=== PATIENT | male | born 1950 | race Caucasian/White ===

== ENCOUNTER 2019-04-22 11:43 | Inpatient (IN) | payer OTHER, SELFPAY ==
[2019-04-22] VITALS (10 sets, daily range): BP systolic 121–144; BP diastolic 64–78; PULSE 66–100; RESP 18–26; TEMP 36.9–38.2; O2SAT 92–98; BMI 30.4
--- NOTE | 2019-04-22 14:01 | USCV_ITS ---
Robbie Penny Age: 69 Gender: M : 1950 Exam Date: 04/22/2019 14:20 Ordering Phys: Kemi Hunt Technologist: Celina Zavala Exam Location: [facility] [place] Indication: pain/swelling RLE HISTORY: RLE pain/swelling PROCEDURES: On the right side, the common femoral, superficial femoral, profunda femoral, popliteal, posterior tibial, greater saphenous veins and the peroneal trunk were identified and interrogated in the standard fashion. These veins were found to be easily compressible with spontaneous blood flow. FINDINGS: No DVT or superficial thrombus in RLE CONCLUSIONS No evidence of right lower extremity DVT. Johnnie Murphy MD (Electronically Signed) Final Date: 22 April 2019 15:16 S
[2019-04-22 14:25] LABS: Basophils # 0.1 10^3/uL (0.0-0.1); Basophils % 0.3 %; Hematocrit 44.3 % (42.0-52.0); Hemoglobin 14.7 g/dL (11.7-16.6); Lymphocytes # 1.2 10^3/uL (0.8-4.8); Lymphocytes % 6.5 %; Mean Corpuscular HGB Conc 33.2 g/dL (30.0-36.0); Mean Corpuscular Hemoglobin 31.5 pg (28.0-34.0); Mean Corpuscular Volume 95.1 fL (80-94); Mean Platelet Volume 9.7 fL (7.4-10.4); Monocytes # 1.9 10^3/uL (0.2-0.9); Monocytes % 10.1 %; Neutrophils # 15.7 10^3/uL (1.8-7.7); Neutrophils % 82.2 %; Nucleated Red Blood Cells % 0 %; Platelet Count 341 10^3/cmm (130-400); Red Blood Count 4.66 10^6/uL (4.1-5.3); Red Cell Distribution Width 13.2 % (12.1-15.1); White Blood Count 19.1 10^3/uL (4.0-10.0)
--- NOTE | 2019-04-22 14:27 | ED_ITS ---
Entered by Andrew Kaur, acting as scribe for Anthony Mcdowell DO HPI - Fever General: Chief Complaint: Fever Stated Complaint: right leg pain Time Seen by Provider: 04/22/19 14:40 History of Present Illness: HPI Narrative: 69 yo male presents with male presents fever and right leg pain. Pt had a CABG done 04/08/19, he has some fever, pain and general malaise. Pt states that he takes blood thinners and baby aspirin. Pt states that he feels weak. Denies any chest pain beyond what he had experienced immediately postop with his sternotomy. He denies any significant shortness of breath. He has had some sweats and chills and is actually chilling when I seen the patient here in the emergency room today MD elicited complaint: fever and malaise Associated symptoms: Reports chills and extremity pain (right leg); Deny abdominal pain, back/flank pain, chest pain, confusion, diarrhea, dysuria, headache(s), nasal congestion, nausea or vomiting Review of Systems Const: Reports: fever, chills and malaise Eyes: Denies: change in vision, blurry vision or eye redness ENMT: Denies: throat pain, oral sores/lesions, dental pain, nasal discharge or nasal congestion Card: Denies: chest pain, palpitations, irregular heart rhythm, edema, syncope, shortness of breath on exertion, shortness of breath when lying down or leg pain with exertion Resp: Denies: shortness of breath, productive cough, non-productive cough or wheezing GI: Denies: abdominal pain, nausea, vomiting, vomiting blood, coffee grounds in vomit, difficulty swallowing, heartburn/indigestion, diarrhea, constipation, cramping, blood in stool or black tarry stool : Denies: flank pain, difficulty urinating, painful urination, urinary f requency, urinary urgency, urinary incontinence or blood in urine Musc: Reports: extremity pain (right leg) Skin/Breast: Reports: redness; Denies: rash or itching Neuro: Denies: headache, numbness in extremities, weakness in extremities, changes in sensation, lack of coordination, difficulty walking, frequent falls, dizziness, vertigo or confusion Psych: Denies: anxiety, depression, loss of interest, visual hallucinations, auditory hallucinations, suicidal ideation or homicidal ideation Endo: Denies: excessive urination, excessive thirst, tired all the time or cold intolerance Lukas/Lymph: Denies: easy bruising, easy bleeding, petechiae, enlarged lymph nodes or tender lymph nodes PFSH ED PFSH: Statuses (acute, chronic, etc) shown below reflect problem list status as previously entered and may not be historically accurate Medical History 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 (Acute) Hypertension (Acute) Peripheral vascular disease (Acute) Surgical History History of peripheral artery bypass (Acute) Hx of CABG (Acute) Family History Father Family history of premature coronary artery disease Hyperlipidemia Hypertension Social History Smoking and tobacco status: former smoker Alcohol intake: never Substance/Drug Use: never Household members: spouse Marital status: Physical Exam Const: COMMON NORMALS: average body habitus, oriented x3 and alert GENERAL APPEARANCE: cooperative, comfortable, well kempt and well developed NUTRITIONAL APPEARANCE: obese ORIENTATION/CONSCIOUSNESS: Yes awake, Yes oriented to person and Yes oriented to place HENMT: COMMON NORMALS: normocephalic, head/scalp atraumatic, EAC's normal, TM 's normal bilaterally, external nose normal, moist oral mucous membranes and oropharynx normal HEAD & SCALP: normocephalic and atraumatic NOSE: ex ternal nose normal EXTERNAL AUDITORY CANAL: EAC's normal TYMPANIC MEMBRANE: TM's normal bilaterally MOUTH: oral and palatal mucosa normal, lip normal and tongue normal THROAT: posterior oropharynx normal and tonsils normal Eye: COMMON NORMALS: PERRL, EOMs intact bilaterally, conjunctivae normal and no scleral icterus CONJUNCTIVA: Yes conjunctivae normal PUPIL: Yes PERRL Neck/C-Spine: COMMON NORMALS: full ROM, no lymphadenopathy, supple, no meningeal signs and thyroid normal THYROID: thyroid normal and asymmetrical Lymph: LYMPHATIC: no lymphadenopathy noted Resp: COMMON NORMALS: normal respiratory effort, no retractions, no use of accessory muscles and clear to auscultation bilaterally AUSCULTATION: clear to auscultation bilaterally Cardio: COMMON NORMALS: regular rate and regular rhythm RATE: regular rate RHYTHM: regular rhythm HEART SOUNDS: no murmurs GI: COMMON NORMALS: normal to inspection, nondistended, normoactive bowel sounds, soft to palpation and no hepatosplenomegaly PALPATION: Yes soft and Yes no hepatosplenomegaly : COMMON NORMALS: Yes no CVA tenderness BLADDER/KIDNEY EXAM: Yes no CVA tenderness Back/Pelvis: COMMON NORMALS: no CVA tenderness LUMBAR SPINE/LOWER BACK: Yes normal to inspection Extremity: NARRATIVE EXTREMITY EXAM: Mild right calf tenderness over the incision site on the right lower leg medially there is mild redness and tenderness calf itself is not particularly tender does not seem to have a positive Homans but is difficult to tell because the tenderness around the incision site. He does have dehiscence of the wound inferiorly through the full-thickness and a small area at the groin incision site there is no sign of infection there and is nontender there is no lymphadenopathy there is no popliteal lymphadenopathy or inguinal lymphadenopathy on the right leg. The left leg is surgically absent below the knee. Neuro: COMMON NORMALS: oriented x3 SENSORIUM/ORIENTATION: Yes alert, Yes oriented to person and Yes oriented to place MENINGEAL SIGNS: Yes no meningeal signs Psych: APPEARANCE: Yes well kempt Skin: COMMON NORMALS: no rashes or lesions noted and skin turgor normal GENERAL SKIN EXAM: no rashes or lesions noted and turgor normal Course ED course: Patient has an elevated white count with a left shift. Given the findings on exam and the tenderness I do think he has a cellulitis ultrasound shows no DVT but there is some subcutaneous tissue changes consistent with cellulitis there as well. Blood cultures completed due to his allergies to cephalosporins we went ahead and put him on vancomycin. Discussed with the hospitalist they will accept the patient for admission for IV antibiotics. Vital Signs: Vital signs: Vital Signs Temperature 98.9 F 04/23/19 10:53 Pulse Rate 75 04/23/19 10:53 Respiratory Rate 20 H 04/23/19 10:53 Blood Pressure 120/69 04/23/19 10:53 Pulse Oximetry 97 04/23/19 10:53 MDM - Fever Lab Data: Labs: Lab Results 04/22/19 04/22/19 Range/Units 14:17 14:17 WBC 19.1 H (4.0-10.0) 10^3/ uL RBC 4.66 (4.1-5.3) 10^6/u L Hgb 14.7 (11.7-16.6) g/dL Hct 44.3 (42.0-52.0) % MCV 95.1 H (80-94) fL MCH 31.5 (28.0-34.0) pg MCHC 33.2 (30.0-36.0) g/dL RDW 13.2 (12.1-15.1) % Plt Count 341 (130-400) 10^3/c mm MPV 9.7 (7.4-10.4) fL Neut % (Auto) 82.2 % Lymph % (Auto) 6.5 % Madison % (Auto) 10.1 % Eos % (Auto) 0.0 % Baso % (Auto) 0.3 % Neut # (Auto) 15.7 H (1.8-7.7) 10^3/u L Lymph # (Auto) 1.2 (0.8-4.8) 10^3/u L Madison # (Auto) 1.9 H (0.2-0.9) 10^3/u L Eos # (Auto) 0.0 (0.0-0.8) 10^3/u L Baso # (Auto) 0.1 (0.0-0.1) 10^3/u L Nucleated RBC % (a uto) 0 % Nucleated RBCs # 0.0 /100WBC Sodium 132 L (136-145) mmol/L Potassium 4.4 (3.5-5.1) mmol/L Chloride 94 L (98-107) mmol/L Carbon Dioxide 24 (22-29) mmol/L Anion Gap 18.4 (5-19) BUN 19 (8-23) mg/dL Creatinine 1.3 H (0.7-1.2) mg/dL Glucose 199 H (74-106) mg/dL Calcium 10.0 (8.8-10.2) mg/Dl Total Bilirubin 0.9 (0.15-1.2) mg/dL AST 19 (0-40) U/L ALT 21 (0-41) U/L Alkaline Phosphata se 116 (40-130) IU/L Total Protein 8.5 (6.6-8.7) g/dL Albumin 4.4 (3.5-5.2) g/dL Globulin 4.1 (1.3-4.6) g/dL Discharge Plan Discharge Patient Disposition: Placed in Observation Admit Provider: Nam Croft Clinical Impression: Cellulitis, Peripheral vascular disease, Hypertension, Hx of coronary artery disease Interventions: ED Discharge Assessment Last Done: 04/22/19 19:42 Discharge Date/Time: 04/22/19 19:43 Coding Level of Care Code ED Removable Prosthodontist for Chg Fwd Exam Problem Focused The documentation recorded by the Vincent hawk Kialy, accurately reflects the service I personally performed and the decisions made by Jeremias diamond Curtis L, Apr 22, 2019 11:43
[2019-04-22 14:40] LABS: Alanine Aminotransferase 21 U/L (0-41); Albumin Level 4.4 g/dL (3.5-5.2); Alkaline Phosphatase 116 IU/L (40-130); Anion Gap 18.4 (5-19); Aspartate Amino Transferase 19 U/L (0-40); Blood Urea Nitrogen 19 mg/dL (8-23); Carbon Dioxide 24 mmol/L (22-29); Chloride 94 mmol/L (98-107); Globulin 4.1 g/dL (1.3-4.6); Glucose 199 mg/dL (74-106); Potassium 4.4 mmol/L (3.5-5.1); Sodium 132 mmol/L (136-145); Total Bilirubin 0.9 mg/dL (0.15-1.2); Total Protein 8.5 g/dL (6.6-8.7)
[2019-04-22] MEDS: vancomycin 1,000 MG in sodium chloride 0.9% 250 ML 250 MG IV (15:47)
--- NOTE | 2019-04-22 16:31 | PC.NURSE ---
Rounded on patient. Patient resting in bed. No distress noted. Patient had blood tinted drainage on the blanket. This RN checked the patients leg. Patient had a wound on the right leg. Patient reports the wound is from his bypass. Patients leg very red, warm to touch, and weeping. Patients leg bandaged with telfa and tube gauze. Will continue to monitor patient.
--- NOTE | 2019-04-22 18:26 | PC.NURSE ---
Admitting physician at patients bedside.
--- NOTE | 2019-04-22 18:30 | P.HP_ITS ---
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 Presented to ER as incision for bypass st arted weeping serosanginuous fluid acutely for last 3 days. This was preceeded by redness of calf muscle for last 4-5 days along with mild pain. Pior to that wound was doing well. [place]ingo any foul smeelinh d/c or trauma to th leg. Review of Systems Narrative: Pain and swelling along with discharge of right leg, left leg BKA Const: Denies: fever, chills, body aches, change in appetite, malaise, night sweats, diaphoresis, change in sleep pattern, daytime sleepiness or snoring Eyes: Denies: change in vision, blurry vision, photophobia, eye discomfort or eye discharge ENMT: Denies: throat pain, enlarged tonsils, hoarseness, mouth pain, oral sores/lesions, dry mouth, tinnitus, nasal congestion or post nasal drip Card: Denies: chest pain, palpitations, irregular heart rhythm, edema, swelling of feet/ankles, lightheadedness, syncope, pre-syncope, shortness of breath on exertion, shortness of breath when lying down, leg pain with exertion or bluish discoloration of hands/feet Resp: Denies: shortness of breath, productive cough, non-productive cough, wheezing, stridor, pain on inspiration, change in phlegm color, coughing up blood or chest congestion GI: Denies: abdominal pain, nausea, vomiting, vomiting blood, coffee grounds in vomit, difficulty swallowing, heartburn/indigestion, diarrhea, constipation, bloating, cramping, change in bowel habits, painful bowel movements, blood in stool or black tarry stool : Denies: flank pain, difficulty urinating, painful urination, urinary frequency, urinary urgency, urinary hesitancy, urinary dribbling, difficulty starting urination, change in urine stream, nighttime urination or blood in urine Musc: Denies: neck pain, back pain, extremity pain, joint pain, joint swelling, redness, joint stiffness or limited range of motion Neuro: Denies: headache, numbness in extremities, weakness in extremities, changes in sensation, lack of coordination, difficulty walking, frequent falls, dizziness, vertigo, confusion, slurred speech, difficulty communicating thoughts or seizure-like activity Psych: Denies: anxiety, depression, mood swings, panic attacks, hopelessness or irritability Endo: Denies: excessive urination, excessive thirst, tired all the time, cold intolerance, excessive sweating, flushing or heat intolerance Lukas/Lymph: Denies: easy bruising or easy bleeding All/Imm: Denies: tongue swelling, facial swelling or acute wheezing Medications/Allergies Home Medications Medication Instructions Recorded Confirmed Last Taken Type acetaminophen 500 mg PO Q6H PRN 04/22/19 04/22/19 04/22/19 History aspirin 81 mg PO DAILY 04/22/19 04/22/19 04/21/19 History clopidogrel 75 mg PO DAILY 04/22/19 04/22/19 04/21/19 History docusate sodium 100 mg PO BID PRN 04/22/19 04/22/19 Unknown History hydrocodone-acetaminophen 1 tab PO Q6H PRN 04/22/19 04/22/19 Unknown History Allergies Allergy/AdvReac Type Severity Reaction Status Date / Time ceftriaxone [From Rocephin] Allergy ALGY-Anaphy Verified 04/22/19 12:35 laxis PFSH Acute PFSH: Statuses (acute, chronic, etc) shown below reflect problem list status as previously entered and may not be historically accurate Medical History (Updated 04/22/19 @ 22:55 by Nam Croft MD) 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 (Acute) Hypertension (Acute) Peripheral vascular disease (Acute) Surgical History (Updated 04/22/19 @ 23:14 by Nam Croft MD) History of peripheral artery bypass (Acute) Hx of CABG (Acute) Family History (Updated 04/22/19 @ 23:15 by Nam Croft MD) Father Family history of premature coronary artery disease Hyperlipidemia Hypertension Social History (Updated 04/22/19 @ 23:16 by Nam Croft MD) Smoking and tobacco status: former smoker Alcohol intake: never Substance/Drug Use: never Household members: spouse Marital status: Vitals/I&O/Wt Last Vital Signs Temp 100.8 F H 04/22/19 19:59 Pulse 100 04/22/19 19:59 Resp 20 H 04/22/19 19:59 BP 134/68 04/22/19 19:59 Pulse Ox 96 04/22/19 20:14 04/22/19 04/22/19 04/22/19 06:59 14:59 22:59 Intake Total 2.5 / 2.5 Output Total 100 / 100 Balance -97.5 / -97.5 Weight last 48 hrs Weight 107.501 kg Physical Exam Const: COMMON NORMALS: no apparent distress, average body habitus, oriented x3, no limitations, healthy appearing, alert and well nourished GENERAL APPEARANCE: cooperative, comfortable, well kempt and well developed HENMT: COMMON NORMALS: normocephalic and head/scalp atraumatic Eye: COMMON NORMALS: PERRL and EOMs intact bilaterally Chest: COMMONS NORMALS: inspection of chest normal, palpation of chest normal and palpation of breasts normal Resp: COMMON NORMALS: normal respiratory effort, no use of accessory muscles and clear to auscultation bilaterally Cardio: COMMON NORMALS: regular rate and regular rhythm JUGULAR VENOUS DISTENTION: no JVD HEART SOUNDS: S1 normal, S2 normal and no murmurs GI: COMMON NORMALS: normal to inspection, nondistended, normoactive bowel sounds, soft to palpation, non-tender, no hepatosplenomegaly, no masses and no bruits : COMMON NORMALS: Yes no CVA tenderness Extremity: NARRATIVE EXTREMITY EXAM: Left BKA Right medial redness and warmth present in medial calf region. Surgical incision present- serosanginous discharge present. dressed, no foul smell Data Micro: Micro: Microbiology 04/22/19 14:57 Blood Culture - Pr eliminary Blood SPECIMEN [facility] YESI 04/22/19 14:59 Blood Culture - Pr eliminary Blood SPECIMEN [facility] A&P Assessment and plan (1) Cellulitis: Status: Acute Code(s): L03.90 - Cellulitis, unspecified (2) Peripheral vascular disease: Status: Acute Code(s): I73.9 - Peripheral vascular disease, unspecified (3) Hypertension: Status: Acute Code(s): I10 - Essential (primary) hypertension Additional A&P Information Additional A&P Information: Cellulitis: Check ESR, CRP, X ray of leg to r/o bone involvement, abx coverage with vancomycin to cover for GP coverage + Aztreonam as patient is ceftriaxone allergic. Will do higher dose in view of possible endovascular compromise along with recent graft surgery. [id number] Wound care Tylenol for pain control along with home dose of hydrocodone h/o graft: not sure of the vessels grafted. Will need documents from OSH about details of Sx. c/w ASA and plavix. Not on statins. Will check lipid panel in AM. A1c in AM HTN: BP well controlled off any meds. Will continue to monitor FC Cardiac diet Heparin for DVT ppx Attestations Medical Necessity Statement*: Needs more than 2 midnights for cellulites vs endovascular infection Coding Level of Care Code Acute Material Movers for [facility] Fwd Diagnoses Cellulitis L03.90 Peripheral vascular disease I73.9 Hypertension I10
--- NOTE | 2019-04-22 19:42 | PC.NURSE ---
Patient resting comfortably. Pt complains of no pain at present. Pt states that pain is present when weight is applied. Pt has no needs at present. Call light placed within reach.
[2019-04-22 21:39] LABS: Chol HDL Ratio 4.26 mg/dL (1.0-5.00); Cholesterol 115 mg/dL (0-200); HDL Cholesterol 27 mg/dL (60-100); LDL Cholesterol Calculated 42 mg/dL (50-129); LDL HDL Ratio 1.56 RATIO (0.00-3.22); Thyroid Stimulating Hormone 0.53 uIU/mL (0.27-4.20); Triglycerides 229 mg/dL (0-150)
[2019-04-22 21:50] LABS: INR 1.24 (0.8-1.2)
[2019-04-22] MEDS: heparin 5,000 unit/mL INJ 1 mL 5000 UNIT SUBCUT (21:58)
[2019-04-22 22:03] LABS: Estmated Average Glucose 128; Hemoglobin A1C 6.1 % (4.0-6.0)
[2019-04-22] MEDS: acetaminophen 500 mg Tablet PO (22:04)
[2019-04-22] MEDS: sodium chloride 0.9% 1,000 ML 75 ML IV (22:08)
[2019-04-22] MEDS: aztreonam 1,000 MG in sodium chloride 0.9% (plus) 50 ML 100 MG IV (22:10)
[2019-04-23] VITALS: BP 131/64; PULSE 78; RESP 18; TEMP 36.9; O2SAT 98
[2019-04-23 04:00] VITALS: BP 102/61; PULSE 69; RESP 18; TEMP 37.7; O2SAT 95
--- NOTE | 2019-04-23 04:00 | XR_ITS ---
WS: [id number] Right leg including the tibia and fibula, 04/23/2019 Clinical Data: r/o bone involvement Comparison: None. Findings: No fractures or dislocations are seen. The tibia and fibula are intact. . There are clips in the subcutaneous soft tissue of the right leg in the proximal and medial portions. A total right knee arthroplasty has been performed. The components are in good position. No bone marck truction or erosion is seen. XR/XR tibia fibula RT 2V [id number] Impression: 1. Right knee arthroplasty. 2. Negative for fracture or bone destruction.
[2019-04-23 05:34] LABS: Basophils # 0.1 10^3/uL (0.0-0.1); Basophils % 0.4 %; Eosinophils % 0.1 %; Hematocrit 35.9 % (42.0-52.0); Lymphocytes # 1.1 10^3/uL (0.8-4.8); Lymphocytes % 8.1 %; Mean Corpuscular HGB Conc 33.4 g/dL (30.0-36.0); Mean Corpuscular Hemoglobin 31.7 pg (28.0-34.0); Mean Corpuscular Volume 94.7 fL (80-94); Mean Platelet Volume 10.4 fL (7.4-10.4); Monocytes # 1.3 10^3/uL (0.2-0.9); Monocytes % 9.8 %; Neutrophils # 10.9 10^3/uL (1.8-7.7); Neutrophils % 80.8 %; Nucleated Red Blood Cells % 0 %; Platelet Count 254 10^3/cmm (130-400); Red Blood Count 3.79 10^6/uL (4.1-5.3); Red Cell Distribution Width 13.2 % (12.1-15.1); White Blood Count 13.5 10^3/uL (4.0-10.0)
[2019-04-23 05:51] LABS: Anion Gap 15.1 (5-19); Blood Urea Nitrogen 25 mg/dL (8-23); Carbon Dioxide 22 mmol/L (22-29); Chloride 100 mmol/L (98-107); Cholesterol 106 mg/dL (0-200); Glucose 182 mg/dL (74-106); Potassium 4.1 mmol/L (3.5-5.1); Sodium 133 mmol/L (136-145); Triglycerides 195 mg/dL (0-150); VLDL Cholestrol Calculation 39 mg/dL (0-30)
[2019-04-23 07:15] VITALS: BP 120/80; PULSE 75; RESP 18; TEMP 37.3; O2SAT 96
[2019-04-23 07:51] LABS: C Reactive Protein 219.9 mg/L (0.0-4.9)
[2019-04-23 08:01] LABS: Erythrocyte Sedimentation Rate 29 mm/hr (0-10)
[2019-04-23 08:40] LABS: Chol HDL Ratio 3.93 mg/dL (1.0-5.00); HDL Cholesterol 27 mg/dL (60-100); LDL Cholesterol Calculated 40 mg/dL (50-129)
[2019-04-23 08:50] LABS: Estmated Average Glucose 128; Hemoglobin A1C 6.1 % (4.0-6.0)
[2019-04-23] MEDS: clopidogrel 75 mg Tablet PO (09:47)
[2019-04-23] MEDS: aspirin 81 mg EC Tablet PO (09:47)
[2019-04-23] MEDS: heparin 5,000 unit/mL INJ 1 mL 5000 UNIT SUBCUT ×2 (09:47→16:08)
[2019-04-23] MEDS: sodium chloride 0.9% 1,000 ML 75 ML IV ×2 (09:48→22:04)
[2019-04-23] MEDS: sodium chloride 0.9% (plus) 100 ML (10:32)
[2019-04-23] MEDS: aztreonam 2,000 MG in sodium chloride 0.9% (plus) 100 ML 200 MG IV ×2 (10:33→19:41)
[2019-04-23 10:53] VITALS: BP 120/69; PULSE 75; RESP 20; TEMP 37.2; O2SAT 97
[2019-04-23 15:03] VITALS: BP 145/83; PULSE 74; RESP 18; TEMP 37.1; O2SAT 96
--- NOTE | 2019-04-23 15:10 | USCV_ITS ---
Robbie Penny Age: 69 Gender: M : 1950 Exam Date: 04/23/2019 15:23 Ordering Phys: Rebeca Anaya MD Technologist: Narciso Esparza [place] [facility] [place]ication: CHECK BY PASS GRAFT Risk Factors: Previous Vascular Surgery: RIGHT LEFT BP: 140.0 / 70.00 BP: 140.0/ 70.00 0 0 Waveform Velocity (cm/s) Velocity (cm/s) Waveform Monophasic 105.2 Iliac Prox Monophasic 102.5 Iliac Mid Monophasic 120.6 Iliac Distal Monophasic POP 45.9 Monophasic 22.1 STEAM [employer]TER [employer] Monophasic 22.0 DPA 0.7 MARII FINDINGS LT LEG AMPUTEE FOR VASCULAR DISEASE No Doppler flow signals were noted in the common femoral and the entire superficial femoral artery. and the dorsalis pedis arteries were found to be patent. Diminished resting MARII on the right side CONCLUSIONS Abnormal resting MARII on the right side with a patent femoropopliteal bypass graft. 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 No similar previous studies are available for comparison Dr Anju Galloway MD [facility] (Electronically Signed) Final Date: 24 April 2019 10:27 S
--- NOTE | 2019-04-23 15:12 | US_ITS ---
WS: [id number] ULTRASOUND SOFT TISSUES RIGHT thigh. HISTORY: look for depth of infection/underlying abscess, associated with the bypass graft. COMPARISON: None available. TECHNIQUE: 2-D and color Doppler imaging is submitted. Bypass graft is noted within the soft tissues of the RIGHT thigh. There is fluid surrounding the maxime t and the graft is patent. There is a large amount of fluid extending along a large portion of the gr aft to the mid thigh. Diameter of the largest pocket is 9 mm. There is no increased vascularity or wa ll involving the fluid collection. The depth from the skin surface to the fluid is about 1.7 cm to th e closest collection. Fluid extends over length of greater than 4 cm. US/ soft tissue/extremity [id number] IMPRESSION: Moderate amount of fluid surrounding the RIGHT thigh bypass graft. Bypass graft remains patent. Not well formed collection at this time. May be postoperative fluid or phlegmonous changes. Developing abscess should be considered also.
--- NOTE | 2019-04-23 15:12 | USCV_ITS ---
Robbie Penny Age: 69 Gender: M : 1950 Exam Date: 04/23/2019 15:37 Ordering Phys: Rebeca Anaya MD Technologist: Narciso Esparza [place] [facility] [place]: PRE OP RIGHT LEFT LOWER EXTREMITY Diameter Diameter (cm) (cm) 0.53 High Thigh 0.58 0.47 Mid Thigh 0.26 0.54 Above Knee 0.26 0.52 Below Knee 0.37 Mid Calf 0.21 Ankle RIGHT LEFT Findings BEST ON RT GSAPH LT OK LT LEG AMPUTEE BELOW THE KNEE The above-mentioned veins are found to be easily compressible. Conclusions 1. Normal venous dimensions bilaterally. 2. Patent veins with no evidence of thrombosis Dr Anju Galloway MD [facility] (Electronically Signed) Final Date: 23 April 2019 19:20 S
--- NOTE | 2019-04-23 17:05 | PM.CONSULT ---
Providers/Reason For Consult Consulting Physican/Specialty*: Dr. Anaya, hospitalist service Reason for Consult*: Status post right femoropopliteal bypass with draining wound Attending Physician: Rebeca Anaya MD History of Present Illness History of Present Illness Robbie Penny is a 69 year old male who is status post right femoropopliteal bypass April 08 at the [facility] in [facility]. Indications for the surgery, as reported by him, include claudication of the right lower extremity at about 100 yards. He reports noting some serous drainage coming from the wound distally beginning last Monday, 4 days ago. This has slowly progressed with now erythema in the distal incision, which is infra popliteal. There is now also some drainage of a cloudy nature coming from the more superior right groin wound. He is unclear as to the exact procedure or conduit utilized. He states he was informed by his surgeon that the procedure took 7 hours, typically substantially longer the routine femoropopliteal bypass. Upon inspection of his incisions, he appears to have had distally the bypass placed in the infrapopliteal location. I was present during my requested Doppler interrogation of this area. His graft appears to be patent and appears to be a ringed [place]-Adam graft. He was told by his surgeon that a small graft was used. I would suspect probably 6 mm. In addition, the duplex study revealed some fluid collection around the graft proximally which does dissipate toward the distal thigh and there is no other fluid collections noted more distally. It is unclear at this time as to whether this represents infected fluid or simply seroma from a recent bypass graft. His biggest complaint has been wound drainage over the past 4 days as well as erythema of the calf for the past 5 days with mild to moderate pain. 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 He denies systemic symptoms including, fever, chills, or night sweats. He was placed on vancomycin and aztreonam upon admission. Reports from his hospitalization of his recent surgery, including the operative report are pending. Review of Systems General: Reports: 10 or more systems reviewed and unremarkable except in HPI and below Const: Denies: fever, chills or body aches Card: Denies: chest pain or palpitations Resp: Denies: shortness of breath or productive cough Skin/Breast: Reports: changes in skin color (Increasing erythema of the right lower extremity incision) and surgical incision (Distal surgical incision erythema and drainage for the past 4 days, also including drainage of the proximal groin incision) Meds/Allergies Home Medications and Allergies Home Medications Medication Instructions Recorded Confirmed Type acetaminophen 500 mg PO Q6H PRN 04/22/19 04/22/19 History aspirin 81 mg PO DAILY 04/22/19 04/22/19 History clopidogrel 75 mg PO DAILY 04/22/19 04/22/19 History docusate sodium 100 mg PO BID PRN 04/22/19 04/22/19 History hydrocodone-acetaminophen 1 tab PO Q6H PRN 04/22/19 04/22/19 History Allergies Allergy/AdvReac Type Severity Reaction Status Date / Time ceftriaxone [From Rocephin] Allergy ALGY-Anaphy Verified 04/22/19 12:35 laxis Current Medications Current Medications Generic Name Dose Route Start Last Admin Trade Name Freq PRN Reason Stop Dose Admin Acetaminophen 500 mg 04/22/19 19:59 04/22/19 22:04 Tylenol PO 500 mg Q6H PRN Administration Pain Aspirin 81 mg 04/23/19 09:00 04/23/19 09:47 Aspirin Ec PO 81 mg DAILY ENRIKE Administration Clopidogrel Bisulfate 75 mg 04/23/19 09:00 04/23/19 09:47 Plavix PO 75 mg DAILY ENRIKE Administration Heparin Sodium (Beef Lung) 5,000 unit 04/22/19 23:15 04/23/19 16:08 Heparin SUBCUT 5,000 unit Q8H ENRIKE Administration Sodium Chloride 1,000 mls @ 75 mls/hr 04/22/19 19:59 04/23/19 09:48 Sodium Chloride 0.9% IV 75 mls/hr .[id number] ENRIKE Administration Vancomycin HCl 1,500 mg/ 250 mls @ 166.667 mls/hr 04/23/19 09:00 04/23/19 12:14 Sodium Chloride IV 166.7 mls/hr Q18H ENRIKE Administration PFSH Acute PFSH: Statuses (acute, chronic, etc) shown below reflect problem list status as previously entered and may not be historically accurate Medical History 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 (Acute) Hypertension (Acute) Peripheral vascular disease (Acute) Surgical History History of peripheral artery bypass (Acute) Hx of CABG (Acute) Family History Father Family history of premature coronary artery disease Hyperlipidemia Hypertension Social History Smoking and tobacco status: former smoker Alcohol intake: never Substance/Drug Use: never Household members: spouse Marital status: Vitals/I&O/Wt Last Vital Signs Temp 98.7 F 04/23/19 15:03 Pulse 74 04/23/19 15:03 Resp 18 04/23/19 15:03 BP 145/83 04/23/19 15:03 Pulse Ox 96 04/23/19 15:03 04/23/19 04/23/19 04/23/19 06:59 14:59 22:59 Intake Total 720 / 720 Output Total 260 / 360 250 / 250 Balance -260 / -357.5 470 / 470 Weight last 48 hrs Weight 237 lb Physical Exam Const: COMMON NORMALS: no apparent distress, average body habitus and oriented x3 GENERAL APPEARANCE: cooperative and well developed HENMT: COMMON NORMALS: normocephalic HEAD & SCALP: normocephalic Neck/C-Spine: COMMON NORMALS: full ROM and no JVD; negative for no lymphadenopathy GENERAL: Yes normal visual inspection CAROTIDS: Yes normal carotid upstroke and No bruit Chest: COMMONS NORMALS: inspection of chest normal Resp: COMMON NORMALS: normal respiratory effort and clear to auscultation bilaterally; negative for no retractions AUSCULTATION: clear to auscultation bilaterally Cardio: COMMON NORMALS: no JVD, regular rate, regular rhythm, S1 normal heart sound, S2 normal heart sound, no gallops, no murmurs and no rub RATE: regular rate RHYTHM: regular rhythm HEART SOUNDS: S1 normal and S2 normal BRUITS: no carotid bruits PERIPHERAL PULSES: dorsalis pedis pulses not present Extremity: GENERAL: Yes amputation (Left BKA, well-healed) RIGHT LOWER EXTREMITY: Yes upper leg (Slightly turbid drainage from the proximal groin incision which is beginning to separate.) and Yes lower leg (Approximately 15 cm incision with the drainage in the proximal portion of cloudy fluid. There is associated erythema.) Neuro: COMMON NORMALS: oriented x3, no focal motor deficits and no sensory deficits noted (Mildly decreased sensation of the feet bilaterally) SPEECH: speech normal Data Micro: Micro: Microbiology 04/22/19 14:59 Blood Culture - Pr eliminary Blood NEGATIVE TO CRISTY E 04/22/19 14:57 Blood Culture - Pr eliminary Blood NEGATIVE TO CRISTY E A&P Assessment and plan (1) Status post femoral-popliteal bypass surgery: Status post right femoral distal popliteal bypass April 08, now with slightly cloudy drainage from both the groin incision and the proximal medial right leg incision. Graft is patent by Doppler study with Kelly-graft fluid noted in the proximal one third from the groin to the mid thigh region. Patent graft by Doppler examination. I had a lengthy conversation with Mr. Penny and his with concerns of possible prosthetic graft infection from his recent femoral-popliteal bypass. The wounds are of concern by observation and the perigraft fluid the proximal portion of the graft is also of concern. He does not appear to be systemic from this process at this time, though he does have a modestly elevated white count and perigraft fluid. We are awaiting arrival of his hospital documentation from [place] of last month, including the operative report. I discussed very frankly with him and his that we may not be able to revise this graft if there is indeed evidence for graft infection and that medical treatment of such an infection rarely is successful without removal of the graft, which of course could present acute ischemia to the right leg revascularization not attempted. I have performed bilateral greater saphenous vein mapping and he does appear to have conduit that may be reasonable to consider reverse saphenous vein graft replacement of his [place]-Adam graft, if indeed it is determined to be infected. Due to his prior left BKA, if this were undertaken, which is technically challenging, we may have to actually utilize vein from both legs for such an approach in order to reach the target. There is clearly a substantial chance that if the prosthetic graft is infected, revascularization may be unsuccessful and may need to major amputation including right BKA or AKA. Mr. Penny stated understanding. For this discussion, it appears that clearly this was a technically challenging procedure back in March since he reports the procedure took approximately 7 hours. At present, I will continue current antibiotic course and meticulous wound care. Leg elevation as much as possible. DVT prophylaxis. We will review records when they are available and I will keep in close contact with Dr. Anaya. Status: Acute Code(s): Z95.828 - Presence of other vascular implants and grafts Consult Attestations Medical Necessity Statement: Surgical site wound infection status post right femoropopliteal bypass Time Spent in Patient Care: Greater than 35 minutes (60 minutes) Coding Level of Care Code Acute Gas Producer for Chg Fwd Exam Problem Focused Diagnoses Status post femoral-popliteal bypass surgery Z95.828
--- NOTE | 2019-04-23 17:49 | PM.PN ---
Subjective Subjective: Interval history: tmax 100.8F overnight. States pain in leg is improved. Upon opening the dressing there is noted to be copious amount of pus that is coming out from the top of the incision site. This has been swabbed some pus has been collected and sent for cultures. Wound has been redressed for now. Overall very high concern for underlying graft infection for which patient is undergoing duplex imaging at this time. Blood culture remains negative at this time. Medications: Reviewed: Yes Vitals/I&O/Wt Last Vital Signs Temp 98.7 F 04/23/19 15:03 Pulse 74 04/23/19 15:03 Resp 18 04/23/19 15:03 BP 145/83 04/23/19 15:03 Pulse Ox 96 04/23/19 15:03 04/23/19 04/23/19 04/23/19 06:59 14:59 22:59 Intake Total 720 / 720 Output Total 260 / 360 250 / 250 Balance -260 / -357.5 470 / 470 Weight last 48 hrs Weight 107.501 kg Physical Exam Narrative: EXAM NARRATIVE: General awake alert and oriented x3 CVS S1-S2 is normal Respiratory system is clear to auscultation bilaterally Abdomen is soft nondistended and nontender Extremity left leg is status post below-knee amputation. Right calf present open, underlying gauze noted to be soaked with pus. Additional pus is seen no oozing from top of the incision site. No gross surrounding cellulitis is present. Data Micro: Micro: Microbiology 04/22/19 14:59 Blood Culture - Pr eliminary Blood NEGATIVE TO CRISTY E 04/22/19 14:57 Blood Culture - Pr eliminary Blood NEGATIVE TO CRISTY E A&P Assessment and plan (1) Cellulitis: Status: Acute Code(s): L03.90 - Cellulitis, unspecified (2) Peripheral vascular disease: Status: Acute Code(s): I73.9 - Peripheral vascular disease, unspecified (3) Hypertension: Status: Acute Code(s): I10 - Essential (primary) hypertension Additional A&P Information Additional A&P Information: Cellulitis: High possibility of underlying abscess given gross pus discharge today. Pus has been sampled and sent for culture. Until then we will continue empiric coverage with aztreonam and vancomycin. Patient reports anaphylactic allergy with cephalosporins therefore at this time would not like to use the beta-lactam class of antibiotics. Reassuringly leukocytosis is trending down. Very high concern for underlying graft infected. Based on nuclear imaging obtained at bedside today it appears to be an ileal popliteal bypass. [facility] We are awaiting fax over of these documents. In the interim we will obtain an arterial duplex, saphenous vein mapping in anticipation of any further procedures and soft tissue ultrasound to assess for the depth of infection. Vascular surgery consult with Dr. Bettencourt HTN: BP well controlled off any meds. Will continue to monitor Peripheral vascular disease continue aspirin and clopidogrel. Patient is 2 weeks postop from likely ileo-popliteal bypass. FC Cardiac diet Heparin for DVT ppx Attestations Medical Necessity Statement*: Admitted for the management of possible vascular graft infection. Coding Level of Care Code Acute Gypsum Roofer for Davis Suzette Diagnoses Cellulitis L03.90 Peripheral vascular disease I73.9 Hypertension I10
[2019-04-23 20:00] VITALS: BP 136/77; PULSE 68; RESP 20; TEMP 36.8; O2SAT 97
[2019-04-24] VITALS: BP 100/59; PULSE 64; RESP 20; TEMP 36.7; O2SAT 96
[2019-04-24] MEDS: heparin 5,000 unit/mL INJ 1 mL 5000 UNIT SUBCUT ×4 (01:09→23:49)
[2019-04-24] MEDS: aztreonam 2,000 MG in sodium chloride 0.9% (plus) 100 ML 200 MG IV ×3 (03:39→18:17)
[2019-04-24 04:00] VITALS: BP 116/69; PULSE 62; RESP 17; TEMP 36.5; O2SAT 97
[2019-04-24 05:59] LABS: Basophils % 0.7 %; Eosinophils # 0.1 10^3/uL (0.0-0.8); Eosinophils % 2.2 %; Hematocrit 36.1 % (42.0-52.0); Lymphocytes % 17.1 %; Mean Corpuscular HGB Conc 33.2 g/dL (30.0-36.0); Mean Corpuscular Hemoglobin 32.9 pg (28.0-34.0); Mean Corpuscular Volume 98.9 fL (80-94); Mean Platelet Volume 10.1 fL (7.4-10.4); Monocytes # 0.6 10^3/uL (0.2-0.9); Monocytes % 9.9 %; Neutrophils # 4.1 10^3/uL (1.8-7.7); Neutrophils % 69.4 %; Nucleated Red Blood Cells % 0 %; Platelet Count 204 10^3/cmm (130-400); Red Blood Count 3.65 10^6/uL (4.1-5.3); Red Cell Distribution Width 13.2 % (12.1-15.1); White Blood Count 5.8 10^3/uL (4.0-10.0)
[2019-04-24 06:18] LABS: Alanine Aminotransferase 17 U/L (0-41); Albumin Level 3.4 g/dL (3.5-5.2); Alkaline Phosphatase 71 IU/L (40-130); Anion Gap 13.9 (5-19); Aspartate Amino Transferase 21 U/L (0-40); Blood Urea Nitrogen 16 mg/dL (8-23); Calcium 8.7 mg/Dl (8.8-10.2); Carbon Dioxide 23 mmol/L (22-29); Chloride 103 mmol/L (98-107); Globulin 3.1 g/dL (1.3-4.6); Glucose 139 mg/dL (74-106); Potassium 3.9 mmol/L (3.5-5.1); Sodium 136 mmol/L (136-145); Total Bilirubin 0.4 mg/dL (0.15-1.2); Total Protein 6.5 g/dL (6.6-8.7)
[2019-04-24 07:31] VITALS: BP 127/72; PULSE 67; RESP 18; TEMP 36.8; O2SAT 97
[2019-04-24] MEDS: aspirin 81 mg EC Tablet PO (09:45)
[2019-04-24] MEDS: clopidogrel 75 mg Tablet PO (09:45)
--- NOTE | 2019-04-24 09:58 | P.PN_ITS ---
Subjective Subjective: Interval history: No complaints this morning. I reviewed the wounds. The right groin wound was not covered as requested. The right lower leg wound did have a dressing from yesterday in place and there was some strikethrough, though this was decreased from my original exam yesterday. The strikethrough and drainage is coming from the superior 3 to 4 cm of the right leg wound. He has no specific complaints. No leg pain. Denies fever or chills. Appetite is good. White count has now normalized. He has been afebrile for over 24 hours. I did confer with my colleague, Dr. Anaya this morning. Given the clinical improvement as well as resolution of leukocytosis, I recommend continued medical management and IV antibiotics and meticulous wound care. I carefully instructed this with the nurse who is at bedside and have reiterated this in physician orders. Some records from the outside hospital did arrive and date back to 2010. Pertinent information includes an arteriogram which was a CTA with runoff. This was performed December 07. It describes persistent occlusion of the bilateral SFAs and popliteal arteries with diminutive flow in the right leg and no visualized flow in the right foot. While this is described in the summary, the actual description of the right lower extremity states patent right SFA including occlusion in the course with a mid stent in the SFA. Right popliteal artery is occluded at the trifurcation. A diminutive anterior tibial artery is described. A patent peroneal artery is noted. While I do not have the operative report, I do have a discharge summary of April 10, 2019. It describes that a femoral to peroneal artery bypass with PTFE graft was utilized. Vitals/I&O/Wt Last Vital Signs Temp 98.3 F 04/24/19 07:31 Pulse 67 04/24/19 07:31 Resp 18 04/24/19 07:31 BP 127/72 04/24/19 07:31 Pulse Ox 97 04/24/19 07:31 04/23/19 04/24/19 04/24/19 22:59 06:59 14:59 Intake Total 1700 / 2670 Output Total 1100 / 1350 Balance 1700 / 2420 -1100 / 1320 Weight last 48 hrs Weight 208 lb 4.8 oz Weight 237 lb Physical Exam Extremity: OTHER: Right groin wound remains with maceration though minimal discharge. The right lower leg wound has discharge from the superior 3 to 4 cm. This appears to have decreased somewhat though is still present. Erythema does appear to be improved. Data Micro: Micro: Microbiology 04/22/19 14:59 Blood Culture - Pr eliminary Blood NEGATIVE TO CRISTY E 04/22/19 14:57 Blood Culture - Pr eliminary Blood NEGATIVE TO CRISTY E A&P Assessment and plan (1) Status post femoral-popliteal bypass surgery: Approximate 3-week status post right femoropopliteal bypass utilizing [place]-Adam graft with incision drainage and cellulitis Status: Acute Code(s): Z95.828 - Presence of other vascular implants and grafts (2) Cellulitis: Erythema is improved. Drainage has slightly decreased. Leukocytosis has resolved Afebrile for over 24 hours Ultimate outcome of this is still unclear, though I do think that if exploration is required with removal of the graft and possible in situ saphenous vein graft interposition in attempt to maintain revascularization, there is a substantial probability for major amputation being required. Therefore, currently, I recommend continued medical management. Status: Acute Code(s): L03.90 - Cellulitis, unspecified Attestations Medical Necessity Statement*: Postsurgical incision drainage with cellulitis; status post right femoropopliteal bypass approximately 3 weeks ago Time Spent in Patient Care: 16 - 35 minutes Coding Level of Care Code Acute Sandstone Inspector Repairer for Davisg Fwjacquie Diagnoses Status post femoral-popliteal bypass surgery Z95.828 Cellulitis L03.90
[2019-04-24 11:10] VITALS: BP 136/71; PULSE 75; RESP 18; TEMP 36.8; O2SAT 98
[2019-04-24] MEDS: chlorhexidine gluconate 4% Btl 118 mL 1 APPLIC TOPICAL (11:21)
--- NOTE | 2019-04-24 13:46 | XR_ITS ---
WS: [id number] CHEST XRAY TECHNIQUE: Portable chest. CLINICAL INFORMATION: POST PICC PLACEMENT COMPARISON: None. FINDINGS: Right PICC with tip in distal SVC. No pneumothorax. Lungs are well aerated. XR/XR chest 1V portable [id number] IMPRESSION: Right PICC with tip in distal SVC.
--- NOTE | 2019-04-24 14:16 | PC.CHAP ---
Pastoral Care Encounter/Spiritual Assessment Type of Contact [] Declined classification officer visit [] Patient/Family/Request visit [] Outpatient visit [x] Follow-up visit [] Physician referral [] Code/Alert [] Routine visit [] Staff referral [] Actively dying [] Patient sleeping [] Family support [] [] Out of room [] Palliative care [] [x] Receiving care in room [] Pre-surgical visit [] Trauma [] Long length of stay [] ICU visit [] Other: Relational/Emotional Strength [] Patient feels connected with others/family/visitors/staff [] Distress [] Loneliness/isolation [] Abandonment Spirituality of Patient [] Person of Franca [] Attends Evangelical of their Franca [] Believes in Prayer [] Reads Bible or Synagogue materials [] There are Spiritual issues to be addressed Road Equipment Operator Interventions [] Prayer [] Active listening [] Non-anxious presence [] Spiritual/emotional support [] Crisis/trauma care [] Spiritual counseling [] Bereavement support [] Provided bereavement packet [] Provided Bible/devotional materials [] Provided toy/stuffed animal, coloring book to patient or family member [] Completed spiritual assessment [] Provided Communion [] Anointing/Ada [] Salvation [] Other: Impact on Illness or Injury [] Angry [] Fearful [] Anxious [] Often cries [] Exhaustion [] Unable to work [] Unable to attend orthodoxy [] Unable to walk/stand [] Unable to read [] Unable to drive [] Unable to eat/drink [] Unable to sleep [] Unable to be with family [] Other: Summary Time spent with patient
--- NOTE | 2019-04-24 15:01 | PM.PN ---
Subjective Subjective: Interval history: Reports improvement in pain today. His leg is also looking less red and inflamed today. He has been afebrile over the last 24 hours. Leukocytosis has nearly resolved. Blood cultures remain pending at this time. Medications: Reviewed: Yes Vitals/I&O/Wt Last Vital Signs Temp 98.2 F 04/24/19 11:10 Pulse 75 04/24/19 11:10 Resp 18 04/24/19 11:10 BP 136/71 04/24/19 11:10 Pulse Ox 98 04/24/19 11:10 04/24/19 04/24/19 04/24/19 06:59 14:59 22:59 Intake Total 100 / 2770 360 / 360 Output Total 1100 / 1350 Balance -1000 / 1420 360 / 360 Weight last 48 hrs Weight 95.254 kg Weight 94.483 kg Physical Exam Narrative: EXAM NARRATIVE: General awake alert and oriented CVS S1-S2 is normal Respiratory system is clear to auscultation bilaterally Abdomen is soft nondistended Extremities his right lower extremity appears to be less erythematous and tense today. There is very minimal pus discharge from his incision site over the cough. There is also noted to be an open incision site in his right groin however no discharge is noted here. Dressing is in place. Data Micro: Micro: Microbiology 04/23/19 15:15 Gram Stain - Final Leg - Right 04/23/19 15:15 Gram Stain - Final Leg Right 04/22/19 14:59 Blood Culture - Pr eliminary Blood NEGATIVE TO CRISTY E 04/22/19 14:57 Blood Culture - Pr eliminary Blood NEGATIVE TO CRISTY E A&P Assessment and plan (1) Cellulitis: Status: Acute Code(s): L03.90 - Cellulitis, unspecified (2) Peripheral vascular disease: Status: Acute Code(s): I73.9 - Peripheral vascular disease, unspecified (3) Hypertension: Status: Acute Code(s): I10 - Essential (primary) hypertension Additional A&P Information Additional A&P Information: Cellulitis: Ultrasound of the right lower extremity was performed yesterday. Arterial duplex showed a patent femoropopliteal synthetic graft. Edema was noted in both in the proximal and distal leg including around the graft site. It is difficult to say if these are postoperative changes from recent vascular surgery versus presence of infected fluid around the graft. Given that the patient is clinically improving we will plan to treat this as an endovascular infection, including the possibility of graft infection as surgical intervention at this time is extremely risky. The risk is not only related to risk of ischemia with manipulating a patent graft but also possible introduction of infected material into a graft site. As long as blood cultures remain clear we will plan on treating with 6 weeks of IV antibiotic therapy which is culture directed. He is currently on empiric coverage with aztreonam and vancomycin. This will be adjusted for long-term based on final culture results. Patient reports anaphylactic allergy with cephalosporins therefore at this time would not like to use the beta-lactam class of antibiotics. Reassuringly leukocytosis is trending down. [facility] We are awaiting fax over of these documents. Appreciate vascular surgery recommendations. HTN: BP well controlled off any meds. Will continue to monitor Peripheral vascular disease continue aspirin and clopidogrel. Patient is 2 weeks postop from likely -popliteal bypass. FC Cardiac diet Heparin for DVT ppx Attestations Medical Necessity Statement*: management of endovascular infection. Coding Level of Care Code Acute Amusement Or Recreation Card Checker for Sampson Bradford Diagnoses Cellulitis L03.90 Peripheral vascular disease I73.9 Hypertension I10
--- NOTE | 2019-04-24 15:22 | XR_ITS ---
WS: [id number] CHEST XRAY TECHNIQUE: Portable chest. CLINICAL INFORMATION: PICC placement COMPARISON: None. FINDINGS: Right PICC with tip in the distal SVC. Heart: Normal cardiac silhouette. Lungs: Lungs are clear. No consolidation or pleural effusion. No pneumothorax. Bones: Normal visualized bony structures. XR/XR chest 1V portable [id number] IMPRESSION: Right PICC with tip in distal SVC
[2019-04-24] MEDS: acetaminophen 500 mg Tablet PO (18:26)
[2019-04-24 20:34] VITALS: BP 132/63; PULSE 60; RESP 20; TEMP 36.8; O2SAT 97
[2019-04-24 23:43] VITALS: BP 118/55; PULSE 63; RESP 18; TEMP 36.8; O2SAT 95
[2019-04-25 04:00] VITALS: BP 126/65; PULSE 64; RESP 18; TEMP 36.6; O2SAT 98
[2019-04-25] MEDS: aztreonam 2,000 MG in sodium chloride 0.9% (plus) 100 ML 200 MG IV (04:02)
[2019-04-25] MEDS: sodium chloride 0.9% 1,000 ML 75 ML IV (04:05)
[2019-04-25 07:24] VITALS: BP 113/63; PULSE 65; RESP 16; TEMP 36.7; O2SAT 97
--- NOTE | 2019-04-25 08:15 | P.PN_ITS ---
Subjective Subjective: Interval history: Sleeping on my early rounds this morning. Nurses report no concerns overnight. Leg discomfort has substantially improved. I did follow up about an hour and a half later and he was awake and we conversed with nurse at bedside. I reviewed the records that arrived from the outside hospital. He actually had a right PTFE femoral to peroneal artery bypass. I attempted to change the problem list to reflect this, however this option was not available, therefore I left a femoral-popliteal bypass surgery as an active problem and in the past history. Actually, however, it was a femoral peroneal bypass. Duplex today from yesterday does reveal some fluid around the graft though this may be postoperative. It is unclear at this time as to whether the graft is actually infected, though the fact that he is remained afebrile and his white count dropped fairly precipitously with antibiotics, is a good sign. I have also initiated twice daily cleaning of the wound, shower with Betasept soap daily, and placement of Maxorb dressing on both the groin wound and the leg wound. The Gram stain have revealed gram-positive cocci in pairs mostly along with some gram-negative rods. Microbiology ID is still pending. Vitals/I&O/Wt Last Vital Signs Temp 98.1 F 04/25/19 07:24 Pulse 65 04/25/19 07:24 Resp 16 04/25/19 07:24 BP 113/63 04/25/19 07:24 Pulse Ox 97 04/25/19 07:24 04/24/19 04/25/19 04/25/19 22:59 06:59 14:59 Intake Total 1950 / 2410 350 / 2760 Output Total 300 / 300 715 / 1015 400 / 400 Balance 1650 / 2110 -365 / 1745 -400 / -400 Weight last 48 hrs Weight 211 lb 6 oz Weight 210 lb Weight 208 lb 4.8 oz Physical Exam Extremity: OTHER: There is continued drainage from the superior margin of the right lower extremity medial incision though this does appear to be somewhat improved. The erythema has clearly improved. Discomfort markedly improved as well. The right groin incision also has less erythema and there is been some separation of the inferior margin of this longitudinal incision right at the groin crease. I cleaned both wounds, painted with Betadine, and placed Maxorb dressing followed by 4 x 4 gauze and then an ABD pad and secured with Kerlix. Data Micro: Micro: Microbiology 04/23/19 15:15 Gram Stain - Final Leg - Right 04/23/19 15:15 Gram Stain - Final Leg Right A&P Assessment and plan (1) S/P femoral-popliteal bypass surgery: He is status post PTFE [place] femoral to peroneal artery bypass. Clinically, he is improved. Continue local wound care. I will confer with Dr. Anaya. We will need to determine whether outpatient treatment antibiotics should be parenteral or oral. As well, after discharge, I would recommend follow-up with [facility] wound care services as opposed to [facility] as we have more options for wound management through that location. Status: Acute Code(s): Z95.828 - Presence of other vascular implants and grafts Attestations Medical Necessity Statement*: Surgical site infection status post right femoral peroneal artery bypass utilizing PTFE graft Coding Level of Care Code Acute Pipe Manufacture Supervisor for g Fwd Diagnoses S/P femoral-popliteal bypass surgery Z95.828
[2019-04-25] MEDS: aspirin 81 mg EC Tablet PO (08:38)
[2019-04-25] MEDS: clopidogrel 75 mg Tablet PO (08:38)
[2019-04-25] MEDS: chlorhexidine gluconate 4% Btl 118 mL 1 APPLIC TOPICAL (08:51)
[2019-04-25] MEDS: heparin 5,000 unit/mL INJ 1 mL 5000 UNIT SUBCUT ×2 (08:52→18:08)
[2019-04-25 10:00] VITALS: BMI 26.9
[2019-04-25] MEDS: aztreonam 2,000 MG in sodium chloride 0.9% (plus) 100 ML 250 MG IV ×2 (10:45→18:20)
[2019-04-25 12:00] VITALS: BP 128/61; PULSE 62; RESP 18; TEMP 36.9; O2SAT 97
[2019-04-25 15:24] VITALS: BP 124/64; PULSE 60; RESP 16; TEMP 36.8; O2SAT 98
[2019-04-25 15:54] LABS: Vancomycin Trough 13.2 ug/mL (10-15)
--- NOTE | 2019-04-25 18:07 | P.PN_ITS ---
Subjective Subjective: Interval history: Leg appears unchanged over yesterday. No pain, increased discharge or swelling. Medications: Reviewed: Yes Vitals/I&O/Wt Last Vital Signs Temp 98.2 F 04/25/19 15:24 Pulse 60 04/25/19 15:24 Resp 16 04/25/19 15:24 BP 124/64 04/25/19 15:24 Pulse Ox 98 04/25/19 15:24 04/25/19 04/25/19 04/25/19 06:59 14:59 22:59 Intake Total 350 / 2760 720 / 720 Output Total 715 / 1015 675 / 675 600 / 1275 Balance -365 / 1745 45 / 45 -600 / -555 Weight last 48 hrs Weight 95.254 kg Weight 95.878 kg Weight 95.254 kg Weight 94.483 kg Physical Exam Narrative: EXAM NARRATIVE: General awake alert and oriented CVS S1-S2 is normal Respiratory system is clear to auscultation bilaterally Abdomen is soft nondistended Extremities his right lower extremity appears to be less erythematous and tense compared to admission. There is also noted to be an open incision site in his right groin however no discharge is noted here. Data Micro: Micro: Microbiology 04/23/19 15:15 Gram Stain - Final Leg Right Abscess Culture - Preliminary 04/23/19 15:15 Gram Stain - Final Leg - Right Wound Culture - Pr eliminary Streptococcus G roup C A&P Assessment and plan (1) Peripheral vascular disease: Status: Acute Code(s): I73.9 - Peripheral vascular disease, unspecified (2) Hypertension: Status: Acute Code(s): I10 - Essential (primary) hypertension (3) S/P femoral-popliteal bypass surgery: Status: Acute Code(s): Z95.828 - Presence of other vascular implants and grafts (4) Vascular graft infection: Status: Acute Code(s): T82.7XXA - Infection and inflammatory reaction due to other cardiac and vascular devices, implants and grafts, initial encounter Additional A&P Information Additional A&P Information: Arterial duplex showed patent femoropopliteal synthetic graft. Edema was noted in both in the proximal and distal leg including around the graft site. It is difficult to say if these are postoperative changes from recent vascular surgery versus presence of infected fluid around the graft. Given that the patient is clinically improving we will plan to treat this conservatively and cautiously as an endovascular infection, including the possibility of graft infection as surgical intervention at this time is extremely risky. The risk is not only related to risk of ischemia with manipulating a patent graft but also possible introduction of infected material into a graft site. As long as blood cultures remain clear we will plan on treating with 6 weeks of IV antibiotic therapy which is culture directed. Thus far cx results with Group C streptococcus. Given h/o anaphylaxis with Ceftriaxone, hesitant to use b lactams at this time, though patient does report he has had penicillin,amoxicillin several times in the past with no adverse reactions. Will plan to use iv vancomycin instead. HTN: BP well controlled off any meds. Will continue to monitor Peripheral vascular disease continue aspirin and clopidogrel. Patient is 2 weeks postop FC Cardiac diet Heparin for DVT ppx Attestations Medical Necessity Statement*: management of RLE cellulitis, graft infection cannot be excluded Coding Level of Care Code Acute Airborne Weapons Technical Manager for [facility] Suzette Diagnoses Peripheral vascular disease I73.9 Hypertension I10 S/P femoral-popliteal bypass surgery Z95.828 Vascular graft infection T82.7XXA
[2019-04-25 19:04] VITALS: BP 135/72; PULSE 60; RESP 20; TEMP 36.9; O2SAT 97
[2019-04-25 23:54] VITALS: BP 146/71; PULSE 61; RESP 20; TEMP 36.8; O2SAT 97
[2019-04-26] VITALS (7 sets, daily range): BP systolic 135–168; BP diastolic 67–78; PULSE 58–68; RESP 16–22; TEMP 36.7–37.1; O2SAT 97–98
[2019-04-26] MEDS: heparin 5,000 unit/mL INJ 1 mL 5000 UNIT SUBCUT ×3 (00:02→15:24)
[2019-04-26] MEDS: aztreonam 2,000 MG in sodium chloride 0.9% (plus) 100 ML 200 MG IV (04:08)
[2019-04-26 06:02] LABS: Basophils % 0.9 %; Eosinophils # 0.1 10^3/uL (0.0-0.8); Eosinophils % 4.3 %; Hematocrit 37.7 % (42.0-52.0); Hemoglobin 12.1 g/dL (11.7-16.6); Lymphocytes # 0.9 10^3/uL (0.8-4.8); Lymphocytes % 28.6 %; Mean Corpuscular HGB Conc 32.1 g/dL (30.0-36.0); Mean Corpuscular Hemoglobin 30.9 pg (28.0-34.0); Mean Corpuscular Volume 96.4 fL (80-94); Mean Platelet Volume 10.6 fL (7.4-10.4); Monocytes # 0.3 10^3/uL (0.2-0.9); Monocytes % 10.3 %; Neutrophils # 1.8 10^3/uL (1.8-7.7); Neutrophils % 55.6 %; Nucleated Red Blood Cells % 0 %; Platelet Count 207 10^3/cmm (130-400); Red Blood Count 3.91 10^6/uL (4.1-5.3); Red Cell Distribution Width 13.2 % (12.1-15.1); White Blood Count 3.3 10^3/uL (4.0-10.0)
[2019-04-26 06:34] LABS: Alanine Aminotransferase 42 U/L (0-41); Albumin Level 3.7 g/dL (3.5-5.2); Alkaline Phosphatase 98 IU/L (40-130); Aspartate Amino Transferase 40 U/L (0-40); Blood Urea Nitrogen 11 mg/dL (8-23); Calcium 9.3 mg/Dl (8.8-10.2); Carbon Dioxide 26 mmol/L (22-29); Chloride 102 mmol/L (98-107); Glucose 136 mg/dL (74-106); Sodium 136 mmol/L (136-145); Total Bilirubin 0.5 mg/dL (0.15-1.2); Total Protein 6.7 g/dL (6.6-8.7)
--- NOTE | 2019-04-26 07:37 | P.PN_ITS ---
Subjective Subjective: Interval history: No complaints overnight. Rested well. Vitals/I&O/Wt Last Vital Signs Temp 98.2 F 04/26/19 04:00 Pulse 60 04/26/19 04:00 Resp 22 H 04/26/19 04:00 BP 145/67 04/26/19 04:00 Pulse Ox 97 04/26/19 04:00 04/25/19 04/26/19 04/26/19 22:59 06:59 14:59 Intake Total 400 / 1220 450 / 1670 Output Total 1875 / 2550 875 / 3425 Balance -1475 / -1330 -425 / -1755 Weight last 48 hrs Weight 209 lb 7 oz Weight 210 lb Weight 211 lb 6 oz Weight 210 lb Physical Exam Extremity: NARRATIVE EXTREMITY EXAM: Erythema remains resolving both groin and right medial leg incision. Drainage continues to slowly decrease. Data Micro: Micro: Microbiology 04/23/19 15:15 Gram Stain - Final Leg Right Abscess Culture - Preliminary 04/23/19 15:15 Gram Stain - Final Leg - Right Wound Culture - Pr eliminary Streptococcus G roup C A&P Assessment and plan (1) Cellulitis: Local signs of infection continue to fer. He remains unclear as to whether the graft itself is actually infected or whether this is purely a soft tissue phenomenon. I have conferred with Dr. Anaya yesterday. We will plan for 6-week course of antibiotics as outpatient. I recommend follow-up in wound care services next April 30 to see me. This order has been placed, though the wound care clinic will need to be contacted to confirm appointment time. Status: Acute Code(s): L03.90 - Cellulitis, unspecified Attestations Medical Necessity Statement*: Cellulitis status post prosthetic vascular graft placement approximately 3 weeks ago Time Spent in Patient Care: 16 - 35 minutes Coding Level of Care Code Acute Technical Sales Associate for [facility] Fwd Exam Expanded Problem Focused Medical Decision Making Low Complexity Diagnoses Cellulitis L03.90
[2019-04-26] MEDS: aspirin 81 mg EC Tablet PO (08:45)
[2019-04-26] MEDS: clopidogrel 75 mg Tablet PO (08:45)
--- NOTE | 2019-04-26 10:54 | P.DS_ITS ---
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 He was started on broad-spectrum antibiotics. He underwent Doppler interrogation to rule out graft infection which showed some fluid collection around the graft proximally which turned distally. Toward the distal thigh and there were no other fluid collections distally. Arterial duplex was done which showed patent femoropopliteal synthetic graft. As there was edema in both proximal and distal leg including the graft site it was difficult to say if these are postoperative changes from recent vascular surgery versus presence of infected fluid around the graft. Endovascular infection could not be ruled out including the possibility of graft infection as surgical intervention at this time would be extremely risky leading to risk of ischemia on manipulation of a patent graft or introduction of infected material in the graft site. His blood cultures continue to remain negative while the deep wound cultures are positive for group C streptococcus. After discussion between the vascular surgery and infectious disease it was decided to treat patient with IV vancomycin for 6 weeks while following CBC, CMP, ESR, CRP weekly keeping Vanco trough around 15. Patient would most likely need a penicillin suppression lifelong after completion of treatment but could not be done as of now because patient has a history of anaphylaxis with ceftriaxone and was resistant to use any beta-lactam's. Patient has been asked to follow-up with maintenance custodian in [place] called [facility] ([phone]) to confirm the allergy. Patient was hemodynamically stable and back to his baseline at the time of discharge. Physical Exam Narrative: EXAM NARRATIVE: General: No acute distress, AO x3 HEENT: PERRLA, pupils bilaterally equal and reactive Chest: Normal vesicular breath sounds, no added sounds, equal good air entry bilaterally CVS: S1-S2 regular, no murmurs, no tachycardia, no gallops, no rubs Abdomen: Soft, nontender, no organomegaly, bowel sounds present Neuro: No focal deficits, no facial deformity, AO x3, power 5/5 in all limbs Discharge Data Data Completed and Pending: Completed Studies During Hospitalization Category Date Time Status CXRP [XR chest 1V portable [id number]] R outine Exams 04/24/19 13:46 Completed XR chest 1V nery ble [id number] Stat Exams 04/24/19 15:22 Completed XR tibia fibula R T 2V 41789 Routine Exams 04/23/19 04:00 [place] [address] Rout ine Ultrasound 04/23/19 15:10 [place] [id number] Urgent Ultrasound 04/22/19 14:01 [place] [id number] Routi ne Ultrasound 04/23/19 15:12 Completed US soft tissue/ex tremity 24296 Rout ine Ultrasound 04/23/19 15:12 Completed Pending at discharge Category Date Time Status Abscess Culture S tat Lab 04/23/19 15:15 Results Blood Culture Sta t Lab 04/22/19 14:57 Results Gram Stain Stat Lab 04/23/19 15:15 Results Wound Culture and Gram Stain Stat Lab 04/23/19 15:15 Results Labs from last 24 hours 04/26/19 04/26/19 04/25/19 05:30 05:30 14:45 WBC 3.3 L RBC 3.91 L Hgb 12.1 Hct 37.7 L MCV 96.4 H MCH 30.9 MCHC 32.1 RDW 13.2 Plt Count 207 MPV 10.6 H Neut % (Auto) 55.6 Lymph % (Auto) 28.6 [place] % (Auto) 10.3 Eos % (Auto) 4.3 Baso % (Auto) 0.9 Neut # (Auto) 1.8 Lymph # (Auto) 0.9 [place] # (Auto) 0.3 Eos # (Auto) 0.1 Baso # (Auto) 0.0 Nucleated RBC % (a uto) 0 Nucleated RBCs # 0.0 Sodium 136 Potassium 4.0 Chloride 102 Carbon Dioxide 26 Anion Gap 12.0 BUN 11 Creatinine 0.7 Glucose 136 H Calcium 9.3 Total Bilirubin 0.5 AST 40 ALT 42 H Alkaline Phosphata se 98 Total Protein 6.7 Albumin 3.7 Globulin 3.0 Vancomycin Trough 13.2 Vitals: Last Vital Signs Temp 98.7 F 04/26/19 08:00 Pulse 68 04/26/19 08:00 Resp 18 04/26/19 08:00 BP 168/78 04/26/19 08:00 Pulse Ox 98 04/26/19 08:00 Discharge Plan Discharge Patient Disposition: Home Health Service Condition: Stable Prescriptions: New vancomycin 1.5 gram recon soln 1.5 gm IVP Q12H 38 Days Qty: 76 RF: 0 Continued clopidogrel 75 mg Tablet 75 mg PO DAILY RF: 0 aspirin 81 mg Tablet,Delayed Release (Dr/Ec) 81 mg PO DAILY RF: 0 acetaminophen 500 mg Tablet 500 mg PO Q6H PRN (Reason: Pain) RF: 0 docusate sodium 100 mg Tablet 100 mg PO BID PRN (Reason: Abdominal Discomfort) RF: 0 hydrocodone-acetaminophen 10-325 mg Tablet 1 tab PO Q6H PRN (Reason: Pain) RF: 0 Discharge Orders: Discharge Order (Routine); Ordered 04/29/19 Ordered By: Nam Croft Other Ambulatory Orders: Complete Blood Count w/Auto (WEEKLY) Timeframe: 20190610 Location: Determined by Patient Ordered By: Nam Croft Complete Blood Count w/Auto (WEEKLY) Timeframe: 20190611 Location: Determined by Patient Ordered By: Nam Croft Complete Blood Count w/Auto (WEEKLY) Timeframe: 20190612 Location: Determined by Patient Ordered By: Nam Croft Complete Blood Count w/Auto (WEEKLY) Timeframe: 20190613 Location: Determined by Patient Ordered By: Nam Croft Complete Blood Count w/Auto (WEEKLY) Timeframe: 20190614 Location: Determined by Patient Ordered By: Nam Croft Complete Blood Count w/Auto (WEEKLY) Timeframe: 20190615 Location: Determined by Patient Ordered By: Nam Croft Comprehensive Metabolic Panel (WEEKLY) Timeframe: 20190610 Facility: [facility] - Location: Lab - Main Lab Ordered By: Nam Croft Comprehensive Metabolic Panel (WEEKLY) Timeframe: 20190611 Facility: [facility] - Location: Lab - Main Lab Ordered By: Nam Guerda Comprehensive Metabolic Panel (WEEKLY) Timeframe: [id number] Facility: [facility] - Location: Lab - Main Lab Ordered By: Nam Guerda Comprehensive Metabolic Panel (WEEKLY) Timeframe: 20190613 Facility: [facility] - Location: Lab - Main Lab Ordered By: Nam Guerda Comprehensive Metabolic Panel (WEEKLY) Timeframe: 20190614 Facility: [facility] - Location: Lab - Main Lab Ordered By: Nam Guerda Comprehensive Metabolic Panel (WEEKLY) Timeframe: [id number] Facility: [facility] - Location: Lab - Main Lab Ordered By: Nam Guerda C Reactive Protein (WEEKLY) Timeframe: [id number] Facility: [facility] - Location: Lab - Main Lab Ordered By: Nam Guerda C Reactive Protein (WEEKLY) Timeframe: 20190611 Facility: [facility] - Location: Lab - Main Lab Ordered By: Nam Guerda C Reactive Protein (WEEKLY) Timeframe: [id number] Facility: [facility] - Location: Lab - Main Lab Ordered By: Nam Guerda C Reactive Protein (WEEKLY) Timeframe: [id number] Facility: [facility] - Location: Lab - Main Lab Ordered By: Nam Guerda C Reactive Protein (WEEKLY) Timeframe: [id number] Facility: [facility] - Location: Lab - Main Lab Ordered By: Nam Guerda C Reactive Protein (WEEKLY) Timeframe: [id number] Facility: [facility] - Location: Lab - Main Lab Ordered By: Nam Guerda Erythrocyte Sedimentation Rate (WEEKLY) Timeframe: [id number] Facility: [facility] - Location: Lab - Main Lab Ordered By: Nam Guerda Erythrocyte Sedimentation Rate (WEEKLY) Timeframe: [id number] Facility: [facility] - Location: Lab - Main Lab Ordered By: Nam Guerda Erythrocyte Sedimentation Rate (WEEKLY) Timeframe: 20190612 Facility: [facility] - Location: Lab - Main Lab Ordered By: Nam Guerda Erythrocyte Sedimentation Rate (WEEKLY) Timeframe: [id number] Facility: [facility] - Location: Lab - Main Lab Ordered By: Nam Guerda Erythrocyte Sedimentation Rate (WEEKLY) Timeframe: [id number] Facility: [facility] - Location: Lab - Main Lab Ordered By: Nam Guerda Erythrocyte Sedimentation Rate (WEEKLY) Timeframe: [id number] Facility: [facility] - Location: Lab - Main Lab Ordered By: Nam Croft Vancomycin Trough (WEEKLY) Timeframe: [id number] Facility: [facility] - Location: Lab - Main Lab Ordered By: Nam Croft Vancomycin Trough (WEEKLY) Timeframe: 20190611 Facility: [facility] - Location: Lab - Main Lab Ordered By: Nam Croft Vancomycin Trough (WEEKLY) Timeframe: 20190612 Facility: [facility] - Location: Lab - Main Lab Ordered By: Namminoo Crotf Vancomycin Trough (WEEKLY) Timeframe: 20190613 Facility: [facility] - Location: Lab - Main Lab Ordered By: Nam Croft Vancomycin Trough (WEEKLY) Timeframe: [id number] Facility: [facility] - Location: Lab - Main Lab Ordered By: Nam Croft Vancomycin Trough (WEEKLY) Timeframe: [id number] Facility: [facility] - Location: Lab - Main Lab Ordered By: Nam Croft Referrals: [facility] [Other] - 06/06/19 12:00 pm (The allergy clinic will be sending you paperwork to fill out by mail. please return it to them at your appointment. please arrive at 11:30 am for an appointment to 12:00.) [facility] [Outside] WOUND CARE CLINIC, [Staff Physician] - 04/30/19 2:00 pm (f/u with wound care services next Monday after discharge...on a Monday to see Dr. Bettencourt. Please call wound care clinic before 12 noon to confirm appointment time) Discharge Diet: Cardiac Discharge Activity: Resume usual activity Patient Instructions: Vancomycin (Injection), Coronary Artery Disease (DC), Femoropopliteal Bypass (DC), Peripherally Inserted Central Catheters and Midline Catheters (DC) Activity Restrictions/Additional Instructions: Check CMP, CBC, ESR, CRP every week for next 6 weeks while patient is on vancomycin. Keep Vanco trough around 15. Follow-up with an maintenance custodian/ [facility] ([phone]) within next 6 weeks to confirm penicillin allergy as patient would need to be on oral antibiotic therapy long-term. Discharge Attestations Time Spent in Discharge Care*: greater than 30 min Specific Discharge Activities: Specific discharge activities: educating patient and evaluating patient/reviewing data Time Spent in Smoking Cessation: Time spent discussing smoking cessation with patient: more than 10 minutes Status at Discharge: Cognitive status at discharge: cognitively intact , Beh avioral status at discharge: cooperative , Functional status at discharge: wheelchair bound Quality Metrics Clinical Quality Measures During this hospital stay, did patient experience: None Coding Level of Care Code Acute Desulfurizer Hand for g Suzette Diagnoses Cellulitis L03.90 Arteriovenous graft infection T82.7XXA
[2019-04-26] MEDS: aztreonam 2,000 MG in sodium chloride 0.9% (plus) 100 ML 100 MG IV (11:27)
--- NOTE | 2019-04-26 19:09 | P.PN_ITS ---
Subjective Subjective: Interval history: No acute events overnight. Sitting comfortbly in bed today morning. Denies any N/V, SOB, CP, cough. Is awaiting discharge. Medications: Reviewed: Yes Vitals/I&O/Wt Last Vital Signs Temp 98.4 F 04/26/19 15:41 Pulse 66 04/26/19 15:41 Resp 18 04/26/19 15:41 BP 148/74 04/26/19 15:41 Pulse Ox 98 04/26/19 15:41 04/26/19 04/26/19 04/26/19 06:59 14:59 22:59 Intake Total 450 / 1670 440 / 440 Output Total 875 / 3425 1000 / 1000 Balance -425 / -1755 440 / 440 -1000 / -560 Weight last 48 hrs Weight 95.254 kg Weight 94.999 kg Weight 95.254 kg Weight 95.878 kg Physical Exam Narrative: EXAM NARRATIVE: General: No acute distress, AO x3 HEENT: PERRLA, pupils bilaterally equal and reactive Chest: Normal vesicular breath sounds, no added sounds, equal good air entry bilaterally CVS: S1-S2 regular, no murmurs, no tachycardia, no gallops, no rubs Abdomen: Soft, nontender, no organomegaly, bowel sounds present Neuro: No focal deficits, no facial deformity, AO x3, power 5/5 in all limbs Ext: Left BKA, Right leg clean dressing present. Data Micro: Micro: Microbiology 04/23/19 15:15 Gram Stain - Final Leg Right Abscess Culture - Preliminary Streptococcus G roup C 04/23/19 15:15 Gram Stain - Final Leg - Right Wound Culture - Pr eliminary Streptococcus G roup C A&P Assessment and plan (1) Cellulitis: Status: Acute Code(s): L03.90 - Cellulitis, unspecified (2) Arteriovenous graft infection: Status: Acute Code(s): T82.7XXA - Infection and inflammatory reaction due to other cardiac and vascular devices, implants and grafts, initial encounter (3) S/P femoral-popliteal bypass surgery: Status: Acute Code(s): Z95.828 - Presence of other vascular implants and grafts (4) Peripheral vascular disease: Status: Acute Code(s): I73.9 - Peripheral vascular disease, unspecified (5) Hypertension: Status: Acute Code(s): I10 - Essential (primary) hypertension Additional A&P Information Additional A&P Information: Cellulitis vs AV fistula infection: Images reviewed. It is difficult to say if these are postoperative changes from recent vascular surgery versus presence of infected fluid around the graft. Given that the patient is clinically improving we will plan to treat this conservatively and cautiously as an endovascular infection, including the possibility of graft infection as surgical intervention at this time is extremely risky. With manipulation or any surgical process there is risk of infection to graft and ischemia due to disruption of a functional graft. As blood cultures remain clear we will plan on treating with 6 weeks of IV antibiotic therapy which is culture directed. Thus far cx results with Group C streptococcus. Given h/o anaphylaxis with Ceftriaxone, hesitant to use b lactams at this time, though patient does report he has had penicillin,amoxicillin several times in the past with no adverse reactions. Will plan to use iv vancomycin instead. With vanc trough goal of 15. Most likley need PCN allergy test as outpatient. HTN: BP well controlled off any meds. Will continue to monitor Peripheral vascular disease continue aspirin and clopidogrel. Patient is 2 weeks postop FC Cardiac diet Heparin for DVT ppx Attestations Medical Necessity Statement*: Needs continued hospitalization for cellulites vs vascular graft infection while patient awaits home meds delivery Time Spent in Patient Care: 16 - 35 minutes Coding Level of Care Code Acute Financial Analysis Manager for [facility] Diagnoses Cellulitis L03.90 Arteriovenous graft infection T82.7XXA S/P femoral-popliteal bypass surgery Z95.828 Peripheral vascular disease I73.9 Hypertension I10
[2019-04-27] VITALS (7 sets, daily range): BP systolic 124–150; BP diastolic 63–73; PULSE 62–77; RESP 18–20; TEMP 36.9–37; O2SAT 95–97
[2019-04-27] MEDS: enoxaparin 40 mg/0.4 mL Syringe SUBCUT (13:34)
[2019-04-27] MEDS: aspirin 81 mg EC Tablet PO (13:35)
[2019-04-27] MEDS: clopidogrel 75 mg Tablet PO (13:35)
--- NOTE | 2019-04-27 14:18 | P.PN_ITS ---
Subjective Subjective: Interval history: No acute events overnight. On evaluation this morning patient was sitting comfortably in bed. He was complaining of food he is getting and is anxious to be discharged. Patient was explained that we are waiting for his home antibiotics to be delivered so that there is no break in the treatment. Patient denies of having any shortness of breath, nausea, vomiting, abdominal pain, headache, dizziness. Medications: Reviewed: Yes Vitals/I&O/Wt Last Vital Signs Temp 98.6 F 04/27/19 11:50 Pulse 77 04/27/19 11:50 Resp 18 04/27/19 11:50 BP 124/63 04/27/19 11:50 Pulse Ox 96 04/27/19 12:00 04/26/19 04/27/19 04/27/19 22:59 06:59 14:59 Intake Total 250 / 690 120 / 120 Output Total 1450 / 1450 550 / 2000 1000 / 1000 Balance -1450 / -1010 -300 / -1310 -880 / -880 Weight last 48 hrs Weight 95.39 kg Weight 94.755 kg Weight 95.254 kg Weight 94.999 kg Physical Exam Narrative: EXAM NARRATIVE: EXAM NARRATIVE: General: No acute distress, AO x3 HEENT: PERRLA, pupils bilaterally equal and reactive Chest: Normal vesicular breath sounds, no added sounds, equal good air entry bilaterally CVS: S1-S2 regular, no murmurs, no tachycardia, no gallops, no rubs Abdomen: Soft, nontender, no organomegaly, bowel sounds present Neuro: No focal deficits, no facial deformity, AO x3, power 5/5 in all limbs Ext: Left BKA, Right leg clean dressing present. Data Micro: Micro: Microbiology 04/23/19 15:15 Gram Stain - Final Leg - Right Wound Culture - Fi nal Streptococcus G roup C 04/23/19 15:15 Gram Stain - Final Leg Right Abscess Culture - Final Streptococcus G roup C A&P Assessment and plan (1) Arteriovenous graft infection: Status: Acute Code(s): T82.7XXA - Infection and inflammatory reaction due to other cardiac and vascular devices, implants and grafts, initial encounter (2) Vascular graft infection: Status: Acute Code(s): T82.7XXA - Infection and inflammatory reaction due to other cardiac and vascular devices, implants and grafts, initial encounter (3) S/P femoral-popliteal bypass surgery: Status: Acute Code(s): Z95.828 - Presence of other vascular implants and grafts (4) Hx of coronary artery disease: Status: Acute Code(s): Z86.79 - Personal history of other diseases of the circulatory system (5) Hypertension: Status: Acute Code(s): I10 - Essential (primary) hypertension (6) Cellulitis: Status: Acute Code(s): L03.90 - Cellulitis, unspecified Additional A&P Information Additional A&P Information: Cellulitis vs AV fistula infection: Continue on vancomycin keeping the trough levels of around 15. Will discontinue aztreonam as wound cultures only growing group C Streptococcus. Images reviewed. It is difficult to say if these are postoperative changes from recent vascular surgery versus presence of infected fluid around the graft. Given that the patient is clinically improving we will plan to treat this conservatively and cautiously as an endovascular infection, including the possibility of graft infection as surgical intervention at this time is extremely risky. With manipulation or any surgical process there is risk of infection to graft and ischemia due to disruption of a functional graft. As blood cultures remain clear we will plan on treating with 6 weeks of IV antibiotic therapy which is culture directed. Thus far cx results with Group C streptococcus. Given h/o anaphylaxis with Ceftriaxone, hesitant to use b lactams at this time, though patient does report he has had penicillin,amoxicillin several times in the past with no adverse reactions. Will plan to use iv vancomycin instead. With vanc trough goal of 15. Most likley need PCN allergy test as outpatient. HTN: BP well controlled off any meds. Will continue to monitor Peripheral vascular disease continue aspirin and clopidogrel. Lipid panel done in this admission is within normal limits while not on being any statins. We will not add any statins to his current treatment. FC Cardiac diet Heparin for DVT ppx Attestations Medical Necessity Statement*: Needs continued hospitalization for management of cellulitis while awaiting IV antibiotics to be available to him as an outpatient as well. Time Spent in Patient Care: 16 - 35 minutes Coding Level of Care Code Acute Oracle Security Consultant for [facility] Fwd Diagnoses Arteriovenous graft infection T82.7XXA Vascular graft infection T82.7XXA S/P femoral-popliteal bypass surgery Z95.828 Hx of coronary artery disease Z86.79 Hypertension I10 Cellulitis L03.90
--- NOTE | 2019-04-27 17:05 | PC.SOCIAL ---
IMM Updated Updated pt on Pg 2 IMM. Pt verbally understands. No questions voiced. Provided a copy to pt & left on their bedside table. Signed, dated, & timed original in chart.
[2019-04-27] MEDS: HYDROcodone-acetaminophen 5-325 mg Tablet 1 TAB PO (21:19)
[2019-04-28] VITALS: BP 159/73; PULSE 56; RESP 20; TEMP 36.6; O2SAT 96
[2019-04-28] MEDS: diphenhydrAMINE 25 mg Capsule PO (01:47)
[2019-04-28 04:00] VITALS: BP 131/66; PULSE 58; RESP 18; TEMP 36.9; O2SAT 96
[2019-04-28 05:48] LABS: Basophils % 0.7 %; Eosinophils # 0.2 10^3/uL (0.0-0.8); Hematocrit 35.4 % (42.0-52.0); Hemoglobin 11.6 g/dL (11.7-16.6); Lymphocytes # 1.2 10^3/uL (0.8-4.8); Lymphocytes % 27.4 %; Mean Corpuscular HGB Conc 32.8 g/dL (30.0-36.0); Mean Corpuscular Hemoglobin 32.9 pg (28.0-34.0); Mean Corpuscular Volume 100.3 fL (80-94); Mean Platelet Volume 10.5 fL (7.4-10.4); Monocytes # 0.5 10^3/uL (0.2-0.9); Monocytes % 11.3 %; Neutrophils # 2.5 10^3/uL (1.8-7.7); Neutrophils % 55.9 %; Nucleated Red Blood Cells % 0 %; Platelet Count 194 10^3/cmm (130-400); Red Blood Count 3.53 10^6/uL (4.1-5.3); Red Cell Distribution Width 13.2 % (12.1-15.1); White Blood Count 4.5 10^3/uL (4.0-10.0)
[2019-04-28 05:58] LABS: Anion Gap 13.2 (5-19); Blood Urea Nitrogen 14 mg/dL (8-23); Calcium 9.2 mg/Dl (8.8-10.2); Carbon Dioxide 25 mmol/L (22-29); Chloride 101 mmol/L (98-107); Glucose 127 mg/dL (74-106); Potassium 4.2 mmol/L (3.5-5.1); Sodium 135 mmol/L (136-145)
[2019-04-28 06:26] LABS: Slide Review Slide Review Perform
--- NOTE | 2019-04-28 07:39 | PC.NURSE ---
DRESSING CHANGE DRESSING CHANGE WAS PERFORMED BY SLIP BOX CHANGER NURSE ON 04/27/2019 AT APPROXIMATELY 22:30. RIGHT LOWER EXTREMITY DRESSING WAS CHANGED, IT HAD MINIMAL YELLOW DRAINAGE. NURSE CLEANSED WITH BETADINE, APPLIED MAXORB THEN AN ABD AND SECURED WITH KERLIX. THE RIGHT GROIN DRESSING WAS ALSO CHANGED, IT ALSO HAD MINIMAL YELLOW DRAINAGE. SITE WAS CLEANSED WITH BETADINE, MAXORB WAS APPLIED, AND 4X4 WERE FOLED AND PLACED ON TOP, THEN TAPED IN PLACE.
[2019-04-28 07:49] VITALS: BP 142/75; PULSE 63; RESP 18; TEMP 37.1; O2SAT 95
--- NOTE | 2019-04-28 08:16 | PC.NURSE ---
Dressing change Pt states may come this morning and help pt with shower. I offered to help pt with shower, but he prefers . Dressing supplies placed @ bedside, and encouraged pt to let me know if doesn't plan on coming, and we will change dressing. Otherwise, we will change dressing after shower.
[2019-04-28] MEDS: clopidogrel 75 mg Tablet PO (08:39)
[2019-04-28] MEDS: aspirin 81 mg EC Tablet PO (08:39)
[2019-04-28 11:38] LABS: Vancomycin Trough 17.3 ug/mL (10-15)
[2019-04-28 11:50] VITALS: BP 134/63; PULSE 64; RESP 18; TEMP 36.8; O2SAT 95
--- NOTE | 2019-04-28 13:51 | P.PN_ITS ---
Subjective Subjective: Interval history: No acute events overnight. On evaluation this morning patient was sitting comfortably in bed. Patient states taht Abx were delivered at home yesterday. Patient denies of having any shortness of breath, nausea, vomiting, abdominal pain, headache, dizziness. Medications: Reviewed: Yes Vitals/I&O/Wt Last Vital Signs Temp 98.2 F 04/28/19 11:50 Pulse 64 04/28/19 11:50 Resp 18 04/28/19 11:50 BP 134/63 04/28/19 11:50 Pulse Ox 95 04/28/19 11:50 04/27/19 04/28/19 04/28/19 22:59 06:59 14:59 Intake Total 850 / 1090 840 / 840 Output Total 645 / 1645 750 / 2395 550 / 550 Balance 205 / -555 -750 / -1305 290 / 290 Weight last 48 hrs Weight 95.424 kg Weight 95.39 kg Weight 94.755 kg Physical Exam Const: COMMON NORMALS: no apparent distress, average body habitus, oriented x3, no limitations, healthy appearing, alert and well nourished GENERAL APPEARANCE: cooperative, comfortable, well kempt and well developed HENMT: COMMON NORMALS: normocephalic and head/scalp atraumatic HEAD & SCALP: normocephalic and atraumatic Eye: COMMON NORMALS: PERRL and EOMs intact bilaterally PUPIL: Yes PERRL Chest: COMMONS NORMALS: inspection of chest normal, palpation of chest normal and palpation of breasts normal Resp: COMMON NORMALS: normal respiratory effort, no use of accessory muscles and clear to auscultation bilaterally AUSCULTATION: clear to auscultation bilaterally Cardio: COMMON NORMALS: regular rate, regular rhythm, S1 normal heart sound and S2 normal heart sound JUGULAR VENOUS DISTENTION: no JVD RATE: regular rate RHYTHM: regular rhythm HEART SOUNDS: S1 normal, S2 normal and no murmurs GI: COMMON NORMALS: normal to inspection, nondistended, normoactive bowel sierra nds, soft to palpation, non-tender, no hepatosplenomegaly, no masses and no bruits PALPATION: Yes soft and Yes no hepatosplenomegaly : COMMON NORMALS: Yes no CVA tenderness BLADDER/KIDNEY EXAM: Yes no CVA tenderness Back/Pelvis: COMMON NORMALS: no CVA tenderness Extremity: NARRATIVE EXTREMITY EXAM: Left BKA Right medial redness and warmth present in medial calf region. Surgical incision present- serosanginous discharge present. dressed, no foul smell Neuro: COMMON NORMALS: oriented x3 SENSORIUM/ORIENTATION: Yes alert Psych: APPEARANCE: Yes well kempt Data Micro: Micro: Microbiology 04/22/19 14:57 Blood Culture - Fi nal Blood NO GROWTH AFTER 5 DAYS 04/22/19 14:59 Blood Culture - Fi nal Blood NO GROWTH AFTER 5 DAYS 04/23/19 15:15 Gram Stain - Final Leg - Right Wound Culture - Fi nal Streptococcus G roup C 04/23/19 15:15 Gram Stain - Final Leg Right Abscess Culture - Final Streptococcus G roup C A&P Assessment and plan (1) Arteriovenous graft infection: Status: Acute Code(s): T82.7XXA - Infection and inflammatory reaction due to other cardiac and vascular devices, implants and grafts, initial encounter (2) Vascular graft infection: Status: Acute Code(s): T82.7XXA - Infection and inflammatory reaction due to other cardiac and vascular devices, implants and grafts, initial encounter (3) S/P femoral-popliteal bypass surgery: Status: Acute Code(s): Z95.828 - Presence of other vascular implants and grafts (4) Hx of coronary artery disease: Status: Acute Code(s): Z86.79 - Personal history of other diseases of the circulatory system (5) Hypertension: Status: Acute Code(s): I10 - Essential (primary) hypertension (6) Cellulitis: Status: Acute Code(s): L03.90 - Cellulitis, unspecified Additional A&P Information Additional A&P Information: Cellulitis vs AV fistula infection: Continue on vancomycin keeping the trough levels of around 15. Aztreonam d/maia yesterday. Images reviewed. It is difficult to say if these are postoperative changes from recent vascular surgery versus presence of infected fluid around the graft. Given that the patient is clinically improving we will plan to treat this conservatively and cautiously as an endovascular infection, including the possibility of graft infection as surgical intervention at this time is extremely risky. With manipulation or any surgical process there is risk of infection to graft and ischemia due to disruption of a functional graft. As blood cultures remain clear we will plan on treating with 6 weeks of IV antibiotic therapy which is culture directed. Thus far cx results with Group C streptococcus. Given h/o anaphylaxis with Ceftriaxone, hesitant to use b lactams at this time, though patient does report he has had penicillin,amoxicillin several times in the past with no adverse reactions. Most likley need PCN allergy test as outpatient. HTN: BP well controlled off any meds. Will continue to monitor Peripheral vascular disease continue aspirin and clopidogrel. Lipid panel done in this admission is within normal limits while not on being any statins. We will not add any statins to his current treatment. FC Cardiac diet Heparin for DVT ppx Attestations Medical Necessity Statement*: Needs continued hospitalization for management of cellulitis while awaiting IV antibiotics to be available to him as an outpatient as well. Time Spent in Patient Care: 16 - 35 minutes Coding Level of Care Code Acute Administrative Resident for [facility] Fwd Diagnoses Arteriovenous graft infection T82.7XXA Vascular graft infection T82.7XXA S/P femoral-popliteal bypass surgery Z95.828 Hx of coronary artery disease Z86.79 Hypertension I10 Cellulitis L03.90
--- NOTE | 2019-04-28 14:51 | PC.NURSE ---
Pain medication Pt states that the hydrocodone doesn't work for him it keeps me awake and doesn't do anything for the pain . Notified Dr Vee, no new orders received.
[2019-04-28 15:40] VITALS: BP 142/69; PULSE 63; RESP 18; TEMP 36.9; O2SAT 96
[2019-04-28] MEDS: enoxaparin 40 mg/0.4 mL Syringe SUBCUT (15:58)
[2019-04-28] MEDS: chlorhexidine gluconate 4% Btl 118 mL 1 APPLIC TOPICAL (16:03)
[2019-04-28 19:58] VITALS: BP 147/62; PULSE 72; RESP 20; TEMP 37.1; O2SAT 97
[2019-04-29] VITALS: BP 146/68; PULSE 69; RESP 20; TEMP 37; O2SAT 97
[2019-04-29 04:00] VITALS: BP 123/66; PULSE 58; RESP 20; TEMP 36.6; O2SAT 97
[2019-04-29 07:43] VITALS: BP 131/65; PULSE 59; RESP 18; TEMP 36.4; O2SAT 97
[2019-04-29] MEDS: chlorhexidine gluconate 4% Btl 118 mL 1 APPLIC TOPICAL (09:35)
[2019-04-29] MEDS: aspirin 81 mg EC Tablet PO (09:35)
[2019-04-29] MEDS: clopidogrel 75 mg Tablet PO (09:35)
--- NOTE | 2019-04-29 12:23 | DCPLANNER ---
Patient received The important message from medicare. Signed and placed in the chart. Patient now has a copy.
--- NOTE | 2019-04-29 14:30 | P.MISC_ITS ---
Miscellaneous Note Purpose of Documentation: Infectious Disease Discussion note Note: Mr. Penny presented with c/o fever, RLE swelling, pain and warmth 2 weeks after undergoing RLE fem-peroneal bypass surgery for peripehral vascular disease at outside hospital. He has a past h/o LLE amputation also due to peripheral vascular disease. On exam, he had signs of RLE cellulitis and later on, drainage of purulent material from top of his incision site on the right youssef. Incidentally noted also was breakdown of his Groin incision site on the same side. There was no contiguous cellulitic/inflammatory exchange clerk the R thigh between the two open incisions. He underwent Arterial duplex which showed patent femoropopliteal synthetic graft. There were no signs of distal ischemic changes. Edema was noted in both in the proximal and distal leg including around the graft site. Most prominent pocket was noted to be in the R thigh, without any gross overlying skin changes in this area. It is difficult to say if these are postoperative changes from recent vascular surgery versus presence of infected fluid around the graft with a draining sinus tract. Blood cultures remained negative. Vascular surgery was consulted. Sinogram and wound exploration were deferred given significant improvement within 48 hrs of initiation of antibiotics. Given that the patient is clinically improving we will plan to treat this conservatively and cautiously as an endovascular infection, including the possibility of graft infection as surgical intervention at this time is extremely risky. The risk is not only related to risk of ischemia of his one remaining leg with manipulating a patent graft but also possible introduction of infected material into graft site. Patient is being discharged with 6 weeks of IV antibiotic therapy with vancomycin which is culture directed to group c streptoccocus isolated from incision swabs and pus culture. Gram stain made a note of GNR as well, however after discussion with micro lab, there was no gram negative growth seen on culture plates. Vancomycin is chosen over penicillin or once daily ceftriaxone at this time as patient reports anaphylaxis with Ceftriaxone. While on iv abx therapy, recommend weekly labs including CBC, CMP, vancomycin trough (target ~15-20) , ESR and CRP along with close weekly follow up with vascular surgery. After 6 weeks of iv antibiotic therapy, assuming sustained recovery , recommend to switch to oral b lactam regimen over the next 3 months and possibly even life long suppression thereafter (as would be a high risk candidate for any repeat surgeries on his one remaining leg). Fot this wood drilling machine operator plan, recommend that patient get penicillin skin testing with manager heavy equipment as outpatient in the next 6 weeks to ascertain true nature of his allergy. Patient does report he has had penicillin,amoxicillin several times in the past with no adverse reactions. however he has not had these since his anaphylaxis episode.
--- NOTE | 2019-04-29 15:08 | PC.NURSE ---
this nurse went over discharge paperwork with pt and new medication, along with what to watch for with the picc line and when to contact someone. pt had no questions or concerns at this time.
[2019-04-29 15:45] VITALS: RESP 18; TEMP 36.4; O2SAT 97
== END 2019-04-29 15:25 | disposition home health service (06) | DRG 315 ==
LOC: ER 17:05 → MEDSURG 19:11
PROVIDERS: Physician Assistant; Student in an Organized Health Care Education/Training Program; Admitting Provider Student in an Organized Health Care Education/Training Program; Emergency Provider Family Medicine; Visit Provider Student in an Organized Health Care Education/Training Program
DX: T82.7XXA Infection and inflammatory reaction due to other cardiac and vascular devices, implants and grafts, initial encounter (principal); L03.116 Cellulitis of left lower limb; Z95.1 Presence of aortocoronary bypass graft; I10 Essential (primary) hypertension; I73.9 Peripheral vascular disease, unspecified; Y83.9 Surgical procedure, unspecified as the cause of abnormal reaction of the patient, or of later complication, without mention of misadventure at the time of the procedure; F17.210 Nicotine dependence, cigarettes, uncomplicated; G62.9 Polyneuropathy, unspecified; Z96.653 Presence of artificial knee joint, bilateral; Z89.512 Acquired absence of left leg below knee; Z79.02 Long term (current) use of antithrombotics/antiplatelets; Z79.82 Long term (current) use of aspirin; Z95.828 Presence of other vascular implants and grafts
CPT/HCPCS: 36415; 71045; 73590; 76882; 80048; 80053; 80061; 80202; 83036; 84443; 85025; 85610; 85651; 86140; 87040; 87070; 87075; 87077; 87186; 87205; 93926; 93970; 93971; 94664; 96372; 97161; 99282; C1751; J1644; J1650; J3370; J3490; J7030; J7050

== ENCOUNTER 2019-05-14 06:00 | Outpatient (RCR) | payer OTHER, MEDICARE, SELFPAY ==
[2019-05-01 09:00] LABS: Basophils % 0.9 %; Eosinophils # 0.2 10^3/uL (0.0-0.8); Eosinophils % 4.7 %; Hematocrit 38.3 % (42.0-52.0); Hemoglobin 12.4 g/dL (11.7-16.6); Lymphocytes # 1.3 10^3/uL (0.8-4.8); Lymphocytes % 36.9 %; Mean Corpuscular HGB Conc 32.4 g/dL (30.0-36.0); Mean Corpuscular Hemoglobin 31.3 pg (28.0-34.0); Mean Corpuscular Volume 96.7 fL (80-94); Mean Platelet Volume 10.5 fL (7.4-10.4); Monocytes # 0.5 10^3/uL (0.2-0.9); Monocytes % 13.4 %; Neutrophils # 1.5 10^3/uL (1.8-7.7); Neutrophils % 43.5 %; Nucleated Red Blood Cells % 0 %; Platelet Count 222 10^3/cmm (130-400); Red Blood Count 3.96 10^6/uL (4.1-5.3); Red Cell Distribution Width 13.2 % (12.1-15.1); White Blood Count 3.4 10^3/uL (4.0-10.0)
[2019-05-01 09:17] LABS: Alanine Aminotransferase 44 U/L (0-41); Albumin Level 3.7 g/dL (3.5-5.2); Alkaline Phosphatase 109 IU/L (40-130); Anion Gap 14.7 (5-19); Aspartate Amino Transferase 19 U/L (0-40); Blood Urea Nitrogen 15 mg/dL (8-23); C Reactive Protein 10.4 mg/L (0.0-4.9); Calcium 9.3 mg/Dl (8.8-10.2); Carbon Dioxide 25 mmol/L (22-29); Chloride 102 mmol/L (98-107); Globulin 3.7 g/dL (1.3-4.6); Glucose 167 mg/dL (74-106); Potassium 3.7 mmol/L (3.5-5.1); Sodium 138 mmol/L (136-145); Total Bilirubin 0.3 mg/dL (0.15-1.2); Total Protein 7.4 g/dL (6.6-8.7); Vancomycin Trough 12.9 ug/mL (10-15)
[2019-05-01 09:42] LABS: Erythrocyte Sedimentation Rate 27 mm/hr (0-10)
[2019-05-07 10:30] LABS: Hematocrit 40.3 % (42.0-52.0); Hemoglobin 13.4 g/dL (11.7-16.6); Mean Corpuscular HGB Conc 33.3 g/dL (30.0-36.0); Mean Corpuscular Hemoglobin 31.5 pg (28.0-34.0); Mean Corpuscular Volume 94.6 fL (80-94); Mean Platelet Volume 10.3 fL (7.4-10.4); Platelet Count 248 10^3/cmm (130-400); Red Blood Count 4.26 10^6/uL (4.1-5.3); White Blood Count 3.8 10^3/uL (4.0-10.0)
[2019-05-07 10:37] LABS: Alanine Aminotransferase 20 U/L (0-41); Albumin Level 3.8 g/dL (3.5-5.2); Alkaline Phosphatase 101 IU/L (40-130); Anion Gap 14.8 (5-19); Aspartate Amino Transferase 19 U/L (0-40); Blood Urea Nitrogen 12 mg/dL (8-23); C Reactive Protein 2.7 mg/L (0.0-4.9); Calcium 9.5 mg/Dl (8.8-10.2); Carbon Dioxide 25 mmol/L (22-29); Chloride 98 mmol/L (98-107); Globulin 3.7 g/dL (1.3-4.6); Glucose 208 mg/dL (74-106); Potassium 3.8 mmol/L (3.5-5.1); Sodium 134 mmol/L (136-145); Total Bilirubin 0.2 mg/dL (0.15-1.2); Total Protein 7.5 g/dL (6.6-8.7); Vancomycin Trough 11.4 ug/mL (10-15)
[2019-05-07 11:17] LABS: Erythrocyte Sedimentation Rate 18 mm/hr (0-10)
[2019-05-07 13:47] LABS: Absolute Eosinophils 0.1 10^3/cmm (0.0-0.7); Band Neutrophils Absolute 0.2 10^3/cmm (0.0-1.2); Basophils Absolute 0.1 10^3/cmm (0.0-0.2); Eosinophils 4 %; Lymphocytes 22 %; Monocytes Absolute 0.3 10^3/cmm (0.1-0.6); Platelet Estimate Normal (Normal); Segmented Neutrophils 55 %; Total Cells Counted 100 (0-100)
[2019-05-14 09:53] LABS: Eosinophils # 0.2 10^3/uL (0.0-0.8); Eosinophils % 6.8 %; Hemoglobin 13.9 g/dL (11.7-16.6); Lymphocytes # 1.1 10^3/uL (0.8-4.8); Lymphocytes % 36.6 %; Mean Corpuscular HGB Conc 33.9 g/dL (30.0-36.0); Mean Corpuscular Hemoglobin 32.8 pg (28.0-34.0); Mean Corpuscular Volume 96.7 fL (80-94); Mean Platelet Volume 10.4 fL (7.4-10.4); Monocytes # 0.4 10^3/uL (0.2-0.9); Monocytes % 11.3 %; Neutrophils # 1.4 10^3/uL (1.8-7.7); Neutrophils % 44.3 %; Nucleated Red Blood Cells % 0 %; Platelet Count 193 10^3/cmm (130-400); Red Blood Count 4.24 10^6/uL (4.1-5.3); Red Cell Distribution Width 12.7 % (12.1-15.1); White Blood Count 3.1 10^3/uL (4.0-10.0)
[2019-05-14 10:06] LABS: Alanine Aminotransferase 18 U/L (0-41); Albumin Level 4.1 g/dL (3.5-5.2); Alkaline Phosphatase 100 IU/L (40-130); Aspartate Amino Transferase 16 U/L (0-40); Blood Urea Nitrogen 14 mg/dL (8-23); C Reactive Protein 3.9 mg/L (0.0-4.9); Calcium 9.4 mg/dL (8.5-10.5); Carbon Dioxide 23 mmol/L (22-29); Chloride 101 mmol/L (98-107); Globulin 3.3 g/dL (1.3-4.6); Glucose 271 mg/dL (74-106); Sodium 137 mmol/L (136-145); Total Bilirubin 0.3 mg/dL (0.15-1.2); Total Protein 7.4 g/dL (6.6-8.7); Vancomycin Trough 14.2 ug/mL (10-15)
[2019-05-14 10:50] LABS: Erythrocyte Sedimentation Rate 11 mm/hr (0-10)
== END 2019-05-17 23:59 | disposition home or self-care (01) ==
LOC: LAB 06:00
PROVIDERS: Family Provider Internal Medicine; PCP Internal Medicine; Visit Provider Internal Medicine
DX: L03.90 Cellulitis, unspecified (principal); T82.7XXA Infection and inflammatory reaction due to other cardiac and vascular devices, implants and grafts, initial encounter; Y83.9 Surgical procedure, unspecified as the cause of abnormal reaction of the patient, or of later complication, without mention of misadventure at the time of the procedure; Z79.2 Long term (current) use of antibiotics; Z98.890 Other specified postprocedural states
CPT/HCPCS: 80053; 80202; 85007; 85025; 85027; 85651; 86140

== ENCOUNTER 2019-05-14 15:04 | Outpatient (RCR) | payer OTHER, SELFPAY | END 2019-05-17 23:59 | disposition home or self-care (01) | LOC: WOUND 15:04 | PROVIDERS: Visit Provider Thoracic Surgery (Cardiothoracic Vascular Surgery) | DX: T81.31XA Disruption of external operation (surgical) wound, not elsewhere classified, initial encounter (principal); Y83.8 Other surgical procedures as the cause of abnormal reaction of the patient, or of later complication, without mention of misadventure at the time of the procedure | CPT/HCPCS: 10061; 11042; 87070; 87205; 99204; 99214; G0463 ==

== ENCOUNTER 2019-05-28 | Outpatient (RCR) | payer OTHER, SELFPAY | END 2019-05-29 | disposition home or self-care (01) | LOC: WOUND | PROVIDERS: PCP Nurse Practitioner; Visit Provider Thoracic Surgery (Cardiothoracic Vascular Surgery) | DX: I73.9 Peripheral vascular disease, unspecified (principal); L97.812 Non-pressure chronic ulcer of other part of right lower leg with fat layer exposed; T81.31XA Disruption of external operation (surgical) wound, not elsewhere classified, initial encounter; Y83.8 Other surgical procedures as the cause of abnormal reaction of the patient, or of later complication, without mention of misadventure at the time of the procedure | CPT/HCPCS: 11042 ==

== ENCOUNTER 2019-06-14 07:41 | Outpatient (CLI) | payer OTHER, SELFPAY ==
--- NOTE | 2019-06-14 08:12 | CT_ITS ---
WS: [id number] CT scan of the right leg. Additional two-dimensional coronal and sagittal reconstruction was jalen santos 06/14/2019 Clinical Data: PAIN REDNESS NONHEALING ULCER Comparison: None. DLP: 2087.94 mGy-cm All CT scans at [facility] use at least one of these dose optimization techniques: automat ed exposure control; mA and/or kV adjustment per patient size (includes targeted exams where dose is matched to clinical indication); or iterative reconstruction. Findings: There is an artificial graft from the right superficial femoral artery extending through the poplitea l artery into the posterior tibial artery. There is fluid surrounding the superficial femoral artery graft. The graft appears to be patent. Distal to the graft there is very poor flow into the posterior tibial artery. Most likely collateral circulation supplies the distal leg, ankle and foot. A soft tissue wound at the level of the medial left leg. Radiopaque material is seen at the level of this wound in the tissue posterior to the tibia. There is edema in the subcutaneous tissue of the leg which is moderate. A right knee arthroplasty is in good position. CT/CT lower leg RT w con [id number] Impression: 1. Artificial graft which ends in the proximal right leg and distally the circu lation is via collateral circulation. The distal posterior tibial artery shows no significant flow. 2. Skin wound on the medial aspect of midportion of the left leg with radiopaqu e material in the tissue posterior to the tibia. 3. Fluid surrounding the distal left superficial femoral graft. 4. Right knee arthroplasty.
[2019-06-14] MEDS: iohexol 300 mg/mL 100 mL Btl IV (08:42)
== END 2019-06-14 07:42 | disposition home or self-care (01) ==
LOC: RADWPI 07:46
PROVIDERS: Visit Provider Thoracic Surgery (Cardiothoracic Vascular Surgery)
DX: L97.919 Non-pressure chronic ulcer of unspecified part of right lower leg with unspecified severity (principal); M79.661 Pain in right lower leg; Z96.651 Presence of right artificial knee joint
CPT/HCPCS: 73701

== ENCOUNTER 2019-06-14 08:00 | Outpatient (RCR) | payer OTHER, SELFPAY ==
[2019-05-20 10:12] LABS: Eosinophils # 0.2 10^3/uL (0.0-0.8); Eosinophils % 6.6 %; Hematocrit 40.2 % (42.0-52.0); Hemoglobin 13.6 g/dL (11.7-16.6); Lymphocytes # 1.1 10^3/uL (0.8-4.8); Lymphocytes % 36.3 %; Mean Corpuscular HGB Conc 33.8 g/dL (30.0-36.0); Mean Corpuscular Hemoglobin 31.6 pg (28.0-34.0); Mean Corpuscular Volume 93.3 fL (80-94); Mean Platelet Volume 10.2 fL (7.4-10.4); Monocytes # 0.4 10^3/uL (0.2-0.9); Monocytes % 11.6 %; Neutrophils # 1.3 10^3/uL (1.8-7.7); Neutrophils % 43.2 %; Nucleated Red Blood Cells % 0 %; Platelet Count 168 10^3/cmm (130-400); Red Blood Count 4.31 10^6/uL (4.1-5.3); Red Cell Distribution Width 12.7 % (12.1-15.1)
[2019-05-20 10:31] LABS: Alanine Aminotransferase 15 U/L (0-41); Albumin Level 3.9 g/dL (3.5-5.2); Alkaline Phosphatase 87 IU/L (40-130); Anion Gap 14.9 (5-19); Aspartate Amino Transferase 16 U/L (0-40); Blood Urea Nitrogen 15 mg/dL (8-23); C Reactive Protein 2.3 mg/L (0.0-4.9); Calcium 9.5 mg/dL (8.5-10.5); Carbon Dioxide 24 mmol/L (22-29); Chloride 99 mmol/L (98-107); Globulin 3.5 g/dL (1.3-4.6); Glucose 209 mg/dL (74-106); Potassium 3.9 mmol/L (3.5-5.1); Sodium 134 mmol/L (136-145); Total Bilirubin 0.4 mg/dL (0.15-1.2); Total Protein 7.4 g/dL (6.6-8.7); Vancomycin Trough 14.6 ug/mL (10-15)
[2019-05-20 11:12] LABS: Erythrocyte Sedimentation Rate 10 mm/hr (0-10)
[2019-05-27 10:53] LABS: Alanine Aminotransferase 12 U/L (0-41); Albumin Level 3.9 g/dL (3.5-5.2); Alkaline Phosphatase 79 IU/L (40-130); Anion Gap 15.9 (5-19); Aspartate Amino Transferase 16 U/L (0-40); Blood Urea Nitrogen 12 mg/dL (8-23); C Reactive Protein 2.1 mg/L (0.0-4.9); Calcium 9.4 mg/dL (8.5-10.5); Carbon Dioxide 22 mmol/L (22-29); Chloride 100 mmol/L (98-107); Globulin 3.3 g/dL (1.3-4.6); Glucose 264 mg/dL (65-115); Potassium 3.9 mmol/L (3.5-5.1); Sodium 134 mmol/L (136-145); Total Bilirubin 0.3 mg/dL (0.15-1.2); Total Protein 7.2 g/dL (6.6-8.7); Vancomycin Trough 13.5 ug/mL (10-15)
== END 2019-06-15 23:59 | disposition home or self-care (01) ==
LOC: RADWPI 08:00
PROVIDERS: Visit Provider Thoracic Surgery (Cardiothoracic Vascular Surgery)
DX: I73.9 Peripheral vascular disease, unspecified; L97.812 Non-pressure chronic ulcer of other part of right lower leg with fat layer exposed; T81.30XA Disruption of wound, unspecified, initial encounter
CPT/HCPCS: 11042; 80053; 80202; 85025; 85651; 86140; 87070; 87077; 87186

== ENCOUNTER 2019-07-16 15:10 | Outpatient (RCR) | payer OTHER, SELFPAY | END 2019-07-16 23:59 | disposition home or self-care (01) | LOC: WOUND 15:10 | PROVIDERS: Visit Provider Thoracic Surgery (Cardiothoracic Vascular Surgery) | DX: I73.9 Peripheral vascular disease, unspecified (principal); L97.812 Non-pressure chronic ulcer of other part of right lower leg with fat layer exposed | CPT/HCPCS: 11042; 15271; Q4137 ==

== ENCOUNTER 2019-08-06 14:24 | Outpatient (RCR) | payer OTHER, SELFPAY | END 2019-08-15 23:59 | disposition home or self-care (01) | LOC: WOUND 14:24 | PROVIDERS: Visit Provider Thoracic Surgery (Cardiothoracic Vascular Surgery) | DX: I73.9 Peripheral vascular disease, unspecified (principal); L97.812 Non-pressure chronic ulcer of other part of right lower leg with fat layer exposed | CPT/HCPCS: 15271; 99211; 99212; Q4137 ==

== ENCOUNTER 2019-08-12 11:29 | Outpatient (CLI) | payer OTHER, SELFPAY ==
--- NOTE | 2019-08-12 11:46 | CT_ITS ---
WS: [id number] CT CHEST WITH INTRAVENOUS CONTRAST HISTORY: NODULAR DENSITY RT SUPRAHILAR REGION TECHNIQUE: Contiguous 5 mm axial imaging performed on the thorax. Coronal and sagittal reformats are submitted. All CT scans at [facility] use at least one of these dose optimization techniq ues: automated exposure control; mA and/or kV adjustment per patient size (includes targeted exams wh ere dose is matched to clinical indication); or iterative reconstruction. CONTRAST: Omnipaque 300; 95 mL IV. DLP: 888.63 mGy.cm COMPARISON: Chest radiograph 04/24/2019 Lungs and central airway: Mildly hyperexpanded lungs. There are several pulmonary nodules. The larges t is 8 mm with slightly irregular margins in the medial RIGHT upper lobe. Additional 5 mm noncalcifie d nodule in the posterior LEFT lower lobe, image 29 of series 3. Otherwise there are tiny micronodule s in the periphery of both lungs superimposed on chronic fibrotic changes. Benign granuloma RIGHT low er lobe. Pleura: Normal. No pleural effusion. Heart and pericardium: Normal size heart. No pericardial effusion. Mediastinum and maryanne: Small mediastinal lymph nodes. No adenopathy identified. Largest lymph node is 9 mm along the inferior RIGHT paratracheal region. Vessels: Mild atherosclerosis aorta. Moderate coronary artery calcification. Chest wall and lower neck: No soft tissue masses. Upper abdomen: No adrenal mass identified. 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 12 mm cyst upper pole RIGHT kidney. Mild hepatic steatosis. Osseous structures: Remote fracture in the posterior inferior RIGHT thorax. CT/CT chest w con* [id number] IMPRESSION: 1. RIGHT upper lobe pulmonary nodule measures 8 mm. There are additional small er scattered nodules. Early neoplasm or postinflammatory nodule. Recommend shor t-term chest CT follow-up in 3 months or PET/CT imaging at this time. 2. No adenopathy. 3. Chronic emphysema and moderate atherosclerosis coronary arteries.
[2019-08-12 12:50] LABS: Blood Urea Nitrogen 13 mg/dL (8-23)
[2019-08-12] MEDS: iohexol 300 mg/mL 100 mL Btl IV (13:09)
--- NOTE | 2019-08-12 14:36 | USCV_ITS ---
Robbie Penny Age: 69 Gender: M : 1950 Exam Date: 08/12/2019 14:26 Ordering Phys: No Marinelli Technologist: Exam Location: [facility]_ Indication: PAD RIGHT LEFT Brachial 159.00 mmHg Brachial 161.00 mmHg Pressure (mmHg) Waveform Pressure (mmHg) Waveform 67.00 FOAM RUBBER FABRICATOR 0.00 DPA 0.47 Ankle/Brachial Index 68.00 Pre-Exercise Toe Pressure 0.42 Pre-Exercise Toe/Brachial Index FINDINGS Abnormal resting MARII and TBI on the right side CONCLUSIONS Features of severe obstructive arterial disease in the right lower extremity, based on the above findings, possibly multisegmental Dr Anju Galloway MD [facility] (Electronically Signed) Final Date: 12 August 2019 15:52 S
== END 2019-08-12 11:30 | disposition home or self-care (01) ==
LOC: RAD 11:31
PROVIDERS: PCP Nurse Practitioner; Visit Provider Nurse Practitioner
DX: R91.1 Solitary pulmonary nodule (principal); J43.8 Other emphysema; I25.10 Atherosclerotic heart disease of native coronary artery without angina pectoris; I77.89 Other specified disorders of arteries and arterioles
CPT/HCPCS: 36415; 71260; 82565; 84520; 93922

== ENCOUNTER 2019-12-08 12:22 | Emergency (ER) | payer OTHER, MEDICARE, SELFPAY ==
[2019-12-08 12:33] VITALS: BP 154/74; PULSE 88; RESP 18; TEMP 36.6; O2SAT 95; BMI 30.2
--- NOTE | 2019-12-08 13:02 | XR_ITS ---
WS: [id number] EXAM: ABDOMINAL KUB DATE OF EXAMINATION: 12/08/2019, 1356 hours COMPARISON: None. HISTORY: Patient is 69 years old with abdominal pain, urinary symptomatology. Assess for stone. FINDINGS: Bowel gas pattern is normal. No calcifications are seen to suggest renal or ureteral calculi. Solid o rgan silhouettes do not appear enlarged. Elevation of the right hemidiaphragm. Left lung base is clear. Scattered changes of arthritis are see n in the spine. Overall bone density is profoundly decreased. XR/XR KUB [id number] IMPRESSION: Normal bowel gas pattern. No calcifications seen to suggest renal or ureteral c alculi
--- NOTE | 2019-12-08 13:13 | ED_ITS ---
HPI - Male Genitourinary General: Chief complaint: Urogenital-Male Stated complaint: kidney pain Time Seen by Provider: 12/08/19 12:45 History of Present Illness: HPI Narrative: 69-year-old male presents to the emergency department with 1 to 2-day history of urinary pain. He reports pain with urination, states urgency and frequency is present, denies fever chills or flank/abdominal pain. States, think I have a kidney infection . He denies nausea vomiting. He is also complaining of a headache with body ache symptoms. States the symptoms started this morning. He has not taken anything for pain. He denies h/o kidney stones. Complaint: testicle pain (Mild) and dysuria Onset (ago): hour(s) (24) Duration: intermittent (Worse with urination) Severity: moderate Quality: burning and dull Relieving factors: urination Exacerbating factors: urination (When starting stream) Associated symptoms: Reports dysuria and urinary incontinence (New onset, onset with symptoms); Deny discharge, fevers/chills, hematuria, nausea, rash or urinary retention Review of Systems General: Reports: 10 or more systems reviewed and unremarkable except in HPI and below Const: Denies: fever(s), chills or diaphoresis Eyes: Denies: blurry vision or eye redness ENMT: Denies: throat pain, dental pain or disequilibrium Card: Denies: chest pain, palpitations or irregular heart rhythm Resp: Denies: dyspnea, productive cough, non-productive cough or wheezing GI: Denies: nausea : Reports: dysuria and urinary incontinence (New onset, onset with symptoms); Denies: hematuria Musc: Denies: back pain Skin/Breast: Denies: rash or pruritus Neuro: Reports: headache(s); Denies: numbness in extremities, weakness in extremities or behavioral changes Lukas/Lymph: Denies: easy bruising PFSH ED PFSH: Medical History (Updated 12/08/19 @ 15:42 by FRANKIE Corbett) 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 Hypertension Peripheral vascular disease Vascular graft infection Surgical History (Updated 04/25/19 @ 08:17 by Ayan Bettencourt MD) History of peripheral artery bypass Hx of CABG S/P femoral-popliteal bypass surgery Family History Father Family history of premature coronary artery disease Hyperlipidemia Hypertension Social History Smoking and tobacco status: former smoker Alcohol intake: never Household members: spouse Marital status: Physical Exam Const: COMMON NORMALS: no acute distress, patient oriented x3, healthy appearing and alert GENERAL APPEARANCE: cooperative and well hydrated HENMT: COMMON NORMALS: normocephalic, Normal external nose present and moist oral mucous membranes HEAD & SCALP: normocephalic NOSE: Normal external nose present Eye: COMMON NORMALS: Equal, round and reactive pupils present and EOMs intact bilaterally GENERAL EYE: appearance normal, both eyes and all related structures PUPIL: Yes Equal, round and reactive pupils present Neck/C-Spine: COMMON NORMALS: full ROM and no lymphadenopathy GENERAL: Yes normal visual inspection and Yes trachea midline CERVICAL SPINE: Yes cervical ROM normal Lymph: LYMPHATIC: no lymphadenopathy noted Chest: COMMONS NORMALS: normal inspection of the chest Resp: COMMON NORMALS: normal respiratory effort and clear to auscultation bilaterally AUSCULTATION: clear to auscultation bilaterally Cardio: COMMON NORMALS: regular rhythm, S1 normal heart sound present and S2 normal heart sound present RHYTHM: regular rhythm HEART SOUNDS: S1 normal heart sound present and S2 normal heart sound present GI: COMMON NORMALS: Soft to palpation and non-tender INSPECTION: Yes normal to inspection PALPATION: Yes Soft to palpation : BLADDER/KIDNEY EXAM: Yes bladder normal to palpation and Yes CVA tenderness MALE GROIN/PERINEUM EXAM: No ecchymosis, No edema and No inguinal lymphadenopathy Back/Pelvis: COMMON NORMALS: thoracic and lumbar spine normal to inspection GENERAL BACK: Yes CVA tenderness CVA tenderness: bilateral (slight) THORACIC SPINE/UPPER BACK: Yes normal to inspection LUMBAR SPINE/LOWER BACK: Yes normal to inspection Extremity: COMMON NORMALS: normal to inspection and capillary refill normal Neuro: COMMON NORMALS: patient oriented x3 and no focal motor deficits SENSORIUM/ORIENTATION: Yes alert Psych: COMMON NORMALS: mental status grossly normal, Normal thought process present and cooperative ACTIVITY/MOTOR BEHAVIOR: Yes appropriate eye contact THOUGHT PROCESS: Normal thought process present Skin: COMMON NORMALS: no rashes or lesions noted and turgor normal GENERAL SKIN EXAM: no rashes or lesions noted and turgor normal Course ED course: 69-year-old male patient presents to the emergency department with complaints of dysuria, upon exam he was found to be chilled, patient received Tylenol, received IV antibiotics, Levaquin for urinary tract infection/pyelonephritis. Case discussed with Dr. Granados, Dr. Granados did evaluate the patient prior to discharge. He has not complained of nausea vomiting. Agrees to follow-up with Dr. Gipson as recommended. PSA will be added to exam today due to enlarged prostate with appropriate follow-up with Dr. Gipson. Vital Signs: Vital signs: Vital Signs Temperature 97.9 F 12/08/19 12:33 Pulse Rate 88 12/08/19 16:23 Respiratory Rate 17 12/08/19 16:23 Blood Pressure 117/66 12/08/19 16:23 Pulse Oximetry 95 12/08/19 16:23 MDM - Male Lab Data: Labs: Lab Results 12/08/19 12/08/19 12/08/19 Range/Units 13:00 13:57 13:57 WBC 12.7 H (4.0-10.0) 10^3/ uL RBC 5.22 (4.1-5.3) 10^6/u L Hgb 16.8 H (11.7-16.6) g/dL Hct 49.7 (42.0-52.0) % MCV 95.2 H (80-94) fL MCH 32.2 (28.0-34.0) pg MCHC 33.8 (30.0-36.0) g/dL RDW 13.0 (12.1-15.1) % Plt Count 157 (130-400) 10^3/c mm MPV 10.1 (7.4-10.4) fL Neut % (Auto) 86.8 % Lymph % (Auto) 6.1 % [place] % (Auto) 6.2 % Eos % (Auto) 0.0 % Baso % (Auto) 0.2 % Neut # (Auto) 11.04 H (1.8-7.7) 10^3/u L Lymph # (Auto) 0.8 (0.8-4.8) 10^3/u L [place] # (Auto) 0.8 (0.2-0.9) 10^3/u L Eos # (Auto) 0.0 (0.0-0.8) 10^3/u L Baso # (Auto) 0.0 (0.0-0.1) 10^3/u L Nucleated RBC % (a uto) 0 % Nucleated RBCs # 0.0 /100WBC Sodium 133 L (136-145) mmol/L Potassium 4.0 (3.5-5.1) mmol/L Chloride 99 (98-107) mmol/L Carbon Dioxide 27 (22-29) mmol/L Anion Gap 11.0 (5-19) BUN 14 (8-23) mg/dL Creatinine 1.2 (0.7-1.2) mg/dL GFR Calculation Not Reportable Glucose 224 H (65-115) mg/dL Calculated Osmolal ity 279 L (285-295) mOsm/k g Lactate (0.5-2.2) mmol/L Calcium 9.0 (8.5-10.5) mg/dL Total Bilirubin 1.5 H (0.15-1.2) mg/dL AST 19 (0-40) U/L ALT 21 (0-41) U/L Alkaline Phosphata se 79 (40-130) IU/L Total Protein 7.8 (6.6-8.7) g/dL Albumin 4.3 (3.5-5.2) g/dL Globulin 3.5 (1.3-4.6) g/dL Prostate Specific Ag (0-4) ng/mL Urine Color Dark yellow (Yellow) Urine Appearance Hazy A (CLEAR) Urine pH 5 (5-7) Ur Specific Gravit y 1.025 (1.005-1.030) Urine Protein Trace (Negative) Urine Glucose (UA) 4+ H (Normal) Urine Ketones 1+ H (Negative) Urine Blood 2+ H (Negative) Urine Nitrate Positive H (Negative) Urine Bilirubin Neg (NEGATIVE) Urine Urobilinogen 1 H (Negative) mg/dL Ur Leukocyte Harriet ase 2+ H (Negative) Urine RBC 5-10 H (0-2) /hpf Urine WBC >100 H (0-5) /hpf Ur Squamous Epith Cells None (0-5) Amorphous Sediment Not Reportable Urine Bacteria 3+ H (NONE) 12/08/19 12/08/19 Range/Units 13:57 13:57 WBC (4.0-10.0) 10^3/ uL RBC (4.1-5.3) 10^6/u L Hgb (11.7-16.6) g/dL Hct (42.0-52.0) % MCV (80-94) fL MCH (28.0-34.0) pg MCHC (30.0-36.0) g/dL RDW (12.1-15.1) % Plt Count (130-400) 10^3/c mm MPV (7.4-10.4) fL Neut % (Auto) % Lymph % (Auto) % [place] % (Auto) % Eos % (Auto) % Baso % (Auto) % Neut # (Auto) (1.8-7.7) 10^3/u L Lymph # (Auto) (0.8-4.8) 10^3/u L [place] # (Auto) (0.2-0.9) 10^3/u L Eos # (Auto) (0.0-0.8) 10^3/u L Baso # (Auto) (0.0-0.1) 10^3/u L Nucleated RBC % (a uto) % Nucleated RBCs # /100WBC Sodium (136-145) mmol/L Potassium (3.5-5.1) mmol/L Chloride (98-107) mmol/L Carbon Dioxide (22-29) mmol/L Anion Gap (5-19) BUN (8-23) mg/dL Creatinine (0.7-1.2) mg/dL GFR Calculation Glucose (65-115) mg/dL Calculated Osmolal ity (285-295) mOsm/k g Lactate 2.2 (0.5-2.2) mmol/L Calcium (8.5-10.5) mg/dL Total Bilirubin (0.15-1.2) mg/dL AST (0-40) U/L ALT (0-41) U/L Alkaline Phosphata se (40-130) IU/L Total Protein (6.6-8.7) g/dL Albumin (3.5-5.2) g/dL Globulin (1.3-4.6) g/dL Prostate Specific Ag 9.310 H (0-4) ng/mL Urine Color (Yellow) Urine Appearance (CLEAR) Urine pH (5-7) Ur Specific Gravit y (1.005-1.030) Urine Protein (Negative) Urine Glucose (UA) (Normal) Urine Ketones (Negative) Urine Blood (Negative) Urine Nitrate (Negative) Urine Bilirubin (NEGATIVE) Urine Urobilinogen (Negative) mg/dL Ur Leukocyte Harriet ase (Negative) Urine RBC (0-2) /hpf Urine WBC (0-5) /hpf Ur Squamous Epith Cells (0-5) Amorphous Sediment Urine Bacteria (NONE) Discharge Plan Discharge Patient Disposition: Home Clinical Impression: Acute UTI (urinary tract infection) Enlargement (benign) of prostate Qualifiers: Lower urinary tract symptom presence: symptoms present Lower urinary tract symptom detail: urinary frequency Qualified Code(s): N40.1 - Benign prostatic hyperplasia with lower urinary tract symptoms Condition: Stable Prescriptions: New Levaquin 750 mg tablet 750 mg PO Q24H 7 Days Qty: 7 RF: 0 No Action clopidogrel 75 mg Tablet 75 mg PO DAILY RF: 0 aspirin 81 mg Tablet,Delayed Release (Dr/Ec) 81 mg PO DAILY RF: 0 acetaminophen 500 mg Tablet 500 mg PO Q6H PRN (Reason: Pain) RF: 0 hydrocodone-acetaminophen 10-325 mg Tablet 1 tab PO Q6H PRN (Reason: Pain) RF: 0 Discharge Orders: Discharge Order (Routine); Ordered 12/08/19 Ordered By: Kennedi Simms Referrals: No Marinelli FNP [Primary Care Provider] - Discharge Diet: Usual diet Discharge Activity: Resume usual activity Patient Instructions: Urinary Tract Infection in Men (ED), Dysuria (ED) Activity Restrictions/Additional Instructions: Take antibiotics until all gone, you will start Levaquin tomorrow, 12/09/2019, first dose was administered here in the emergency department by IV. Consult to urologist, Dr. Gipson was initiated today, you will receive phone call this week for an appointment for follow-up If you develop nausea vomiting, inability to hold down antibiotic, fever, chills, worsening symptoms with urination, you will need to return to the emergency department for evaluation Discharge Date/Time: 12/08/19 16:25 Coding Level of Care Code ED Community Service Technician for Sampson Fwd Exam Comprehensive
[2019-12-08 14:06] LABS: Basophils % 0.2 %; Hematocrit 49.7 % (42.0-52.0); Hemoglobin 16.8 g/dL (11.7-16.6); Lymphocytes # 0.8 10^3/uL (0.8-4.8); Lymphocytes % 6.1 %; Mean Corpuscular HGB Conc 33.8 g/dL (30.0-36.0); Mean Corpuscular Hemoglobin 32.2 pg (28.0-34.0); Mean Corpuscular Volume 95.2 fL (80-94); Mean Platelet Volume 10.1 fL (7.4-10.4); Monocytes # 0.8 10^3/uL (0.2-0.9); Monocytes % 6.2 %; Neutrophils # 11.04 10^3/uL (1.8-7.7); Neutrophils % 86.8 %; Nucleated Red Blood Cells % 0 %; Platelet Count 157 10^3/cmm (130-400); Red Blood Count 5.22 10^6/uL (4.1-5.3); White Blood Count 12.7 10^3/uL (4.0-10.0)
[2019-12-08 14:25] LABS: Alanine Aminotransferase 21 U/L (0-41); Albumin Level 4.3 g/dL (3.5-5.2); Alkaline Phosphatase 79 IU/L (40-130); Aspartate Amino Transferase 19 U/L (0-40); Blood Urea Nitrogen 14 mg/dL (8-23); Carbon Dioxide 27 mmol/L (22-29); Chloride 99 mmol/L (98-107); Globulin 3.5 g/dL (1.3-4.6); Glucose 224 mg/dL (65-115); Osmolality Calculated 279 mOsm/kg (285-295); Sodium 133 mmol/L (136-145); Total Bilirubin 1.5 mg/dL (0.15-1.2); Total Protein 7.8 g/dL (6.6-8.7)
[2019-12-08] MEDS: acetaminophen 325 mg Tablet 650 MG PO (14:30)
[2019-12-08 14:36] LABS: Glucose Urine UA 4+ (Normal); Protein Urine Trace (Negative); Specific Gravity, Urine 1.025 (1.005-1.030); Urine Appearance Hazy (CLEAR); Urine Color Dark Yellow (Yellow); pH Urine 5 (5-7)
[2019-12-08 14:37] LABS: Add Urine Culture? Yes; Add Urine Microscopic? YES; Bacteria Urine 3+; Bilirubin Urine Neg (NEGATIVE); Blood Urine 2+ (Negative); Ketones Urine 1+ (Negative); Leukocyte Esterase Urine 2+ (Negative); Nitrate Urine Positive (Negative); Urobilinogen Urine 1 mg/dL (Negative); WBC Urine >100 /hpf (0-5)
--- NOTE | 2019-12-08 14:42 | CT_ITS ---
WS: [id number] EXAM: CT OF THE ABDOMEN AND PELVIS WITHOUT CONTRAST DATE OF EXAMINATION: 12/08/2019, 1457 hours COMPARISON: None. HISTORY: 69 years old with abdominal pain localizing in the lower abdomen and suprapubic region. TECHNIQUE: Transaxial computed tomography images obtained through the abdomen and pelvis without utilization of contrast viewed in multiple windows with reconstructions. DLP: 1926.[address] scans at [facility] use at least one of these dose optimization techniques: automat ed exposure control; mA and/or kV adjustment per patient size (includes targeted exams where dose is matched to clinical indication); or iterative reconstruction. FINDINGS: The lung bases are clear. Heart size is normal. The aorta is normal in caliber with slight peripheral calcified plaque. Without IV contrast evaluation of the lumen is considered inadequate. There is sli ght arteriomegaly involving the proximal right common iliac artery 19 mm in diameter. Without IV cont rast evaluation of the lumen is considered inadequate. Liver attenuation is normal. Gallbladder is no rmally distended. No pericholecystic inflammatory changes are seen. No biliary dilatation is noted. The spleen is normal in appearance. The pancreas is normal appearance. Adrenal glands are normal appearance. Slight perinephric stranding around both kidneys. Lesions in both kidneys most consistent with cysts. Incompletely evaluated without IV contrast. No renal or ureteral calculus or obstructive uropathy. The stomach is normal in appearance. Small retrocardiac hiatal hernia demonstrated. Small bowel is no rmal in caliber. Colon is normal in caliber. Scattered diverticulosis changes are demonstrated. Most concentrated in the sigmoid colon region. No increased stool burden is demonstrated. No bowel obstruc tion, free air, free fluid or inflammatory process. Normal appendix in the right lower abdomen. No intraperitoneal or retroperitoneal adenopathy or masses seen. Bladder is minimally distended otherwise unremarkable. The wall is prominent but presumably related t o underdistended status. Small umbilical hernia containing fat. There are findings of a scar in the right lower abdomen and gr oin region presumably related to a right groin arterial bypass graft procedure. There are changes con sistent with bilateral inguinal hernias containing fat. No bowel involvement demonstrated. The prostate is moderately enlarged. Correlation with PSA levels recommended. Seminal vesicles normal in appearance. Scattered changes of arthritis are seen in the spine. Compression fracture deformity superior endplat e of L2 with about 30% loss of height considered chronic. There appears be old trauma involving the right innominate bone. CT/CT kidney stone 90531 IMPRESSION: No findings of renal or ureteral calculus. No obstructive uropathy. Lesions in both kidneys felt to represent cysts. Slight prostate enlargement. Findings of bilateral inguinal hernias as well as umbilical hernia all containi ng fat. No bowel obstruction or free air. No renal obstructive uropathy. Other nonemergent findings as described in the body of the report.
[2019-12-08] MEDS: levofloxacin-dextrose 5 % 750 MG/150 ML PREMIX 100 MG IV (14:53)
[2019-12-08 15:23] LABS: Lactate (Lactic Acid level) 2.2 mmol/L (0.5-2.2)
[2019-12-08] MEDS: sodium chloride 0.9% 500 ML 999 ML IV (15:28)
[2019-12-08 16:23] VITALS: BP 117/66; PULSE 88; RESP 17; O2SAT 95
--- NOTE | 2019-12-10 09:40 | DCPLANNER ---
Addendum entered by Concepcion Webb 12/10/19 09:42: Patient has [facility] insurance, will call Senait with [employer] [facility], and inform her that patient was seen in the ED and that patient needs a follow up appointment with Dr. Gipson. July will put a note in with patients PACT team, so that the authorization process can get started. Original Note: program manager rn had message to schedule a follow up appointment for patient with Dr. Gipson. program manager rn called the office of Dr. Gipson, spoke with Edith, gave clinic patients information. program manager rn was told that patients information would be printed and reviewed. Clinic will call patient with appointment information.
--- NOTE | 2020-01-03 10:35 | DCPLANNER ---
environmental programs manager called the office of Dr. Gipson, spoke with Elva. environmental programs manager was told that the clinic is still waiting for authorization from the [facility] to see patient.
--- NOTE | 2020-01-08 13:41 | DCPLANNER ---
Edith from Dr. Clay office called nurse outreach case manager asking about authorization for patient to be seen. lead care manager called Senait with [facility] asking her about authorization. lead care manager was told that a consult had been placed for patient, she also stated that she would email the person that was in charge of the urology consults. lead care manager called Dr. Clay office, spoke with Elva and told her what July told nurse outreach case manager.
== END 2019-12-08 16:25 | disposition home or self-care (01) ==
PROVIDERS: Emergency Medicine; Emergency Provider Nurse Practitioner Family; PCP Nurse Practitioner
DX: N39.0 Urinary tract infection, site not specified (principal); N40.1 Benign prostatic hyperplasia with lower urinary tract symptoms; Z79.82 Long term (current) use of aspirin; Z79.02 Long term (current) use of antithrombotics/antiplatelets; Z89.519 Acquired absence of unspecified leg below knee; Z95.1 Presence of aortocoronary bypass graft; Z87.891 Personal history of nicotine dependence
CPT/HCPCS: 12345; 36415; 74018; 74176; 80053; 81001; 83605; 84153; 85025; 87040; 87077; 87086; 87186; 96360; 96361; 96365; 96366; 99283; 99284; J1956; J7040

== ENCOUNTER 2019-12-24 15:50 | Emergency (ER) | payer OTHER, MEDICARE, SELFPAY ==
[2019-12-24 16:07] VITALS: BP 162/88; PULSE 77; RESP 18; TEMP 36.6; O2SAT 94; BMI 30.2
[2019-12-24 17:37] VITALS: BP 139/67; PULSE 67; RESP 18; O2SAT 96
--- NOTE | 2019-12-24 17:44 | USCV_ITS ---
Zohaib Robbie Age: 69 Gender: M : 1950 Exam Date: 12/24/2019 18:49 Ordering Phys: Capo Whittington Technologist: Narciso Esparza [place] [facility] [place]: HX OF RT CFV TO POP GRAFT Risk Factors: Previous Vascular Surgery: RIGHT LEFT BP: 140.0 / 85.00 BP: 140.0/ 80.00 0 0 Waveform Velocity (cm/s) Velocity (cm/s) Waveform Triphasic 76.1 Iliac Prox Biphasic 48.2 Iliac Mid N/A 82.3 Iliac Distal Monophasic 40.4 POP Monophasic 30.8 GEAR ROOM KEEPER Monophasic 29.0 DPA 0.3 MARII FINDINGS RT LEG GRAFT IS OCCLULDED No flow was dictated in the right common femoral and superficial femoral artery. The femoral-peroneal? Bypass graft appears to have no spontaneous blood flow. Monophasic and continuous Doppler waveforms in the popliteal and posterior tibial artery. CONCLUSIONS 1. Features of total occlusion of the common femoral and femoral artery on the right side 2. Features of total occlusion of the ? femoral peroneal bypass graft on the right side. 3. Features of collateral filling of the popliteal and posterior tibial artery on the right side 4. Possible high-grade lesion in the anterior tibial/dorsalis pedis artery 5. Markedly diminished resting MARII 0.3 on the right side Compared to the study from 09/17/2019, the occlusion of the bypass graft appears to be new Dr Anju Galloway MD [facility] (Electronically Signed) Final Date: 26 December 2019 08:46 S
--- NOTE | 2019-12-24 17:46 | W.ED.EXTPRO ---
HPI - Extremity Problem General: Chief complaint: Extremity Problem,Nontraumatic Stated complaint: lack of circulation in r leg/ [facility] Time Seen by Provider: 12/24/19 17:38 History of Present Illness: HPI Narrative: RLE decreased blood flow x few days, hx of artery graft ROMI ELIZALDE Complaint: cold extremity (cool not cold) Onset (ago): day(s) Quality: aching Radiation: none Relieving factors: nothing Associated symptoms: Reports no associated symptoms; Deny chest pain, fever(s) or rash Review of Systems Const: Denies: fever(s), chills or body aches Eyes: Denies: change in vision or blurry vision ENMT: Denies: throat pain or nasal congestion Card: Reports: other (RLE feels like blood flow has decreased, toes have been bluish); Denies: chest pain or dyspnea on exertion Resp: Denies: dyspnea, productive cough or non-productive cough GI: Denies: abdominal pain, nausea or vomiting : Denies: difficulty urinating Musc: Denies: extremity pain Skin/Breast: Denies: rash Neuro: Denies: headache(s) Psych: Denies: anxiety or depression Lukas/Lymph: Denies: easy bruising PFSH ED PFSH: Medical History (Updated 12/16/19 @ 00:01 by ) 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 Hypertension Peripheral vascular disease Vascular graft infection Surgical History (Updated 04/25/19 @ 08:17 by Ayan Bettencourt MD) History of peripheral artery bypass Hx of CABG S/P femoral-popliteal bypass surgery Family History Father Family history of premature coronary artery disease Hyperlipidemia Hypertension Social History Smoking and tobacco status: former smoker Alcohol intake: never Household members: spouse Marital status: Physical Exam Const: COMMON NORMALS: no acute distress, average body habitus and patient oriented x3 HENMT: COMMON NORMALS: normocephalic HEAD & SCALP: normal to inspection and normocephalic FACE & SINUS: normal facial exam Eye: COMMON NORMALS: conjunctivae normal GENERAL EYE: appearance normal, both eyes and all related structures CONJUNCTIVA: Yes conjunctivae normal Neck/C-Spine: COMMON NORMALS: no JVD Chest: COMMONS NORMALS: normal inspection of the chest Resp: COMMON NORMALS: normal respiratory effort and clear to auscultation bilaterally AUSCULTATION: clear to auscultation bilaterally Cardio: COMMON NORMALS: no JVD, regular rate and regular rhythm RATE: regular rate RHYTHM: regular rhythm GI: COMMON NORMALS: Normal to inspection, nondistended, normoactive bowel sounds present Extremity: COMMON NORMALS: normal to inspection and full ROM RIGHT LOWER EXTREMITY: Yes lower leg (#3,4 toes are more dusckly, feeble pulses, slightly cool to all toes, no sw) Neuro: COMMON NORMALS: patient oriented x3 Course Vital Signs: Vital signs: Vital Signs Temperature 97.9 F 12/24/19 16:07 Pulse Rate 77 12/24/19 16:07 Respiratory Rate 18 12/24/19 16:07 Blood Pressure 162/88 12/24/19 16:07 Pulse Oximetry 94 12/24/19 16:07 Discharge Plan Discharge Prescriptions: No Action clopidogrel 75 mg Tablet 75 mg PO DAILY RF: 0 aspirin 81 mg Tablet,Delayed Release (Dr/Ec) 81 mg PO DAILY RF: 0 acetaminophen 500 mg Tablet 500 mg PO Q6H PRN (Reason: Pain) RF: 0 hydrocodone-acetaminophen 10-325 mg Tablet 1 tab PO Q6H PRN (Reason: Pain) RF: 0 Coding Level of Care Code ED Therapist for Sampson Bradford
[2019-12-24 18:08] VITALS: BP 139/67; PULSE 63; RESP 18; O2SAT 94
[2019-12-24 19:15] VITALS: BP 142/63; PULSE 63; RESP 18; O2SAT 96
== END 2019-12-24 19:18 | disposition home or self-care (01) ==
PROVIDERS: Emergency Provider Nurse Practitioner Family; PCP Nurse Practitioner
DX: I99.9 Unspecified disorder of circulatory system (principal); Z79.02 Long term (current) use of antithrombotics/antiplatelets; Z79.82 Long term (current) use of aspirin; Z89.519 Acquired absence of unspecified leg below knee; I10 Essential (primary) hypertension; I73.9 Peripheral vascular disease, unspecified; Z95.1 Presence of aortocoronary bypass graft; Z87.891 Personal history of nicotine dependence
CPT/HCPCS: 12345; 93926; 99282

== ENCOUNTER → 2020-01-09 12:56 | Outpatient (BNVA) | payer OTHER, SELFPAY | PROVIDERS: PCP Nurse Practitioner; Visit Provider Nurse Practitioner Family | DX: N40.0 Benign prostatic hyperplasia without lower urinary tract symptoms (principal) | CPT/HCPCS: 81001 ==

== ENCOUNTER 2020-07-30 08:16 | Outpatient (CLI) | payer OTHER, SELFPAY ==
--- NOTE | 2020-07-30 08:26 | USCV_ITS ---
Robbie Penny Age: 70 Gender: M : 1950 Exam Date: 07/30/2020 08:24 Ordering Phys: Yasmin Whitley NP Technologist: Exam Location: [facility] [place] Indication: RT LEG CLAUDICATION RIGHT LEFT Brachial 149.00 mmHg Brachial 146.00 mmHg FINDINGS Blood pressure could not be obtained on the right side at the OPERATOR RECEPTIONIST/dorsalis pedis artery level Patient has above-knee amputation on the left side CONCLUSIONS Blood pressures could not be obtained on the right lower extremity at the level of the posterior tibial and dorsalis pedis arteries-suggesting severe peripheral artery disease? Consider CTA or peripheral angiogram, if clinically indicated Dr Anju Galloway MD [facility] (Electronically Signed) Final Date: 31 July 2020 20:49 S
== END 2020-07-30 08:17 | disposition home or self-care (01) ==
LOC: RAD 08:18
PROVIDERS: PCP Nurse Practitioner; Visit Provider Surgery Vascular Surgery
DX: I70.211 Atherosclerosis of native arteries of extremities with intermittent claudication, right leg (principal)
CPT/HCPCS: 93922

== ENCOUNTER 2020-12-23 08:28 | Outpatient (CLI) | payer OTHER, SELFPAY ==
--- NOTE | 2020-12-23 08:41 | CT_ITS ---
WS: [id number] CT HEAD NONCONTRAST HISTORY: HEADACHE IN BACK OF HEAD FOR OVER 2 WEEKS TECHNIQUE: Contiguous axial imaging performed through the brain in 2.5 mm imaging. Bone and soft tiss ue windows. All CT scans at [facility] use at least one of these dose optimization techniques: automated exposure control; mA and/or kV adjustment per patient size (includes targeted exams where dose is matched to clinical indication); or iterative reconstruction. DLP: 925.91 mGycm COMPARISON: None available. No acute intracranial hemorrhage, midline shift or mass effect. Very mild atrophy and mild chronic microvascular ischemic disease. No new area of edema or sulcal eff acement. Ventricles: Normal size with no hydrocephalus. Paranasal sinuses: As visualized are clear. Mastoid air cells: Well pneumatized. Calvarium and scalp: Skull is intact with no soft tissue edema or swelling. CT/CT head wo con* [id number] IMPRESSION: 1. Mild atrophy and chronic ischemic disease. 2. No acute intracranial findings.
== END 2020-12-23 08:29 | disposition home or self-care (01) ==
PROVIDERS: PCP Nurse Practitioner; Visit Provider Nurse Practitioner
DX: R51.9 Headache, unspecified (principal)
CPT/HCPCS: 70450

== ENCOUNTER → 2021-11-24 09:41 | Outpatient (BNVA) | payer OTHER, SELFPAY | PROVIDERS: PCP Nurse Practitioner; Visit Provider Podiatrist Foot & Ankle Surgery | DX: Z79.84 Long term (current) use of oral hypoglycemic drugs (principal); E11.42 Type 2 diabetes mellitus with diabetic polyneuropathy; L60.3 Nail dystrophy; I73.9 Peripheral vascular disease, unspecified; M21.621 Bunionette of right foot; L84 Corns and callosities; E11.8 Type 2 diabetes mellitus with unspecified complications | CPT/HCPCS: 11055; 11721 ==

== ENCOUNTER → 2022-03-23 11:20 | Outpatient (BNVA) | payer OTHER, SELFPAY | PROVIDERS: PCP Nurse Practitioner; Visit Provider Podiatrist Foot & Ankle Surgery | DX: I73.9 Peripheral vascular disease, unspecified (principal); E11.8 Type 2 diabetes mellitus with unspecified complications; E11.42 Type 2 diabetes mellitus with diabetic polyneuropathy; L60.3 Nail dystrophy; M21.621 Bunionette of right foot; L84 Corns and callosities; Z79.84 Long term (current) use of oral hypoglycemic drugs | CPT/HCPCS: 11055; 11720 ==

== ENCOUNTER → 2022-04-06 09:04 | Outpatient (BNVA) | payer OTHER, SELFPAY | PROVIDERS: PCP Nurse Practitioner; Visit Provider Podiatrist Foot & Ankle Surgery | DX: Z95.828 Presence of other vascular implants and grafts (principal); L97.511 Non-pressure chronic ulcer of other part of right foot limited to breakdown of skin; I73.9 Peripheral vascular disease, unspecified; Z89.512 Acquired absence of left leg below knee | CPT/HCPCS: 99213 ==

== ENCOUNTER → 2022-04-19 10:48 | Outpatient (BNVA) | payer OTHER, SELFPAY | PROVIDERS: PCP Nurse Practitioner; Visit Provider Podiatrist Foot & Ankle Surgery | DX: I73.9 Peripheral vascular disease, unspecified (principal); L97.511 Non-pressure chronic ulcer of other part of right foot limited to breakdown of skin; Z95.828 Presence of other vascular implants and grafts; Z79.84 Long term (current) use of oral hypoglycemic drugs | CPT/HCPCS: 99213 ==

== ENCOUNTER → 2022-05-10 14:20 | Outpatient (BNVA) | payer OTHER, SELFPAY | PROVIDERS: PCP Nurse Practitioner; Visit Provider Podiatrist Foot & Ankle Surgery | DX: I73.9 Peripheral vascular disease, unspecified (principal); Z95.828 Presence of other vascular implants and grafts; L60.3 Nail dystrophy; Z89.512 Acquired absence of left leg below knee | CPT/HCPCS: 99214 ==

== ENCOUNTER 2022-06-10 09:31 | Outpatient (CLI) | payer OTHER, SELFPAY ==
--- NOTE | 2022-06-10 09:40 | USCV_ITS ---
Robbie Penny Age: 72 Gender: M : 1950 Exam Date: 06/10/2022 09:52 Ordering Phys: No Marinelli Technologist: CORKY Exam Location: [facility] [place] Indication: Aorta Screening HISTORY: Diameter (cm) AP x Transverse x Length Velocity (cm/s) Waveform Prox Aorta: 2.33 x 2.08 x 74.10 Triphasic Mid Aorta: 2.16 x 1.95 x 85.90 Triphasic Distal Aorta: 2.12 x 1.73 x 55.90 Triphasic Right Iliac Prox: 1.70 x 1.78 x 43.00 Triphasic Left Iliac Prox: 1.78 x 1.73 x 60.30 Triphasic Stent Prox Landing x x Aneurysmal Sac Max x x Lt Lat Sac Dim Rt Lat Sac Dim Stent Dist Landing x x Right Iliac Stent x x Left Iliac Stent x x Right Renal Art Left Renal Art FINDINGS: No evidence of abdominal aortic or bilateral iliac aneurysm. CONCLUSIONS No evidence of abdominal aortic or bilateral iliac aneurysm. Johnnie Murphy MD (Electronically Signed) Final Date: 10 June 2022 10:41 S
== END 2022-06-10 09:32 | disposition home or self-care (01) ==
LOC: RAD 09:31
PROVIDERS: PCP Nurse Practitioner; Visit Provider Nurse Practitioner
DX: Z13.6 Encounter for screening for cardiovascular disorders (principal)
CPT/HCPCS: 76706

== ENCOUNTER → 2022-06-22 08:03 | Outpatient (BNVA) | payer OTHER, SELFPAY | PROVIDERS: PCP Nurse Practitioner; Visit Provider Podiatrist Foot & Ankle Surgery | DX: E11.8 Type 2 diabetes mellitus with unspecified complications (principal); I73.9 Peripheral vascular disease, unspecified; Z95.828 Presence of other vascular implants and grafts; L60.3 Nail dystrophy; Z89.512 Acquired absence of left leg below knee; Z79.84 Long term (current) use of oral hypoglycemic drugs | CPT/HCPCS: 99214 ==

== ENCOUNTER → 2022-07-25 10:58 | Outpatient (BNVA) | payer OTHER, SELFPAY | PROVIDERS: PCP Nurse Practitioner; Visit Provider Podiatrist Foot & Ankle Surgery | DX: I73.9 Peripheral vascular disease, unspecified (principal); Z95.828 Presence of other vascular implants and grafts; L60.3 Nail dystrophy; Z89.512 Acquired absence of left leg below knee | CPT/HCPCS: 11720 ==

== ENCOUNTER 2022-07-26 10:21 | Emergency (ER) | payer OTHER, SELFPAY ==
[2022-07-26 10:31] VITALS: BP 161/70; PULSE 71; RESP 16; TEMP 36.8; O2SAT 96
--- NOTE | 2022-07-26 10:47 | XR_ITS ---
WS: [id number] EXAMINATION: XR lumbar spine 2-3V* [id number] L-SPINE : 3 views REASON FOR EXAM: low back pain COMPARISON: None available. ORDER DATE: 07/26/2022 10:47 AM FINDINGS: There is superior endplate compression at the L2 level of approximately 10%. Multilevel endplate Schm orl's node defects. Generalized marginal osteophytes. Prominent disc narrowing at L5-S1 with hypertro phic facet changes at L4-5 and L5-S1 and possible posterior disc osteophyte complex at the L5-S1 leve l with possible spinal stenosis. Atherosclerotic aortic change. XR/XR lumbar spine 2-3V* [id number] IMPRESSION: Possible spinal stenosis at the L5-S1 or L4-5 levels. Superior endplate compressive changes at L2 age indeterminate clinical correlat ion suggested MR could be obtained if necessary for determination of acute youssef ge is indicated.
--- NOTE | 2022-07-26 11:38 | ED_ITS ---
HPI - Back Pain/Injury General: Chief Complaint: Back Pain/Injury Stated Complaint: Lower back pain Time Seen by Provider: 07/26/22 10:48 History of Present Illness: Patient presents to the ER with complaining of lumbar back pain in the upper region right below the ribs. This has been going on for a couple days. Patient has tried Tylenol with no help. Patient said the pain does worsen with moving and deep breathing. Patient reports no changes to his bowel or bladder. Pain does not radiate MD elicited complaint: back pain Onset (ago): day(s) (2 days ago) Timing: constant Severity: moderate Similar Symptoms Previously: No Quality: burning and aching Location: lumbar spine (Left lumbothoracic junction) Radiation: none Exacerbating factors: movement Relieving factors: none Associated symptoms: Reports no associated symptoms; Deny abdominal pain, chills, fever(s), nausea or vomiting Treatments prior to arrival: acetaminophen Work related injury: No Review of Systems General: Reports: 10 or more systems reviewed and unremarkable except in HPI and below Const: Denies: fever(s) or chills Eyes: Denies: change in vision ENMT: Denies: throat pain or odynophagia Card: Denies: chest pain, palpitations or irregular heart rhythm Resp: Denies: dyspnea, productive cough or non-productive cough GI: Denies: abdominal pain, nausea, vomiting or diarrhea Musc: Reports: back pain Skin/Breast: Denies: rash or pruritus Neuro: Denies: headache(s) or numbness in extremities Psych: Denies: anxiety or depression PFS ED PFSH: Medical History 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 BPH loc w urin obs/LUTS History of left above knee amputation History of nonmelanoma skin cancer Hypertension Peripheral vascular disease UTI (urinary tract infection) Vascular graft infection Surgical History H/O spinal fusion History of knee replacement History of peripheral artery bypass Hx of CABG S/P femoral-popliteal bypass surgery Family History Father Family history of premature coronary artery disease Hyperlipidemia Hypertension Social History Smoking and tobacco status: never smoked Alcohol intake: never Household members: spouse Marital status: Physical Exam Const: COMMON NORMALS: no acute distress, average body habitus, patient oriented x3, no limitations, healthy appearing, alert and well nourished HENMT: COMMON NORMALS: normocephalic, atraumatic, hearing grossly normal bilaterally, external ears normal, Normal external nose present and moist oral mucous membranes HEAD & SCALP: normocephalic and atraumatic NOSE: Normal external nose present EXTERNAL EAR: Yes external ears normal Neck/C-Spine: COMMON NORMALS: full ROM, no lymphadenopathy, supple, no meningeal signs, no JVD and Thyroid normal THYROID: Thyroid normal Chest: COMMONS NORMALS: normal inspection of the chest and normal palpation of entire chest wall Resp: COMMON NORMALS: normal respiratory effort, No retractions, No use of accessory muscles and clear to auscultation bilaterally AUSCULTATION: clear to auscultation bilaterally Cardio: COMMON NORMALS: no JVD, regular rate, regular rhythm, S1 normal heart sound present and S2 normal heart sound present RATE: regular rate RHYTHM: regular rhythm HEART SOUNDS: S1 normal heart sound present and S2 normal heart sound present GI: COMMON NORMALS: Normal to inspection, nondistended, normoactive bowel sounds present, Soft to palpation, non-tender, No hepatosplenomegaly present and no masses PALPATION: Yes Soft to palpation and Yes No hepatosplenomegaly present Back/Pelvis: OTHER: No pain with palpation over the thoracic or lumbar spine. Pain with palpation over the left thoracolumbar paraspinal muscles with spasm. Extremity: COMMON NORMALS: normal to inspection Neuro: COMMON NORMALS: patient oriented x3, CN's II-XII intact bilaterally, moves all extremities, no focal motor deficits and no sensory deficits noted SENSORIUM/ORIENTATION: Yes alert MENINGEAL SIGNS: Yes no meningeal signs Course Vital Signs: Vital signs: Vital Signs Temperature 98.2 F 07/26/22 10:31 Pulse Rate 71 07/26/22 10:31 Respiratory Rate 16 07/26/22 10:31 Blood Pressure 161/70 07/26/22 10:31 Pulse Oximetry 96 07/26/22 10:31 MDM - Back Pain/Injury Medical Decision Making Patient presents to the ER with complaint of low back pain primarily in the thoracolumbar paraspinal muscular region. Patient was not tender to palpation over the actual spine itself. X-rays was noted which showed spinal stenosis and possible compressive deformity that is age-indeterminate. Is felt that clinically this is old as patient is not sensitive over that area. And is more paraspinal in nature. Patient was given a shot of Toradol and Norflex IM. Patient will be discharged home to follow-up with his primary care physician in next week. Patient be given a prescription for Flexeril and meloxicam to take as needed. Differential Diagnosis Likely strain of lumbar region and thoracic back pain; Unlikely lumbar radiculopathy, sciatica, renal colic or pyelonephritis Medical Records I reviewed the patient's medical records. Labs I reviewed the patient's lab results. Radiology Impressions Lumbar Spine X-Ray 07/26/22 10:47 IMPRESSION: Possible spinal stenosis at the L5-S1 or L4-5 levels. Superior endplate compressive changes at L2 age indeterminate clinical correlation suggested MR could be obtained if necessary for determination of acute change is indicated. Discharge Plan Discharge Patient Disposition: Home Clinical Impression: Strain of lumbar region, Strain of thoracic region Condition: Stable Prescriptions: New cyclobenzaprine 5 mg tablet 5 mg PO TID PRN (Reason: muscle spasm) Qty: 14 0RF meloxicam 7.5 mg tablet 7.5 mg PO BID Qty: 14 0RF No Action tamsulosin 0.4 mg capsule 0.4 mg PO .at bedtime Qty: 90 3RF Eliquis 2.5 mg tablet 2.5 mg PO BID (DME) Diabetic Shoes with 3 pairs of custom inserts See Rx Instructions .ROUTE .MEDSUPPLY Qty: 1 0RF Rx Instructions: As directed metformin 500 mg tablet 500 mg PO DAILY (DME) Diabetic shoes ith molded inserts See Rx Instructions .Route .MEDSUPPLY Qty: 1 0RF Rx Instructions: As directed mupirocin 2 % ointment 1 applic topical BID 7 Days Qty: 15 2RF aspirin 81 mg Tablet,Delayed Release (Dr/Ec) 81 mg PO DAILY acetaminophen 500 mg Tablet 500 mg PO Q6H PRN (Reason: Pain) Discharge Orders: Discharge ED (Routine); Ordered 07/26/22 Ordered By: Jhon Patel Referrals: No Marinelli FNP [Primary Care Provider] - 1 week Patient Instructions: Low Back Strain (ED) Coding Level of Care Code ED Biomedical Service Engineer for Sampson Bradford
[2022-07-26] MEDS: orphenadrine 30 mg/mL Inj 2 mL 60 MG IM (11:41)
[2022-07-26] MEDS: ketorolac 60 mg/2 mL INJ IM (11:44)
[2022-07-26 12:35] VITALS: BP 146/89; RESP 15
== END 2022-07-26 12:37 | disposition home or self-care (01) ==
PROVIDERS: Emergency Provider Emergency Medicine; PCP Nurse Practitioner
DX: S39.012A Strain of muscle, fascia and tendon of lower back, initial encounter (principal); S29.012A Strain of muscle and tendon of back wall of thorax, initial encounter; Z79.82 Long term (current) use of aspirin; Z79.01 Long term (current) use of anticoagulants; Z79.84 Long term (current) use of oral hypoglycemic drugs; Z95.1 Presence of aortocoronary bypass graft; I10 Essential (primary) hypertension; X58.XXXA Exposure to other specified factors, initial encounter
CPT/HCPCS: 72100; 96372; 99284; J1885; J2360

== ENCOUNTER → 2022-10-05 09:41 | Outpatient (BNVA) | payer OTHER, SELFPAY | PROVIDERS: PCP Nurse Practitioner; Visit Provider Podiatrist Foot & Ankle Surgery | DX: I73.9 Peripheral vascular disease, unspecified (principal); Z95.828 Presence of other vascular implants and grafts; M21.41 Flat foot [pes planus] (acquired), right foot; M20.41 Other hammer toe(s) (acquired), right foot | CPT/HCPCS: 99214 ==

== ENCOUNTER → 2023-01-11 10:15 | Outpatient (BNVA) | payer OTHER, SELFPAY | PROVIDERS: PCP Nurse Practitioner; Visit Provider Podiatrist Foot & Ankle Surgery | DX: I73.9 Peripheral vascular disease, unspecified; L60.8 Other nail disorders; Z95.828 Presence of other vascular implants and grafts; M21.41 Flat foot [pes planus] (acquired), right foot; M20.41 Other hammer toe(s) (acquired), right foot | CPT/HCPCS: 11721 ==

== ENCOUNTER 2023-03-18 13:41 | Emergency (ER) | payer OTHER, SELFPAY ==
[2023-03-18 14:11] VITALS: BP 155/69; PULSE 61; RESP 18; TEMP 36.4; O2SAT 95; BMI 29.2
[2023-03-18 15:03] VITALS: BP 145/75; PULSE 77; TEMP 37.1; O2SAT 96
--- NOTE | 2023-03-18 18:53 | ED_ITS ---
HPI - Back Pain/Injury General: Chief Complaint: Back Pain/Injury Stated Complaint: back pains Time Seen by Provider: 03/18/23 18:52 History of Present Illness: 73-year-old male patient comes in for in creased low back pain. Patient was sleeping in bed when he had rolled over and suddenly got sharp back pain. Patient denies any fever chills nausea or vomiting. Patient has a history of recurrent back pain. Patient's last episode was back in July. Patient denies any fever chills shortness of breath or chest pain. Patient appears nontoxic. Patient reports pain aggravates with movement. Patient has a history of BPH, diabetes mellitus, CAD, vascular peripheral disease. 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 BPH loc w urin obs/LUTS History of left above knee amputation History of nonmelanoma skin cancer Hypertension Peripheral vascular disease UTI (urinary tract infection) Vascular graft infection Surgical History H/O spinal fusion History of knee replacement History of peripheral artery bypass Hx of CABG S/P femoral-popliteal bypass surgery Family History Father Family history of premature coronary artery disease Hyperlipidemia Hypertension Social History Smoking and tobacco/nicotine status: never used tobacco/nicotine Alcohol intake: never Substance/Drug Use: never Household members: spouse Marital status: Physical Exam Const: COMMON NORMALS: alert HENMT: COMMON NORMALS: normocephalic HEAD & SCALP: normocephalic MOUTH: Normal oral and palatal mucosa present Neck/C-Spine: COMMON NORMALS: full ROM Resp: COMMON NORMALS: normal respiratory effort and clear to auscultation bilaterally AUSCULTATION: clear to auscultation bilaterally Cardio: COMMON NORMALS: regular rate and regular rhythm RATE: regular rate RHYTHM: regular rhythm GI: COMMON NORMALS: Soft to palpation and non-tender PALPATION: Yes Soft to palpation Back/Pelvis: COMMON NORMALS: thoracic and lumbar spine normal to inspection Extremity: COMMON NORMALS: full ROM Neuro: SENSORIUM/ORIENTATION: Yes alert Skin: COMMON NORMALS: turgor normal GENERAL SKIN EXAM: turgor normal Course Vital Signs: Vital signs: Vital Signs Temperature 98.8 F 03/18/23 15:03 Pulse Rate 77 03/18/23 15:03 Respiratory Rate 18 03/18/23 14:11 Blood Pressure 145/75 03/18/23 15:03 Pulse Oximetry 96 03/18/23 15:03 Oxygen Delivery Me thod Room Air 03/18/23 15:03 MDM - Back Pain/Injury Medical Decision Making 73-year-old male patient comes in today for low back pain. Patient denies any falls or injury. Patient appears nontoxic. On exam patient has muscle tenderness in the left lower paraspinous muscles. Review of x-rays from July noted significant disc degeneration and L5-S1 area. Patient also has some degenerative changes otherwise in the spine. No recent injuries are noted. Differential diagnosis includes intervertebral disc disease, facet arthropathy, lumbar strain. Reviewed exam with patient with recommendations for treatment and follow-up. Recommend return to the ER for worsening symptoms such as difficulty urinating, high fever, or new concerns. Patient stated understanding and agrees to plan. Patient was stable and discharged home. No radiology studies performed this visit Discharge Plan Discharge Patient Disposition: Home Clinical Impression: Strain of lumbar region Qualifiers: Encounter type: initial encounter Qualified Code(s): S39.012A - Strain of muscle, fascia and tendon of lower back, initial encounter Lumbar spinal stenosis Qualifiers: Neurogenic claudication status: unspecified Qualified Code(s): M48.061 - Spinal stenosis, lumbar region without neurogenic claudication Condition: Stable Prescriptions: Continued meloxicam 7.5 mg tablet 7.5 mg PO BID Qty: 14 0RF cyclobenzaprine 5 mg tablet 5 mg PO TID PRN (Reason: muscle spasm) Qty: 14 0RF No Action tamsulosin 0.4 mg capsule 0.4 mg PO .at bedtime Qty: 90 3RF Eliquis 2.5 mg tablet 2.5 mg PO BID (DME) Diabetic Shoes with 3 pairs of custom inserts See Rx Instructions .ROUTE .MEDSUPPLY Qty: 1 0RF Rx Instructions: As directed metformin 500 mg tablet 500 mg PO DAILY (DME) Diabetic shoes ith molded inserts See Rx Instructions .Route .MEDSUPPLY Qty: 1 0RF Rx Instructions: As directed mupirocin 2 % ointment 1 applic topical BID 7 Days Qty: 15 2RF (DME) Custom Orthotics See Rx Instructions .Route .MEDSUPPLY Qty: 1 0RF Rx Instructions: As directed aspirin 81 mg Tablet,Delayed Release (Dr/Ec) 81 mg PO DAILY acetaminophen 500 mg Tablet 500 mg PO Q6H PRN (Reason: Pain) Discharge Orders: Discharge ED (Routine); Ordered 03/18/23 Ordered By: Ayan Keenan Referrals: No Marinelli, LOG HAULER [Primary Care Provider] - Discharge Diet: Usual diet Discharge Activity: Increase activity as tolerated Patient Instructions: Back Pain (ED) Activity Restrictions/Additional Instructions: Take meloxicam and cyclobenzaprine for back pain and muscle spasms. You may use acetaminophen for further pain relief. Drink plenty of water with medication. Try to maintain activity as much as possible. Follow-up with primary care for further evaluation and treatment. You may need to have an MRI for further evaluation and consideration of seeing orthopedic piercing specialist for further treatment. Return to ER for worsening symptoms such as high fever, nausea vomiting, or new concerns. Coding Level of Care Code ED Senior Underwriting Assistant for Sampson Bradford
[2023-03-18] MEDS: ketorolac 30 mg/mL INJ IM (19:17)
[2023-03-18] MEDS: orphenadrine 30 mg/mL Inj 2 mL 60 MG IM (19:18)
[2023-03-18] MEDS: cyclobenzaprine 10 mg Tablet 5 MG PO (19:18)
[2023-03-18] MEDS: meloxicam 7.5 mg tablet PO (19:18)
== END 2023-03-18 19:45 | disposition home or self-care (01) ==
PROVIDERS: Emergency Provider Nurse Practitioner Family; PCP Nurse Practitioner
DX: S39.012A Strain of muscle, fascia and tendon of lower back, initial encounter (principal); M48.061 Spinal stenosis, lumbar region without neurogenic claudication; Z79.01 Long term (current) use of anticoagulants; Z79.84 Long term (current) use of oral hypoglycemic drugs; Z79.82 Long term (current) use of aspirin; Z89.612 Acquired absence of left leg above knee; I10 Essential (primary) hypertension; Z95.1 Presence of aortocoronary bypass graft; X58.XXXA Exposure to other specified factors, initial encounter
CPT/HCPCS: 96372; 99284; J1885; J2360

== ENCOUNTER → 2023-04-12 09:49 | Outpatient (BNVA) | payer OTHER, SELFPAY | PROVIDERS: PCP Nurse Practitioner; Visit Provider Podiatrist Foot & Ankle Surgery | DX: L60.8 Other nail disorders (principal); Z95.828 Presence of other vascular implants and grafts; I73.9 Peripheral vascular disease, unspecified; Z89.512 Acquired absence of left leg below knee; Q66.71 Congenital pes cavus, right foot | CPT/HCPCS: 99213 ==

== ENCOUNTER → 2023-05-22 13:34 | Outpatient (BNVA) | payer OTHER, SELFPAY | PROVIDERS: PCP Nurse Practitioner; Visit Provider Nurse Practitioner Family | DX: Z85.828 Personal history of other malignant neoplasm of skin (principal); S88.02 Partial traumatic amputation at knee level; X58.XXXA Exposure to other specified factors, initial encounter; L57.8 Other skin changes due to chronic exposure to nonionizing radiation; L81.4 Other melanin hyperpigmentation; L21.8 Other seborrheic dermatitis | CPT/HCPCS: 17000; 17110; 99214 ==

== ENCOUNTER 2023-07-12 12:51 | Oncology outpatient (recurring) (ONCR) | payer OTHER, SELFPAY ==
[2023-07-06 11:12] LABS: Eosinophils # 0.1 10^3/uL (0.0-0.8); Eosinophils % 2.6 %; Hematocrit 43.3 % (37-53); Lymphocytes # 0.9 10^3/uL (0.8-4.8); Mean Corpuscular HGB Conc 33.9 g/dL (30-55); Mean Corpuscular Hemoglobin 30.9 pg (27-33); Mean Platelet Volume 9.7 fL (7.4-10.4); Monocytes # 0.4 10^3/uL (0.2-0.9); Monocytes % 11.4 %; Neutrophils # 1.74 10^3/uL (1.8-7.7); Neutrophils % 56.7 %; Nucleated Red Blood Cells % 0 %; Platelet Count 208 10^3/cmm (157-399); Red Blood Count 4.76 10^6/uL (3.85-5.65); Red Cell Distribution Width 13.7 % (12.1-15.1); White Blood Count 3.07 10^3/uL (3.29-11.43)
[2023-07-06 11:43] LABS: Alanine Aminotransferase 18 U/L (0-41); Alkaline Phosphatase 114 U/L (40-130); Anion Gap 15.3 (5-19); Aspartate Amino Transferase 18 U/L (0-40); Blood Urea Nitrogen 20 mg/dL (8-23); Calcium 9.3 mg/dL (8.5-10.5); Carbon Dioxide 24 mmol/L (22-29); Chloride 101 mmol/L (98-107); Creatinine Clr Calc Pharmacy 89.7618; Globulin 3.5 g/dL (1.3-4.6); Glucose 229 mg/dL (65-115); Osmolality Calculated 292 mOsm/kg (285-295); Potassium 4.3 mmol/L (3.5-5.1); Sodium 136 mmol/L (136-145); Thyroid Stimulating Hormone 1.28 uIU/mL (0.27-4.20); Total Bilirubin 0.3 mg/dL (0.15-1.2); Total Protein 7.5 g/dL (6.6-8.7)
--- NOTE | 2023-07-12 13:37 | N.ONRAD NP_ITS ---
Radiation Oncology New Patient Visit Patient: Robbie Penny MR#: [id number] : 1950> Age: 73> Sex: Male> Dictated by: Dr. Justine Li Date of Service: 07/12/2023 Referring Physician(s) : Dr. Tino Uribe Diagnosis: Bone Metastasis Radiotherapy to date: Summary > No prior radiation therapy. Chief Complaint / History of Present Illness: Patient is a 73-year-old gentleman who has just recently been found to have stage IV adenocarcinoma of the lung. He had a CT scan at the [facility] and was found to have lung mass with mediastinal adenopathy and bony metastasis. Further workup showed that he had a right supraclavicular node as well as the mediastinal nodes. He had multiple bony metastasis but has been having symptomatic issues with the bony metastasis in the lower thoracic area. His PET scan showed destructive lesions at T10, T11, T12, L2. Subjectively he has pain in this area and he says stiffness. Sometimes it will keep him awake at night. He has been using oxycodone and has been able to get his pain down to about a 6 out of 10. He is going [facility] mixing [facility] today. It was ordered a little over a week ago. He is here today to discuss radiation for bony metastasis. 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 Surgical History: H/O transurethral resection of prostate History of below-knee amputation of left lower extremity History of cataract extraction with lens replacement History of fusion of cervical spine History of knee replacement Bilateral S/P femoral-popliteal bypass surgery History of peripheral artery bypass Family History: Father Family history of premature coronary artery disease Hyperlipidemia Hypertension Mother Diabetes Congestive heart failure (CHF) Sister Congestive heart failure (CHF) Brother Agent orange exposure Social History: Smoking and tobacco/nicotine status: tobacco/nicotine user, details unknown smokeless tobacco Smokeless tobacco user: snuff Smokeless tobacco details: 3-4 years tobacco use Alcohol intake: former Former alcohol use details: Occasional alcohol use in the past Substance/Drug Use: never Household members: spouse Marital status: Current Complaints / Review of Systems: . Vital Signs: Performed on 07/12/2023 1:07 PM BMI - 28.041 kg/m2 (high), Height - 74 in, Weight - 218.4 lbs, Temperature - 98.1 f, Pulse - 70 /min, Respiration - 18 /min, O2 Sat - 91 % (low), Pain - 6, Fatigue - 0 and BP - 133/ 69 mm(hg). Physical Exam: General patient is in no apparent distress. He is companied by his . HEENT: Normocephalic atraumatic. Pupils are equal, sclera clear, extraocular muscles intact Pulmonary: Respiratory rate is regular nonlabored Cardiovascular: Regular rate and rhythm Abdomen: Patient has minimal adipose tissue and no abdominal fat Extremities: He has had a [id number] amputation on the left Skin: No areas of hypo or hyperpigmentation noted Neurological: Alert and orient x 3. 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 Plan: I reviewed with the patient all that he had done and was been found. We discussed how the radiation is used to help with pain control and bony metastasis. We discussed the simulation process. We reviewed the daily treatment regiment. We discussed the risk and side effects both acute and long-term. At this point he had a few questions which I answered. He is elected to proceed with treatment. He will undergo simulation today and will begin his treatments within the next 48 to 72 hours. Plan for a 2-week course of treatment to T9-L2. Signed by: 07/12/2023 1:35:44 PM <<Signature on File>> Time spent with patient: CPT Code: CPT Code:
== END 2023-07-16 23:59 | disposition home or self-care (01) ==
PROVIDERS: PCP Nurse Practitioner; Visit Provider Internal Medicine Medical Oncology
DX: C34.90 Malignant neoplasm of unspecified part of unspecified bronchus or lung (principal); C77.1 Secondary and unspecified malignant neoplasm of intrathoracic lymph nodes; C79.51 Secondary malignant neoplasm of bone; F17.290 Nicotine dependence, other tobacco product, uncomplicated; Z79.891 Long term (current) use of opiate analgesic
CPT/HCPCS: 36415; 77295; 77300; 77334; 80053; 84443; 85025; 99205

== ENCOUNTER 2023-07-31 14:35 | Oncology outpatient (recurring) (ONCR) | payer OTHER, SELFPAY ==
--- NOTE | 2023-07-19 15:10 | ONCRAD TMN_ITS ---
Radiation Oncology Weekly Treatment Management Patient: Robbie Penny MR#: [id number] : 1950> Attending Physician: Dr. Justine Li Date of Service: 07/19/2023 Fractions: 2 out of 10 T9-L2 Referring Physician(s) : Diagnosis: C79.51 - Secondary malignant neoplasm of bone, Diagnosed 06/30/2023 (Active) Radiotherapy to date: Course: T9-L2, Treatment Site: SPINE 30Gy, Ref. ID: [id number], Energy: 15X, Dose/Fx (cGy): 300, #Fx: 2 / 10, Dose Correction (cGy): 0, Total Dose Delivered (cGy): 600, Start Date: 07/17/2023, Elapsed Days: 2 Reason for visit: The patient is being seen today as part of their regularly scheduled weekly on treatment visits to assess for acute toxicities from radiotherapy. Review of Systems: Patient has noticed no changes Vital Signs: Performed on 07/19/2023 2:40 PM BMI - 28.092 kg/m2 (high), Height - 74 in, Weight - 218.8 lbs, Temperature - 97.9 f, Pulse - 67 /min, Respiration - 18 /min, O2 Sat - 97 %, Pain - 6, Fatigue - 0 and BP - 149/ 76 mm(hg)(high/). Physical Exam: No changes noted on exam Imaging: Radiation therapy imaging related to accurate target localization (i.e. KV, MV and CBCT) was reviewed. Appropriate changes, if any, were made to ensure treatment accuracy. Plan: Will continue with his treatments as planned. I reminded him that it may take several weeks for him to have the full effects of the radiation. Signed by: Dr. Justine Li 07/19/2023 3:08:23 PM
--- NOTE | 2023-07-24 15:15 | ONCRAD TMN_ITS ---
Radiation Oncology Weekly Treatment Management Patient: Zohaib Avalos> MR#: [id number] : 1950> Attending Physician: Dr. Justine Li Date of Service: 07/24/2023 Fractions: 5 out of 10 Referring Physician(s) : Diagnosis: C79.51 - Secondary malignant neoplasm of bone, Diagnosed 06/30/2023 (Active) Radiotherapy to date: Course: T9-L2, Treatment Site: SPINE 30Gy, Ref. ID: [id number], Energy: 15X, Dose/Fx (cGy): 300, #Fx: 5 / 10, Dose Correction (cGy): 0, Total Dose Delivered (cGy): 1,500, Start Date: 07/17/2023, Elapsed Days: 7 Reason for visit: The patient is being seen today as part of their regularly scheduled weekly on treatment visits to assess for acute toxicities from radiotherapy. Review of Systems: Patient was actually feeling better this weekend. He said the pain was beginning to decrease in the area of his spine that were treating. Unfortunately this will prompted him to mow his yard. Since then his pain has been worse and worse in the low spine as well. [facility] and now is been nearly 3 weeks. Vital Signs: Performed on 07/24/2023 2:52 PM BMI - 27.99 kg/m2 (high), Height - 74 in, Weight - 218 lbs, Temperature - 97.7 f, Pulse - 77 /min, Respiration - 16 /min, O2 Sat - 97 %, Pain - 8, Fatigue - 6 and BP - 147/ 76 mm(hg)(high/). Physical Exam: No changes on exam Imaging: Radiation therapy imaging related to accurate target localization (i.e. KV, MV and CBCT) was reviewed. Appropriate changes, if any, were made to ensure treatment accuracy. Plan: We talked about getting [facility] which [facility] will [facility] for his [facility]. In the meantime I have sent Dilaudid to his local pharmacy for a week for him to use in the meantime. I cautioned him about getting overzealous when he starts to feel little bit better and perhaps not mowing the yard. Signed by: Dr. Justine Li 07/24/2023 3:13:20 PM
--- NOTE | 2023-08-01 08:22 | N.ONRD TS_ITS ---
Radiation Oncology Treatment Summary Patient: Robbie Penny MR#: [id number] : 1950 Age: 73 Sex: Male Dictated by: Dr. Justine Li Date of Service: 07/31/2023 Referring Physician(s) : Diagnosis: C79.51 - Secondary malignant neoplasm of bone, Diagnosed 06/30/2023 (Active) Radiotherapy to Date: Course: T9-L2, Treatment Site: SPINE 30Gy, Ref. ID: [id number], Energy: 15X, Dose/Fx (cGy): 300, #Fx: 10 / 10, Dose Correction (cGy): 0, Total Dose Delivered (cGy): 3,000, Start Date: 07/17/2023, End Date: 07/31/2023, Elapsed Days: 14 Clinical Summary: The patient tolerated RT well. At the end of treatment he began to have esophagitis. Instructed to use prevacid and to call if symptoms had not improved in one week Plan: End of treatment today. Continue on the above medication until the skin reaction resolves. Follow up in one month. Signed by: Dr. Justine Li>08/01/2023 8:21:15 AM <<Signature on File>>
== END 2023-08-15 23:59 | disposition home or self-care (01) ==
PROVIDERS: PCP Nurse Practitioner; Visit Provider Radiology Radiation Oncology
DX: Z51.0 Encounter for antineoplastic radiation therapy (principal); C79.51 Secondary malignant neoplasm of bone; K20.80 Other esophagitis without bleeding; Y84.2 Radiological procedure and radiotherapy as the cause of abnormal reaction of the patient, or of later complication, without mention of misadventure at the time of the procedure
CPT/HCPCS: 77336; 77387; 77412; 99024

== ENCOUNTER → 2023-08-08 08:53 | Outpatient (BNVA) | payer OTHER, SELFPAY | PROVIDERS: PCP Nurse Practitioner; Visit Provider Podiatrist Foot & Ankle Surgery | DX: I73.9 Peripheral vascular disease, unspecified; L60.3 Nail dystrophy; Z95.828 Presence of other vascular implants and grafts; Z89.512 Acquired absence of left leg below knee; Q66.71 Congenital pes cavus, right foot | CPT/HCPCS: 11721 ==

== ENCOUNTER 2023-08-18 12:14 | Emergency (ER) | payer OTHER, SELFPAY ==
[2023-08-18 12:17] VITALS: BP 148/80; PULSE 75; RESP 18; TEMP 36.6; O2SAT 97; BMI 28.0
--- NOTE | 2023-08-18 13:00 | XR_ITS ---
WS: [id number] XR chest 1V portable [id number] REASON FOR EXAM: chest pain FINDINGS: Mild tortuosity and ectasia of the thoracic aorta. Normal heart size. Mild of the left hemidiaphragm. Calcified granulomas disease bilaterally. No acute pulmonary parenchymal or pleural abnormality is identified. No mediastinal or hilar adenopathy. No lung mass or nodule. XR/XR chest 1V portable [id number] IMPRESSION: No acute cardiopulmonary abnormality.
[2023-08-18 13:50] LABS: Basophils % 0.6 %; Eosinophils # 0.1 10^3/uL (0.0-0.8); Eosinophils % 3.1 %; Hematocrit 44.9 % (37-53); Lymphocytes # 0.6 10^3/uL (0.8-4.8); Lymphocytes % 18.1 %; Mean Corpuscular HGB Conc 33.2 g/dL (30-55); Mean Corpuscular Hemoglobin 30.3 pg (27-33); Mean Corpuscular Volume 91.4 fl (82-101); Mean Platelet Volume 9.7 fL (7.4-10.4); Monocytes # 0.4 10^3/uL (0.2-0.9); Neutrophils # 2.15 10^3/uL (1.8-7.7); Neutrophils % 65.9 %; Nucleated Red Blood Cells % 0 %; Platelet Count 168 10^3/cmm (157-399); Red Blood Count 4.91 10^6/uL (3.85-5.65); Red Cell Distribution Width 13.8 % (12.1-15.1); White Blood Count 3.26 10^3/uL (3.29-11.43)
[2023-08-18 14:19] LABS: Alanine Aminotransferase 22 U/L (0-41); Albumin Level 4.2 g/dL (3.5-5.2); Alkaline Phosphatase 135 U/L (40-130); Anion Gap 15.8 (5-19); Aspartate Amino Transferase 20 U/L (0-40); Blood Urea Nitrogen 16 mg/dL (8-23); Carbon Dioxide 27 mmol/L (22-29); Chloride 99 mmol/L (98-107); Creatinine Clr Calc Pharmacy 89.1475; Globulin 4.1 g/dL (1.3-4.6); Glucose 125 mg/dL (65-115); Osmolality Calculated 287 mOsm/kg (285-295); Potassium 4.8 mmol/L (3.5-5.1); Sodium 137 mmol/L (136-145); Total Bilirubin 0.6 mg/dL (0.15-1.2); Total Protein 8.3 g/dL (6.6-8.7)
--- NOTE | 2023-08-18 15:24 | W.ED.BACK ---
HPI - Back Pain/Injury General: Chief Complaint: Back Pain/Injury Stated Complaint: cancer center sent, weakness Time Seen by Provider: 08/18/23 15:13 Source: patient Mode of arrival: wheelchair Limitations: no limitations History of Present Illness: Patient is a 73-year-old male with a history of pulmonary adenocarcinoma with bony metastasis here with complaints of right-sided back pain. Patient has recently begun radiation therapy to T9-L2 to help with his bony metastasis pain. He feels like today the right side of his back is spasming. Patient has been using Flexeril, Dilaudid, and Oxycodone at home for his pain. He denies shortness of breath/chest pain. MD elicited complaint: back pain Onset (ago): day(s) Timing: constant Severity: severe Similar Symptoms Previously: Yes Location: right flank, right lower back and right upper back Radiation: none Exacerbating factors: movement Relieving factors: none Context: other (radiation therapy, bony mets to back) Associated symptoms: Reports no associated symptoms; Deny abdominal pain, dysuria, fever(s) or hematuria Work related injury: No Review of Systems Const: Denies: fever(s) Card: Denies: chest pain Resp: Denies: dyspnea, productive cough, non-productive cough, wheezing, hemoptysis or chest congestion GI: Denies: abdominal pain : Denies: difficulty urinating, dysuria or hematuria Musc: Reports: back pain; Denies: neck pain, extremity pain, extremity swelling, joint pain or joint swelling Skin/Breast: Denies: rash Neuro: Denies: headache(s), numbness in extremities, weakness in extremities or sensory changes PFS ED PFSH: Medical History Hyperlipidemia Type 2 diabetes mellitus Non-small cell lung cancer Peripheral arterial disease History of nonmelanoma skin cancer UTI (urinary tract infection) 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 Hypertension 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 Surgical History H/O transurethral resection of prostate History of below-knee amputation of left lower extremity History of cataract extraction with lens replacement History of fusion of cervical spine History of knee replacement Bilateral S/P femoral-popliteal bypass surgery History of peripheral artery bypass Family History Father Family history of premature coronary artery disease Hyperlipidemia Hypertension Mother Diabetes Congestive heart failure (CHF) Sister Congestive heart failure (CHF) Brother Agent orange exposure Social History Smoking and tobacco/nicotine status: tobacco/nicotine user, details unknown smokeless tobacco Smokeless tobacco user: snuff Smokeless tobacco details: 3-4 years tobacco use Alcohol intake: former Former alcohol use details: Occasional alcohol use in the past Substance/Drug Use: never Household members: spouse Marital status: Physical Exam Const: COMMON NORMALS: no acute distress, average body habitus, patient oriented x3, no limitations, alert and well nourished Chest: COMMONS NORMALS: normal inspection of the chest and normal palpation of entire chest wall Resp: COMMON NORMALS: normal respiratory effort and clear to auscultation bilaterally AUSCULTATION: clear to auscultation bilaterally Cardio: COMMON NORMALS: regular rate and regular rhythm RATE: regular rate RHYTHM: regular rhythm GI: COMMON NORMALS: Normal to inspection, nondistended, normoactive bowel sounds present, Soft to palpation and non-tender PALPATION: Yes Soft to palpation : COMMON NORMALS: Yes no CVA tenderness BLADDER/KIDNEY EXAM: Yes no CVA tenderness Back/Pelvis: COMMON NORMALS: no CVA tenderness THORACIC SPINE/UPPER BACK: Yes paraspinal muscle tenderness and Yes paraspinal muscle spasm PELVIS: Yes buttocks normal and No sciatic notch tenderness SACRUM: no tenderness COCCYX: no tenderness BACK IMAGE (MALE): 1. muscle tenderness/spasm; palpation directly reproduces pain Extremity: GENERAL: Yes normal exam except as noted Neuro: ROSE COMA SCALE: document GCS findings Rose coma scale eye opening: Spontaneous [place] coma scale verbal response: Orientated Rose coma scale motor response: Obey commands Rose coma scale total score: 15 COMMON NORMALS: patient oriented x3, moves all extremities, no focal motor deficits and no sensory deficits noted SENSORIUM/ORIENTATION: Yes alert Skin: COMMON NORMALS: no rashes or lesions noted GENERAL SKIN EXAM: no rashes or lesions noted Course Vital Signs: Vital signs: Vital Signs Temperature 97.8 F 08/18/23 12:17 Pulse Rate 75 08/18/23 12:17 Respiratory Rate 18 08/18/23 12:17 Blood Pressure 148/80 08/18/23 12:17 Pulse Oximetry 97 08/18/23 12:17 Oxygen Delivery Me thod Room Air 08/18/23 12:17 MDM - Back Pain/Injury Medical Decision Making Patient has reproducible back pain to the right of his lower thoracic spine. He does have known bony metastasis here. Recent PET scan results reviewed. Thoracic XR obtained showing known thoracic metastatic disease. No acute fractures. Pain was controllable here with IV medications. He feels comfortable going home at this time. He has cyclobenzaprine and oxycodone he feels comfortable taking at home. Patient can follow-up with his oncology/radiology team as well as his primary care provider. Return precautions discussed. Medical Records I reviewed the patient's medical records. Labs I reviewed the patient's lab results. 08/18/23 13:30 08/18/23 13:30 Radiology Impressions Chest X-Ray 08/18/23 13:00 IMPRESSION: No acute cardiopulmonary abnormality. Thoracic Spine X-Ray 08/18/23 15:38 IMPRESSION: Thoracic metastatic disease as above. Laboratory Results WBC 3.26 10^3/uL (3.29-11.43) L 08/18/23 13:30 RBC 4.91 10^6/uL (3.85-5.65) 08/18/23 13:30 Hgb 14.90 g/dL (11.27-16.99) 08/18/23 13:30 Hct 44.9 % (37-53) 08/18/23 13:30 MCV 91.4 fl (82-101) 08/18/23 13:30 MCH 30.3 pg (27-33) 08/18/23 13:30 MCHC 33.2 g/dL (30-55) 08/18/23 13:30 RDW 13.8 % (12.1-15.1) 08/18/23 13:30 Plt Count 168 10^3/cmm (157-399) 08/18/23 13:30 MPV 9.7 fL (7.4-10.4) 08/18/23 13:30 Neut % (Auto) 65.9 % 08/18/23 13:30 Lymph % (Auto) 18.1 % 08/18/23 13:30 [place] % (Auto) 12.0 % 08/18/23 13:30 Eos % (Auto) 3.1 % 08/18/23 13:30 Baso % (Auto) 0.6 % 08/18/23 13:30 Neut # (Auto) 2.15 10^3/uL (1.8-7.7) 08/18/23 13:30 Lymph # (Auto) 0.6 10^3/uL (0.8-4.8) L 08/18/23 13:30 [place] # (Auto) 0.4 10^3/uL (0.2-0.9) 08/18/23 13:30 Eos # (Auto) 0.1 10^3/uL (0.0-0.8) 08/18/23 13:30 Baso # (Auto) 0.0 10^3/uL (0.0-0.1) 08/18/23 13:30 Nucleated RBC % (auto) 0 % 08/18/23 13:30 Nucleated RBCs # 0.0 /100WBC 08/18/23 13:30 Sodium 137 mmol/L (136-145) 08/18/23 13:30 Potassium 4.8 mmol/L (3.5-5.1) 08/18/23 13:30 Chloride 99 mmol/L (98-107) 08/18/23 13:30 Carbon Dioxide 27 mmol/L (22-29) 08/18/23 13:30 Anion Gap 15.8 (5-19) 08/18/23 13:30 BUN 16 mg/dL (8-23) 08/18/23 13:30 Creatinine 0.9 mg/dL (0.7-1.2) 08/18/23 13:30 GFR Calculation Not Reportable 08/18/23 13:30 Glucose 125 mg/dL (65-115) H 08/18/23 13:30 Calculated Osmolality 287 mOsm/kg (285-295) 08/18/23 13:30 Calcium 10.0 mg/dL (8.5-10.5) 08/18/23 13:30 Total Bilirubin 0.6 mg/dL (0.15-1.2) 08/18/23 13:30 AST 20 U/L (0-40) 08/18/23 13:30 ALT 22 U/L (0-41) 08/18/23 13:30 Alkaline Phosphatase 135 U/L (40-130) H 08/18/23 13:30 Total Protein 8.3 g/dL (6.6-8.7) 08/18/23 13:30 Albumin 4.2 g/dL (3.5-5.2) 08/18/23 13:30 Globulin 4.1 g/dL (1.3-4.6) 08/18/23 13:30 All radiology interpretation(s) finalized by discharge Discharge Plan Discharge Patient Disposition: Home Clinical Impression: Pain from bone metastases Condition: Stable Prescriptions: No Action tamsulosin 0.4 mg capsule 0.4 mg PO .at bedtime Qty: 90 3RF (DME) Diabetic Shoes with 3 pairs of custom inserts See Rx Instructions .ROUTE .MEDSUPPLY Qty: 1 0RF Rx Instructions: As directed (DME) Diabetic shoes ith molded inserts See Rx Instructions .Route .MEDSUPPLY Qty: 1 0RF Rx Instructions: As directed Xarelto 2.5 mg tablet 2.5 mg PO BID (DME) Accu-Chek Guide test strips Strip See Rx Instructions .Route Rx Instructions: As directed albuterol sulfate 90 mcg/actuation HFA aerosol inhaler 1 puff inhalation QID PRN atenolol 25 mg tablet 25 mg PO DAILY Rx Instructions: take one-half tablet by mouth once a day for heart or to control blood pressure. do not take antacids or calcium supplements within 2 hours of taking this medication cyclobenzaprine 5 mg tablet 10 mg PO BID PRN (Reason: muscle spasm) diclofenac sodium 1 % gel 2 g topical QID PRN Rx Instructions: apply to single elbow, wrist or hand; for hand includes palm/fingers/back of hand Jardiance 10 mg tablet 25 mg PO DAILY Rx Instructions: take one half tablet by mouth once a day for diabetes ketoconazole 2 % cream 1 applic topical DAILY PRN Rx Instructions: apply small amount to affected area(s)every day as needed while flared. then 2-3 times weekly once controlled ketoconazole 2 % shampoo 1 applic topical Q14D Rx Instructions: use shampoo to to affected area(s) every day as directed. apply to scalp and mustache 2-3 times weekly, allow to sit for 5 minutes before rinsing lidocaine 5 % adhesive patch,medicated 1 patch topical DAILY Rx Instructions: leave on most painful area for up to 12 hrs rosuvastatin 5 mg tablet 5 mg PO DAILY Rx Instructions: take one-half tablet by mouth every other day to lower cholesterol finasteride 5 mg tablet 5 mg PO DAILY tadalafil 20 mg tablet 20 mg PO DAILY PRN Rx Instructions: administer approximately 30min before sexual activity; do not use more than 1 dose per 24hrs omega 0-qwj-ytp-fish oil [Fish Oil] 1,000 mg (120 mg-180 mg) capsule 1 cap PO BID cholecalciferol (vitamin D3) 50 mcg (2,000 unit) capsule 50 mcg PO DAILY clindamycin HCl 150 mg capsule 150 mg PO Q8H (DME) lancets [Accu-Chek Softclix Lancets] Misc See Rx Instructions .Route Rx Instructions: As directed mupirocin 2 % ointment 1 applic topical BID 7 Days Qty: 15 2RF (DME) custom molded accommodative orthotic to the right foot See Rx Instructions .Route .MEDSUPPLY Qty: 1 0RF Rx Instructions: As directed [employer] [place] (DME) Custom Orthotics See Rx Instructions .Route .MEDSUPPLY Qty: 1 0RF Rx Instructions: As directed oxycodone 10 mg tablet 10 mg PO TID PRN (Reason: pain) 30 Days Qty: 90 0RF hydromorphone [Dilaudid] 4 mg tablet 4 mg PO Q6H PRN (Reason: pain) 7 Days Qty: 30 0RF Rx Instructions: [facility] aspirin 81 mg Tablet,Delayed Release (Dr/Ec) 81 mg PO DAILY acetaminophen 500 mg Tablet 500 mg PO Q6H PRN (Reason: Pain) meloxicam 7.5 mg tablet 7.5 mg PO BID Qty: 14 0RF Discharge Orders: Discharge ED (Routine); Ordered 08/18/23 Ordered By: Kemi Hunt Referrals: No Marinelli, TIME CYCLE OPERATOR [Primary Care Provider] - Patient Instructions: Opioid Safety, Pain Management Activity Restrictions/Additional Instructions: As we discussed you can continue current pain management regimen with your cyclobenzaprine and oxycodone. Please follow-up with your oncology/radiation team as well as your primary care provider if back pain persists. Coding Level of Care Code ED Machine Fur Cleaner for Sampson Bradford
--- NOTE | 2023-08-18 15:38 | XR_ITS ---
WS: [id number] XR thoracic spine 3V* [id number] REASON FOR EXAM: R sided pain; known mets FINDINGS: Suboptimal technique on the AP view. There is a mild levoscoliosis of the thoracic spine. No significant kyphosis. No significant vertebral body compression deformity. Subtle findings of metastatic disease in the T10-T12 vertebral bodies. Sclerosis and loss of cortical definition of the pedicles and margins of the vertebral bodies. The remaining thoracic vertebral bodies appear unremarkable although previous PET CT scan 06/22/2023 in dicates additional metastatic disease in the more cephalic T spine. XR/XR thoracic spine 3V* [id number] IMPRESSION: Thoracic metastatic disease as above.
--- NOTE | 2023-08-18 15:51 | PC.PHAR ---
[facility] IS [facility] LIST 08/18/23 3:50PM
[2023-08-18] MEDS: orphenadrine 30 mg/mL Inj 2 mL 60 MG IVP (16:31)
[2023-08-18] MEDS: HYDROmorphone 1 mg/mL INJ 1 mL IVP (16:32)
[2023-08-18] MEDS: dexamethasone 4 mg/mL INJ 8 MG IVP (16:32)
[2023-08-18 17:50] VITALS: BP 137/82; PULSE 78; RESP 16; TEMP 36.6; O2SAT 98
== END 2023-08-18 17:51 | disposition home or self-care (01) ==
PROVIDERS: Emergency Provider Physician Assistant; PCP Nurse Practitioner
DX: G89.3 Neoplasm related pain (acute) (chronic) (principal); C79.51 Secondary malignant neoplasm of bone; E78.5 Hyperlipidemia, unspecified; E11.9 Type 2 diabetes mellitus without complications; Z85.118 Personal history of other malignant neoplasm of bronchus and lung; I10 Essential (primary) hypertension; Z89.512 Acquired absence of left leg below knee; F17.220 Nicotine dependence, chewing tobacco, uncomplicated; Z79.82 Long term (current) use of aspirin
CPT/HCPCS: 36415; 71045; 72072; 80053; 85025; 96374; 96375; 99284; J1100; J1170; J2360

== ENCOUNTER 2023-09-06 12:57 | Oncology outpatient (recurring) (ONCR) | payer OTHER, SELFPAY ==
[2023-08-22 10:00] LABS: Basophils % 0.6 %; Eosinophils # 0.1 10^3/uL (0.0-0.8); Eosinophils % 1.8 %; Hematocrit 42.4 % (37-53); Lymphocytes # 0.5 10^3/uL (0.8-4.8); Lymphocytes % 16.2 %; Mean Corpuscular HGB Conc 33.7 g/dL (30-55); Mean Corpuscular Hemoglobin 30.8 pg (27-33); Mean Corpuscular Volume 91.4 fl (82-101); Mean Platelet Volume 9.8 fL (7.4-10.4); Monocytes # 0.5 10^3/uL (0.2-0.9); Neutrophils % 67.1 %; Nucleated Red Blood Cells % 0 %; Platelet Count 174 10^3/cmm (157-399); Red Blood Count 4.64 10^6/uL (3.85-5.65); Red Cell Distribution Width 13.9 % (12.1-15.1); White Blood Count 3.28 10^3/uL (3.29-11.43)
[2023-08-22 10:24] LABS: Alanine Aminotransferase 19 U/L (0-41); Albumin Level 3.9 g/dL (3.5-5.2); Alkaline Phosphatase 137 U/L (40-130); Anion Gap 14.5 (5-19); Aspartate Amino Transferase 23 U/L (0-40); Blood Urea Nitrogen 15 mg/dL (8-23); Carbon Dioxide 26 mmol/L (22-29); Chloride 102 mmol/L (98-107); Glucose 151 mg/dL (65-115); Osmolality Calculated 290 mOsm/kg (285-295); Potassium 4.5 mmol/L (3.5-5.1); Sodium 138 mmol/L (136-145); Thyroid Stimulating Hormone 2.46 uIU/mL (0.27-4.20); Total Bilirubin 0.6 mg/dL (0.15-1.2); Total Protein 7.9 g/dL (6.6-8.7)
--- NOTE | 2023-08-22 17:27 | ONCRAD EPV_ITS ---
Radiation Oncology Established Patient Visit Patient: Robbie Penny [id number] : 1950 Age: 73 Sex: Male Dictated by: Obinna Garza Date of Service: 08/22/2023 Referring Physician(s) : Diagnosis: C79.51 - Secondary malignant neoplasm of bone, Diagnosed 06/30/2023 (Active) Radiotherapy to Date: Course: T9-L2, Treatment Site: SPINE 30Gy, Ref. ID: [id number], Energy: 15X Dose/Fx (cGy): 300, #Fx: 10 10, Dose Correction (cGy): 0, Total Dose Delivered (cGy): 3,000, Start Date: 07/17/2023, End Date: 07/31/2023, Elapsed Days: 14 Current History: Back pain progressed following treatment. See in ER for pain eval. Plain T spine x-rays showed subtle finding for met disease at T10 ???T12 . Sclerosis and loss of cortical definition at the pedicles and margins of the vertebral bodies. No LE numbness tingling or weakness. He has a left BKA and wears a prosthesis. Back pain worse when exiting chair. He has 5 mg oxycodone and Flexeril but not used at dose above 5 mg at a time. He has a med onc FU 08/30/2023. He had chronic long standing low back pain prior to malignancy also affecting the same site. Current Medications: Allergies: Current Complaints / Review of Systems: . Vital Signs: Performed on 08/22/2023 9:31 AM BMI - 27.091 kg/m2 (high), Height - 74 in, Weight - 211.0 lbs, Temperature - 97.8 f, Pulse - 74 /min, Respiration - 20 /min, O2 Sat - 97 %, Pain - 7, Fatigue - 0 and BP - 151/ 74 mm(hg)(high/). Physical Exam: General: Alert and oriented x 3. No acute distress. Confined to wheelchair. Left leg BKA with prosthesis in place. Performance Status: 1 ??? 2 Lab: None pending. Pathology: Primary, c79.51 - secondary malignant neoplasm of bone, Diagnosed 06/30/2023 (active) . Imaging: See HPI Impression: Metastatic lung cancer to inferior T spine s/p palliative radiation. No change in back pain. No indication to add additional palliative radiation at this time either. He needs to increase use of Oxycodone to 10 mg q 4 to 6hrs. Add APAP at full strength of 1000 mg QID and continue Flexeril. FU with med onc. FU here if additional palliative radiation needs to be considered. Additional oxycodone was called into pharmacy. Signed by: 08/22/2023 5:25:39 PM <<Signature on File>> Time spent with patient: CPT Code: CPT Code:
--- NOTE | 2023-09-06 13:45 | MR_ITS ---
WS: [id number] MRI HEAD WITH CONTRAST TECHNIQUE: Sagittal T1, T2 axial, T2 axial FLAIR, axial susceptibility weighted imaging, axial diffus ion weighted images, and coronal T2 images were obtained. Pre and post-T1 axial and post T1 coronal i mages. ADC and FSPGR images. CLINICAL INFORMATION: ADENOCARCINOMA OF HILUM OF RIGHT LUNG COMPARISON: Outside MRI 07/05/2023 images only FINDINGS: No evidence of restricted diffusion to suggest acute ischemia. Ventricular system and basal cisterns are patent. No hemosiderin on the susceptibility weighted images. Normal optic chiasm and pituitary i nfundibulum. Mild symmetric atrophy temporal lobes and hippocampal formations. Normal posterior fossa . Normal vascular flow voids at the skull base. No extra-axial fluid collections. No evidence of mass or mass effect. Paranasal sinuses and mastoid air cells well aerated. Mild small vessel changes. Moderate parenchymal volume loss. Encephalomalacia with gliosis in the pos terior RIGHT parietal lobe near the vertex stable since the outside examination. No evidence of enhancing intracranial metastatic disease. MR/MR head wo/w con [id number] IMPRESSION: 1. No evidence of enhancing intracranial metastatic disease. 2. Mild small vessel changes with moderate parenchymal volume loss. 3. Chronic encephalomalacia with gliosis in the RIGHT posterior parietal lobe near the vertex unchanged. 4. No hemosiderin on susceptibility-weighted images. 5. No other acute findings.
[2023-09-06] MEDS: gadobenate dimeglumine 20 mL vial IV (13:58)
== END 2023-09-15 23:59 | disposition home or self-care (01) ==
LOC: RAD 12:57 → ONCMED 09-13 18:49
PROVIDERS: PCP Nurse Practitioner; Visit Provider Internal Medicine Hematology & Oncology
DX: C34.01 Malignant neoplasm of right main bronchus (principal); G93.89 Other specified disorders of brain
CPT/HCPCS: 36415; 70553; 80053; 84443; 85025; 99024; 99214; A9577

== ENCOUNTER → 2023-09-12 13:48 | Outpatient (BNVA) | payer OTHER, SELFPAY | PROVIDERS: PCP Nurse Practitioner; Referring Provider Internal Medicine Hematology & Oncology; Visit Provider Surgery | DX: Z95.828 Presence of other vascular implants and grafts (principal) | CPT/HCPCS: 99204 ==

== ENCOUNTER 2023-09-18 11:10 | Day surgery (SDC) | payer OTHER, SELFPAY ==
[2023-09-18] VITALS (9 sets, daily range): BP systolic 107–147; BP diastolic 56–89; PULSE 64–79; RESP 12–20; TEMP 36.2–36.5; O2SAT 94–99
--- NOTE | 2023-09-18 11:20 | SC_ITS ---
WS: [id number] C-arm FL for CVA [id number] REASON FOR EXAM: Vascular access FINDINGS: Chemotherapy infusion port over the left chest with left internal jugular infusion catheter. The tip of the catheter is in the distal SVC. No left pneumothorax identified. SC/C-arm FL for CVA [id number] IMPRESSION: Left-sided chemotherapy infusion port and catheter placement without abnormalit y.
[2023-09-18 11:49] LABS: Glucose Point of Care 143 mg/dL (70-110)
--- NOTE | 2023-09-18 12:47 | P.HPUD_ITS ---
Surgery/Procedure H&P Update DATE OF PROCEDURE: September 18, 2023 DATE H&P PERFORMED: 09/12/23 H&P UPDATE INFORMATION: I have reviewed H&P completed within last 30 days, I have examined patient prior to procedure, No changes to prior documentation and [place] is in [facility] [place] PLANNED PROCEDURE: Operation Date: 09/18/23 13:10 Proposed Procedures p Portacath Placement 88159, C34.01(Not Applicable) - Omero Spain MD
--- NOTE | 2023-09-18 12:47 | W.PM.OPSUD ---
Surgery/Procedure H&P Update DATE OF PROCEDURE: September 18, 2023 DATE H&P PERFORMED: 09/12/23 H&P UPDATE INFORMATION: I have reviewed H&P completed within last 30 days, I have examined patient prior to procedure, No changes to prior documentation and [place] [facility] [place] PLANNED PROCEDURE: Operation Date: 09/18/23 13:10 Proposed Procedures p Portacath Placement 97355, C34.01(Not Applicable) - Omero Spain MD
--- NOTE | 2023-09-18 13:27 | ANES.PREANE2 ---
Pre-Anesthetic Assessment Height/Weight: Height 1.88 m Temp Pulse Resp BP Pulse Ox O2 Del Method 97.3 F L 64 18 144/84 97 Room Air 09/18/23 11:56 09/18/23 11:56 09/18/23 11:56 09/18/23 11:56 09/18/23 11:56 09/18/23 11:56 Operation Date: 09/18/23 13:10 Proposed Procedures p Portacath Placement 91190, C34.01(Not Applicable) - Omero Spain MD Familial anesthetic complications: None Was Beta Isauro taken within 24 hours: N/A Was Clonidine taken within 24 hours: N/A Last intake: Intake Last Liquid Date 09/17/23 Last Liquid Time 18:00 Last Solid Date 09/17/23 Last Solid Time 18:00 Social Tobacco (snuff), No alcohol and No tobacco Exam alert, oriented x 3, clear to auscultation bilaterally and regular rate & rhythm Airway Mallampati: Class I Dentition: false CV/HEM Coronary Artery Disease, Hypertension and Peripheral Vascular Disease (fem-pop now s/p bKA) Metabolic Diabetes Mellitus and Hyperlipidemia Anesthetic Plan ASA status: 4 Anesthesia: MAC Risk of > 500 ml blood loss (7ml/kg in children): No Medications/Allergies Home Medications Medication Instructions Recorded Confirmed Last Taken Type acetaminophen 500 mg tablet 500 mg PO Q6H PRN Pain 04/22/19 09/15/23 09/15/23 History aspirin 81 mg tablet,delayed 81 mg PO DAILY 04/22/19 09/15/23 09/17/23 History release Diabetic Shoes with 3 pairs of #1 ea 05/07/20 09/12/23 09/15/23 Rx custom inserts Diabetic shoes ith molded inserts #1 ea 03/30/21 09/12/23 09/15/23 Rx Custom Orthotics #1 ea 10/12/22 09/12/23 09/15/23 Rx meloxicam 7.5 mg tablet 7.5 mg PO BID #14 tabs 03/18/23 09/15/23 09/15/23 Rx custom molded accommodative #1 ea 04/12/23 09/12/23 09/15/23 Rx orthotic to the right foot albuterol sulfate 90 mcg/actuation 1 puff inhalation QID PRN Wheezing 07/06/23 09/15/23 09/15/23 History aerosol inhaler atenolol 25 mg tablet 25 mg PO DAILY 07/06/23 09/15/23 09/17/23 History blood sugar diagnostic (Accu-Chek 07/06/23 09/12/23 09/15/23 History Guide test strips) cholecalciferol (vitamin D3) 50 50 mcg PO DAILY 07/06/23 09/15/23 09/17/23 History mcg (2,000 unit) capsule cyclobenzaprine 5 mg tablet 10 mg PO BID PRN muscle spasm 07/06/23 09/15/23 09/18/23 History diclofenac sodium 1 % topical gel 2 g topical QID PRN Pain 07/06/23 09/15/23 09/15/23 History empagliflozin 10 mg tablet 25 mg PO DAILY 07/06/23 09/15/23 09/18/23 History (Jardiance) ketoconazole 2 % shampoo 1 applic topical Q14D 07/06/23 09/15/23 09/15/23 History ketoconazole 2 % topical cream 1 applic topical DAILY PRN Itching 07/06/23 09/15/23 09/15/23 History lancets (Accu-Chek Softclix 07/06/23 09/12/23 09/15/23 History Lancets) lidocaine 5 % topical patch 1 patch topical DAILY 07/06/23 09/15/23 09/15/23 History omega 8-rdg-por-fish oil 1,000 mg 1 cap PO BID 07/06/23 09/15/23 09/15/23 History (120 mg-180 mg) capsule (Fish Oil) rivaroxaban 2.5 mg tablet (Xarelto) 2.5 mg PO BID 07/06/23 09/15/23 09/15/23 History rosuvastatin 5 mg tablet 5 mg PO DAILY 07/06/23 09/15/23 09/17/23 History tadalafil 20 mg tablet 20 mg PO DAILY PRN Itching 07/06/23 09/15/23 09/15/23 History hydromorphone 4 mg tablet 4 mg PO Q6H PRN pain 1 week #30 07/24/23 09/15/23 09/18/23 Rx (Dilaudid) tabs oxycodone 5 mg capsule 5 mg PO Q4H PRN pain 30 days #240 08/22/23 09/15/23 09/15/23 Rx caps mupirocin 2 % topical ointment 1 applic topical BID PRN Itching 09/15/23 09/15/23 09/15/23 History Allergies Allergy/AdvReac Type Severity Reaction Status Date / Time seasonal Allergy Mild ALGY-Nasal Uncoded 09/12/23 13:49 Discharge [facility] Anesthesia Medical History Hyperlipidemia Type 2 diabetes mellitus Non-small cell lung cancer Peripheral arterial disease History of nonmelanoma skin cancer UTI (urinary tract infection) 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 Hypertension 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 Surgical History H/O transurethral resection of prostate History of below-knee amputation of left lower extremity History of cataract extraction with lens replacement History of fusion of cervical spine History of knee replacement Bilateral S/P femoral-popliteal bypass surgery History of peripheral artery bypass Family History Father Family history of premature coronary artery disease Hyperlipidemia Hypertension Mother Diabetes Congestive heart failure (CHF) Sister Congestive heart failure (CHF) Brother Agent orange exposure Social History Smoking and tobacco/nicotine status: tobacco/nicotine user, details unknown smokeless tobacco Smokeless tobacco user: snuff Smokeless tobacco details: 3-4 years tobacco use Alcohol intake: former Former alcohol use details: Occasional alcohol use in the past Substance/Drug Use: never Household members: spouse Marital status: Data Anesthesia Cardiac Studies: No Data to Display
[2023-09-18] MEDS: fentaNYL 50 mcg/mL INJ 2mL IVP (13:31)
[2023-09-18] MEDS: sodium chloride 0.9% 1,000 ML 30 ML IV (14:58)
[2023-09-18] MEDS: ceFAZolin 2,000 MG in sodium chloride 0.9% (plus) 50 ML 100 MG IV (15:01)
[2023-09-18] MEDS: lidocaine-epi 1% 20 mL INJ INJECTION (15:38)
[2023-09-18] MEDS: heparin, porcine 1,000 unit/mL INJ 10 mL 6000 UNIT INJECTION (15:38)
--- NOTE | 2023-09-18 16:01 | P.OP_ITS ---
Operative Report Date of procedure: September 18, 2023 Pre-op diagnosis: Lung cancer Post-op diagnosis: Same Post-op findings: Vascular anatomy on the right neck was abnormal, no good venous target was identified. Normal vascular anatomy of the left neck Procedure done: Insertion of left IJ Port-A-Cath Implants: Bard Port-A-Cath Surgeon: Omero Spain MD In Home Baby Sitter: BAKARI OR Staff Estimated blood loss: 5 Brief History: 73-year-old male with lung cancer who presents to the clinic for evaluation for port placement. After discussion of all risk and benefits as documented my preop note we decided to proceed with a Port-A-Cath placement. Procedure: Patient was brought into the OR, he was placed in a supine position, moderate anesthesia sedation was given. Timeout was conducted after the skin was prepped and draped in the usual sterile fashion. I then proceeded to identify the right IJ vein with ultrasound, vascular anatomy was abnormal and no venous target was identified on the right neck. Therefore we proceeded to identify the left IJ vein with ultrasound.. I then proceeded to cannulate the vein under direct ultrasound guidance using an 18-gauge needle, the needle tip was seen entering the vein and immediate return of blood was noted. A wire was advanced through the needle and the needle was removed. The position of the wire was verified with ultrasound and fluoroscopy. The wire was then fixed to the drapes. I then placed my attention to the chest, local anesthesia was infiltrated in the previously marked area on the chest and then a tract connecting the chest to the wire insertion site in the neck. I then proceeded to make a 3.5 cm incision in the left upper chest, the incision was deepened to subcutaneous tissue with electrocautery and electrocautery was used to create the subcutaneous pocket to house the Port-A-Cath. I then proceeded to use a hemostat to create a tunnel from the chest wound to the neck. I then proceeded to make a 0.5 cm incision at the level of the wire insertion site in the neck. Hemostasis was verified. I then placed the Port-A-Cath in the pocket and tunneled the catheter using the provided tunneler. The catheter was cut to appropriate length under fluoroscopy guidance and then flushed. I then proceeded to insert an introducer with a peel-off sheath over the wire under direct fluoroscopic guidance. I then remove the wire and the introducer leaving the peel-off sheath in place. The catheter was then advanced through the peel-off sheath and the peel-off sheath was removed leaving the catheter in place. Fluoroscopy showed evidence of Adequate catheter position. I then proceeded to access the port; the port was retrieving blood and flushing fine, I then hep-locked the catheter. Hemostasis was verified. The wound was closed in layers using #3-0 Vicryl for the subcutaneous tissue and #4 Monocryl for the skin. Dermabond was applied. At the end of the procedure all counts were correct. The patient tolerated well the procedure and was transferred to the PACU in stable condition.
--- NOTE | 2023-09-18 17:10 | ANE.PACU2 ---
Inpatient post-anesthesia follow up: Airway intact: Yes Vital signs: Temperature 97.7 F Pulse Rate 74 Respiratory Rate 17 Blood Pressure 147/82 Pulse Oximetry 97 Oxygen Delivery Me thod Room Air Oxygen Flow Rate Fraction of Inspir ed Oxygen Hydration adequate: Yes Nausea and vomiting: No Pain level: 1 Mental status: Baseline
[2023-09-19 08:58] LABS: HIV 1 & 2 Antigen Non-Reactive (Non-Reactiv)
[2023-09-19 08:59] LABS: HIV 1 & 2 Antibody Non-Reactive (Non-Reactiv)
[2023-09-19 14:21] LABS: Hepatitis B Surface Antigen Non-Reactive (Nonreactive)
[2023-09-19 14:58] LABS: Hepatitis C Virus Antibody Non-Reactive (Nonreactive)
== END 2023-09-18 17:10 | disposition home or self-care (01) ==
PROVIDERS: PCP Nurse Practitioner; Visit Provider Surgery
PROC: (CPT 36561; principal; 2023-09-18 13:00)
DX: C34.90 Malignant neoplasm of unspecified part of unspecified bronchus or lung (principal); I25.10 Atherosclerotic heart disease of native coronary artery without angina pectoris; I10 Essential (primary) hypertension; E11.9 Type 2 diabetes mellitus without complications; E78.5 Hyperlipidemia, unspecified; Z79.82 Long term (current) use of aspirin; N40.1 Benign prostatic hyperplasia with lower urinary tract symptoms; N13.8 Other obstructive and reflux uropathy; F17.200 Nicotine dependence, unspecified, uncomplicated
CPT/HCPCS: 36561; 36416; 77001; 82962; 86803; 87340; 87806; C1788; J0690; J1644; J2704; J3010; J3490; J7030

== ENCOUNTER 2023-10-02 11:00 | Oncology outpatient (recurring) (ONCR) | payer OTHER, SELFPAY ==
[2023-09-25 09:03] LABS: Basophils % 0.5 %; Eosinophils # 0.1 10^3/uL (0.0-0.8); Eosinophils % 2.6 %; Hematocrit 39.8 % (37-53); Lymphocytes # 0.7 10^3/uL (0.8-4.8); Lymphocytes % 17.3 %; Mean Corpuscular HGB Conc 33.9 g/dL (30-55); Mean Corpuscular Hemoglobin 30.5 pg (27-33); Monocytes # 0.5 10^3/uL (0.2-0.9); Monocytes % 12.5 %; Neutrophils # 2.82 10^3/uL (1.8-7.7); Neutrophils % 66.6 %; Nucleated Red Blood Cells % 0 %; Platelet Count 177 10^3/cmm (157-399); Red Blood Count 4.42 10^6/uL (3.85-5.65); Red Cell Distribution Width 13.7 % (12.1-15.1); White Blood Count 4.23 10^3/uL (3.29-11.43)
[2023-09-25 09:30] LABS: Alanine Aminotransferase 14 U/L (0-41); Albumin Level 3.8 g/dL (3.5-5.2); Alkaline Phosphatase 161 U/L (40-130); Anion Gap 16.9 (5-19); Aspartate Amino Transferase 19 U/L (0-40); Blood Urea Nitrogen 15 mg/dL (8-23); Calcium 9.1 mg/dL (8.5-10.5); Carbon Dioxide 24 mmol/L (22-29); Chloride 100 mmol/L (98-107); Globulin 3.9 g/dL (1.3-4.6); Glucose 232 mg/dL (65-115); Osmolality Calculated 290 mOsm/kg (285-295); Potassium 4.9 mmol/L (3.5-5.1); Sodium 136 mmol/L (136-145); Thyroid Stimulating Hormone 0.98 uIU/mL (0.27-4.20); Total Bilirubin 0.4 mg/dL (0.15-1.2); Total Protein 7.7 g/dL (6.6-8.7)
[2023-09-25] MEDS: cyanocobalamin 1,000 mcg/mL SDV 1000 MCG IM (11:13)
[2023-10-02 10:39] VITALS: BP 144/68; PULSE 86; RESP 16; TEMP 36.8; O2SAT 97
[2023-10-02 11:12] LABS: Basophils % 0.1 %; Hematocrit 39.3 % (37-53); Lymphocytes # 0.5 10^3/uL (0.8-4.8); Lymphocytes % 6.6 %; Mean Corpuscular HGB Conc 33.8 g/dL (30-55); Mean Corpuscular Hemoglobin 30.9 pg (27-33); Mean Corpuscular Volume 91.4 fl (82-101); Mean Platelet Volume 9.9 fL (7.4-10.4); Monocytes # 0.2 10^3/uL (0.2-0.9); Monocytes % 3.1 %; Neutrophils # 6.26 10^3/uL (1.8-7.7); Neutrophils % 89.6 %; Nucleated Red Blood Cells % 0 %; Platelet Count 205 10^3/cmm (157-399); Red Cell Distribution Width 14.3 % (12.1-15.1); White Blood Count 6.99 10^3/uL (3.29-11.43)
[2023-10-02 11:43] LABS: Alanine Aminotransferase 53 U/L (0-41); Albumin Level 4.1 g/dL (3.5-5.2); Alkaline Phosphatase 172 U/L (40-130); Anion Gap 16.6 (5-19); Aspartate Amino Transferase 30 U/L (0-40); Blood Urea Nitrogen 21 mg/dL (8-23); Calcium 9.6 mg/dL (8.5-10.5); Carbon Dioxide 22 mmol/L (22-29); Chloride 103 mmol/L (98-107); Creatinine Clr Calc Pharmacy 97.1172; Globulin 3.9 g/dL (1.3-4.6); Glucose 245 mg/dL (65-115); Osmolality Calculated 295 mOsm/kg (285-295); Potassium 4.6 mmol/L (3.5-5.1); Sodium 137 mmol/L (136-145); Total Bilirubin 0.3 mg/dL (0.15-1.2)
[2023-10-02] MEDS: sodium chloride 0.9% 250 ML 75 ML IV (12:27)
[2023-10-02] MEDS: diphenhydrAMINE 50 mg/mL SDV 1mL 25 MG IVP (12:28)
[2023-10-02] MEDS: dexamethasone 4 mg/mL INJ 5 mL 12 MG IVP (12:33)
[2023-10-02] MEDS: palonosetron 0.25 mg/5 mL SDV IVP (12:38)
[2023-10-02] MEDS: famotidine 20 mg/2 mL INJ IVP (12:43)
[2023-10-02] MEDS: OLANZapine 5 mg TABLET PO (12:50)
[2023-10-02] MEDS: fosaprepitant 150 MG in sodium chloride 0.9% 150 ML 300 MG IV (12:52)
[2023-10-02] MEDS: pembrolizumab 200 MG in sodium chloride 0.9% 250 ML 516 MG IV (13:28)
[2023-10-02] MEDS: [UNRECOGNIZED DRUG - OTHER] IV (14:11)
[2023-10-02] MEDS: PEMETREXED DISODIUM IV (14:11)
[2023-10-02] MEDS: SODIUM CHLORIDE 0.9% IV (14:49)
[2023-10-02] MEDS: CARBOPLATIN IV (14:49)
[2023-10-02 16:04] VITALS: BP 127/65; PULSE 71; RESP 18; TEMP 36.5; O2SAT 95
== END 2023-10-02 23:59 | disposition home or self-care (01) ==
PROVIDERS: Nurse Practitioner Family; PCP Nurse Practitioner; Visit Provider Internal Medicine Hematology & Oncology
DX: C34.01 Malignant neoplasm of right main bronchus (principal); Z53.9 Procedure and treatment not carried out, unspecified reason; Z51.11 Encounter for antineoplastic chemotherapy; C79.51 Secondary malignant neoplasm of bone
CPT/HCPCS: 80053; 84443; 85025; 96367; 96372; 96375; 96413; 96417; 99215; A4222; J1100; J1200; J1453; J2469; J3420; J3490; J7040; J7050; J9045; J9271; J9305

== ENCOUNTER → 2023-10-04 13:02 | Outpatient (BNVA) | payer OTHER, SELFPAY | PROVIDERS: PCP Nurse Practitioner; Visit Provider Surgery | DX: R03.0 Elevated blood-pressure reading, without diagnosis of hypertension (principal) | CPT/HCPCS: 99213 ==

== ENCOUNTER 2023-10-06 13:00 | Emergency (ER) | payer OTHER, MEDICARE, SELFPAY ==
[2023-10-06 13:05] VITALS: BP 138/73; PULSE 112; RESP 18; TEMP 36.8; O2SAT 99
--- NOTE | 2023-10-06 13:13 | ECG_ITS ---
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 Measurements Intervals [place] Rate: 97 P: 25 TN: 177 QRS: 57 QRSD: 85 T: 49 QT: 331 QTc: 422 Interpretive Statements SINUS RHYTHM Compared to ECG 11/27/2015 12:34:46 Intraventricular conduction delay no longer present Electronically Signed On 10-06-2023 13:44:59 CDT by Aaron Carroll M.D. [id number]
--- NOTE | 2023-10-06 13:44 | CTR_ITS ---
PROCEDURE INFORMATION: Exam: CT Abdomen And Pelvis With Contrast Exam date and time: 10/06/2023 2:33 PM Age: 73 years old Clinical indication: Abdominal pain; Epigastric; Additional info: Epigastric abdominal pain, recent lung cancer right TECHNIQUE: Imaging protocol: Computed tomography of the abdomen and pelvis with contrast. Radiation optimization: All CT scans at this facility use at least one of these dose optimization techniques: automated exposure control; mA and/or kV adjustment per patient size (includes targeted exams where dose is matched to clinical indication); or iterative reconstruction. Contrast material: OMNI 350; Contrast volume: 100 ml; Contrast route: INTRAVENOUS (IV); COMPARISON: CT kidney stone [id number] 12/08/2019 2:55 PM RADIATION DOSE METRICS: Total DLP (mGy-cm): 814.18 FINDINGS: Lungs: 3 mm solid noncalcified nodule posterior left lung base may be new, or not in the field of view on the previous examination. Calcified granuloma right lung base. 2 mm solid noncalcified nodule posterior right lung base may be new. Subsegmental atelectasis in the lung bases appears increased. Heart: Normal heart size. Coronary arteries: Unchanged large amount of coronary artery calcification. Liver: New diffuse fatty infiltration of the liver. Otherwise, unremarkable. Gallbladder and biliary ducts: Normal. No calcified stones. No ductal dilation. Pancreas: Normal. No ductal dilation. Spleen: Normal. No splenomegaly. Adrenal glands: Normal. No mass. Kidneys and ureters: Again noted are simple renal cysts bilaterally which need no follow-up. Otherwise, unremarkable. Stomach and bowel: A few diverticula from the colon. No acute diverticulitis. Moderate amount of stool throughout the colon suggests constipation. Otherwise, unremarkable. Appendix: No evidence of appendicitis. Intraperitoneal space: Unremarkable. No free air. No significant fluid collection. Vasculature: Again noted is a right leg bypass graft. It is occluded. Uncertain age of this occlusion. Unchanged large amount of arterial calcification. 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 At least 50-69% diameter stenoses involving both internal iliac arteries. Greater than 90% diameter stenosis celiac axis. Probable at least 50-69% diameter stenosis origin of the MARI. No other obvious systemic vascular pathology. Lymph nodes: Unremarkable. No enlarged lymph nodes. Urinary bladder: Unremarkable as visualized. Reproductive: Mild enlargement of the prostate gland is unchanged. Please correlate with PSA levels. Otherwise, unremarkable. Bones/joints: Unchanged mild scoliosis. Unchanged multilevel spondylosis ranging from mild to severe. Unchanged mild L3 vertebral body compression deformity. New moderate T11 vertebral body compression deformity and mild T12 vertebral body compression deformity. There is considerable sclerosis and lytic abnormality involving the T11 vertebral body and to a much lesser extent the T12 vertebral body suggesting these are pathologic fractures due to metastatic disease. There are additional new smaller sclerotic and lytic lesions scattered in the bones consistent with osseous metastatic disease. There is an unchanged deformity with fragmentation in the anterior right iliac crest possibly due to old biopsy or fracture. Otherwise, unremarkable. Soft tissues: Unchanged small fat containing right inguinal hernias. Unchanged small benign-appearing fat containing umbilical hernia. Otherwise, unremarkable visualized body wall. Otherwise, unremarkable soft tissues. CT/CT abdomen pelvis w con* [id number] IMPRESSION: 1. New widespread osseous metastatic disease. New pathologic compression deformities of the T11 and T12 vertebral bodies. 2. Two new small noncalcified pulmonary nodules in the lung bases could be early metastasis. Recommend CT Chest at 3-6 months. Subsequent management based on the most suspicious nodule(s). (Reference: Magui). 3. New diffuse fatty infiltration of the liver. 4. Possible constipation. 5. Again noted is a right leg bypass graft. Now with contrast this is seen to be occluded. Uncertain age of this occlusion. Additional arterial pathology is detailed above. 6. Unchanged mild enlargement of the prostate gland. Please correlate with PSA levels. 7. Additional details as above. REFERENCES: Magui H, et al. Guidelines for Management of Incidental Pulmonary Nodules Detected on CT Images: From the Fleischner Society 2017. Radiology. 2017;284(1):228-243.
--- NOTE | 2023-10-06 13:49 | ED_ITS ---
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 Patient Dors that he has had multiple hiccups and stomach upset since the immunotherapy radiation was provided patient does not endorse any shortness of breath or chest pain with it. Patient does not endorse any abdominal changes reports no prior history of any abdominal surgeries reports no bowel changes reports no constipation or diarrhea or bloody stools patient presents to the emergency room department for further assessment and management per his oncologist request. Associated Symptoms: Reports belching, heartburn and nausea; Denies chills, fever(s) and vomiting Review of Systems 2 General: Reports: 10 or more systems reviewed and unremarkable except in HPI and below Const: Denies: fever(s), chills, fatigue or malaise Eyes: Denies: change in vision or blurry vision Card: Denies: chest pain or palpitations Resp: Denies: dyspnea or productive cough GI: Reports: abdominal pain, nausea, heartburn and belching; Denies: vomiting : Denies: flank pain Musc: Denies: extremity pain or extremity swelling Skin/Breast: Denies: rash or pruritus Neuro: Denies: headache(s) Psych: Denies: anxiety or depression Lukas/Lymph: Denies: easy bleeding All/Imm: Denies: urticaria, throat swelling or facial swelling PFSH ED 2 PFSH: Medical History Hyperlipidemia Type 2 diabetes mellitus Non-small cell lung cancer Peripheral arterial disease History of nonmelanoma skin cancer UTI (urinary tract infection) 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 Hypertension 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 Surgical History H/O transurethral resection of prostate History of below-knee amputation of left lower extremity History of cataract extraction with lens replacement History of fusion of cervical spine History of knee replacement Bilateral S/P femoral-popliteal bypass surgery History of peripheral artery bypass Family History Father Family history of premature coronary artery disease Hyperlipidemia Hypertension Mother Diabetes Congestive heart failure (CHF) Sister Congestive heart failure (CHF) Brother Agent orange exposure Social History Smoking and tobacco/nicotine status: current every day tobacco/nicotine user smokeless tobacco Smokeless tobacco user: snuff Smokeless tobacco details: 3-4 years tobacco use Alcohol intake: former Former alcohol use details: Occasional alcohol use in the past Substance/Drug Use: never Household members: spouse Marital status: Physical Exam 2 Const: COMMON NORMALS: patient oriented x3 and healthy appearing HENMT: COMMON NORMALS: normocephalic and atraumatic HEAD & SCALP: n ormocephalic and atraumatic Eye: COMMON NORMALS: Equal, round and reactive pupils present and EOMs intact bilaterally PUPIL: Yes Equal, round and reactive pupils present Neck/C-Spine: COMMON NORMALS: full ROM, supple and no JVD Lymph: LYMPHATIC: no lymphadenopathy noted Chest: COMMONS NORMALS: normal inspection of the chest and normal palpation of entire chest wall Resp: COMMON NORMALS: normal respiratory effort, No retractions and clear to auscultation bilaterally EFFORT & INSPECTION: Yes able to speak in complete sentences and Yes symmetric chest movement AUSCULTATION: clear to auscultation bilaterally Cardio: COMMON NORMALS: no JVD, regular rate and regular rhythm RATE: r egular rate RHYTHM: regular rhythm GI: COMMON NORMALS: Soft to palpation; negative for Normal to inspection, nondistended, normoactive bowel sounds present and negative for non-tender (Moderate tenderness appreciated epigastric otherwise soft nontender) INSPECTION: Yes normal to inspection PALPATION: Yes Soft to palpation : COMMON NORMALS: Yes no CVA tenderness BLADDER/KIDNEY EXAM: Yes no CVA tenderness Back/Pelvis: COMMON NORMALS: no CVA tenderness Extremity: COMMON NORMALS: normal to inspection and full ROM Neuro: COMMON NORMALS: patient oriented x3, CN's II-XII intact bilaterally, moves all extremities and no focal motor deficits Psych: COMMON NORMALS: mental status grossly normal, Normal thought process present, cooperative and normal affect THOUGHT PROCESS: Normal thought process present Skin: COMMON NORMALS: no rashes or lesions noted GENERAL SKIN EXAM: no rashes or lesions noted Course 2 Vital Signs: Vital signs: Vital Signs Temperature 98.2 F 10/06/23 13:05 Pulse Rate 73 10/06/23 15:00 Respiratory Rate 16 10/06/23 16:00 Blood Pressure 135/78 10/06/23 16:00 Pulse Oximetry 99 10/06/23 16:00 Oxygen Delivery Me thod Room Air 10/06/23 15:00 MDM - Abdominal Pain Medical Decision Making Due to patient's symptoms and condition IV established IV fluids provided for hydration lab work and imaging will be obtained we will continue to follow. Patient's lab work came back reassuring imaging did not reveal any acute underlying abnormality on the abdominal films except for some chronic compression fracture due to metastases which is the patient is already knows about patient exam appears to have some dyspepsia he does report improvement with medication provided earlier patient is stable for discharge home will be started him on no new prescription of Zofran and Protonix for his breakthrough symptoms I did advocate he further follow-up with his primary oncologist in the next 3 to 5 days in which instructed him to return the interim if any of his symptoms persist or worse. Lab Data 10/06/23 14:05 10/06/23 14:05 Labs/Radiology: Radiology Impressions Abdomen/Pelvis CT 10/06/23 13:44 IMPRESSION: 1. New widespread osseous metastatic disease. New pathologic compression deformities of the T11 and T12 vertebral bodies. 2. Two new small noncalcified pulmonary nodules in the lung bases could be early metastasis. Recommend CT Chest at 3-6 months. Subsequent management based on the most suspicious nodule(s). (Reference: Magui). 3. New diffuse fatty infiltration of the liver. 4. Possible constipation. 5. Again noted is a right leg bypass graft. Now with contrast this is seen to be occluded. Uncertain age of this occlusion. Additional arterial pathology is detailed above. 6. Unchanged mild enlargement of the prostate gland. Please correlate with PSA levels. 7. Additional details as above. REFERENCES: Magui Fox, et al. Guidelines for Management of Incidental Pulmonary Nodules Detected on CT Images: From the Fleischner Society 2017. Radiology. 2017;284(1):228-243. Laboratory Results WBC 4.82 10^3/uL (3.29-11.43) 10/06/23 14:05 RBC 4.74 10^6/uL (3.85-5.65) 10/06/23 14:05 Hgb 14.70 g/dL (11.27-16.99) 10/06/23 14:05 Hct 42.9 % (37-53) 10/06/23 14:05 MCV 90.5 fl (82-101) 10/06/23 14:05 MCH 31.0 pg (27-33) 10/06/23 14:05 MCHC 34.3 g/dL (30-55) 10/06/23 14:05 RDW 13.6 % (12.1-15.1) 10/06/23 14:05 Plt Count 171 10^3/cmm (157-399) 10/06/23 14:05 MPV 10.3 fL (7.4-10.4) 10/06/23 14:05 Neut % (Auto) 82.1 % 10/06/23 14:05 Lymph % (Auto) 13.7 % 10/06/23 14:05 [place] % (Auto) 1.9 % 10/06/23 14:05 Eos % (Auto) 1.9 % 10/06/23 14:05 Baso % (Auto) 0.0 % 10/06/23 14:05 Neut # (Auto) 3.96 10^3/uL (1.8-7.7) 10/06/23 14:05 Lymph # (Auto) 0.7 10^3/uL (0.8-4.8) L 10/06/23 14:05 [place] # (Auto) 0.1 10^3/uL (0.2-0.9) L 10/06/23 14:05 Eos # (Auto) 0.1 10^3/uL (0.0-0.8) 10/06/23 14:05 Baso # (Auto) 0.0 10^3/uL (0.0-0.1) 10/06/23 14:05 Nucleated RBC % (auto) 0 % 10/06/23 14:05 Nucleated RBCs # 0.0 /100WBC 10/06/23 14:05 Sodium 136 mmol/L (136-145) 10/06/23 14:05 Potassium 4.1 mmol/L (3.5-5.1) 10/06/23 14:05 Chloride 99 mmol/L (98-107) 10/06/23 14:05 Carbon Dioxide 27 mmol/L (22-29) 10/06/23 14:05 Anion Gap 14.1 (5-19) 10/06/23 14:05 BUN 22 mg/dL (8-23) 10/06/23 14:05 Creatinine 0.7 mg/dL (0.7-1.2) 10/06/23 14:05 GFR Calculation Not Reportable 10/06/23 14:05 Glucose 206 mg/dL (65-115) H 10/06/23 14:05 Calculated Osmolality 291 mOsm/kg (285-295) 10/06/23 14:05 Calcium 9.4 mg/dL (8.5-10.5) 10/06/23 14:05 Total Bilirubin 0.8 mg/dL (0.15-1.2) 10/06/23 14:05 AST 24 U/L (0-40) 10/06/23 14:05 ALT 107 U/L (0-41) H 10/06/23 14:05 Alkaline Phosphatase 167 U/L (40-130) H 10/06/23 14:05 Troponin T Baseline 11 ng/L (0-15) 10/06/23 14:05 Troponin T 120 Minute 9.94 ng/L (0-15) 10/06/23 15:50 Delta Troponin T -1.06 ABS# (0-10) L 10/06/23 15:50 Total Protein 7.9 g/dL (6.6-8.7) 10/06/23 14:05 Albumin 4.1 g/dL (3.5-5.2) 10/06/23 14:05 Globulin 3.8 g/dL (1.3-4.6) 10/06/23 14:05 Lipase 30 U/L (13-60) 10/06/23 14:05 All radiology interpretation(s) finalized by discharge Discharge Plan Discharge Patient Disposition: Home Clinical Impression: Dyspepsia Condition: Stable Prescriptions: New ondansetron 4 mg tablet,disintegrating 4 mg PO Q6H PRN (Reason: nausea and vomiting) Qty: 30 0RF Protonix 40 mg tablet,delayed release (DR/EC) 40 mg PO DAILY 28 Days Qty: 30 0RF No Action (DME) Diabetic Shoes with 3 pairs of custom inserts See Rx Instructions .ROUTE .MEDSUPPLY Qty: 1 0RF Rx Instructions: As directed (DME) Diabetic shoes ith molded inserts See Rx Instructions .Route .MEDSUPPLY Qty: 1 0RF Rx Instructions: As directed Xarelto 2.5 mg tablet 2.5 mg PO BID Hold Instructions: Resume on 09/21/23. (DME) Accu-Chek Guide test strips Strip See Rx Instructions .Route Rx Instructions: As directed albuterol sulfate 90 mcg/actuation HFA aerosol inhaler 1 puff inhalation QID PRN (Reason: Wheezing) atenolol 25 mg tablet 25 mg PO DAILY Rx Instructions: take one-half tablet by mouth once a day for heart or to control blood pressure. do not take antacids or calcium supplements within 2 hours of taking this medication cyclobenzaprine 5 mg tablet 10 mg PO BID PRN (Reason: muscle spasm) diclofenac sodium 1 % gel 2 g topical QID PRN (Reason: Pain) Rx Instructions: apply to single elbow, wrist or hand; for hand includes palm/fingers/back of hand Jardiance 10 mg tablet 25 mg PO DAILY Rx Instructions: take one half tablet by mouth once a day for diabetes ketoconazole 2 % cream 1 applic topical DAILY PRN (Reason: Itching) Rx Instructions: apply small amount to affected area(s)every day as needed while flared. then 2-3 times weekly once controlled ketoconazole 2 % shampoo 1 applic topical Q14D Rx Instructions: use shampoo to to affected area(s) every day as directed. apply to scalp and mustache 2-3 times weekly, allow to sit for 5 minutes before rinsing lidocaine 5 % adhesive patch,medicated 1 patch topical DAILY Rx Instructions: leave on most painful area for up to 12 hrs rosuvastatin 5 mg tablet 5 mg PO DAILY Rx Instructions: take one-half tablet by mouth every other day to lower cholesterol tadalafil 20 mg tablet 20 mg PO DAILY PRN (Reason: Itching) Rx Instructions: administer approximately 30min before sexual activity; do not use more than 1 dose per 24hrs omega [id number]-fish oil [Fish Oil] 1,000 mg (120 mg-180 mg) capsule 1 cap PO BID cholecalciferol (vitamin D3) 50 mcg (2,000 unit) capsule 50 mcg PO DAILY (DME) lancets [Accu-Chek Softclix Lancets] Misc See Rx Instructions .Route Rx Instructions: As directed dexamethasone 4 mg tablet 4 mg PO BID Qty: 24 2RF Rx Instructions: Take 1 tablet (4mg) by mouth twice daily x 3 days. Start the day prior to Alimta treatment. Compazine 10 mg tablet 10 mg PO Q4H PRN (Reason: Mild Nausea) Qty: 30 3RF lorazepam 1 mg tablet 0.5 - 1 mg PO Q6H PRN (Reason: Severe Nausea) Qty: 30 3RF (DME) custom molded accommodative orthotic to the right foot See Rx Instructions .Route .MEDSUPPLY Qty: 1 0RF Rx Instructions: As directed [employer] [place] (DME) Custom Orthotics See Rx Instructions .Route .MEDSUPPLY Qty: 1 0RF Rx Instructions: As directed oxycodone 5 mg capsule 5 mg PO Q4H MDD 40 mg PRN (Reason: pain) 30 Days Qty: 240 0RF folic acid 1 mg tablet 1 mg PO DAILY Qty: 30 5RF Rx Instructions: start 7 days prior to treatment and continuing for 21 days after the last pemetrexed dose. aspirin 81 mg Tablet,Delayed Release (Dr/Ec) 81 mg PO DAILY acetaminophen 500 mg Tablet 500 mg PO Q6H PRN (Reason: Pain) mupirocin 2 % ointment 1 applic topical BID PRN (Reason: Itching) Dilaudid 4 mg tablet 4 mg PO Q6H PRN (Reason: pain) Qty: 14 0RF ondansetron HCl 4 mg Tablet 4 mg PO QID PRN (Reason: Nausea/vomiting) Qty: 30 3RF Discharge Orders: Discharge ED (Routine); Ordered 10/06/23 Ordered By: Hany Chang Referrals: No Marinelli FNP [Primary Care Provider] - 4-7 days Discharge Diet: Advance as tolerated Discharge Activity: Increase activity as tolerated Patient Instructions: Gastritis (ED), Indigestion (ED) Activity Restrictions/Additional Instructions: Please further follow-up with your primary care doctor in 2 to 3 days take medication as prescribed in which please return the interim if any of your symptoms persist or worse. It is advised you to continue drinking plenty of fluids as well as Gatorade Powerade and protein drinks to sustain good well weight. Coding Level of Care Code ED Internal Controls Analyst for [facility]
[2023-10-06] MEDS: sodium chloride 0.9% 1,000 ML 999 ML IV (14:01)
[2023-10-06] MEDS: ondansetron 2 mg/ML SDV 2 mL 4 MG IVP (14:01)
[2023-10-06] MEDS: pantoprazole 40 mg SDV 80 MG IVP (14:02)
[2023-10-06 14:05] VITALS: BP 141/72; PULSE 85; O2SAT 96
[2023-10-06 14:15] LABS: Eosinophils # 0.1 10^3/uL (0.0-0.8); Eosinophils % 1.9 %; Hematocrit 42.9 % (37-53); Lymphocytes # 0.7 10^3/uL (0.8-4.8); Lymphocytes % 13.7 %; Mean Corpuscular HGB Conc 34.3 g/dL (30-55); Mean Corpuscular Volume 90.5 fl (82-101); Mean Platelet Volume 10.3 fL (7.4-10.4); Monocytes # 0.1 10^3/uL (0.2-0.9); Monocytes % 1.9 %; Neutrophils # 3.96 10^3/uL (1.8-7.7); Neutrophils % 82.1 %; Nucleated Red Blood Cells % 0 %; Platelet Count 171 10^3/cmm (157-399); Red Blood Count 4.74 10^6/uL (3.85-5.65); Red Cell Distribution Width 13.6 % (12.1-15.1); White Blood Count 4.82 10^3/uL (3.29-11.43)
[2023-10-06 14:34] LABS: Troponin(5th) Baseline 11 ng/L (0-15)
[2023-10-06] MEDS: iohexol 350 mg/mL 500 mL Btl (per mL) IV (14:36)
[2023-10-06 14:39] LABS: Alanine Aminotransferase 107 U/L (0-41); Albumin Level 4.1 g/dL (3.5-5.2); Alkaline Phosphatase 167 U/L (40-130); Anion Gap 14.1 (5-19); Aspartate Amino Transferase 24 U/L (0-40); Blood Urea Nitrogen 22 mg/dL (8-23); Calcium 9.4 mg/dL (8.5-10.5); Carbon Dioxide 27 mmol/L (22-29); Chloride 99 mmol/L (98-107); Creatinine Clr Calc Pharmacy 97.0152; Globulin 3.8 g/dL (1.3-4.6); Glucose 206 mg/dL (65-115); Lipase 30 U/L (13-60); Osmolality Calculated 291 mOsm/kg (285-295); Potassium 4.1 mmol/L (3.5-5.1); Sodium 136 mmol/L (136-145); Total Bilirubin 0.8 mg/dL (0.15-1.2); Total Protein 7.9 g/dL (6.6-8.7)
[2023-10-06 15:00] VITALS: BP 121/58; PULSE 73; O2SAT 94
[2023-10-06 16:00] VITALS: BP 135/78; RESP 16; O2SAT 99
[2023-10-06 16:19] LABS: Troponin 5 2HR 9.94 ng/L (0-15)
[2023-10-06 16:21] LABS: Troponin 5 2HR Delta -1.06 ABS# (0-10)
[2023-10-06 17:24] VITALS: BP 116/99; PULSE 79; RESP 18; O2SAT 98
== END 2023-10-06 17:24 | disposition home or self-care (01) ==
PROVIDERS: Emergency Provider Emergency Medicine; PCP Nurse Practitioner
DX: R10.13 Epigastric pain (principal); Z79.82 Long term (current) use of aspirin; F17.220 Nicotine dependence, chewing tobacco, uncomplicated; E78.5 Hyperlipidemia, unspecified; E11.9 Type 2 diabetes mellitus without complications; Z85.118 Personal history of other malignant neoplasm of bronchus and lung; I10 Essential (primary) hypertension; Z89.512 Acquired absence of left leg below knee
CPT/HCPCS: 36415; 74177; 80053; 83690; 84484; 85025; 93005; 96361; 96374; 96375; 99285; C9113; J2405; J7030; Q9967

== ENCOUNTER 2023-10-09 09:41 | Oncology outpatient (recurring) (ONCR) | payer OTHER, SELFPAY ==
[2023-10-09 10:04] LABS: Basophils % 0.4 %; Eosinophils # 0.1 10^3/uL (0.0-0.8); Hematocrit 36.7 % (37-53); Lymphocytes # 0.4 10^3/uL (0.8-4.8); Lymphocytes % 17.4 %; Mean Corpuscular HGB Conc 34.6 g/dL (30-55); Mean Corpuscular Hemoglobin 31.2 pg (27-33); Mean Corpuscular Volume 90.2 fl (82-101); Mean Platelet Volume 9.8 fL (7.4-10.4); Monocytes # 0.1 10^3/uL (0.2-0.9); Monocytes % 5.1 %; Neutrophils # 1.84 10^3/uL (1.8-7.7); Neutrophils % 72.7 %; Nucleated Red Blood Cells % 0 %; Platelet Count 120 10^3/cmm (157-399); Red Blood Count 4.07 10^6/uL (3.85-5.65); Red Cell Distribution Width 13.2 % (12.1-15.1); White Blood Count 2.53 10^3/uL (3.29-11.43)
[2023-10-09 10:23] LABS: Alanine Aminotransferase 45 U/L (0-41); Albumin Level 3.6 g/dL (3.5-5.2); Alkaline Phosphatase 151 U/L (40-130); Anion Gap 15.7 (5-19); Aspartate Amino Transferase 19 U/L (0-40); Blood Urea Nitrogen 23 mg/dL (8-23); Calcium 9.1 mg/dL (8.5-10.5); Carbon Dioxide 25 mmol/L (22-29); Chloride 96 mmol/L (98-107); Globulin 3.4 g/dL (1.3-4.6); Glucose 241 mg/dL (65-115); Osmolality Calculated 286 mOsm/kg (285-295); Potassium 4.7 mmol/L (3.5-5.1); Sodium 132 mmol/L (136-145); Total Bilirubin 0.6 mg/dL (0.15-1.2)
== END 2023-10-15 23:59 | disposition home or self-care (01) ==
PROVIDERS: Nurse Practitioner Family; PCP Nurse Practitioner; Visit Provider Internal Medicine Hematology & Oncology
DX: C34.01 Malignant neoplasm of right main bronchus (principal); C79.51 Secondary malignant neoplasm of bone; F17.290 Nicotine dependence, other tobacco product, uncomplicated; C77.1 Secondary and unspecified malignant neoplasm of intrathoracic lymph nodes; Z92.3 Personal history of irradiation
CPT/HCPCS: 36591; 80053; 85025; 99214

== ENCOUNTER 2023-10-30 08:47 | Oncology outpatient (recurring) (ONCR) | payer OTHER, SELFPAY ==
[2023-10-16 09:00] LABS: Eosinophils % 0.4 %; Hematocrit 33.9 % (37-53); Lymphocytes # 0.5 10^3/uL (0.8-4.8); Lymphocytes % 18.9 %; Mean Corpuscular HGB Conc 34.8 g/dL (30-55); Mean Corpuscular Hemoglobin 31.5 pg (27-33); Mean Corpuscular Volume 90.4 fl (82-101); Mean Platelet Volume 10.9 fL (7.4-10.4); Monocytes # 0.2 10^3/uL (0.2-0.9); Monocytes % 6.2 %; Neutrophils # 1.91 10^3/uL (1.8-7.7); Neutrophils % 73.7 %; Nucleated Red Blood Cells % 0 %; Platelet Count 101 10^3/cmm (157-399); Red Blood Count 3.75 10^6/uL (3.85-5.65); Red Cell Distribution Width 13.2 % (12.1-15.1); White Blood Count 2.59 10^3/uL (3.29-11.43)
[2023-10-16 09:16] LABS: Alanine Aminotransferase 50 U/L (0-41); Alkaline Phosphatase 186 U/L (40-130); Anion Gap 13.9 (5-19); Aspartate Amino Transferase 26 U/L (0-40); Blood Urea Nitrogen 23 mg/dL (8-23); Calcium 9.1 mg/dL (8.5-10.5); Carbon Dioxide 24 mmol/L (22-29); Chloride 99 mmol/L (98-107); Globulin 3.4 g/dL (1.3-4.6); Glucose 214 mg/dL (65-115); Osmolality Calculated 284 mOsm/kg (285-295); Potassium 4.9 mmol/L (3.5-5.1); Sodium 132 mmol/L (136-145); Total Bilirubin 0.4 mg/dL (0.15-1.2); Total Protein 7.4 g/dL (6.6-8.7)
[2023-10-23 08:06] VITALS: BP 144/77; PULSE 83; RESP 17; TEMP 36.4; O2SAT 99
[2023-10-23 08:28] LABS: Basophils % 0.9 %; Hematocrit 35.9 % (37-53); Lymphocytes # 0.4 10^3/uL (0.8-4.8); Lymphocytes % 33.3 %; Mean Corpuscular HGB Conc 34.5 g/dL (30-55); Mean Corpuscular Hemoglobin 31.9 pg (27-33); Mean Corpuscular Volume 92.3 fl (82-101); Mean Platelet Volume 9.6 fL (7.4-10.4); Monocytes # 0.2 10^3/uL (0.2-0.9); Monocytes % 13.7 %; Neutrophils % 50.4 %; Nucleated Red Blood Cells % 0 %; Platelet Count 248 10^3/cmm (157-399); Red Blood Count 3.89 10^6/uL (3.85-5.65); Red Cell Distribution Width 15.1 % (12.1-15.1); White Blood Count 1.17 10^3/uL (3.29-11.43)
[2023-10-23 09:07] LABS: Neutrophils # 0.59 10^3/uL (1.8-7.7)
[2023-10-23 09:57] LABS: Alanine Aminotransferase 78 U/L (0-41); Alkaline Phosphatase 237 U/L (40-130); Aspartate Amino Transferase 55 U/L (0-40); Blood Urea Nitrogen 17 mg/dL (8-23); Calcium 9.3 mg/dL (8.5-10.5); Carbon Dioxide 24 mmol/L (22-29); Chloride 99 mmol/L (98-107); Creatinine Clr Calc Pharmacy 86.0536; Globulin 3.6 g/dL (1.3-4.6); Glucose 298 mg/dL (65-115); Osmolality Calculated 291 mOsm/kg (285-295); Sodium 134 mmol/L (136-145); Thyroid Stimulating Hormone 0.53 uIU/mL (0.27-4.20); Total Bilirubin 0.4 mg/dL (0.15-1.2); Total Protein 7.6 g/dL (6.6-8.7)
[2023-10-30 10:10] LABS: Basophils % 0.2 %; Hematocrit 36.4 % (37-53); Lymphocytes # 0.4 10^3/uL (0.8-4.8); Lymphocytes % 6.9 %; Mean Corpuscular HGB Conc 34.1 g/dL (30-55); Mean Corpuscular Hemoglobin 31.6 pg (27-33); Mean Corpuscular Volume 92.9 fl (82-101); Mean Platelet Volume 10.1 fL (7.4-10.4); Monocytes # 0.2 10^3/uL (0.2-0.9); Monocytes % 3.7 %; Neutrophils # 4.78 10^3/uL (1.8-7.7); Neutrophils % 88.5 %; Nucleated Red Blood Cells % 0 %; Platelet Count 213 10^3/cmm (157-399); Red Blood Count 3.92 10^6/uL (3.85-5.65); Red Cell Distribution Width 16.3 % (12.1-15.1)
[2023-10-30 10:41] LABS: Alanine Aminotransferase 27 U/L (0-41); Alkaline Phosphatase 178 U/L (40-130); Anion Gap 22.1 (5-19); Aspartate Amino Transferase 17 U/L (0-40); Blood Urea Nitrogen 22 mg/dL (8-23); Calcium 8.9 mg/dL (8.5-10.5); Carbon Dioxide 19 mmol/L (22-29); Chloride 97 mmol/L (98-107); Creatinine Clr Calc Pharmacy 77.4482; Globulin 3.5 g/dL (1.3-4.6); Glucose 225 mg/dL (65-115); Osmolality Calculated 286 mOsm/kg (285-295); Potassium 5.1 mmol/L (3.5-5.1); Sodium 133 mmol/L (136-145); Total Bilirubin 0.4 mg/dL (0.15-1.2); Total Protein 7.5 g/dL (6.6-8.7)
[2023-10-30 11:15] VITALS: BP 106/55; PULSE 61; RESP 16; TEMP 36.9; O2SAT 95
[2023-10-30] MEDS: sodium chloride 0.9% 250 ML 75 ML IV (11:33)
[2023-10-30] MEDS: OLANZapine 5 mg TABLET PO (11:33)
[2023-10-30] MEDS: palonosetron 0.25 mg/5 mL SDV IVP (11:33)
[2023-10-30] MEDS: dexamethasone 4 mg/mL INJ 5 mL 12 MG IV (11:34)
[2023-10-30] MEDS: diphenhydrAMINE 50 mg/mL SDV 1mL 25 MG IVP (11:39)
[2023-10-30] MEDS: famotidine 20 mg/2 mL INJ IVP (11:41)
[2023-10-30] MEDS: fosaprepitant 150 MG in sodium chloride 0.9% 150 ML 300 MG IV (11:43)
[2023-10-30] MEDS: pembrolizumab 200 MG in sodium chloride 0.9% 250 ML 516 MG IV (12:44)
[2023-10-30] MEDS: PEMETREXED DISODIUM IV (13:22)
[2023-10-30] MEDS: [UNRECOGNIZED DRUG - OTHER] IV (13:22)
[2023-10-30] MEDS: CARBOplatin 540 MG in sodium chloride 0.9% 500 ML 554 MG IV (14:08)
[2023-10-30 15:27] VITALS: BP 99/61; PULSE 73; O2SAT 97
== END 2023-10-30 23:59 | disposition home or self-care (01) ==
PROVIDERS: Nurse Practitioner Family; PCP Nurse Practitioner; Visit Provider Internal Medicine Medical Oncology
DX: Z53.9 Procedure and treatment not carried out, unspecified reason (principal); Z51.11 Encounter for antineoplastic chemotherapy; Z51.12 Encounter for antineoplastic immunotherapy; C34.01 Malignant neoplasm of right main bronchus; Z79.52 Long term (current) use of systemic steroids; Z79.899 Other long term (current) drug therapy; Z95.828 Presence of other vascular implants and grafts; F17.220 Nicotine dependence, chewing tobacco, uncomplicated; K21.9 Gastro-esophageal reflux disease without esophagitis; G47.00 Insomnia, unspecified
CPT/HCPCS: 80053; 84443; 85025; 96367; 96375; 96413; 96417; 99213; 99214; A4222; J1100; J1200; J1453; J2469; J3490; J7040; J7050; J9045; J9271; J9305

== ENCOUNTER → 2023-11-08 12:35 | Outpatient (BNVA) | payer OTHER, SELFPAY | PROVIDERS: PCP Nurse Practitioner; Visit Provider Podiatrist Foot & Ankle Surgery | DX: Z95.828 Presence of other vascular implants and grafts (principal); I73.9 Peripheral vascular disease, unspecified; Z89.512 Acquired absence of left leg below knee; Q66.71 Congenital pes cavus, right foot; L60.3 Nail dystrophy | CPT/HCPCS: 11720 ==

== ENCOUNTER 2023-11-13 14:00 | Oncology outpatient (recurring) (ONCR) | payer OTHER, SELFPAY ==
[2023-11-06 14:54] LABS: Hematocrit 34.1 % (37-53); Lymphocytes # 0.6 10^3/uL (0.8-4.8); Lymphocytes % 31.1 %; Mean Corpuscular HGB Conc 34.6 g/dL (30-55); Mean Corpuscular Hemoglobin 31.8 pg (27-33); Mean Corpuscular Volume 91.9 fl (82-101); Mean Platelet Volume 10.6 fL (7.4-10.4); Monocytes # 0.1 10^3/uL (0.2-0.9); Monocytes % 7.8 %; Neutrophils # 1.09 10^3/uL (1.8-7.7); Neutrophils % 60.5 %; Nucleated Red Blood Cells % 0 %; Platelet Count 117 10^3/cmm (157-399); Red Blood Count 3.71 10^6/uL (3.85-5.65)
[2023-11-06 15:08] LABS: Alanine Aminotransferase 24 U/L (0-41); Albumin Level 3.8 g/dL (3.5-5.2); Alkaline Phosphatase 150 U/L (40-130); Anion Gap 15.5 (5-19); Aspartate Amino Transferase 24 U/L (0-40); Blood Urea Nitrogen 20 mg/dL (8-23); Calcium 8.9 mg/dL (8.5-10.5); Carbon Dioxide 25 mmol/L (22-29); Chloride 101 mmol/L (98-107); Glucose 187 mg/dL (65-115); Osmolality Calculated 292 mOsm/kg (285-295); Potassium 4.5 mmol/L (3.5-5.1); Sodium 137 mmol/L (136-145); Total Bilirubin 0.4 mg/dL (0.15-1.2); Total Protein 6.8 g/dL (6.6-8.7)
[2023-11-13 13:24] LABS: Basophils % 0.6 %; Eosinophils % 0.6 %; Hematocrit 33.1 % (37-53); Lymphocytes # 0.5 10^3/uL (0.8-4.8); Mean Corpuscular HGB Conc 34.7 g/dL (30-55); Mean Corpuscular Hemoglobin 32.7 pg (27-33); Mean Platelet Volume 10.8 fL (7.4-10.4); Monocytes # 0.3 10^3/uL (0.2-0.9); Monocytes % 15.8 %; Nucleated Red Blood Cells % 0 %; Platelet Count 72 10^3/cmm (157-399); Red Blood Count 3.52 10^6/uL (3.85-5.65); Red Cell Distribution Width 15.9 % (12.1-15.1); White Blood Count 1.58 10^3/uL (3.29-11.43)
[2023-11-13 13:46] LABS: Alanine Aminotransferase 35 U/L (0-41); Albumin Level 3.9 g/dL (3.5-5.2); Alkaline Phosphatase 148 U/L (40-130); Anion Gap 15.5 (5-19); Aspartate Amino Transferase 24 U/L (0-40); Blood Urea Nitrogen 16 mg/dL (8-23); Calcium 8.8 mg/dL (8.5-10.5); Carbon Dioxide 24 mmol/L (22-29); Chloride 101 mmol/L (98-107); Glucose 237 mg/dL (65-115); Osmolality Calculated 291 mOsm/kg (285-295); Potassium 4.5 mmol/L (3.5-5.1); Sodium 136 mmol/L (136-145); Total Bilirubin 0.3 mg/dL (0.15-1.2); Total Protein 6.9 g/dL (6.6-8.7)
[2023-11-13 13:55] LABS: Neutrophils # 0.82 10^3/uL (1.8-7.7)
== END 2023-11-15 23:59 | disposition home or self-care (01) ==
PROVIDERS: Nurse Practitioner Family; PCP Nurse Practitioner; Visit Provider Internal Medicine Medical Oncology
DX: C34.01 Malignant neoplasm of right main bronchus; Z53.9 Procedure and treatment not carried out, unspecified reason
CPT/HCPCS: 36591; 80053; 85025

== ENCOUNTER 2023-11-20 08:00 | Oncology outpatient (recurring) (ONCR) | payer OTHER, SELFPAY ==
[2023-11-20 08:46] LABS: Hematocrit 33.9 % (37-53); Lymphocytes # 0.4 10^3/uL (0.8-4.8); Mean Corpuscular HGB Conc 34.2 g/dL (30-55); Mean Corpuscular Hemoglobin 32.7 pg (27-33); Mean Corpuscular Volume 95.5 fl (82-101); Mean Platelet Volume 9.4 fL (7.4-10.4); Monocytes # 0.3 10^3/uL (0.2-0.9); Monocytes % 14.8 %; Neutrophils # 1.55 10^3/uL (1.8-7.7); Neutrophils % 67.8 %; Nucleated Red Blood Cells % 0 %; Platelet Count 210 10^3/cmm (157-399); Red Blood Count 3.55 10^6/uL (3.85-5.65); Red Cell Distribution Width 17.8 % (12.1-15.1); White Blood Count 2.29 10^3/uL (3.29-11.43)
[2023-11-20 09:33] LABS: Alanine Aminotransferase 23 U/L (0-41); Albumin Level 4.1 g/dL (3.5-5.2); Alkaline Phosphatase 138 U/L (40-130); Anion Gap 17.9 (5-19); Aspartate Amino Transferase 20 U/L (0-40); Blood Urea Nitrogen 21 mg/dL (8-23); Calcium 9.4 mg/dL (8.5-10.5); Carbon Dioxide 22 mmol/L (22-29); Chloride 100 mmol/L (98-107); Glucose 166 mg/dL (65-115); Osmolality Calculated 287 mOsm/kg (285-295); Potassium 4.9 mmol/L (3.5-5.1); Sodium 135 mmol/L (136-145); Thyroid Stimulating Hormone 0.62 uIU/mL (0.27-4.20); Total Bilirubin 0.3 mg/dL (0.15-1.2); Total Protein 7.1 g/dL (6.6-8.7)
[2023-11-20 10:35] VITALS: BP 130/74; PULSE 68; RESP 16; TEMP 36.9; O2SAT 98
[2023-11-20] MEDS: sodium chloride 0.9% 250 ML 75 ML IV (10:43)
[2023-11-20] MEDS: OLANZapine 5 mg TABLET PO (10:47)
[2023-11-20] MEDS: famotidine 20 mg/2 mL INJ IVP (10:47)
[2023-11-20] MEDS: palonosetron 0.25 mg/5 mL SDV IVP (10:51)
[2023-11-20] MEDS: diphenhydrAMINE 50 mg/mL SDV 1mL 25 MG IVP (10:52)
[2023-11-20] MEDS: dexamethasone 4 mg/mL INJ 5 mL 12 MG IV (10:54)
[2023-11-20] MEDS: fosaprepitant 150 MG in sodium chloride 0.9% 150 ML 300 MG IV (10:59)
[2023-11-20] MEDS: pembrolizumab 200 MG in sodium chloride 0.9% 250 ML 516 MG IV (11:39)
[2023-11-20] MEDS: [UNRECOGNIZED DRUG - OTHER] IV (12:17)
[2023-11-20] MEDS: PEMETREXED DISODIUM IV (12:17)
[2023-11-20 13:48] VITALS: BP 120/66; PULSE 83; RESP 16; TEMP 36.6; O2SAT 95
[2023-11-20] MEDS: pegfilgrastim 6 mg/0.6 mL Kit (onpro) SUBCUT (13:49)
== END 2023-11-20 23:59 | disposition home or self-care (01) ==
PROVIDERS: Nurse Practitioner Family; PCP Nurse Practitioner; Visit Provider Internal Medicine Medical Oncology
DX: Z53.9 Procedure and treatment not carried out, unspecified reason (principal); C34.01 Malignant neoplasm of right main bronchus; G93.89 Other specified disorders of brain; C79.51 Secondary malignant neoplasm of bone; Z92.3 Personal history of irradiation; Z79.891 Long term (current) use of opiate analgesic
CPT/HCPCS: 80053; 84443; 85025; 96367; 96375; 96377; 96413; 96417; A4222; J1100; J1200; J1453; J2469; J2506; J3490; J7040; J7050; J9045; J9271; J9305

== ENCOUNTER 2023-12-11 11:00 | Oncology outpatient (recurring) (ONCR) | payer OTHER, SELFPAY ==
[2023-11-27 10:39] LABS: Hematocrit 31.8 % (37-53); Mean Corpuscular HGB Conc 33.6 g/dL (30-55); Mean Corpuscular Hemoglobin 32.5 pg (27-33); Mean Corpuscular Volume 96.7 fl (82-101); Mean Platelet Volume 11.4 fL (7.4-10.4); Platelet Count 46 10^3/cmm (157-399); Red Blood Count 3.29 10^6/uL (3.85-5.65); Red Cell Distribution Width 16.5 % (12.1-15.1); White Blood Count 2.18 10^3/uL (3.29-11.43)
[2023-11-27] MEDS: sodium chloride 0.9% 1,000 ML 999 ML IV (10:47)
[2023-11-27] MEDS: famotidine 20 mg/2 mL INJ IVP (10:49)
[2023-11-27 10:52] VITALS: BP 117/70; PULSE 62; RESP 16; TEMP 36.6; O2SAT 94
[2023-11-27] MEDS: ondansetron 2 mg/ML SDV 2 mL 8 MG IVP (10:53)
[2023-11-27 10:58] LABS: Alanine Aminotransferase 18 U/L (0-41); Albumin Level 3.9 g/dL (3.5-5.2); Alkaline Phosphatase 136 U/L (40-130); Anion Gap 16.7 (5-19); Aspartate Amino Transferase 14 U/L (0-40); Blood Urea Nitrogen 31 mg/dL (8-23); Calcium 8.9 mg/dL (8.5-10.5); Carbon Dioxide 23 mmol/L (22-29); Chloride 98 mmol/L (98-107); Globulin 2.9 g/dL (1.3-4.6); Glucose 212 mg/dL (65-115); Osmolality Calculated 289 mOsm/kg (285-295); Potassium 4.7 mmol/L (3.5-5.1); Sodium 133 mmol/L (136-145); Total Bilirubin 0.7 mg/dL (0.15-1.2); Total Protein 6.8 g/dL (6.6-8.7)
[2023-11-27] MEDS: dexamethasone 10 mg/mL INJ 12 MG IVP (10:58)
[2023-11-27 11:10] LABS: Slide Review Slide Review Perform
[2023-11-27 11:11] LABS: Absolute Neutrophil 1.1 10^3/cmm (1.4-6.5); Absolute Segmented Neutrophil 0.9 10/cmm (1.6-7.1); Band Neutrophils Absolute 0.2 10^3/cmm (0.0-1.2); Eosinophils 1 %; Lymphocytes 22 %; Lymphocytes Absolute 0.6 10^3/cmm (1.2-3.4); Platelet Estimate Decreased (Normal); Segmented Neutrophils 41 %; Total Cells Counted 100 (0-100)
[2023-11-27 11:12] LABS: Anisocytosis Trace; Dohle Bodies 2+; Giant Platelets Trace; Hypochromasia 1+
[2023-11-27] MEDS: cyanocobalamin 1,000 mcg/mL SDV 1000 MCG IM (12:38)
[2023-11-27 12:48] VITALS: BP 135/81; PULSE 81; RESP 16; TEMP 36.2; O2SAT 99
[2023-11-27 12:50] VITALS: BP 122/80; PULSE 90; RESP 16; TEMP 36.4; O2SAT 93
[2023-12-04 14:49] LABS: Hematocrit 31.7 % (37-53); Mean Corpuscular HGB Conc 33.4 g/dL (30-55); Mean Corpuscular Hemoglobin 32.5 pg (27-33); Mean Corpuscular Volume 97.2 fl (82-101); Mean Platelet Volume 12.1 fL (7.4-10.4); Platelet Count 84 10^3/cmm (157-399); Red Blood Count 3.26 10^6/uL (3.85-5.65); Red Cell Distribution Width 16.6 % (12.1-15.1); White Blood Count 14.44 10^3/uL (3.29-11.43)
[2023-12-04 15:02] LABS: Alanine Aminotransferase 85 U/L (0-41); Albumin Level 4.1 g/dL (3.5-5.2); Alkaline Phosphatase 160 U/L (40-130); Anion Gap 19.3 (5-19); Aspartate Amino Transferase 30 U/L (0-40); Blood Urea Nitrogen 25 mg/dL (8-23); Calcium 9.1 mg/dL (8.5-10.5); Carbon Dioxide 22 mmol/L (22-29); Chloride 99 mmol/L (98-107); Creatinine Clr Calc Pharmacy 69.7095; Globulin 2.9 g/dL (1.3-4.6); Glucose 349 mg/dL (65-115); Osmolality Calculated 298 mOsm/kg (285-295); Potassium 5.3 mmol/L (3.5-5.1); Sodium 135 mmol/L (136-145); Total Bilirubin 0.3 mg/dL (0.15-1.2)
[2023-12-04 15:05] LABS: Slide Review Slide Review Perform
[2023-12-04 15:06] LABS: Absolute Neutrophil 11.8 10^3/cmm (1.4-6.5); Absolute Segmented Neutrophil 11.3 10/cmm (1.6-7.1); Anisocytosis 1+; Band Neutrophils Absolute 0.6 10^3/cmm (0.0-1.2); Eosinophils 0 %; Lymphocytes 4 %; Macrocytosis Trace; Monocytes Absolute 0.7 10^3/cmm (0.1-0.6); Platelet Estimate Decreased (Normal); Polychromasia Trace; Segmented Neutrophils 78 %; Smudge Cells Trace; Total Cells Counted 100 (0-100)
[2023-12-11 11:22] LABS: Hematocrit 29.6 % (37-53); Lymphocytes # 0.3 10^3/uL (0.8-4.8); Mean Corpuscular HGB Conc 32.8 g/dL (30-55); Mean Corpuscular Volume 100.7 fl (82-101); Mean Platelet Volume 9.9 fL (7.4-10.4); Monocytes # 0.4 10^3/uL (0.2-0.9); Monocytes % 5.6 %; Neutrophils # 6.25 10^3/uL (1.8-7.7); Neutrophils % 89.7 %; Nucleated Red Blood Cells % 0 %; Platelet Count 217 10^3/cmm (157-399); Red Blood Count 2.94 10^6/uL (3.85-5.65); Red Cell Distribution Width 19.1 % (12.1-15.1); White Blood Count 6.97 10^3/uL (3.29-11.43)
[2023-12-11 11:46] LABS: Alanine Aminotransferase 36 U/L (0-41); Albumin Level 3.8 g/dL (3.5-5.2); Alkaline Phosphatase 122 U/L (40-130); Anion Gap 20.9 (5-19); Aspartate Amino Transferase 22 U/L (0-40); Blood Urea Nitrogen 21 mg/dL (8-23); Calcium 8.7 mg/dL (8.5-10.5); Carbon Dioxide 20 mmol/L (22-29); Chloride 98 mmol/L (98-107); Creatinine Clr Calc Pharmacy 76.6805; Globulin 2.9 g/dL (1.3-4.6); Glucose 298 mg/dL (65-115); Osmolality Calculated 292 mOsm/kg (285-295); Potassium 4.9 mmol/L (3.5-5.1); Sodium 134 mmol/L (136-145); Thyroid Stimulating Hormone 0.28 uIU/mL (0.27-4.20); Total Bilirubin 0.3 mg/dL (0.15-1.2); Total Protein 6.7 g/dL (6.6-8.7)
[2023-12-11 13:25] VITALS: BP 118/57; PULSE 53; RESP 16; TEMP 36.7; O2SAT 96
[2023-12-11] MEDS: sodium chloride 0.9% 250 ML 75 ML IV (13:33)
[2023-12-11] MEDS: OLANZapine 5 mg TABLET PO (13:36)
[2023-12-11] MEDS: palonosetron 0.25 mg/5 mL SDV IVP (13:36)
[2023-12-11] MEDS: famotidine 20 mg/2 mL INJ IVP (13:38)
[2023-12-11] MEDS: diphenhydrAMINE 50 mg/mL SDV 1mL 25 MG IVP (13:44)
[2023-12-11] MEDS: fosaprepitant 150 MG in sodium chloride 0.9% 150 ML 300 MG IV (14:17)
[2023-12-11] MEDS: pembrolizumab 200 MG in sodium chloride 0.9% 250 ML 516 MG IV (14:58)
[2023-12-11] MEDS: [UNRECOGNIZED DRUG - OTHER] IV (15:35)
[2023-12-11] MEDS: PEMETREXED DISODIUM IV (15:35)
[2023-12-11] MEDS: CARBOplatin 530 MG in sodium chloride 0.9% 500 ML 553 MG IV (15:49)
[2023-12-11] MEDS: pegfilgrastim 6 mg/0.6 mL Kit (onpro) SUBCUT (16:36)
[2023-12-11 16:42] VITALS: BP 123/60; PULSE 63; RESP 16; TEMP 36.8; O2SAT 98
== END 2023-12-11 23:59 | disposition home or self-care (01) ==
PROVIDERS: Nurse Practitioner Family; PCP Nurse Practitioner; Visit Provider Internal Medicine Medical Oncology
DX: Z53.9 Procedure and treatment not carried out, unspecified reason; Z51.12 Encounter for antineoplastic immunotherapy; Z51.11 Encounter for antineoplastic chemotherapy; C34.01 Malignant neoplasm of right main bronchus; F17.220 Nicotine dependence, chewing tobacco, uncomplicated; C79.51 Secondary malignant neoplasm of bone; Z79.52 Long term (current) use of systemic steroids; D70.1 Agranulocytosis secondary to cancer chemotherapy; T45.1X5A Adverse effect of antineoplastic and immunosuppressive drugs, initial encounter
CPT/HCPCS: 36415; 36591; 80053; 84443; 85007; 85025; 96360; 96367; 96372; 96375; 96377; 96411; 96413; 96417; 99214; A4222; J1100; J1200; J1453; J2405; J2469; J2506; J3420; J3490; J7030; J7040; J7050; J9045; J9271; J9305

== ENCOUNTER 2023-12-16 17:36 | Emergency (ER) | payer OTHER, MEDICARE, SELFPAY ==
[2023-12-16 17:50] VITALS: BP 135/81; PULSE 86; RESP 18; TEMP 36.8; O2SAT 97; BMI 25.0
[2023-12-16 22:07] LABS: Basophils # 0.1 10^3/uL (0.0-0.1); Basophils % 1.1 %; Hematocrit 35.3 % (37-53); Lymphocytes # 0.3 10^3/uL (0.8-4.8); Lymphocytes % 5.8 %; Mean Corpuscular HGB Conc 31.2 g/dL (30-55); Mean Corpuscular Hemoglobin 33.4 pg (27-33); Mean Corpuscular Volume 107.3 fl (82-101); Mean Platelet Volume 10.1 fL (7.4-10.4); Monocytes # 0.3 10^3/uL (0.2-0.9); Neutrophils # 4.03 10^3/uL (1.8-7.7); Neutrophils % 86.7 %; Nucleated Red Blood Cells % 0 %; Platelet Count 107 10^3/cmm (157-399); Red Blood Count 3.29 10^6/uL (3.85-5.65); Red Cell Distribution Width 17.8 % (12.1-15.1); White Blood Count 4.65 10^3/uL (3.29-11.43)
--- NOTE | 2023-12-16 22:19 | CTR_ITS ---
PROCEDURE INFORMATION: Exam: CT Head Without And With Contrast Exam date and time: 12/16/2023 10:53 PM Age: 73 years old Clinical indication: Pain; Headache; Patient HX: [place] with n/v. History of lung cancer with bone mets; Additional info: HX of cancer/[place]/n/v TECHNIQUE: Imaging protocol: Computed tomography of the head without and with contrast. Radiation optimization: All CT scans at this facility use at least one of these dose optimization techniques: automated exposure control; mA and/or kV adjustment per patient size (includes targeted exams where dose is matched to clinical indication); or iterative reconstruction. Contrast material: OMNI 350; Contrast volume: 100 ml; Contrast route: INTRAVENOUS (IV); COMPARISON: MR head wo/w con [id number] 09/06/2023 1:36 PM RADIATION DOSE METRICS: Total DLP (mGy-cm): 2535.33 FINDINGS: Brain: Moderate diffuse white matter disease likely reflecting chronic microvascular ischemic changes. Cerebral ventricles: No ventriculomegaly. Paranasal sinuses: Visualized sinuses are unremarkable. No fluid levels. Mastoid air cells: Visualized mastoid air cells are well aerated. Bones: Unremarkable. No acute fracture. Soft tissues: Unremarkable. CT/CT head wo/w con [id number] IMPRESSION: Negative for intracranial hemorrhage or mass effect.
[2023-12-16 22:23] VITALS: BP 153/71; PULSE 81; O2SAT 100
[2023-12-16 22:30] LABS: Alanine Aminotransferase 27 U/L (0-41); Albumin Level 3.7 g/dL (3.5-5.2); Alkaline Phosphatase 115 U/L (40-130); Anion Gap 23.6 (5-19); Aspartate Amino Transferase 23 U/L (0-40); Blood Urea Nitrogen 31 mg/dL (8-23); Calcium 8.9 mg/dL (8.5-10.5); Carbon Dioxide 19 mmol/L (22-29); Chloride 94 mmol/L (98-107); Globulin 3.5 g/dL (1.3-4.6); Glucose 222 mg/dL (65-115); Osmolality Calculated 287 mOsm/kg (285-295); Potassium 4.6 mmol/L (3.5-5.1); Sodium 132 mmol/L (136-145); Total Bilirubin 0.9 mg/dL (0.15-1.2); Total Protein 7.2 g/dL (6.6-8.7)
[2023-12-16 22:32] LABS: Lactic Sepsis W/Reflex 2.1 mmol/L (0.5-2.2)
[2023-12-16] MEDS: ondansetron 2 mg/ML SDV 2 mL 4 MG IVP (22:37)
[2023-12-16] MEDS: sodium chloride 0.9% 1,000 ML 999 ML IV (22:39)
--- NOTE | 2023-12-16 22:42 | ED_ITS ---
Documented by User: JIMMIE Hammonds 12/18/23 16:47 HPI - Nausea/Vomiting/Diarrhea 2 General: Chief complaint: Nausea/Vomiting/Diarrhea Stated complaint: N/V, Headache Dr Uribe sent Time Seen by Provider: 12/16/23 22:09 Source: patient Mode of arrival: ambulatory Limitations: no limitations History of Present Illness: Patient is a 73-year-old male with past medical history of small cell lung cancer currently on radiation and chemo who presents to the emergency department with nausea and vomiting beginning today. Patient was told to come here by Dr. Uribe, who is patient's oncologist. Patient also complaining of a headache and some epigastric pain, states that he has a burning sensation in the upper part of his abdomen. He has not had similar symptoms since starting chemoradiation, states that he is on his fourth round. He has not been vomiting any blood, and denies any diarrhea, constipation, chest pain, shortness of breath, or other symptoms. He does note that he has had a diminished appetite, and further states that he has not been running any fevers. He is afebrile on arrival and breathing comfortably on room air, also has a history of diabetes with LLE amputation. No history of heart attacks or strokes. MD elicited complaint: nausea, vomiting and abdominal pain Pertinent past history: other (Small cell lung cancer) Onset (ago): hour(s) Associated nausea: Yes Associated abdominal pain: Yes Location of pain: Epigastric Pain consistency: constant Quality: other (Burning) Exacerbating factors: eating Associated symtoms: Reports headache(s) and nausea; Denies chest pain, diaphoresis, dizziness, dysuria or palpitations Related Data Home Medications Medication Instructions Recorded Confirmed acetaminophen 500 mg tablet 500 mg PO Q6H PRN Pain 04/22/19 12/11/23 aspirin 81 mg tablet,delayed 81 mg PO DAILY 04/22/19 12/11/23 release atenolol 25 mg tablet 25 mg PO DAILY 07/06/23 12/11/23 blood sugar diagnostic (Accu-Chek 07/06/23 12/11/23 Guide test strips) cholecalciferol (vitamin D3) 50 50 mcg PO DAILY 07/06/23 12/11/23 mcg (2,000 unit) capsule cyclobenzaprine 5 mg tablet 10 mg PO BID PRN muscle spasm 07/06/23 12/11/23 diclofenac sodium 1 % topical gel 2 g topical QID PRN Pain 07/06/23 12/11/23 empagliflozin 10 mg tablet 25 mg PO DAILY 07/06/23 12/11/23 (Jardiance) ketoconazole 2 % shampoo 1 applic topical Q14D 07/06/23 12/11/23 ketoconazole 2 % topical cream 1 applic topical DAILY PRN Itching 07/06/23 12/11/23 lancets (Accu-Chek Softclix 07/06/23 12/11/23 Lancets) lidocaine 5 % topical patch 1 patch topical DAILY 07/06/23 12/11/23 omega 8-oix-pgh-fish oil 1,000 mg 1 cap PO BID 07/06/23 12/11/23 (120 mg-180 mg) capsule (Fish Oil) rivaroxaban 2.5 mg tablet (Xarelto) 2.5 mg PO BID 07/06/23 12/11/23 rosuvastatin 5 mg tablet 5 mg PO DAILY 07/06/23 12/11/23 mupirocin 2 % topical ointment 1 applic topical BID PRN Itching 09/15/23 12/11/23 Previous Rx's Medication Instructions Recorded Diabetic Shoes with 3 pairs of #1 ea 05/07/20 custom inserts Diabetic shoes ith molded inserts #1 ea 03/30/21 Custom Orthotics #1 ea 10/12/22 custom molded accommodative #1 ea 04/12/23 orthotic to the right foot oxycodone 5 mg capsule 5 mg PO Q4H PRN pain 30 days #240 08/22/23 caps lorazepam 1 mg tablet 0.5 - 1 mg (0.5 - 1 x 1 mg) PO Q6H 09/25/23 PRN Severe Nausea #30 tabs prochlorperazine maleate 10 mg 10 mg PO Q4H PRN Mild Nausea #30 09/25/23 tablet (Compazine) tabs ondansetron 4 mg disintegrating 4 mg PO Q6H PRN nausea and 10/06/23 tablet vomiting #30 tabs folic acid 1 mg tablet 1 mg PO DAILY #30 tabs 10/16/23 hydromorphone 4 mg tablet 4 mg PO Q8H PRN pain 30 days #90 10/16/23 (Dilaudid) tabs ondansetron HCl 4 mg tablet 4 mg PO QID PRN Nausea/vomiting 10/16/23 #30 tabs levofloxacin 500 mg tablet 500 mg PO DAILY 5 days #5 tabs 10/23/23 famotidine 20 mg tablet 20 mg PO BID #60 tabs 10/30/23 pantoprazole 40 mg tablet,delayed See Rx Instructions .Route 11/14/23 release .COMPLEX #28 tabs metoclopramide HCl 10 mg tablet 10 mg PO Q6H 7 days #28 tabs 11/27/23 (Reglan) dexamethasone 4 mg tablet 4 mg PO BID #24 tabs 12/04/23 dexamethasone 2 mg tablet 2 mg PO BID #12 tabs 12/11/23 pantoprazole 40 mg tablet,delayed 40 mg PO DAILY #30 tabs 12/17/23 release (Protonix) Allergies Allergy/AdvReac Type Severity Reaction Status Date / Time seasonal Allergy Mild ALGY-Nasal Uncoded 12/11/23 11:52 Discharge Review of Systems 2 General: Reports: 10 or more systems reviewed and unremarkable except in HPI and below Const: Reports: change in appetite; Denies: fever(s), chills, change in weight or diaphoresis ENMT: Denies: throat pain or hoarseness Card: Denies: chest pain, palpitations or lightheadedness Resp: Denies: dyspnea, productive cough or wheezing GI: Reports: abdominal pain, nausea and vomiting; Denies: hematemesis, diarrhea or constipation : Denies: flank pain, difficulty urinating, dysuria, urinary frequency or urinary urgency Musc: Denies: neck pain or back pain Skin/Breast: Denies: rash or new lesions Neuro: Reports: headache(s); Denies: dizziness PFSH ED 2 PFSH: Medical History Hyperlipidemia Type 2 diabetes mellitus Non-small cell lung cancer Peripheral arterial disease History of nonmelanoma skin cancer UTI (urinary tract infection) 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 Hypertension 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 Surgical History Port-A-Cath in place 09/18/23 Dr Grabiel Laura Port-A-Cath H/O transurethral resection of prostate History of below-knee amputation of left lower extremity History of cataract extraction with lens replacement History of fusion of cervical spine History of knee replacement Bilateral S/P femoral-popliteal bypass surgery History of peripheral artery bypass Family History Father Family history of premature coronary artery disease Hyperlipidemia Hypertension Mother Diabetes Congestive heart failure (CHF) Sister Congestive heart failure (CHF) Brother Agent orange exposure Social History Smoking and tobacco/nicotine status: tobacco/nicotine user, details unknown (smokeless tobacco) smokeless tobacco Smokeless tobacco user: snuff Smokeless tobacco details: 3-4 years tobacco use Alcohol intake: former Former alcohol use details: Occasional alcohol use in the past Substance/Drug Use: never Household members: spouse Marital status: Physical Exam 2 Const: COMMON NORMALS: no acute distress, patient oriented x3, no limitations and alert GENERAL APPEARANCE: cooperative ORIENTATION/CONSCIOUSNESS: Yes awake HENMT: COMMON NORMALS: normocephalic, atraumatic, hearing grossly normal bilaterally, external ears normal, Normal external nose present, Normal nasal mucous membranes and turbinates present and moist oral mucous membranes HEAD & SCALP: normocephalic and atraumatic NOSE: Normal external nose present and Normal nasal mucous membranes and turbinates present EXTERNAL EAR: Yes external ears normal Eye: COMMON NORMALS: Equal, round and reactive pupils present, EOMs intact bilaterally, conjunctivae normal and normal visual rodriguez by confrontation C ONJUNCTIVA: Yes conjunctivae normal PUPIL: Yes Equal, round and reactive pupils present Neck/C-Spine: COMMON NORMALS: full ROM, supple, no meningeal signs and no JVD Chest: COMMONS NORMALS: normal inspection of the chest and normal palpation of entire chest wall Resp: COMMON NORMALS: normal respiratory effort, No retractions, No use of accessory muscles and clear to auscultation bilaterally AUSCULTATION: clear to auscultation bilaterally, no crackles, no rales, no rhonchi and no wheezes Cardio: COMMON NORMALS: no JVD, regular rate, regular rhythm, S1 normal heart sound present, S2 normal heart sound present, No gallops present (Cardio), No clicks present (Cardio), No murmurs present (Cardio), No rub (Cardio) and Peripheral pulses 2+ throughout RATE: regular rate RHYTHM: regular rhythm HEART SOUNDS: S1 normal heart sound present and S2 normal heart sound present PERIPHERAL PULSES: Peripheral pulses 2+ throughout GI: COMMON NORMALS: Normal to inspection, nondistended, normoactive bowel sounds present, Soft to palpation, No hepatosplenomegaly present and no masses AUSCULTATION: Yes Hyperactive bowel sounds present PALPATION: Yes Soft to palpation, Yes Tenderness to palpation present (GI) (Mild diffuse tenderness to palpation), No Guarding due to palpation present (GI), No Rigid due to palpation and Yes No hepatosplenomegaly present RECTAL EXAM: Yes deferred : COMMON NORMALS: Yes no CVA tenderness BLADDER/KIDNEY EXAM: Yes no CVA tenderness Back/Pelvis: COMMON NORMALS: no CVA tenderness Extremity: NARRATIVE EXTREMITY EXAM: Left BKA Neuro: COMMON NORMALS: patient oriented x3, no focal motor deficits and no sensory deficits noted SENSORIUM/ORIENTATION: Yes alert MENINGEAL SIGNS: Y es no meningeal signs Psych: COMMON NORMALS: mental status grossly normal, cooperative and speech normal SPEECH: Yes normal speech Skin: COMMON NORMALS: no rashes or lesions noted GENERAL SKIN EXAM: no rashes or lesions noted Course 2 Vital Signs: Vital signs: Vital Signs Temperature 98.3 F 12/16/23 17:50 Pulse Rate 84 12/17/23 00:53 Respiratory Rate 18 12/16/23 17:50 Blood Pressure 166/80 12/17/23 00:53 Pulse Oximetry 100 12/17/23 00:53 Oxygen Delivery Me thod Room Air 12/16/23 17:50 MDM - Nausea/Vomiting/Diarrhea Medical Decision Making Patient had presented to the emergency department urged by Dr. Uribe due to his acute onset of nausea and vomiting as well as a headache. History of small cell lung cancer currently going through chemo and radiation. His vitals were unremarkable on arrival. His lab work essentially unremarkable when considering patient's history, specifically though did have a normal lactic acid level. CT head obtained and did not show any metastatic mass lesions or other abnormalities. He was given fluids, Zofran for nausea, as well as a GI cocktail, and upon recheck was not only able to keep this down but states he was feeling better. 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 Uribe and return with any new or worsening symptoms may have. This patient's case discussed with Dr. Tillman who agrees with disposition. This patient was originally seen by Mr. Linnea PA-C.? I agree with his history, evaluation, and treatment. Lab Data 12/16/23 21:58 12/16/23 21:[address] 12/16/23 22:19 IMPRESSION: Negative for intracranial hemorrhage or mass effect. Laboratory Results WBC 4.65 10^3/uL (3.29-11.43) 12/16/23 21:58 RBC 3.29 10^6/uL (3.85-5.65) L 12/16/23 21:58 Hgb 11.00 g/dL (11.27-16.99) L 12/16/23 21:58 Hct 35.3 % (37-53) L 12/16/23 21:58 MCV 107.3 fl (82-101) H 12/16/23 21:58 MCH 33.4 pg (27-33) H 12/16/23 21:58 MCHC 31.2 g/dL (30-55) 12/16/23 21:58 RDW 17.8 % (12.1-15.1) H 12/16/23 21:58 Plt Count 107 10^3/cmm (157-399) L 12/16/23 21:58 MPV 10.1 fL (7.4-10.4) 12/16/23 21:58 Neut % (Auto) 86.7 % 12/16/23 21:58 Lymph % (Auto) 5.8 % 12/16/23 21:58 Pickett % (Auto) 6.0 % 12/16/23 21:58 Eos % (Auto) 0.0 % 12/16/23 21:58 Baso % (Auto) 1.1 % 12/16/23 21:58 Neut # (Auto) 4.03 10^3/uL (1.8-7.7) 12/16/23 21:58 Lymph # (Auto) 0.3 10^3/uL (0.8-4.8) L 12/16/23 21:58 Pickett # (Auto) 0.3 10^3/uL (0.2-0.9) 12/16/23 21:58 Eos # (Auto) 0.0 10^3/uL (0.0-0.8) 12/16/23 21:58 Baso # (Auto) 0.1 10^3/uL (0.0-0.1) 12/16/23 21:58 Nucleated RBC % (auto) 0 % 12/16/23 21:58 Nucleated RBCs # 0.0 /100WBC 12/16/23 21:58 Sodium 132 mmol/L (136-145) L 12/16/23 21:58 Potassium 4.6 mmol/L (3.5-5.1) 12/16/23 21:58 Chloride 94 mmol/L (98-107) L 12/16/23 21:58 Carbon Dioxide 19 mmol/L (22-29) L 12/16/23 21:58 Anion Gap 23.6 (5-19) H 12/16/23 21:58 BUN 31 mg/dL (8-23) H 12/16/23 21:58 Creatinine 0.8 mg/dL (0.7-1.2) 12/16/23 21:58 GFR Calculation Not Reportable 12/16/23 21:58 Glucose 222 mg/dL (65-115) H 12/16/23 21:58 Calculated Osmolality 287 mOsm/kg (285-295) 12/16/23 21:58 Lactic Acid 2.1 mmol/L (0.5-2.2) 12/16/23 21:58 Lactic Acid (Sepsis) 1.1 mmol/L (0.5-2.2) 12/17/23 00:48 Calcium 8.9 mg/dL (8.5-10.5) 12/16/23 21:58 Total Bilirubin 0.9 mg/dL (0.15-1.2) 12/16/23 21:58 AST 23 U/L (0-40) 12/16/23 21:58 ALT 27 U/L (0-41) 12/16/23 21:58 Alkaline Phosphatase 115 U/L (40-130) 12/16/23 21:58 Total Protein 7.2 g/dL (6.6-8.7) 12/16/23 21:58 Albumin 3.7 g/dL (3.5-5.2) 12/16/23 21:58 Globulin 3.5 g/dL (1.3-4.6) 12/16/23 21:58 Urine Color Yellow (Yellow) 12/16/23 22:40 Urine Appearance Clear (CLEAR) 12/16/23 22:40 Urine pH 5.0 (5-7) 12/16/23 22:40 Ur Specific [place] 1.033 (1.005-1.030) H 12/16/23 22:40 Urine Protein Trace (Negative) A 12/16/23 22:40 Urine Glucose (UA) 3+ (Normal) H 12/16/23 22:40 Urine Ketones 2+ (Negative) H 12/16/23 22:40 Urine Blood 3+ (Negative) A 12/16/23 22:40 Urine Nitrate Negative (Negative) 12/16/23 22:40 Urine Bilirubin Negative (Negative) 12/16/23 22:40 Urine Urobilinogen 1.0 mg/dL (Negative) 12/16/23 22:40 Ur Leukocyte Esterase Negative (Negative) 12/16/23 22:40 Urine RBC 6-10 /hpf (0-2) 12/16/23 22:40 Urine WBC 0-5 /hpf (0-5) 12/16/23 22:40 Ur Squamous Epith Cells 0-5 /hpf (0-5) 12/16/23 22:40 Amorphous Sediment Not Reportable 12/16/23 22:40 Urine Bacteria Trace /hpf (NONE) 12/16/23 22:40 Hyaline Casts 7.85 /lpf 12/16/23 22:40 All radiology interpretation(s) finalized by discharge Discharge Plan Discharge Patient Disposition: Home Clinical Impression: Esophagitis Condition: Stable Prescriptions: New Protonix 40 mg tablet,delayed release (DR/EC) 40 mg PO DAILY Qty: 30 0RF No Action (DME) Diabetic Shoes with 3 pairs of custom inserts See Rx Instructions .ROUTE .MEDSUPPLY Qty: 1 0RF Rx Instructions: As directed (DME) Diabetic shoes ith molded inserts See Rx Instructions .Route .MEDSUPPLY Qty: 1 0RF Rx Instructions: As directed Xarelto 2.5 mg tablet 2.5 mg PO BID Hold Instructions: Resume on 09/21/23. (DME) Accu-Chek Guide test strips Strip See Rx Instructions .Route Rx Instructions: As directed atenolol 25 mg tablet 25 mg PO DAILY Rx Instructions: take one-half tablet by mouth once a day for heart or to control blood pressure. do not take antacids or calcium supplements within 2 hours of taking this medication cyclobenzaprine 5 mg tablet 10 mg PO BID PRN (Reason: muscle spasm) diclofenac sodium 1 % gel 2 g topical QID PRN (Reason: Pain) Rx Instructions: apply to single elbow, wrist or hand; for hand includes palm/fingers/back of hand Jardiance 10 mg tablet 25 mg PO DAILY Rx Instructions: take one half tablet by mouth once a day for diabetes ketoconazole 2 % cream 1 applic topical DAILY PRN (Reason: Itching) Rx Instructions: apply small amount to affected area(s)every day as needed while flared. then 2-3 times weekly once controlled ketoconazole 2 % shampoo 1 applic topical Q14D Rx Instructions: use shampoo to to affected area(s) every day as directed. apply to scalp and mustache 2-3 times weekly, allow to sit for 5 minutes before rinsing lidocaine 5 % adhesive patch,medicated 1 patch topical DAILY Rx Instructions: leave on most painful area for up to 12 hrs rosuvastatin 5 mg tablet 5 mg PO DAILY Rx Instructions: take one-half tablet by mouth every other day to lower cholesterol omega 1-zef-bms-fish oil [Fish Oil] 1,000 mg (120 mg-180 mg) capsule 1 cap PO BID cholecalciferol (vitamin D3) 50 mcg (2,000 unit) capsule 50 mcg PO DAILY (DME) lancets [Accu-Chek Softclix Lancets] Misc See Rx Instructions .Route Rx Instructions: As directed Compazine 10 mg tablet 10 mg PO Q4H PRN (Reason: Mild Nausea) Qty: 30 3RF lorazepam 1 mg tablet 0.5 - 1 mg PO Q6H PRN (Reason: Severe Nausea) Qty: 30 3RF folic acid 1 mg tablet 1 mg PO DAILY Qty: 30 5RF Rx Instructions: start 7 days prior to treatment and continuing for 21 days after the last pemetrexed dose. ondansetron HCl 4 mg tablet 4 mg PO QID PRN (Reason: Nausea/vomiting) Qty: 30 3RF hydromorphone [Dilaudid] 4 mg tablet 4 mg PO Q8H PRN (Reason: pain) 30 Days Qty: 90 0RF levofloxacin 500 mg tablet 500 mg PO DAILY 5 Days Qty: 5 0RF (DME) custom molded accommodative orthotic to the right foot See Rx Instructions .Route .MEDSUPPLY Qty: 1 0RF Rx Instructions: As directed [place] famotidine 20 mg tablet 20 mg PO BID Qty: 60 1RF metoclopramide HCl [Reglan] 10 mg tablet 10 mg PO Q6H 7 Days Qty: 28 0RF (DME) Custom Orthotics See Rx Instructions .Route .MEDSUPPLY Qty: 1 0RF Rx Instructions: As directed oxycodone 5 mg capsule 5 mg PO Q4H MDD 40 mg PRN (Reason: pain) 30 Days Qty: 240 0RF pantoprazole 40 mg tablet,delayed release (DR/EC) See Rx Instructions .ROUTE .COMPLEX Qty: 28 0RF Dose Instruction: TAKE ONE TABLET BY MOUTH EVERY DAY FOR 28 DAYS. Rx Instructions: TAKE ONE TABLET BY MOUTH EVERY DAY FOR 28 DAYS. dexamethasone 4 mg tablet 4 mg PO BID Qty: 24 2RF Rx Instructions: Take 1 tablet (4mg) by mouth twice daily x 3 days. Start the day prior to Alimta treatment. dexamethasone 2 mg tablet 2 mg PO BID Qty: 12 0RF Rx Instructions: 2 tabs BID x 2 days then 1 tab BID x 2 days aspirin 81 mg Tablet,Delayed Release (Dr/Ec) 81 mg PO DAILY acetaminophen 500 mg Tablet 500 mg PO Q6H PRN (Reason: Pain) mupirocin 2 % ointment 1 applic topical BID PRN (Reason: Itching) ondansetron 4 mg tablet,disintegrating 4 mg PO Q6H PRN (Reason: nausea and vomiting) Qty: 30 0RF Discharge Orders: Discharge ED (Routine); Ordered 12/17/23 Ordered By: Omero Yarbrough Referrals: No Marinelli FNP [Primary Care Provider] - Discharge Diet: As Directed Discharge Activity: Increase activity as tolerated Patient Instructions: Esophagitis (ED), Pain Management Activity Restrictions/Additional Instructions: Take Protonix as prescribed. Continue other medications and please follow-up with Dr. Uribe as discussed. Return if you have any new or concerning symptoms, such as high fever, persistent vomiting, or worsening abdominal pain. Your head CT today was negative. Coding Level of Care Code ED [employer] for [employer] Documented by User: Moise Tillman, 12/17/23 22:44 HPI - Nausea/Vomiting/Diarrhea 2 General: Chief complaint: Nausea/Vomiting/Diarrhea Stated complaint: N/V, Headache Dr Uribe sent Time Seen by Provider: 12/16/23 22:09 Related Data Home Medications Medication Instructions Recorded Confirmed acetaminophen 500 mg tablet 500 mg PO Q6H PRN Pain 04/22/19 12/11/23 aspirin 81 mg tablet,delayed 81 mg PO DAILY 04/22/19 12/11/23 release atenolol 25 mg tablet 25 mg PO DAILY 07/06/23 12/11/23 blood sugar diagnostic (Accu-Chek 07/06/23 12/11/23 Guide test strips) cholecalciferol (vitamin D3) 50 50 mcg PO DAILY 07/06/23 12/11/23 mcg (2,000 unit) capsule cyclobenzaprine 5 mg tablet 10 mg PO BID PRN muscle spasm 07/06/23 12/11/23 diclofenac sodium 1 % topical gel 2 g topical QID PRN Pain 07/06/23 12/11/23 empagliflozin 10 mg tablet 25 mg PO DAILY 07/06/23 12/11/23 (Jardiance) ketoconazole 2 % shampoo 1 applic topical Q14D 07/06/23 12/11/23 ketoconazole 2 % topical cream 1 applic topical DAILY PRN Itching 07/06/23 12/11/23 lancets (Accu-Chek Softclix 07/06/23 12/11/23 Lancets) lidocaine 5 % topical patch 1 patch topical DAILY 07/06/23 12/11/23 omega 4-wom-thm-fish oil 1,000 mg 1 cap PO BID 07/06/23 12/11/23 (120 mg-180 mg) capsule (Fish Oil) rivaroxaban 2.5 mg tablet (Xarelto) 2.5 mg PO BID 07/06/23 12/11/23 rosuvastatin 5 mg tablet 5 mg PO DAILY 07/06/23 12/11/23 mupirocin 2 % topical ointment 1 applic topical BID PRN Itching 09/15/23 12/11/23 Previous Rx's Medication Instructions Recorded Diabetic Shoes with 3 pairs of #1 ea 05/07/20 custom inserts Diabetic shoes ith molded inserts #1 ea 03/30/21 Custom Orthotics #1 ea 10/12/22 custom molded accommodative #1 ea 04/12/23 orthotic to the right foot oxycodone 5 mg capsule 5 mg PO Q4H PRN pain 30 days #240 08/22/23 caps lorazepam 1 mg tablet 0.5 - 1 mg (0.5 - 1 x 1 mg) PO Q6H 09/25/23 PRN Severe Nausea #30 tabs prochlorperazine maleate 10 mg 10 mg PO Q4H PRN Mild Nausea #30 09/25/23 tablet (Compazine) tabs ondansetron 4 mg disintegrating 4 mg PO Q6H PRN nausea and 10/06/23 tablet vomiting #30 tabs folic acid 1 mg tablet 1 mg PO DAILY #30 tabs 10/16/23 hydromorphone 4 mg tablet 4 mg PO Q8H PRN pain 30 days #90 10/16/23 (Dilaudid) tabs ondansetron HCl 4 mg tablet 4 mg PO QID PRN Nausea/vomiting 10/16/23 #30 tabs levofloxacin 500 mg tablet 500 mg PO DAILY 5 days #5 tabs 10/23/23 famotidine 20 mg tablet 20 mg PO BID #60 tabs 10/30/23 pantoprazole 40 mg tablet,delayed See Rx Instructions .Route 11/14/23 release .COMPLEX #28 tabs metoclopramide HCl 10 mg tablet 10 mg PO Q6H 7 days #28 tabs 11/27/23 (Reglan) dexamethasone 4 mg tablet 4 mg PO BID #24 tabs 12/04/23 dexamethasone 2 mg tablet 2 mg PO BID #12 tabs 12/11/23 pantoprazole 40 mg tablet,delayed 40 mg PO DAILY #30 tabs 12/17/23 release (Protonix) Allergies Allergy/AdvReac Type Severity Reaction Status Date / Time seasonal Allergy Mild ALGY-Nasal Uncoded 12/11/23 11:52 Discharge PFSH ED 2 PFSH: Medical History Hyperlipidemia Type 2 diabetes mellitus Non-small cell lung cancer Peripheral arterial disease History of nonmelanoma skin cancer UTI (urinary tract infection) 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 Hypertension 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 Surgical History Port-A-Cath in place 09/18/23 Dr Grabiel Laura Port-A-Cath H/O transurethral resection of prostate History of below-knee amputation of left lower extremity History of cataract extraction with lens replacement History of fusion of cervical spine History of knee replacement Bilateral S/P femoral-popliteal bypass surgery History of peripheral artery bypass Family History Father Family history of premature coronary artery disease Hyperlipidemia Hypertension Mother Diabetes Congestive heart failure (CHF) Sister Congestive heart failure (CHF) Brother Agent orange exposure Social History Smoking and tobacco/nicotine status: tobacco/nicotine user, details unknown (smokeless tobacco) smokeless tobacco Smokeless tobacco user: snuff Smokeless tobacco details: 3-4 years tobacco use Alcohol intake: former Former alcohol use details: Occasional alcohol use in the past Substance/Drug Use: never Household members: spouse Marital status: Course 2 Vital Signs: Vital signs: Vital Signs Temperature 98.3 F 12/16/23 17:50 Pulse Rate 84 12/17/23 00:53 Respiratory Rate 18 12/16/23 17:50 Blood Pressure 166/80 12/17/23 00:53 Pulse Oximetry 100 12/17/23 00:53 Oxygen Delivery Me thod Room Air 12/16/23 17:50 MDM - Nausea/Vomiting/Diarrhea Medical Decision Making This patient was originally seen by Mr. Linnea PA-C.? I agree with his history, evaluation, and treatment. Lab Data 12/16/23 21:58 12/16/23 21:[address] 12/16/23 22:19 IMPRESSION: Negative for intracranial hemorrhage or mass effect. Laboratory Results WBC 4.65 10^3/uL (3.29-11.43) 12/16/23 21:58 RBC 3.29 10^6/uL (3.85-5.65) L 12/16/23 21:58 Hgb 11.00 g/dL (11.27-16.99) L 12/16/23 21:58 Hct 35.3 % (37-53) L 12/16/23 21:58 MCV 107.3 fl (82-101) H 12/16/23 21:58 MCH 33.4 pg (27-33) H 12/16/23 21:58 MCHC 31.2 g/dL (30-55) 12/16/23 21:58 RDW 17.8 % (12.1-15.1) H 12/16/23 21:58 Plt Count 107 10^3/cmm (157-399) L 12/16/23 21:58 MPV 10.1 fL (7.4-10.4) 12/16/23 21:58 Neut % (Auto) 86.7 % 12/16/23 21:58 Lymph % (Auto) 5.8 % 12/16/23 21:58 [place] % (Auto) 6.0 % 12/16/23 21:58 Eos % (Auto) 0.0 % 12/16/23 21:58 Baso % (Auto) 1.1 % 12/16/23 21:58 Neut # (Auto) 4.03 10^3/uL (1.8-7.7) 12/16/23 21:58 Lymph # (Auto) 0.3 10^3/uL (0.8-4.8) L 12/16/23 21:58 [place] # (Auto) 0.3 10^3/uL (0.2-0.9) 12/16/23 21:58 Eos # (Auto) 0.0 10^3/uL (0.0-0.8) 12/16/23 21:58 Baso # (Auto) 0.1 10^3/uL (0.0-0.1) 12/16/23 21:58 Nucleated RBC % (auto) 0 % 12/16/23 21:58 Nucleated RBCs # 0.0 /100WBC 12/16/23 21:58 Sodium 132 mmol/L (136-145) L 12/16/23 21:58 Potassium 4.6 mmol/L (3.5-5.1) 12/16/23 21:58 Chloride 94 mmol/L (98-107) L 12/16/23 21:58 Carbon Dioxide 19 mmol/L (22-29) L 12/16/23 21:58 Anion Gap 23.6 (5-19) H 12/16/23 21:58 BUN 31 mg/dL (8-23) H 12/16/23 21:58 Creatinine 0.8 mg/dL (0.7-1.2) 12/16/23 21:58 GFR Calculation Not Reportable 12/16/23 21:58 Glucose 222 mg/dL (65-115) H 12/16/23 21:58 Calculated Osmolality 287 mOsm/kg (285-295) 12/16/23 21:58 Lactic Acid 2.1 mmol/L (0.5-2.2) 12/16/23 21:58 Lactic Acid (Sepsis) 1.1 mmol/L (0.5-2.2) 12/17/23 00:48 Calcium 8.9 mg/dL (8.5-10.5) 12/16/23 21:58 Total Bilirubin 0.9 mg/dL (0.15-1.2) 12/16/23 21:58 AST 23 U/L (0-40) 12/16/23 21:58 ALT 27 U/L (0-41) 12/16/23 21:58 Alkaline Phosphatase 115 U/L (40-130) 12/16/23 21:58 Total Protein 7.2 g/dL (6.6-8.7) 12/16/23 21:58 Albumin 3.7 g/dL (3.5-5.2) 12/16/23 21:58 Globulin 3.5 g/dL (1.3-4.6) 12/16/23 21:58 Urine Color Yellow (Yellow) 12/16/23 22:40 Urine Appearance Clear (CLEAR) 12/16/23 22:40 Urine pH 5.0 (5-7) 12/16/23 22:40 Ur Specific [place] 1.033 (1.005-1.030) H 12/16/23 22:40 Urine Protein Trace (Negative) A 12/16/23 22:40 Urine Glucose (UA) 3+ (Normal) H 12/16/23 22:40 Urine Ketones 2+ (Negative) H 12/16/23 22:40 Urine Blood 3+ (Negative) A 12/16/23 22:40 Urine Nitrate Negative (Negative) 12/16/23 22:40 Urine Bilirubin Negative (Negative) 12/16/23 22:40 Urine Urobilinogen 1.0 mg/dL (Negative) 12/16/23 22:40 Ur Leukocyte Esterase Negative (Negative) 12/16/23 22:40 Urine RBC 6-10 /hpf (0-2) 12/16/23 22:40 Urine WBC 0-5 /hpf (0-5) 12/16/23 22:40 Ur Squamous Epith Cells 0-5 /hpf (0-5) 12/16/23 22:40 Amorphous Sediment Not Reportable 12/16/23 22:40 Urine Bacteria Trace /hpf (NONE) 12/16/23 22:40 Hyaline Casts 7.85 /lpf 12/16/23 22:40 Discharge Plan Discharge Patient Disposition: Home Clinical Impression: Esophagitis Condition: Stable Prescriptions: New Protonix 40 mg tablet,delayed release (DR/EC) 40 mg PO DAILY Qty: 30 0RF No Action (DME) Diabetic Shoes with 3 pairs of custom inserts See Rx Instructions .ROUTE .MEDSUPPLY Qty: 1 0RF Rx Instructions: As directed (DME) Diabetic shoes ith molded inserts See Rx Instructions .Route .MEDSUPPLY Qty: 1 0RF Rx Instructions: As directed Xarelto 2.5 mg tablet 2.5 mg PO BID Hold Instructions: Resume on 09/21/23. (DME) Accu-Chek Guide test strips Strip See Rx Instructions .Route Rx Instructions: As directed atenolol 25 mg tablet 25 mg PO DAILY Rx Instructions: take one-half tablet by mouth once a day for heart or to control blood pressure. do not take antacids or calcium supplements within 2 hours of taking this medication cyclobenzaprine 5 mg tablet 10 mg PO BID PRN (Reason: muscle spasm) diclofenac sodium 1 % gel 2 g topical QID PRN (Reason: Pain) Rx Instructions: apply to single elbow, wrist or hand; for hand includes palm/fingers/back of hand Jardiance 10 mg tablet 25 mg PO DAILY Rx Instructions: take one half tablet by mouth once a day for diabetes ketoconazole 2 % cream 1 applic topical DAILY PRN (Reason: Itching) Rx Instructions: apply small amount to affected area(s)every day as needed while flared. then 2-3 times weekly once controlled ketoconazole 2 % shampoo 1 applic topical Q14D Rx Instructions: use shampoo to to affected area(s) every day as directed. apply to scalp and mustache 2-3 times weekly, allow to sit for 5 minutes before rinsing lidocaine 5 % adhesive patch,medicated 1 patch topical DAILY Rx Instructions: leave on most painful area for up to 12 hrs rosuvastatin 5 mg tablet 5 mg PO DAILY Rx Instructions: take one-half tablet by mouth every other day to lower cholesterol omega 3-twb-gfi-fish oil [Fish Oil] 1,000 mg (120 mg-180 mg) capsule 1 cap PO BID cholecalciferol (vitamin D3) 50 mcg (2,000 unit) capsule 50 mcg PO DAILY (DME) lancets [Accu-Chek Softclix Lancets] Misc See Rx Instructions .Route Rx Instructions: As directed Compazine 10 mg tablet 10 mg PO Q4H PRN (Reason: Mild Nausea) Qty: 30 3RF lorazepam 1 mg tablet 0.5 - 1 mg PO Q6H PRN (Reason: Severe Nausea) Qty: 30 3RF folic acid 1 mg tablet 1 mg PO DAILY Qty: 30 5RF Rx Instructions: start 7 days prior to treatment and continuing for 21 days after the last pemetrexed dose. ondansetron HCl 4 mg tablet 4 mg PO QID PRN (Reason: Nausea/vomiting) Qty: 30 3RF hydromorphone [Dilaudid] 4 mg tablet 4 mg PO Q8H PRN (Reason: pain) 30 Days Qty: 90 0RF levofloxacin 500 mg tablet 500 mg PO DAILY 5 Days Qty: 5 0RF (DME) custom molded accommodative orthotic to the right foot See Rx Instructions .Route .MEDSUPPLY Qty: 1 0RF Rx Instructions: As directed Sha Cadena Emery famotidine 20 mg tablet 20 mg PO BID Qty: 60 1RF metoclopramide HCl [Reglan] 10 mg tablet 10 mg PO Q6H 7 Days Qty: 28 0RF (DME) Custom Orthotics See Rx Instructions .Route .MEDSUPPLY Qty: 1 0RF Rx Instructions: As directed oxycodone 5 mg capsule 5 mg PO Q4H MDD 40 mg PRN (Reason: pain) 30 Days Qty: 240 0RF pantoprazole 40 mg tablet,delayed release (DR/EC) See Rx Instructions .ROUTE .COMPLEX Qty: 28 0RF Dose Instruction: TAKE ONE TABLET BY MOUTH EVERY DAY FOR 28 DAYS. Rx Instructions: TAKE ONE TABLET BY MOUTH EVERY DAY FOR 28 DAYS. dexamethasone 4 mg tablet 4 mg PO BID Qty: 24 2RF Rx Instructions: Take 1 tablet (4mg) by mouth twice daily x 3 days. Start the day prior to Alimta treatment. 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 Continue other medications and please follow-up with Dr. Uribe as discussed. Return if you have any new or concerning symptoms, such as high fever, persistent vomiting, or worsening abdominal pain. Your head CT today was negative. Coding Level of Care Code ED Truck Leasing Manager for Sampson Bradford
[2023-12-16] MEDS: iohexol 350 mg/mL 500 mL Btl (per mL) IV (22:57)
[2023-12-16 23:18] LABS: Charge for UA Resulting for Rev
[2023-12-16 23:21] LABS: Bilirubin Urine Negative (Negative); Blood Urine 3+ (Negative); Glucose Urine UA 3+ (Normal); Ketones Urine 2+ (Negative); Leukocyte Esterase Urine Negative (Negative); Nitrate Urine Negative (Negative); Protein Urine Trace (Negative); Specific Gravity, Urine 1.033 (1.005-1.030); Urine Appearance Clear (CLEAR); Urine Color Yellow (Yellow)
[2023-12-16 23:23] VITALS: BP 167/92; PULSE 84; O2SAT 99
[2023-12-16 23:27] LABS: Hyaline Casts Urine 7.85 /lpf; Squamous Epithelial Cell Urine 0-5 /hpf (0-5); WBC Urine 0-5 /hpf (0-5)
[2023-12-16 23:39] LABS: UA Slide Review UA Slide Review Perf
[2023-12-16 23:40] LABS: Bacteria Urine TRACE /hpf
[2023-12-16] MEDS: lidocaine 2% viscous 15 ML, aluminum-mag hydrox-simethicon 30 ML, sucralfate oral liq 1 GM PO (23:43)
[2023-12-16 23:49] LABS: Reflex Lactate Order REFLEX LACTIC ORDERD
[2023-12-16 23:53] VITALS: BP 172/81; PULSE 82; O2SAT 99
[2023-12-17 00:53] VITALS: BP 166/80; PULSE 84; O2SAT 100
[2023-12-17 01:31] LABS: Lactic Acid level (Lactate) 1.1 mmol/L (0.5-2.2)
== END 2023-12-17 01:28 | disposition home or self-care (01) ==
PROVIDERS: Emergency Medicine; Emergency Provider Physician Assistant; PCP Nurse Practitioner
DX: K20.90 Esophagitis, unspecified without bleeding (principal); Z79.82 Long term (current) use of aspirin; F17.220 Nicotine dependence, chewing tobacco, uncomplicated; E78.5 Hyperlipidemia, unspecified; E11.9 Type 2 diabetes mellitus without complications; Z85.118 Personal history of other malignant neoplasm of bronchus and lung; I10 Essential (primary) hypertension
CPT/HCPCS: 70470; 80053; 81003; 81015; 83605; 85025; 96374; 99285; J2405; J7030

== ENCOUNTER 2024-01-09 11:53 | Oncology outpatient (recurring) (ONCR) | payer OTHER, SELFPAY ==
[2024-01-08 07:56] LABS: Hematocrit 29.4 % (37-53); Lymphocytes # 0.5 10^3/uL (0.8-4.8); Lymphocytes % 12.3 %; Mean Corpuscular Hemoglobin 34.2 pg (27-33); Mean Corpuscular Volume 106.9 fl (82-101); Mean Platelet Volume 9.9 fL (7.4-10.4); Monocytes # 0.2 10^3/uL (0.2-0.9); Monocytes % 4.7 %; Neutrophils # 3.37 10^3/uL (1.8-7.7); Neutrophils % 82.5 %; Nucleated Red Blood Cells % 0 %; Platelet Count 191 10^3/cmm (157-399); Red Blood Count 2.75 10^6/uL (3.85-5.65); Red Cell Distribution Width 17.3 % (12.1-15.1); White Blood Count 4.08 10^3/uL (3.29-11.43)
[2024-01-08 08:33] LABS: Alanine Aminotransferase 38 U/L (0-41); Albumin Level 3.7 g/dL (3.5-5.2); Alkaline Phosphatase 136 U/L (40-130); Anion Gap 16.5 (5-19); Aspartate Amino Transferase 40 U/L (0-40); Blood Urea Nitrogen 20 mg/dL (8-23); Calcium 9.4 mg/dL (8.5-10.5); Carbon Dioxide 23 mmol/L (22-29); Chloride 102 mmol/L (98-107); Creatinine Clr Calc Pharmacy 85.5532; Globulin 3.5 g/dL (1.3-4.6); Glucose 257 mg/dL (65-115); Osmolality Calculated 295 mOsm/kg (285-295); Potassium 4.5 mmol/L (3.5-5.1); Sodium 137 mmol/L (136-145); Thyroid Stimulating Hormone 0.27 uIU/mL (0.27-4.20); Total Bilirubin 0.4 mg/dL (0.15-1.2); Total Protein 7.2 g/dL (6.6-8.7)
[2024-01-08 09:25] VITALS: BP 117/64; PULSE 53; RESP 16; TEMP 36.4; O2SAT 93
[2024-01-08] MEDS: sodium chloride 0.9% 250 ML 75 ML IV (09:30)
[2024-01-08] MEDS: OLANZapine 5 mg TABLET PO (09:30)
[2024-01-08] MEDS: palonosetron 0.25 mg/5 mL SDV IVP (09:30)
[2024-01-08] MEDS: famotidine 20 mg/2 mL INJ IVP (09:31)
[2024-01-08] MEDS: diphenhydrAMINE 50 mg/mL SDV 1mL 25 MG IVP (09:32)
[2024-01-08] MEDS: dexamethasone 4 mg/mL INJ 5 mL 8 MG IV (09:50)
[2024-01-08] MEDS: fosaprepitant 150 MG in sodium chloride 0.9% 150 ML 300 MG IV (10:00)
[2024-01-08] MEDS: pembrolizumab 200 MG in sodium chloride 0.9% 250 ML 516 MG IV (10:37)
[2024-01-08] MEDS: PEMETREXED DISODIUM IV (11:13)
[2024-01-08] MEDS: SODIUM CHLORIDE 0.9% IV (11:13)
[2024-01-08] MEDS: CARBOplatin 580 MG in sodium chloride 0.9% 500 ML 558 MG IV (11:51)
[2024-01-08] MEDS: pegfilgrastim 6 mg/0.6 mL Kit (onpro) SUBCUT (13:26)
[2024-01-08 13:35] VITALS: BP 125/63; PULSE 72; RESP 16; TEMP 37.2; O2SAT 98
== END 2024-01-09 23:59 | disposition home or self-care (01) ==
PROVIDERS: Nurse Practitioner Family; PCP Nurse Practitioner; Visit Provider Internal Medicine Medical Oncology
DX: C34.01 Malignant neoplasm of right main bronchus; D64.9 Anemia, unspecified
CPT/HCPCS: 80053; 82274; 84443; 85025; 96367; 96375; 96377; 96411; 96413; 96417; 99214; A4222; J1100; J1200; J1453; J2469; J2506; J3490; J7040; J7050; J9045; J9271; J9305

== ENCOUNTER → 2024-01-10 14:13 | Outpatient (BNVA) | payer OTHER, SELFPAY | PROVIDERS: PCP Nurse Practitioner; Referring Provider Nurse Practitioner; Visit Provider Nurse Practitioner | DX: S83.8X1A Sprain of other specified parts of right knee, initial encounter (principal); X58.XXXA Exposure to other specified factors, initial encounter; Z96.653 Presence of artificial knee joint, bilateral | CPT/HCPCS: 73560; 73565; 99204 ==

== ENCOUNTER → 2024-01-16 09:25 | Outpatient (BNVA) | payer OTHER, SELFPAY | PROVIDERS: PCP Nurse Practitioner; Visit Provider Surgery | DX: K21.9 Gastro-esophageal reflux disease without esophagitis (principal); R11.2 Nausea with vomiting, unspecified; T45.1X5A Adverse effect of antineoplastic and immunosuppressive drugs, initial encounter; R19.5 Other fecal abnormalities; X58.XXXA Exposure to other specified factors, initial encounter | CPT/HCPCS: 99204; 99214 ==

== ENCOUNTER 2024-01-29 09:31 | Oncology outpatient (recurring) (ONCR) | payer OTHER, SELFPAY ==
[2024-01-29 10:23] LABS: Hematocrit 24.9 % (37-53); Lymphocytes # 0.4 10^3/uL (0.8-4.8); Lymphocytes % 8.5 %; Mean Corpuscular HGB Conc 30.9 g/dL (30-55); Mean Corpuscular Volume 106.9 fl (82-101); Mean Platelet Volume 10.1 fL (7.4-10.4); Monocytes # 0.2 10^3/uL (0.2-0.9); Monocytes % 3.3 %; Neutrophils # 4.55 10^3/uL (1.8-7.7); Neutrophils % 87.4 %; Nucleated Red Blood Cells % 0.4 %; Platelet Count 249 10^3/cmm (157-399); Red Blood Count 2.33 10^6/uL (3.85-5.65)
[2024-01-29 11:00] LABS: Alanine Aminotransferase 23 U/L (0-41); Albumin Level 3.8 g/dL (3.5-5.2); Alkaline Phosphatase 163 U/L (40-130); Anion Gap 16.6 (5-19); Aspartate Amino Transferase 24 U/L (0-40); Blood Urea Nitrogen 14 mg/dL (8-23); Calcium 8.5 mg/dL (8.5-10.5); Carbon Dioxide 22 mmol/L (22-29); Chloride 102 mmol/L (98-107); Creatinine Clr Calc Pharmacy 84.9618; Globulin 3.4 g/dL (1.3-4.6); Glucose 277 mg/dL (65-115); Osmolality Calculated 292 mOsm/kg (285-295); Potassium 4.6 mmol/L (3.5-5.1); Sodium 136 mmol/L (136-145); Thyroid Stimulating Hormone 0.41 uIU/mL (0.27-4.20); Total Bilirubin 0.4 mg/dL (0.15-1.2); Total Protein 7.2 g/dL (6.6-8.7)
[2024-01-29] MEDS: sodium chloride 0.9% 250 ML 75 ML IV (12:23)
[2024-01-29] MEDS: diphenhydrAMINE 50 mg/mL SDV 1mL 25 MG IVP (12:23)
[2024-01-29] MEDS: OLANZapine 5 mg TABLET PO (12:25)
[2024-01-29] MEDS: palonosetron 0.25 mg/5 mL SDV IVP (12:29)
[2024-01-29] MEDS: famotidine 20 mg/2 mL INJ IVP (12:33)
[2024-01-29] MEDS: dexamethasone 4 mg/mL INJ 5 mL 12 MG IV (12:38)
[2024-01-29] MEDS: fosaprepitant 150 MG in sodium chloride 0.9% 150 ML 300 MG IV (13:05)
[2024-01-29] MEDS: pembrolizumab 200 MG in sodium chloride 0.9% 250 ML 516 MG IV (13:49)
[2024-01-29] MEDS: PEMETREXED DISODIUM IV (14:38)
[2024-01-29] MEDS: [UNRECOGNIZED DRUG - OTHER] IV (14:38)
[2024-01-29] MEDS: cyanocobalamin 1,000 mcg/mL SDV 1000 MCG IM (16:07)
[2024-01-29 16:23] VITALS: BP 120/66; PULSE 66; RESP 16; TEMP 36.8; O2SAT 97
== END 2024-01-29 23:59 | disposition home or self-care (01) ==
LOC: ONCMED 09:32
PROVIDERS: Nurse Practitioner Family; PCP Nurse Practitioner; Visit Provider Internal Medicine Medical Oncology
DX: C34.01 Malignant neoplasm of right main bronchus; G93.89 Other specified disorders of brain; C79.51 Secondary malignant neoplasm of bone; Z92.3 Personal history of irradiation; Z79.891 Long term (current) use of opiate analgesic; Z79.899 Other long term (current) drug therapy; Z79.52 Long term (current) use of systemic steroids; Z51.11 Encounter for antineoplastic chemotherapy; Z51.12 Encounter for antineoplastic immunotherapy
CPT/HCPCS: 80053; 84443; 85025; 96367; 96372; 96375; 96413; 96417; 99214; A4222; J1100; J1200; J1453; J2469; J3420; J3490; J7040; J7050; J9045; J9271; J9305

== ENCOUNTER 2024-02-08 10:46 | Day surgery (SDC) | payer OTHER, SELFPAY ==
[2024-02-08 11:02] VITALS: BP 146/71; PULSE 75; RESP 16; TEMP 36.5; O2SAT 99; BMI 25.0
[2024-02-08] MEDS: sodium chloride 0.9% 1,000 ML 30 ML IV (11:17)
[2024-02-08 11:28] LABS: Glucose Point of Care 157 mg/dL (70-110)
--- NOTE | 2024-02-08 11:31 | P.ANESASSM_ITS ---
Pre-Anesthetic Assessment Height/Weight: Height 1.88 m Weight 88.451 kg Temp Pulse Resp BP Pulse Ox O2 Del Method 97.7 F 75 16 146/71 99 Room Air 02/08/24 11:02 02/08/24 11:02 02/08/24 11:02 02/08/24 11:02 02/08/24 11:02 02/08/24 11:02 Operation Date: 02/08/24 12:20 Proposed Procedures p EGD 62230, 68317, G0105, K21.9, K92.2(Not Applicable) - Omero Spain MD s Colonoscopy(Not Applicable) - Omero Spain MD Familial anesthetic complications: None Was Beta Isauro taken within 24 hours: Yes Was Clonidine taken within 24 hours: N/A Last intake: Intake Last Liquid Date 02/07/24 Last Liquid Time 22:00 Last Solid Date 02/06/24 Last Solid Time 12:00 Social Tobacco (snuff) and No alcohol Exam alert, oriented x 3, clear to auscultation bilaterally and regular rate & rhythm Airway Mallampati: Class III Dentition: false CV/HEM Anemia, Coronary Artery Disease, Hypertension and Peripheral Vascular Disease GI Gastroesophageal Reflux Disease Anesthetic Plan ASA status: 4 Anesthesia: MAC Risk of > 500 ml blood loss (7ml/kg in children): No Medications/Allergies Home Medications Medication Instructions Recorded Confirmed Last Taken Type acetaminophen 500 mg tablet 1,000 mg PO Q6H PRN Pain 04/22/19 02/08/24 09/15/23 History aspirin 81 mg tablet,delayed 81 mg PO DAILY 04/22/19 02/08/24 02/07/24 History release Diabetic Shoes with 3 pairs of #1 ea 05/07/20 02/08/24 09/15/23 Rx custom inserts Diabetic shoes ith molded inserts #1 ea 03/30/21 02/08/24 09/15/23 Rx Custom Orthotics #1 ea 10/12/22 02/08/24 02/07/24 Rx custom molded accommodative #1 ea 04/12/23 02/08/24 02/07/24 Rx orthotic to the right foot atenolol 25 mg tablet 25 mg PO DAILY 07/06/23 02/08/24 02/07/24 History blood sugar diagnostic (Accu-Chek 07/06/23 02/08/24 02/07/24 History Guide test strips) cholecalciferol (vitamin D3) 50 50 mcg PO DAILY 07/06/23 02/08/24 02/07/24 Hi story mcg (2,000 unit) capsule cyclobenzaprine 5 mg tablet 10 mg PO BID PRN muscle spasm 07/06/23 02/08/24 09/18/23 History diclofenac sodium 1 % topical gel 2 g topical QID PRN Pain 07/06/23 02/08/24 09/15/23 History empagliflozin 10 mg tablet 25 mg PO DAILY 07/06/23 02/08/24 02/06/24 History (Jardiance) ketoconazole 2 % shampoo 1 applic topical Q14D 07/06/23 02/08/24 09/15/23 History ketoconazole 2 % topical cream 1 applic topical DAILY PRN Itching 07/06/23 02/08/24 09/15/23 History lancets (Accu-Chek Softclix 07/06/23 02/08/24 09/15/23 History Lancets) lidocaine 5 % topical patch 1 patch topical DAILY PRN Pain 07/06/23 02/08/24 09/15/23 History omega 6-ggm-oqc-fish oil 1,000 mg 1 cap PO BID 07/06/23 02/08/24 02/06/24 History (120 mg-180 mg) capsule (Fish Oil) rivaroxaban 2.5 mg tablet (Xarelto) 2.5 mg PO BID 07/06/23 02/08/24 02/05/24 History rosuvastatin 5 mg tablet 5 mg PO DAILY 07/06/23 02/08/24 02/07/24 History oxycodone 5 mg capsule 5 mg PO Q4H PRN pain 30 days #240 08/22/23 02/08/24 09/15/23 Rx caps mupirocin 2 % topical ointment 1 applic topical BID PRN Itching 09/15/23 02/08/24 09/15/23 History lorazepam 1 mg tablet 0.5 - 1 mg (0.5 - 1 x 1 mg) PO Q6H 09/25/23 02/08/24 Unknown Rx PRN Severe Nausea #30 tabs ondansetron 4 mg disintegrating 4 mg PO Q6H PRN nausea and 10/06/23 02/08/24 Unknown Rx tablet vomiting #30 tabs folic acid 1 mg tablet 1 mg PO DAILY #30 tabs 10/16/23 02/08/24 02/07/24 Rx hydromorphone 4 mg tablet 4 mg PO Q8H PRN pain 30 days #90 10/16/23 02/08/24 Unknown Rx (Dilaudid) tabs famotidine 20 mg tablet 20 mg PO BID #60 tabs 10/30/23 02/08/24 02/07/24 Rx dexamethasone 4 mg tablet 4 mg PO BID #24 tabs 12/04/23 02/08/24 Unknown Rx pantoprazole 40 mg tablet,delayed 40 mg PO DAILY #30 tabs 12/17/23 02/08/24 02/07/24 Rx release (Protonix) sucralfate 100 mg/mL oral 1 g (10 mL) PO BID 4 weeks #560 mL 01/16/24 02/08/24 02/07/24 Rx suspension prochlorperazine maleate 10 mg 10 mg PO Q4H PRN Mild Nausea #30 01/31/24 02/08/24 Unknown Rx tablet (Compazine) tabs dexamethasone 2 mg tablet 2 mg PO BID 02/07/24 02/08/24 Unknown History magnesium citrate 300 ml PO DAILY PRN constipation 02/07/24 02/08/24 02/07/24 Rx #296 mL metoclopramide HCl 10 mg tablet 10 mg PO Q6H PRN Nausea 02/07/24 02/08/24 Unknown History (Reglan) Allergies Allergy/AdvReac Type Severity Reaction Status Date / Time love Allergy Mild ALGY-Nasal Verified 01/29/24 09:34 Discharge/congestion pollen extracts Allergy Mild ALGY-Nasal Verified 01/29/24 09:34 Discharge/congestion tree and shrub pollen Allergy Mild ALGY-Nasal Verified 01/29/24 09:34 Discharge/congestion Current Medications Generic Name Dose Route Start Last Admin Trade Name Freq PRN Reason Stop Dose Admin Sodium Chloride 1,000 mls @ 30 mls/hr 02/08/24 11:00 02/08/24 11:17 Sodium Chloride 0.9% IV 30 mls/hr .Q24H ENRIKE Administration PFSH Anesthesia Medical History Right knee sprain Hyperlipidemia Type 2 diabetes mellitus Non-small cell lung cancer Peripheral arterial disease History of nonmelanoma skin cancer UTI (urinary tract infection) 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 Hypertension 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 Surgical History Hx of total knee arthroplasty Port-A-Cath in place 09/18/23 Dr Grabiel Laura Port-A-Cath H/O transurethral resection of prostate History of below-knee amputation of left lower extremity History of cataract extraction with lens replacement History of fusion of cervical spine History of knee replacement Bilateral S/P femoral-popliteal bypass surgery History of peripheral artery bypass Family History Father Family history of premature coronary artery disease Hyperlipidemia Hypertension Mother Diabetes Congestive heart failure (CHF) Sister Congestive heart failure (CHF) Brother Agent orange exposure Social History Smoking and tobacco/nicotine status: never used tobacco/nicotine Alcohol intake: former Former alcohol use details: Occasional alcohol use in the past Substance/Drug Use: never Household members: spouse Marital status: Data Anesthesia Cardiac Studies: No Data to Display
--- NOTE | 2024-02-08 11:50 | W.PM.OPSUD ---
Surgery/Procedure H&P Update DATE OF PROCEDURE: February 08, 2024 DATE H&P PERFORMED: 01/16/24 H&P UPDATE INFORMATION: I have reviewed H&P completed within last 30 days, I have examined patient prior to procedure, No changes to prior documentation and [place] [facility] [place] PLANNED PROCEDURE: Operation Date: 02/08/24 12:20 Proposed Procedures p EGD 47079, 08470, G0105, K21.9, K92.2(Not Applicable) - Omero Spain MD s Colonoscopy(Not Applicable) - Omero Spain MD
[2024-02-08 12:28] VITALS: BP 101/57; PULSE 62; RESP 18; TEMP 36.1; O2SAT 98
[2024-02-08 12:40] VITALS: BP 124/60; PULSE 60; RESP 18; O2SAT 100
[2024-02-08 12:50] VITALS: BP 121/57; PULSE 63; RESP 18; O2SAT 98
--- NOTE | 2024-02-08 13:30 | ANE.PACU2 ---
Inpatient post-anesthesia follow up: Airway intact: Yes Vital signs: Temperature 97.0 F Pulse Rate 63 Respiratory Rate 18 Blood Pressure 121/57 Pulse Oximetry 98 Oxygen Delivery Me thod Room Air Oxygen Flow Rate Fraction of Inspir ed Oxygen Hydration adequate: Yes Nausea and vomiting: No Pain level: 1 Mental status: Baseline
--- NOTE | 2024-02-08 13:38 | PC.NURSE ---
1300 Left chest port flushed with 20ml NS and de-accessed
== END 2024-02-08 13:34 | disposition home or self-care (01) ==
PROVIDERS: PCP Nurse Practitioner; Visit Provider Surgery
PROC: 0DJ08ZZ Inspection of Upper Intestinal Tract, Via Natural or Artificial Opening Endoscopic (ICD-10-PCS; CPT 43235; principal; 2024-02-08 12:20)
PROC: 0DJD8ZZ Inspection of Lower Intestinal Tract, Via Natural or Artificial Opening Endoscopic (ICD-10-PCS; CPT 45378; 2024-02-08 12:20)
DX: K21.9 Gastro-esophageal reflux disease without esophagitis (principal); K29.80 Duodenitis without bleeding; I25.10 Atherosclerotic heart disease of native coronary artery without angina pectoris; I10 Essential (primary) hypertension; Z79.82 Long term (current) use of aspirin; E78.5 Hyperlipidemia, unspecified; E11.9 Type 2 diabetes mellitus without complications; N40.1 Benign prostatic hyperplasia with lower urinary tract symptoms; N13.8 Other obstructive and reflux uropathy
CPT/HCPCS: 36416; 43239; 82962; 88305; J2704; J7030

== ENCOUNTER 2024-02-20 09:11 | Outpatient (CLI) | payer OTHER, SELFPAY ==
--- NOTE | 2024-02-20 10:15 | FL_ITS ---
WS: [id number] FL barium swallow [id number] REASON FOR EXAM: Dysphagia with liquids. FLUOROSCOPY TIME: 2min [id number] # OF SPOT FILMS: 0 multiple FINDINGS: Patient was evaluated in the semiupright AP and lateral projections, the prone ESPINOZA projection and the supine projection. The swallowing of barium was monitored fluoroscopically and documented with multiple rapid sequence s pot films. The cervical esophagus demonstrated normal motility and anatomy. There is no aspiration identified. There were intermittent episodes of failure of relaxation of the lower esophageal sphincter with loss of the primary peristaltic wave and mild tertiary contractions. There was no significant retention o f barium in the esophagus for any significant length of time. The esophagus was not dilated. There was a small sliding hiatal hernia nonobstructing Schatzki ring. There is no distal esophageal s tricture. No reflux was elicited. FL/FL barium swallow [id number] IMPRESSION: Mild dysmotility of the thoracic esophagus as above.
== END 2024-02-20 09:12 | disposition home or self-care (01) ==
LOC: RAD 09:12
PROVIDERS: PCP Nurse Practitioner; Visit Provider Internal Medicine Medical Oncology
DX: R13.10 Dysphagia, unspecified (principal); I73.9 Peripheral vascular disease, unspecified; L60.3 Nail dystrophy; Z95.828 Presence of other vascular implants and grafts; Z89.512 Acquired absence of left leg below knee; Q66.71 Congenital pes cavus, right foot; L60.8 Other nail disorders; L97.512 Non-pressure chronic ulcer of other part of right foot with fat layer exposed; R03.0 Elevated blood-pressure reading, without diagnosis of hypertension
CPT/HCPCS: 11720; 74220; 99213

== ENCOUNTER 2024-02-27 08:45 | Oncology outpatient (recurring) (ONCR) | payer OTHER, SELFPAY ==
[2024-02-20] MEDS: iohexol 350 mg/mL 500 mL Btl (per mL) PO (13:55)
--- NOTE | 2024-02-20 14:15 | CTR_ITS ---
PROCEDURE INFORMATION: Exam: CT Chest With Contrast; Diagnostic Exam date and time: 02/20/2024 2:23 PM Age: 73 years old Clinical indication: Condition or disease; Lung condition and disease; Cancer of the lung; Bilateral; Unspecified; Primary cancer: [place]; Prior surgery; Surgery date: 6+ months; Surgery type: C spine; Additional info: Followup lung cancer TECHNIQUE: Imaging protocol: Diagnostic computed tomography of the chest with contrast. Radiation optimization: All CT scans at this facility use at least one of these dose optimization techniques: automated exposure control; mA and/or kV adjustment per patient size (includes targeted exams where dose is matched to clinical indication); or iterative reconstruction. Contrast material: OMNI 350; Contrast volume: 100 ml; Contrast route: INTRAVENOUS (IV); COMPARISON: CT chest w con* [id number] 08/12/2019 1:07 PM RADIATION DOSE METRICS: Total DLP (mGy-cm): 1104.11 FINDINGS: Tubes, catheters and devices: There is a left chest port with the line tip appropriately positioned in the lower SVC near the cavoatrial junction. Lungs: There is no focal consolidation. There is mild right suprahilar pulmonary parenchymal architectural distortion and hilar soft tissue thickening associated with mild narrowing of the upper lobe bronchi. There are calcified granulomas in both lungs. There is mild peripheral bronchiectasis in lower lungs. There is mild peripheral reticular opacity in both lungs which is stable. Pleural spaces: Trace simple dependent right pleural effusion. No pneumothorax. Heart: Heart size is normal. There is trace pericardial effusion. Coronary arteries: There is moderate coronary artery calcification. Lymph nodes: There is no mediastinal or hilar lymphadenopathy. There are small calcified left hilar lymph nodes. Vasculature: There is mild aortic atherosclerotic disease. Bones/joints: There are mixed lucent and sclerotic metastases in the thoracic vertebra, left anterior 6th rib and left scapula. There is moderate degenerative disease at both shoulders. There is a mild chronic probably pathologic compression fracture at T11. Soft tissues: The extrathoracic soft tissues are unremarkable. PROCEDURE INFORMATION: Exam: CT Abdomen And Pelvis With Contrast Exam date and time: 02/20/2024 2:23 PM Age: 73 years old Clinical indication: Condition or disease; Lung condition and disease; Cancer of the lung; Bilateral; Unspecified; Primary cancer: [place]; Prior surgery; Surgery date: 6+ months; Surgery type: C spine; Additional info: Followup lung cancer TECHNIQUE: Imaging protocol: Computed tomography of the abdomen and pelvis with contrast. Radiation optimization: All CT scans at this facility use at least one of these dose optimization techniques: automated exposure control; mA and/or kV adjustment per patient size (includes targeted exams where dose is matched to clinical indication); or iterative reconstruction. Contrast material: OMNI 350; Contrast volume: 100 ml; Contrast route: INTRAVENOUS (IV); COMPARISON: CT abdomen pelvis w con* [id number] 10/06/2023 2:33 PM RADIATION DOSE METRICS: Total DLP (mGy-cm): 1104.11 FINDINGS: Limitations: Structures in the pelvis are obscured by beam hardening artifact from dense contrast in bowel. Liver: The liver is normal. Gallbladder and biliary ducts: The gallbladder is normal. There is no biliary dilation. Pancreas: There is mild atrophy of the pancreas. Spleen: The spleen is unremarkable. Adrenal glands: The adrenal glands are unremarkable. Kidneys and ureters: There are simple cysts in both kidneys. There is no hydronephrosis or stones. Distal ureters are obscured in the pelvis. Stomach and bowel: The stomach is distended with ingested material. The small bowel is nondilated. There is moderate diverticulosis of the proximal sigmoid colon without evidence of diverticulitis. The distal sigmoid and rectum are obscured. Appendix: The appendix is normal. Intraperitoneal space: There is no free air or significant intraperitoneal free fluid. Vasculature: There is severe aortic atherosclerotic disease. Hemodynamically significant stenosis is suspected at the origin of the celiac artery. There is less than 50% stenosis of the superior mesenteric artery origin. The portal, splenic and superior mesenteric veins are patent. There is chronic occlusion of proximal superficial femoral arteries bilaterally. Lymph nodes: There is no lymphadenopathy in the retroperitoneum, mesentery, pelvis or inguinal regions. Urinary bladder: The bladder is nondistended. The wall is partially obscured. Reproductive: The prostate and seminal vesicles are unremarkable. Bones/joints: There are stable sclerotic osseous metastases and chronic mild compression fractures L2 and T11. There is moderate degenerative disease in the lower lumbar spine. There is mild degenerative disease of both hips. Pelvic metastases are similar to 10/06/2023. Soft tissues: There are small bilateral fat containing inguinal hernias. CT/CT chest abdpel w/*[id number] IMPRESSION: 1. Focal parenchymal architectural distortion and mild asymmetric soft tissue density in the right hilum may represent residual neoplasm and/or treatment effect. No pulmonary mass. 2. Osseous metastases. 3. Trace simple dependent right pleural effusion. 4. Incidental findings above. IMPRESSION: 1. Stable osseous metastases. 2. No sign of intra-abdominal metastases. 3. Stable bilateral proximal superficial femoral artery occlusion. 4. Incidental findings above. COMMENTS: Consistent with the [employer]'s Incidental Findings Committee white paper (J Am Krista Radiol 2018): Any incidental renal lesion less than 1 cm or classified as too small to characterize, or any incidental cystic renal lesion characterized as simple-appearing, is likely benign. No follow-up imaging is recommended for these lesions per consensus recommendations based on imaging criteria.
[2024-02-20] MEDS: iohexol 350 mg/mL 500 mL Btl (per mL) IV (14:32)
[2024-02-27 08:56] LABS: Basophils % 0.9 %; Eosinophils % 0.2 %; Hematocrit 30.5 % (37-53); Lymphocytes % 22.1 %; Mean Corpuscular HGB Conc 30.8 g/dL (30-55); Mean Platelet Volume 9.3 fL (7.4-10.4); Monocytes # 0.7 10^3/uL (0.2-0.9); Monocytes % 15.6 %; Neutrophils # 2.64 10^3/uL (1.8-7.7); Neutrophils % 60.7 %; Nucleated Red Blood Cells % 0 %; Platelet Count 215 10^3/cmm (157-399); Red Blood Count 2.85 10^6/uL (3.85-5.65); Red Cell Distribution Width 17.4 % (12.1-15.1); White Blood Count 4.35 10^3/uL (3.29-11.43)
[2024-02-27 09:20] LABS: Alanine Aminotransferase 7 U/L (0-41); Alkaline Phosphatase 103 U/L (40-130); Anion Gap 14.8 (5-19); Aspartate Amino Transferase 17 U/L (0-40); Blood Urea Nitrogen 19 mg/dL (8-23); Carbon Dioxide 25 mmol/L (22-29); Chloride 99 mmol/L (98-107); Creatinine Clr Calc Pharmacy 69.1045; Globulin 3.3 g/dL (1.3-4.6); Glucose 151 mg/dL (65-115); Lactate Dehydrogenase 262 U/L (135-225); Magnesium 1.7 mg/dL (1.7-2.3); Osmolality Calculated 283 mOsm/kg (285-295); Potassium 4.8 mmol/L (3.5-5.1); Sodium 134 mmol/L (136-145); Thyroid Stimulating Hormone 0.43 uIU/mL (0.27-4.20); Total Bilirubin 0.3 mg/dL (0.15-1.2); Total Protein 7.3 g/dL (6.6-8.7)
[2024-02-27] MEDS: sodium chloride 0.9% 250 ML 75 ML IV (10:53)
[2024-02-27] MEDS: ondansetron 2 mg/ML SDV 2 mL 8 MG IVP (10:54)
[2024-02-27] MEDS: dexamethasone 20 MG in sodium chloride 0.9% 50 ML 188 MG IV (11:01)
[2024-02-27] MEDS: PEMETREXED DISODIUM IV (11:55)
[2024-02-27] MEDS: SODIUM CHLORIDE 0.9% IV (11:55)
[2024-02-27 12:28] VITALS: BP 118/65; PULSE 56; TEMP 36.1; O2SAT 99
== END 2024-03-16 23:59 | disposition home or self-care (01) ==
PROVIDERS: PCP Nurse Practitioner; Visit Provider Internal Medicine Hematology & Oncology
DX: C34.01 Malignant neoplasm of right main bronchus (principal); Z95.828 Presence of other vascular implants and grafts; Z87.891 Personal history of nicotine dependence; Z79.631 Long term (current) use of antimetabolite agent; C79.51 Secondary malignant neoplasm of bone; Z51.11 Encounter for antineoplastic chemotherapy; Z53.9 Procedure and treatment not carried out, unspecified reason
CPT/HCPCS: 71260; 74177; 80053; 83615; 83735; 84443; 85025; 96367; 96375; 96413; 99214; J1100; J2405; J7050; J9305

== ENCOUNTER → 2024-03-13 08:15 | Outpatient (BNVA) | payer OTHER, SELFPAY | PROVIDERS: PCP Nurse Practitioner; Visit Provider Podiatrist Foot & Ankle Surgery | DX: I73.9 Peripheral vascular disease, unspecified; L60.8 Other nail disorders; Z95.828 Presence of other vascular implants and grafts; Z89.512 Acquired absence of left leg below knee; Q66.71 Congenital pes cavus, right foot; L60.3 Nail dystrophy | CPT/HCPCS: 99213 ==

== ENCOUNTER 2024-04-08 11:45 | Oncology outpatient (recurring) (ONCR) | payer OTHER, SELFPAY ==
[2024-03-19 08:53] LABS: Basophils % 0.7 %; Eosinophils # 0.1 10^3/uL (0.0-0.8); Eosinophils % 2.6 %; Hematocrit 31.5 % (37-53); Lymphocytes # 0.4 10^3/uL (0.8-4.8); Lymphocytes % 16.5 %; Mean Corpuscular HGB Conc 32.4 g/dL (30-55); Mean Corpuscular Hemoglobin 35.2 pg (27-33); Mean Corpuscular Volume 108.6 fl (82-101); Mean Platelet Volume 10.2 fL (7.4-10.4); Monocytes # 0.5 10^3/uL (0.2-0.9); Monocytes % 18.7 %; Neutrophils # 1.63 10^3/uL (1.8-7.7); Neutrophils % 61.1 %; Nucleated Red Blood Cells % 0 %; Platelet Count 116 10^3/cmm (157-399); White Blood Count 2.67 10^3/uL (3.29-11.43)
[2024-03-19 09:11] LABS: Alanine Aminotransferase 25 U/L (0-41); Albumin Level 3.7 g/dL (3.5-5.2); Alkaline Phosphatase 131 U/L (40-130); Anion Gap 15.1 (5-19); Aspartate Amino Transferase 29 U/L (0-40); Blood Urea Nitrogen 19 mg/dL (8-23); Carbon Dioxide 23 mmol/L (22-29); Chloride 101 mmol/L (98-107); Creatinine Clr Calc Pharmacy 72.6138; Globulin 2.9 g/dL (1.3-4.6); Glucose 199 mg/dL (65-115); Lactate Dehydrogenase 247 U/L (135-225); Magnesium 1.9 mg/dL (1.7-2.3); Osmolality Calculated 288 mOsm/kg (285-295); Potassium 4.1 mmol/L (3.5-5.1); Sodium 135 mmol/L (136-145); Total Bilirubin 0.3 mg/dL (0.15-1.2); Total Protein 6.6 g/dL (6.6-8.7)
[2024-03-19] MEDS: sodium chloride 0.9% 250 ML 75 ML IV (11:17)
[2024-03-19] MEDS: ondansetron 2 mg/ML SDV 2 mL 8 MG IVP (11:18)
[2024-03-19] MEDS: cyanocobalamin 1,000 mcg/mL SDV 1000 MCG IM (11:25)
[2024-03-19] MEDS: dexamethasone 20 MG in sodium chloride 0.9% 50 ML 188 MG IV (11:40)
[2024-03-19] MEDS: SODIUM CHLORIDE 0.9% IV (12:03)
[2024-03-19] MEDS: PEMETREXED DISODIUM IV (12:03)
[2024-03-19 12:06] LABS: Folate Level 14.6 ng/mL (4.5-32.2)
[2024-03-19 12:44] VITALS: BP 131/64; PULSE 54; TEMP 36.6; O2SAT 95
[2024-03-19] MEDS: flu vacc pf 24-25 (6 mos+) SYRINGE 45 MCG IM (12:53)
[2024-04-02 11:37] LABS: Basophils % 0.3 %; Eosinophils # 0.1 10^3/uL (0.0-0.8); Eosinophils % 1.6 %; Lymphocytes # 0.4 10^3/uL (0.8-4.8); Lymphocytes % 13.8 %; Mean Corpuscular HGB Conc 32.6 g/dL (30-55); Mean Corpuscular Hemoglobin 34.2 pg (27-33); Mean Corpuscular Volume 105.1 fl (82-101); Mean Platelet Volume 11.3 fL (7.4-10.4); Monocytes # 0.6 10^3/uL (0.2-0.9); Monocytes % 17.7 %; Neutrophils # 2.03 10^3/uL (1.8-7.7); Neutrophils % 65.3 %; Nucleated Red Blood Cells % 0 %; Platelet Count 75 10^3/cmm (157-399); Red Blood Count 2.57 10^6/uL (3.85-5.65); Red Cell Distribution Width 15.5 % (12.1-15.1); White Blood Count 3.11 10^3/uL (3.29-11.43)
[2024-04-02 12:13] VITALS: BP 135/70; PULSE 83; RESP 17; TEMP 36.8; O2SAT 95
[2024-04-02] MEDS: dexamethasone 4 mg/mL INJ IVP (12:22)
[2024-04-02] MEDS: sodium chloride 0.9% 1,000 ML 999 ML IV (12:28)
[2024-04-02 14:09] VITALS: BP 121/64; PULSE 79; RESP 17; TEMP 36.8; O2SAT 98
[2024-04-08 11:31] LABS: Hematocrit 28.8 % (37-53); Lymphocytes # 0.6 10^3/uL (0.8-4.8); Lymphocytes % 12.6 %; Mean Corpuscular HGB Conc 32.3 g/dL (30-55); Mean Corpuscular Hemoglobin 33.5 pg (27-33); Mean Corpuscular Volume 103.6 fl (82-101); Monocytes # 0.6 10^3/uL (0.2-0.9); Monocytes % 12.9 %; Neutrophils # 3.27 10^3/uL (1.8-7.7); Neutrophils % 73.8 %; Nucleated Red Blood Cells % 0 %; Platelet Count 195 10^3/cmm (157-399); Red Blood Count 2.78 10^6/uL (3.85-5.65); Red Cell Distribution Width 16.3 % (12.1-15.1); White Blood Count 4.43 10^3/uL (3.29-11.43)
[2024-04-08 12:03] LABS: Alanine Aminotransferase 16 U/L (0-41); Albumin Level 3.7 g/dL (3.5-5.2); Alkaline Phosphatase 135 U/L (40-130); Anion Gap 18.6 (5-19); Aspartate Amino Transferase 19 U/L (0-40); Blood Urea Nitrogen 17 mg/dL (8-23); Calcium 9.4 mg/dL (8.5-10.5); Carbon Dioxide 22 mmol/L (22-29); Chloride 99 mmol/L (98-107); Creatinine Clr Calc Pharmacy 83.6547; Globulin 3.5 g/dL (1.3-4.6); Glucose 223 mg/dL (65-115); Lactate Dehydrogenase 271 U/L (135-225); Magnesium 2.1 mg/dL (1.7-2.3); Osmolality Calculated 288 mOsm/kg (285-295); Potassium 4.6 mmol/L (3.5-5.1); Sodium 135 mmol/L (136-145); Thyroid Stimulating Hormone 0.84 uIU/mL (0.27-4.20); Total Bilirubin 0.4 mg/dL (0.15-1.2); Total Protein 7.2 g/dL (6.6-8.7)
== END 2024-04-16 23:59 | disposition home or self-care (01) ==
PROVIDERS: Internal Medicine Hematology & Oncology; Nurse Practitioner Family; PCP Nurse Practitioner; Visit Provider Internal Medicine Medical Oncology
DX: Z53.9 Procedure and treatment not carried out, unspecified reason; C34.01 Malignant neoplasm of right main bronchus; C79.51 Secondary malignant neoplasm of bone; Z95.828 Presence of other vascular implants and grafts; Z87.891 Personal history of nicotine dependence; Z79.631 Long term (current) use of antimetabolite agent; Z92.3 Personal history of irradiation; Z79.891 Long term (current) use of opiate analgesic; Z79.899 Other long term (current) drug therapy; Z79.52 Long term (current) use of systemic steroids; Z23 Encounter for immunization; R53.83 Other fatigue; D64.81 Anemia due to antineoplastic chemotherapy; D69.59 Other secondary thrombocytopenia; T45.1X5A Adverse effect of antineoplastic and immunosuppressive drugs, initial encounter; H54.7 Unspecified visual loss
CPT/HCPCS: 36591; 80053; 82746; 83615; 83735; 84443; 85025; 90471; 90686; 96360; 96372; 96375; 96413; 99214; J1100; J2405; J3420; J7030; J7050; J9305

== ENCOUNTER 2024-05-03 14:44 | Outpatient (CLI) | payer OTHER, SELFPAY ==
--- NOTE | 2024-05-03 14:48 | PETR_ITS ---
PROCEDURE INFORMATION: Exam: PET/CT Skull Base to Mid-thigh Exam date and time: 05/03/2024 4:09 PM Age: 74 years old Clinical indication: Condition or disease; Primary cancer: Lung cancer; Follow-up oncological assessment; Prior surgery; Surgery date: 6+ months; Surgery type: C spine LABS AND CLINICAL REPORTS: Glucose: 131 mg/dl Treatment strategy for malignancy (PET staging): Restaging (PS) TECHNIQUE: Imaging protocol: Following at least four-hour fasting and following the injection of radiopharmaceutical, low dose CT images were obtained. Then, PET images were obtained. Attenuation corrected images were constructed using the CT scan. Fused images of PET and CT were reviewed. The standardized uptake values (SUV) reported below are maximum values within a region of interest, expressed in gm/ml. Exam includes orbital meatal line to mid-thigh. SUV normalization method: BodyWeight Radiopharmaceutical: 11.16 mCi F-18 FDG (Fluorodeoxyglucose), IV. Time of imaging post radiopharmaceutical administration: 45 minutes Injection site: RIGHT AC COMPARISON: 1. CT PET Scan 06/22/2023 10:[address] chest abdpel w/*[id number] 02/20/2024 2:23 PM FINDINGS: Tubes, catheters and devices: Left chest port terminates at the right atrium. Brain: Visualized brain has normal physiologic uptake. Pharynx: No abnormal uptake. Larynx: No abnormal uptake. Lungs, pleura and trachea: Upper lung predominant emphysematous change. Similar right bronchial thickening with decreased right upper hilar nodular density measuring approximately 1.7 x 0.8 cm on axial image 276 with SUV max 2.7, previously 2.4 x 2.0 cm with SUV max 7.5 in June 2023. Minimally metabolic bilateral subpleural reticulation is likely inflammatory. Non FDG avid subtle right upper lobe ground-glass opacity measures approximately 1.8 cm on axial image 290. Mildly FDG avid patchy left lower lobe airspace opacities, SUV max 4.3 at the medial lung base. Right lower lobe calcified granulomata. Small fluid density right pleural effusion with low-level FDG uptake. Heart: Normal physiologic uptake. Coronary arteries: Heavy coronary artery calcification. Mediastinal space: No abnormal uptake. Liver: No abnormal uptake. Gallbladder and biliary ducts: No abnormal uptake. Pancreas: No abnormal uptake. Spleen: No abnormal uptake. Calcified granulomata. Adrenal glands: No abnormal uptake. Kidneys and ureters: Normal physiologic uptake. Bilateral photopenic fluid density cysts. Stomach and bowel: No abnormal uptake. Colonic diverticulosis without findings of diverticulitis. Reproductive: Mild prostatomegaly. Asymmetric focal low-level FDG uptake at the leftward prostate shows SUV max 3.0 on axial image 100. Vasculature: Heavy systemic atherosclerotic calcification without aortic aneurysm. Partially visualized right femoral artery stent. Partially visualized right femoral artery bypass graft with stable focal kinking of the proximal aspect. At the imaged distal aspect is surrounding soft tissue density with FDG uptake showing SUV max 4.6 on axial image 2. Lymph nodes: Enlarged subcarinal node measures 1.8 cm in the short axis with SUV max 6.4, previously 1.1 cm in the short axis in February 2024 and 1 cm in the short axis in June 2023 with SUV max 3.3. Precarinal node measuring 0.7 cm in the short axis with SUV max 3.5, previously non FDG avid. Otherwise decreased mediastinal node size and/or metabolic activity with index lower right paratracheal node measuring 0.7 cm in the short axis on axial image 277 without FDG avidity, previously 1.4 cm in the short axis with SUV max 6.4 in June 2023. Right peribronchial node stable to slightly decreased size shows SUV max 5.1 on axial image 267, previously 7.5. Calcified right hilar node shows SUV max 5.4, previously 3.7. Reniform right inguinal lymph node measures 1.1 cm in the short axis on axial image 85 and shows SUV max 2.2, stable. Skeleton: Intervally stable multiple osteolytic and sclerotic lesions throughout the bones without abnormal FDG uptake (multiple FDG avid lesions on comparison PET-CT). Stable mild compression deformities of the T11 and L2 vertebral bodies. Degenerative change along the spine, shoulders and hips. Soft tissues: No abnormal uptake in the visualized head, neck, chest, abdomen, pelvis, and extremities. Small fat containing bilateral inguinal hernias. METRICS: Mediastinal blood pool: SUV mean 1.9 Liver uptake: SUV mean 2.2 PET/PET skull to thigh SUBS [id number] IMPRESSION: 1. Findings suggesting overall improved but possibly mixed treatment response compared to June 2023. Decreased size and FDG uptake at right upper hilar nodule and overall improved lymphadenopathy but some worsening as below. Multifocal osteolytic and sclerotic lesions throughout the bones with resolved FDG avidity. 2. Intervally increased size and metabolic activity of couple mediastinal lymph nodes, to include subcarinal node, since February 2024. Increased FDG uptake at calcified right hilar node that appears grossly stable in size. Nonspecific, could be reactive or possibly disease progression. 3. Developed 1.8 cm subtle non FDG avid right upper lobe ground-glass opacity may be infectious or inflammatory. Attention on follow-up. 4. Developed mildly metabolically active left lower lobe airspace opacities suspected to be infectious or inflammatory. 5. Small right pleural effusion with low-level FDG uptake that is likely inflammatory. 6. Minimally metabolic bilateral subpleural reticulation is likely inflammatory. 7. Mild prostatomegaly. Asymmetric focal low-level FDG uptake at the leftward prostate could be inflammatory or possibly neoplastic. 8. Partially visualized right femoral artery bypass graft shows surrounding soft tissue density and FDG uptake at partially imaged distal aspect. Possibly inflammatory, query recent intervention. Consider CTA as clinically indicated.
== END 2024-05-03 14:45 | disposition home or self-care (01) ==
PROVIDERS: PCP Nurse Practitioner; Visit Provider Internal Medicine Medical Oncology
DX: C34.01 Malignant neoplasm of right main bronchus (principal); Z98.890 Other specified postprocedural states; R91.8 Other nonspecific abnormal finding of lung field; J98.4 Other disorders of lung; J90 Pleural effusion, not elsewhere classified; I25.10 Atherosclerotic heart disease of native coronary artery without angina pectoris; D73.89 Other diseases of spleen; N28.1 Cyst of kidney, acquired; K57.30 Diverticulosis of large intestine without perforation or abscess without bleeding; N40.0 Benign prostatic hyperplasia without lower urinary tract symptoms; I70.0 Atherosclerosis of aorta; R93.89 Abnormal findings on diagnostic imaging of other specified body structures; R59.9 Enlarged lymph nodes, unspecified; M89.9 Disorder of bone, unspecified; M47.9 Spondylosis, unspecified; K40.20 Bilateral inguinal hernia, without obstruction or gangrene, not specified as recurrent; R93.7 Abnormal findings on diagnostic imaging of other parts of musculoskeletal system
CPT/HCPCS: 78815; A9552

== ENCOUNTER → 2024-05-22 14:17 | Outpatient (BNVA) | payer OTHER, SELFPAY | PROVIDERS: PCP Nurse Practitioner; Visit Provider Nurse Practitioner Family | DX: L21.8 Other seborrheic dermatitis (principal); S60.012A Contusion of left thumb without damage to nail, initial encounter; X58.XXXA Exposure to other specified factors, initial encounter; D69.2 Other nonthrombocytopenic purpura; L57.8 Other skin changes due to chronic exposure to nonionizing radiation; Z08 Encounter for follow-up examination after completed treatment for malignant neoplasm; Z85.828 Personal history of other malignant neoplasm of skin; L57.0 Actinic keratosis | CPT/HCPCS: 17000; 99214 ==

== ENCOUNTER 2024-05-23 13:00 | Oncology outpatient (recurring) (ONCR) | payer OTHER, SELFPAY ==
[2024-05-23 13:56] LABS: Basophils % 0.2 %; Hematocrit 37.4 % (37-53); Lymphocytes # 0.4 10^3/uL (0.8-4.8); Lymphocytes % 7.5 %; Mean Corpuscular HGB Conc 33.2 g/dL (30-55); Mean Corpuscular Hemoglobin 32.3 pg (27-33); Mean Corpuscular Volume 97.4 fl (82-101); Mean Platelet Volume 9.6 fL (7.4-10.4); Monocytes # 0.1 10^3/uL (0.2-0.9); Neutrophils # 4.46 10^3/uL (1.8-7.7); Neutrophils % 90.3 %; Nucleated Red Blood Cells % 0 %; Platelet Count 169 10^3/cmm (157-399); Red Blood Count 3.84 10^6/uL (3.85-5.65); Red Cell Distribution Width 13.7 % (12.1-15.1); White Blood Count 4.94 10^3/uL (3.29-11.43)
[2024-05-23 14:22] LABS: Alanine Aminotransferase 27 U/L (0-41); Albumin Level 3.9 g/dL (3.5-5.2); Alkaline Phosphatase 106 U/L (40-130); Anion Gap 14.7 (5-19); Aspartate Amino Transferase 24 U/L (0-40); Blood Urea Nitrogen 20 mg/dL (8-23); Calcium 9.7 mg/dL (8.5-10.5); Carbon Dioxide 25 mmol/L (22-29); Chloride 100 mmol/L (98-107); Globulin 3.5 g/dL (1.3-4.6); Glucose 281 mg/dL (65-115); Osmolality Calculated 293 mOsm/kg (285-295); Potassium 4.7 mmol/L (3.5-5.1); Sodium 135 mmol/L (136-145); Thyroid Stimulating Hormone 0.67 uIU/mL (0.27-4.20); Total Bilirubin 0.3 mg/dL (0.15-1.2); Total Protein 7.4 g/dL (6.6-8.7)
== END 2024-06-14 23:59 | disposition home or self-care (01) ==
PROVIDERS: Internal Medicine Medical Oncology; PCP Nurse Practitioner; Visit Provider Internal Medicine
DX: C34.01 Malignant neoplasm of right main bronchus (principal); L60.3 Nail dystrophy; C79.51 Secondary malignant neoplasm of bone; D64.9 Anemia, unspecified; Z95.828 Presence of other vascular implants and grafts; Z87.891 Personal history of nicotine dependence; H53.9 Unspecified visual disturbance; T45.1X5A Adverse effect of antineoplastic and immunosuppressive drugs, initial encounter; Z92.3 Personal history of irradiation
CPT/HCPCS: 80053; 84443; 85025; 99214

== ENCOUNTER → 2024-06-12 14:03 | Outpatient (BNVA) | payer OTHER, SELFPAY | PROVIDERS: PCP Nurse Practitioner; Visit Provider Podiatrist Foot & Ankle Surgery | DX: I73.9 Peripheral vascular disease, unspecified (principal); Z89.512 Acquired absence of left leg below knee; Q66.71 Congenital pes cavus, right foot; L60.3 Nail dystrophy; L97.512 Non-pressure chronic ulcer of other part of right foot with fat layer exposed | CPT/HCPCS: 99213 ==

== ENCOUNTER 2024-06-25 12:35 | Oncology outpatient (recurring) (ONCR) | payer OTHER, SELFPAY ==
[2024-06-25 12:55] LABS: Basophils % 0.2 %; Eosinophils % 0.1 %; Hematocrit 37.3 % (37-53); Lymphocytes # 0.6 10^3/uL (0.8-4.8); Lymphocytes % 5.6 %; Mean Corpuscular HGB Conc 32.4 g/dL (30-55); Mean Corpuscular Hemoglobin 30.6 pg (27-33); Mean Corpuscular Volume 94.4 fl (82-101); Mean Platelet Volume 9.3 fL (7.4-10.4); Monocytes # 0.5 10^3/uL (0.2-0.9); Monocytes % 5.1 %; Neutrophils # 8.79 10^3/uL (1.8-7.7); Neutrophils % 88.6 %; Nucleated Red Blood Cells % 0 %; Platelet Count 203 10^3/cmm (157-399); Red Blood Count 3.95 10^6/uL (3.85-5.65); Red Cell Distribution Width 13.3 % (12.1-15.1); White Blood Count 9.93 10^3/uL (3.29-11.43)
[2024-06-25 13:11] LABS: Alanine Aminotransferase 28 U/L (0-41); Albumin Level 3.8 g/dL (3.5-5.2); Alkaline Phosphatase 140 U/L (40-130); Anion Gap 17.7 (5-19); Aspartate Amino Transferase 24 U/L (0-40); Blood Urea Nitrogen 21 mg/dL (8-23); Calcium 9.4 mg/dL (8.5-10.5); Carbon Dioxide 22 mmol/L (22-29); Chloride 99 mmol/L (98-107); Globulin 4.2 g/dL (1.3-4.6); Glucose 268 mg/dL (65-115); Lactate Dehydrogenase 183 U/L (135-225); Osmolality Calculated 290 mOsm/kg (285-295); Potassium 4.7 mmol/L (3.5-5.1); Sodium 134 mmol/L (136-145); Total Bilirubin 0.3 mg/dL (0.15-1.2)
== END 2024-07-15 23:59 | disposition home or self-care (01) ==
PROVIDERS: PCP Nurse Practitioner; Visit Provider Internal Medicine
DX: C34.01 Malignant neoplasm of right main bronchus (principal); Z95.828 Presence of other vascular implants and grafts
CPT/HCPCS: 36591; 80053; 83615; 85025; 99214

== ENCOUNTER → 2024-07-11 13:00 | Outpatient (BNVA) | payer OTHER, SELFPAY | PROVIDERS: PCP Nurse Practitioner; Visit Provider Thoracic Surgery (Cardiothoracic Vascular Surgery) | DX: E11.52 Type 2 diabetes mellitus with diabetic peripheral angiopathy with gangrene (principal); E11.622 Type 2 diabetes mellitus with other skin ulcer; L97.812 Non-pressure chronic ulcer of other part of right lower leg with fat layer exposed | CPT/HCPCS: 11042; 87070; 87075; 87077; 87186; 87205; A6446 ==

== ENCOUNTER → 2024-07-18 14:06 | Outpatient (BNVA) | payer OTHER, SELFPAY | PROVIDERS: PCP Nurse Practitioner; Visit Provider Thoracic Surgery (Cardiothoracic Vascular Surgery) | DX: E11.52 Type 2 diabetes mellitus with diabetic peripheral angiopathy with gangrene (principal); E11.621 Type 2 diabetes mellitus with foot ulcer; L97.812 Non-pressure chronic ulcer of other part of right lower leg with fat layer exposed | CPT/HCPCS: 11042; A6212 ==

== ENCOUNTER → 2024-07-25 12:55 | Outpatient (BNVA) | payer OTHER, SELFPAY | PROVIDERS: PCP Nurse Practitioner; Visit Provider Thoracic Surgery (Cardiothoracic Vascular Surgery) | DX: E11.52 Type 2 diabetes mellitus with diabetic peripheral angiopathy with gangrene (principal); E11.622 Type 2 diabetes mellitus with other skin ulcer; L97.815 Non-pressure chronic ulcer of other part of right lower leg with muscle involvement without evidence of necrosis | CPT/HCPCS: 11042; A6219 ==

== ENCOUNTER → 2024-08-01 13:01 | Outpatient (BNVA) | payer OTHER, SELFPAY | PROVIDERS: PCP Nurse Practitioner | DX: E11.52 Type 2 diabetes mellitus with diabetic peripheral angiopathy with gangrene (principal); E11.622 Type 2 diabetes mellitus with other skin ulcer; L97.815 Non-pressure chronic ulcer of other part of right lower leg with muscle involvement without evidence of necrosis | CPT/HCPCS: 11042; A6212 ==

== ENCOUNTER → 2024-08-07 12:56 | Outpatient (BNVA) | payer OTHER, SELFPAY | PROVIDERS: PCP Nurse Practitioner; Visit Provider Podiatrist Foot & Ankle Surgery | DX: I73.9 Peripheral vascular disease, unspecified (principal); Z89.512 Acquired absence of left leg below knee; Q66.71 Congenital pes cavus, right foot | CPT/HCPCS: 99213 ==

== ENCOUNTER → 2024-08-08 14:44 | Outpatient (BNVA) | payer OTHER, SELFPAY | PROVIDERS: PCP Nurse Practitioner; Visit Provider Thoracic Surgery (Cardiothoracic Vascular Surgery) | DX: E11.52 Type 2 diabetes mellitus with diabetic peripheral angiopathy with gangrene (principal); E11.622 Type 2 diabetes mellitus with other skin ulcer; L97.811 Non-pressure chronic ulcer of other part of right lower leg limited to breakdown of skin | CPT/HCPCS: 97597 ==

== ENCOUNTER 2024-08-09 07:49 | Oncology outpatient (recurring) (ONCR) | payer OTHER, SELFPAY ==
--- NOTE | 2024-08-09 08:00 | PETR_ITS ---
PROCEDURE INFORMATION: Exam: PET/CT Skull Base to Mid-thigh Exam date and time: 08/09/2024 8:57 AM Age: 74 years old Clinical indication: Condition or disease; Follow-up oncological assessment; Condition/disease: Adenocarcinoma of hilum of right lung, mets to bone; Prior surgery; Surgery date: 6+ months; Surgery type: Cspine LABS AND CLINICAL REPORTS: Glucose: 167 mg/dl Treatment strategy for malignancy (PET staging): Restaging (PS) TECHNIQUE: Imaging protocol: Following at least four-hour fasting and following the injection of radiopharmaceutical, low dose CT images were obtained. Then, PET images were obtained. Attenuation corrected images were constructed using the CT scan. Fused images of PET and CT were reviewed. The standardized uptake values (SUV) reported below are maximum values within a region of interest, expressed in gm/ml. Exam includes orbital meatal line to mid-thigh. SUV normalization method: BodyWeight Radiopharmaceutical: 11.25 mCi F-18 FDG (Fluorodeoxyglucose), IV. Time of imaging post radiopharmaceutical administration: 47 minutes Injection site: right forearm COMPARISON: PT PET skull to thigh SUBS [id number] 05/03/2024 4:09 PM FINDINGS: Tubes, catheters and devices: Left chest port terminates near the superior cavoatrial junction. Brain: Visualized brain has normal physiologic uptake. Pharynx: No abnormal uptake. Larynx: No abnormal uptake. Lungs, pleura and trachea: Upper lung predominant emphysematous change. Similar right bronchial thickening with similar to mildly decreased size right upper hilar nodular density measuring approximately 1.4 x 0.7 cm on axial image 82 with SUV max 3.0, previously 1.7 x 0.8 cm with SUV max 2.7. Resolved non FDG avid subtle right upper lobe ground-glass opacity. Right lower lobe calcified granulomata. Small non FDG avid fluid density right pleural effusion. Heart: Normal physiologic uptake. Coronary arteries: Heavy coronary artery calcification. Mediastinal space: No abnormal uptake. Liver: No abnormal uptake. Gallbladder and biliary ducts: No abnormal uptake. Pancreas: No abnormal uptake. Spleen: No abnormal uptake. Calcified granulomata. Adrenal glands: No abnormal uptake. Kidneys and ureters: Normal physiologic uptake. Bilateral photopenic fluid density cysts. Stomach and bowel: No abnormal uptake. Colonic diverticulosis without findings of diverticulitis. Reproductive: Mild prostatomegaly. No abnormal uptake. Vasculature: Heavy systemic atherosclerotic calcification without aortic aneurysm. Partially visualized right femoral artery stent. Partially visualized right femoral artery bypass graft with stable focal kinking of the aspect, also at the distal aspect. At the imaged distal aspect is surrounding soft tissue density with FDG uptake showing SUV max 8.8 on axial image 392, this area of greater FDG avidity was outside field of view on comparison exam. Lymph nodes: Increased size enlarged subcarinal node measures 2.6 cm in the short axis with SUV max 6.9, previously 1.8 with SUV max 6.4. Precarinal node measuring 0.9 cm in the short axis with SUV max 3.6, previously 0.7 cm with SUV max 3.5. Posterior right paratracheal node measures 1.3 cm in the short axis on axial image 75 with SUV max 5.0, previously 0.9 cm with SUV max 3.0. Stable size right peribronchial node shows SUV max 4.3 on axial image 94, previously 5.1. Calcified right hilar node shows SUV max 4.4, previously 5.4. Right inguinal lymph node measures 1.5 cm in the short axis on axial image 261 and shows SUV max 3.2, previously 1.1 cm with SUV max 2.2. Skeleton: Developed FDG uptake at left T8 transverse process with mild sclerosis shows SUV max 5.8 on axial image 96. Developed focus FDG uptake at left iliac wing with underlying sclerosis showing SUV max 7.0 on axial image 208. Otherwise stable multiple osteolytic and sclerotic lesions throughout the bones without abnormal FDG uptake. Stable mild compression deformities of the T11 and L2 vertebral bodies. Degenerative change along the spine, shoulders and hips. Partially visualized bilateral knee arthroplasties. Soft tissues: No abnormal uptake in the visualized head, neck, chest, abdomen, pelvis, and extremities. Small fat containing bilateral inguinal hernias. METRICS: Mediastinal blood pool: SUV mean 1.8 Liver uptake: SUV mean 2.2 PET/PET skull to thigh SUBS [id number] IMPRESSION: 1. Findings of mixed treatment response with overall disease progression. 2. Worsened mediastinal and right inguinal lymphadenopathy. 3. Developed FDG avid osseous lesions at the left T8 transverse process and left iliac wing. 4. Mildly decreased size right upper hilar nodular density with stable low-level FDG uptake. 5. Mildly decreased right hilar FDG uptake. 6. Small right pleural effusion. 7. Partially visualized right femoral artery bypass graft again shows surrounding soft tissue density and FDG uptake at partially imaged distal aspect. Possibly inflammatory, consider CTA.
== END 2024-08-14 23:59 | disposition home or self-care (01) ==
LOC: RAD 07:50 → ONCMED 09:33
PROVIDERS: PCP Nurse Practitioner; Visit Provider Internal Medicine Medical Oncology
DX: C34.01 Malignant neoplasm of right main bronchus (principal); Z95.828 Presence of other vascular implants and grafts; C79.51 Secondary malignant neoplasm of bone
CPT/HCPCS: 78815; A9552

== ENCOUNTER → 2024-08-15 14:21 | Outpatient (BNVA) | payer OTHER, SELFPAY | PROVIDERS: PCP Nurse Practitioner; Visit Provider Thoracic Surgery (Cardiothoracic Vascular Surgery) | DX: E11.52 Type 2 diabetes mellitus with diabetic peripheral angiopathy with gangrene (principal); E11.622 Type 2 diabetes mellitus with other skin ulcer; L97.812 Non-pressure chronic ulcer of other part of right lower leg with fat layer exposed | CPT/HCPCS: 11042; A6212 ==

== ENCOUNTER → 2024-08-22 13:40 | Outpatient (BNVA) | payer OTHER, SELFPAY | PROVIDERS: PCP Nurse Practitioner; Visit Provider Thoracic Surgery (Cardiothoracic Vascular Surgery) | DX: E11.52 Type 2 diabetes mellitus with diabetic peripheral angiopathy with gangrene (principal); E11.622 Type 2 diabetes mellitus with other skin ulcer; L97.811 Non-pressure chronic ulcer of other part of right lower leg limited to breakdown of skin | CPT/HCPCS: 97597 ==

== ENCOUNTER 2024-09-10 08:00 | Oncology outpatient (recurring) (ONCR) | payer OTHER, SELFPAY ==
[2024-08-19 13:48] LABS: Basophils % 0.8 %; Eosinophils # 0.1 10^3/uL (0.0-0.8); Eosinophils % 2.8 %; Hematocrit 41.9 % (37-53); Lymphocytes # 1.1 10^3/uL (0.8-4.8); Lymphocytes % 21.2 %; Mean Corpuscular HGB Conc 31.7 g/dL (30-55); Mean Corpuscular Hemoglobin 30.5 pg (27-33); Mean Corpuscular Volume 96.1 fl (82-101); Monocytes # 0.6 10^3/uL (0.2-0.9); Monocytes % 12.1 %; Neutrophils # 3.11 10^3/uL (1.8-7.7); Neutrophils % 62.7 %; Nucleated Red Blood Cells % 0 %; Platelet Count 145 10^3/cmm (157-399); Red Blood Count 4.36 10^6/uL (3.85-5.65); White Blood Count 4.96 10^3/uL (3.29-11.43)
[2024-08-19 14:05] LABS: Alanine Aminotransferase 15 U/L (0-41); Albumin Level 3.9 g/dL (3.5-5.2); Alkaline Phosphatase 106 U/L (40-130); Anion Gap 13.4 (5-19); Aspartate Amino Transferase 17 U/L (0-40); Blood Urea Nitrogen 16 mg/dL (8-23); Calcium 9.7 mg/dL (8.5-10.5); Carbon Dioxide 26 mmol/L (22-29); Chloride 101 mmol/L (98-107); Creatinine Clr Calc Pharmacy 84.5503; Globulin 3.7 g/dL (1.3-4.6); Glucose 141 mg/dL (65-115); Osmolality Calculated 286 mOsm/kg (285-295); Potassium 4.4 mmol/L (3.5-5.1); Sodium 136 mmol/L (136-145); Total Bilirubin 0.5 mg/dL (0.15-1.2); Total Protein 7.6 g/dL (6.6-8.7)
[2024-08-27 11:05] LABS: Basophils % 0.8 %; Eosinophils # 0.1 10^3/uL (0.0-0.8); Hematocrit 40.5 % (37-53); Lymphocytes # 0.8 10^3/uL (0.8-4.8); Lymphocytes % 19.7 %; Mean Corpuscular HGB Conc 32.6 g/dL (30-55); Mean Corpuscular Hemoglobin 30.9 pg (27-33); Mean Corpuscular Volume 94.8 fl (82-101); Mean Platelet Volume 9.3 fL (7.4-10.4); Monocytes # 0.5 10^3/uL (0.2-0.9); Monocytes % 13.6 %; Neutrophils # 2.48 10^3/uL (1.8-7.7); Neutrophils % 62.6 %; Nucleated Red Blood Cells % 0 %; Platelet Count 139 10^3/cmm (157-399); Red Blood Count 4.27 10^6/uL (3.85-5.65); Red Cell Distribution Width 14.7 % (12.1-15.1); White Blood Count 3.96 10^3/uL (3.29-11.43)
[2024-08-27 11:32] LABS: Alanine Aminotransferase 15 U/L (0-41); Albumin Level 3.8 g/dL (3.5-5.2); Alkaline Phosphatase 90 U/L (40-130); Anion Gap 15.2 (5-19); Aspartate Amino Transferase 16 U/L (0-40); Blood Urea Nitrogen 12 mg/dL (8-23); Calcium 9.2 mg/dL (8.5-10.5); Carbon Dioxide 23 mmol/L (22-29); Chloride 102 mmol/L (98-107); Creatinine Clr Calc Pharmacy 95.1822; Globulin 3.3 g/dL (1.3-4.6); Glucose 144 mg/dL (65-115); Osmolality Calculated 284 mOsm/kg (285-295); Potassium 4.2 mmol/L (3.5-5.1); Sodium 136 mmol/L (136-145); Total Bilirubin 0.3 mg/dL (0.15-1.2); Total Protein 7.1 g/dL (6.6-8.7)
[2024-08-27] MEDS: famotidine 20 mg/2 mL INJ IVP (14:32)
[2024-08-27] MEDS: ondansetron 2 mg/ML SDV 2 mL 8 MG IVP (14:32)
[2024-08-27] MEDS: SODIUM CHLORIDE 0.9% IV (14:49)
[2024-08-27] MEDS: sodium chloride 0.9% 250 ML 75 ML IV (14:49)
[2024-08-27] MEDS: GEMCITABINE IV (14:49)
[2024-08-27 16:09] VITALS: BP 121/57; PULSE 52; RESP 17; TEMP 36.1; O2SAT 98
[2024-08-29] MEDS: sodium chloride 0.9% 1,000 ML 999 ML IV (11:33)
[2024-08-29] MEDS: ondansetron 2 mg/ML SDV 2 mL 8 MG IVP (11:37)
[2024-08-29] MEDS: famotidine 20 mg/2 mL INJ IVP (11:41)
[2024-08-29 11:43] VITALS: BP 123/63; PULSE 58; RESP 17; TEMP 36.4; O2SAT 90
[2024-08-29 12:55] VITALS: BP 124/66; PULSE 76; RESP 17; TEMP 35.9; O2SAT 100
[2024-09-03 08:21] LABS: Basophils % 1.1 %; Eosinophils % 2.1 %; Hematocrit 36.1 % (37-53); Lymphocytes # 0.6 10^3/uL (0.8-4.8); Mean Corpuscular HGB Conc 33.2 g/dL (30-55); Mean Corpuscular Hemoglobin 31.5 pg (27-33); Mean Corpuscular Volume 94.8 fl (82-101); Mean Platelet Volume 9.3 fL (7.4-10.4); Monocytes # 0.2 10^3/uL (0.2-0.9); Monocytes % 9.6 %; Neutrophils # 1.02 10^3/uL (1.8-7.7); Neutrophils % 54.2 %; Nucleated Red Blood Cells % 0 %; Platelet Count 88 10^3/cmm (157-399); Red Blood Count 3.81 10^6/uL (3.85-5.65); White Blood Count 1.88 10^3/uL (3.29-11.43)
[2024-09-03 08:41] LABS: Alanine Aminotransferase 21 U/L (0-41); Albumin Level 3.7 g/dL (3.5-5.2); Alkaline Phosphatase 112 U/L (40-130); Anion Gap 16.2 (5-19); Aspartate Amino Transferase 20 U/L (0-40); Blood Urea Nitrogen 13 mg/dL (8-23); Calcium 9.2 mg/dL (8.5-10.5); Carbon Dioxide 21 mmol/L (22-29); Chloride 103 mmol/L (98-107); Creatinine Clr Calc Pharmacy 95.5227; Globulin 3.3 g/dL (1.3-4.6); Glucose 202 mg/dL (65-115); Osmolality Calculated 288 mOsm/kg (285-295); Potassium 4.2 mmol/L (3.5-5.1); Sodium 136 mmol/L (136-145); Total Bilirubin 0.3 mg/dL (0.15-1.2)
[2024-09-10 08:25] LABS: Basophils % 0.6 %; Eosinophils # 0.1 10^3/uL (0.0-0.8); Eosinophils % 3.1 %; Lymphocytes # 0.8 10^3/uL (0.8-4.8); Lymphocytes % 21.3 %; Mean Corpuscular HGB Conc 32.2 g/dL (30-55); Mean Corpuscular Hemoglobin 31.3 pg (27-33); Mean Platelet Volume 9.5 fL (7.4-10.4); Monocytes # 0.5 10^3/uL (0.2-0.9); Monocytes % 15.3 %; Neutrophils # 2.09 10^3/uL (1.8-7.7); Neutrophils % 59.4 %; Nucleated Red Blood Cells % 0 %; Platelet Count 163 10^3/cmm (157-399); Red Blood Count 3.71 10^6/uL (3.85-5.65); Red Cell Distribution Width 14.6 % (12.1-15.1); White Blood Count 3.52 10^3/uL (3.29-11.43)
[2024-09-10 08:44] LABS: Alanine Aminotransferase 13 U/L (0-41); Albumin Level 3.7 g/dL (3.5-5.2); Alkaline Phosphatase 121 U/L (40-130); Anion Gap 15.4 (5-19); Aspartate Amino Transferase 18 U/L (0-40); Blood Urea Nitrogen 19 mg/dL (8-23); Calcium 9.1 mg/dL (8.5-10.5); Carbon Dioxide 23 mmol/L (22-29); Chloride 103 mmol/L (98-107); Creatinine Clr Calc Pharmacy 84.5562; Globulin 3.3 g/dL (1.3-4.6); Glucose 178 mg/dL (65-115); Osmolality Calculated 291 mOsm/kg (285-295); Potassium 4.4 mmol/L (3.5-5.1); Sodium 137 mmol/L (136-145); Total Bilirubin 0.3 mg/dL (0.15-1.2)
[2024-09-10] MEDS: sodium chloride 0.9% 250 ML IV (09:46)
[2024-09-10] MEDS: ondansetron 2 mg/ML SDV 2 mL 8 MG IVP (09:46)
[2024-09-10] MEDS: SODIUM CHLORIDE 0.9% IV (10:25)
[2024-09-10] MEDS: GEMCITABINE IV (10:25)
[2024-09-10 11:15] VITALS: BP 124/74; PULSE 74; RESP 17; TEMP 36.6; O2SAT 98
== END 2024-09-14 23:59 | disposition home or self-care (01) ==
PROVIDERS: Nurse Practitioner; PCP Nurse Practitioner; Visit Provider Internal Medicine Medical Oncology
DX: Z53.9 Procedure and treatment not carried out, unspecified reason; Z51.11 Encounter for antineoplastic chemotherapy; C34.01 Malignant neoplasm of right main bronchus; C79.51 Secondary malignant neoplasm of bone; T14.8XXA Other injury of unspecified body region, initial encounter; X58.XXXA Exposure to other specified factors, initial encounter; Z87.891 Personal history of nicotine dependence; Z95.828 Presence of other vascular implants and grafts
CPT/HCPCS: 36591; 80053; 85025; 96360; 96361; 96374; 96375; 96413; 97597; 99214; 99215; J2405; J3490; J7030; J7050; J9201

== ENCOUNTER 2024-09-24 08:59 | Oncology outpatient (recurring) (ONCR) | payer OTHER, SELFPAY ==
[2024-09-24 09:23] LABS: Basophils % 0.4 %; Eosinophils # 0.1 10^3/uL (0.0-0.8); Eosinophils % 0.9 %; Hematocrit 35.9 % (37-53); Lymphocytes # 0.6 10^3/uL (0.8-4.8); Lymphocytes % 11.7 %; Mean Corpuscular Hemoglobin 30.8 pg (27-33); Mean Corpuscular Volume 96.2 fl (82-101); Mean Platelet Volume 9.3 fL (7.4-10.4); Monocytes # 0.7 10^3/uL (0.2-0.9); Monocytes % 13.5 %; Neutrophils % 73.1 %; Nucleated Red Blood Cells % 0 %; Platelet Count 148 10^3/cmm (157-399); Red Blood Count 3.73 10^6/uL (3.85-5.65); Red Cell Distribution Width 15.2 % (12.1-15.1); White Blood Count 5.47 10^3/uL (3.29-11.43)
[2024-09-24 09:36] LABS: Alanine Aminotransferase 21 U/L (0-41); Albumin Level 3.8 g/dL (3.5-5.2); Alkaline Phosphatase 116 U/L (40-130); Anion Gap 16.1 (5-19); Aspartate Amino Transferase 28 U/L (0-40); Blood Urea Nitrogen 15 mg/dL (8-23); Carbon Dioxide 23 mmol/L (22-29); Chloride 102 mmol/L (98-107); Globulin 3.4 g/dL (1.3-4.6); Glucose 196 mg/dL (65-115); Osmolality Calculated 290 mOsm/kg (285-295); Potassium 4.1 mmol/L (3.5-5.1); Sodium 137 mmol/L (136-145); Total Protein 7.2 g/dL (6.6-8.7)
[2024-09-24 09:54] LABS: Total Bilirubin 0.4 mg/dL (0.15-1.2)
[2024-09-24] MEDS: ondansetron 2 mg/ML SDV 2 mL 8 MG IVP (10:34)
[2024-09-24] MEDS: sodium chloride 0.9% 250 ML 75 ML IV (10:34)
[2024-09-24] MEDS: gemcitabine 1,900 MG in sodium chloride 0.9% (100 ml) 100 ML 299.94 MG IV (11:04)
[2024-09-24 12:25] VITALS: BP 123/67; PULSE 60; RESP 17; TEMP 36.7; O2SAT 98
== END 2024-10-14 23:59 | disposition home or self-care (01) ==
PROVIDERS: Nurse Practitioner; PCP Nurse Practitioner; Visit Provider Internal Medicine Medical Oncology
DX: C34.01 Malignant neoplasm of right main bronchus (principal); C79.51 Secondary malignant neoplasm of bone; Z79.899 Other long term (current) drug therapy; Z95.828 Presence of other vascular implants and grafts
CPT/HCPCS: 80053; 85025; 96375; 96413; 99214; J2405; J7050; J9201

== ENCOUNTER 2024-10-14 15:37 | Outpatient (CLI) | payer OTHER, SELFPAY ==
[2024-10-14 15:58] LABS: Basophils # 0.1 10^3/uL (0.0-0.1); Basophils % 1.4 %; Eosinophils # 0.2 10^3/uL (0.0-0.8); Eosinophils % 3.7 %; Hematocrit 34.1 % (37-53); Lymphocytes # 0.7 10^3/uL (0.8-4.8); Mean Corpuscular HGB Conc 32.8 g/dL (30-55); Mean Corpuscular Hemoglobin 32.1 pg (27-33); Mean Corpuscular Volume 97.7 fl (82-101); Mean Platelet Volume 10.4 fL (7.4-10.4); Monocytes # 0.6 10^3/uL (0.2-0.9); Monocytes % 13.5 %; Neutrophils # 2.86 10^3/uL (1.8-7.7); Neutrophils % 65.2 %; Nucleated Red Blood Cells % 0 %; Platelet Count 195 10^3/cmm (157-399); Red Blood Count 3.49 10^6/uL (3.85-5.65); Red Cell Distribution Width 16.7 % (12.1-15.1); White Blood Count 4.38 10^3/uL (3.29-11.43)
[2024-10-14 17:48] LABS: Alanine Aminotransferase 9 U/L (0-41); Albumin Level 3.8 g/dL (3.5-5.2); Alkaline Phosphatase 100 U/L (40-130); Blood Urea Nitrogen 20 mg/dL (8-23); Calcium 8.6 mg/dL (8.5-10.5); Carbon Dioxide 21 mmol/L (22-29); Chloride 105 mmol/L (98-107); Globulin 2.8 g/dL (1.3-4.6); Glucose 113 mg/dL (65-115); Osmolality Calculated 295 mOsm/kg (285-295); Sodium 141 mmol/L (136-145); Total Bilirubin 0.3 mg/dL (0.15-1.2); Total Protein 6.6 g/dL (6.6-8.7)
[2024-10-14 18:28] LABS: Anion Gap 19.9 (5-19); Aspartate Amino Transferase 25 U/L (0-40); Potassium 4.9 mmol/L (3.5-5.1)
== END 2024-10-14 15:38 | disposition home or self-care (01) ==
LOC: LAB 15:38
PROVIDERS: PCP Nurse Practitioner; Visit Provider Internal Medicine Infectious Disease
DX: L02.415 Cutaneous abscess of right lower limb (principal); I70.238 Atherosclerosis of native arteries of right leg with ulceration of other part of lower leg; L97.812 Non-pressure chronic ulcer of other part of right lower leg with fat layer exposed
CPT/HCPCS: 80053; 85025; 86140

== ENCOUNTER → 2024-10-15 12:30 | Outpatient (BNVA) | payer OTHER, SELFPAY | PROVIDERS: PCP Nurse Practitioner; Visit Provider Podiatrist Foot & Ankle Surgery | DX: E11.42 Type 2 diabetes mellitus with diabetic polyneuropathy (principal); L60.3 Nail dystrophy; I73.9 Peripheral vascular disease, unspecified; Z89.512 Acquired absence of left leg below knee; Q66.71 Congenital pes cavus, right foot | CPT/HCPCS: 11720 ==

== ENCOUNTER 2024-10-28 15:39 | Outpatient (CLI) | payer OTHER, SELFPAY ==
[2024-10-28 16:25] LABS: Hematocrit 31.5 % (37-53); Hemoglobin 10.30 g/dL (11.27-16.99); Mean Corpuscular HGB Conc 32.7 g/dL (30-55); Mean Corpuscular Hemoglobin 31.1 pg (27-33); Mean Corpuscular Volume 95.2 fl (82-101); Nucleated Red Blood Cells % 0 %; Platelet Count 127 10^3/cmm (157-399); Red Blood Count 3.31 10^6/uL (3.85-5.65); White Blood Count 2.00 10^3/uL (3.29-11.43)
[2024-10-28 16:53] LABS: Alanine Aminotransferase 8 U/L (0-41); Albumin Level 3.7 g/dL (3.5-5.2); Alkaline Phosphatase 184 U/L (40-130); Anion Gap 16.6 (5-19); Aspartate Amino Transferase 21 U/L (0-40); Blood Urea Nitrogen 17 mg/dL (8-23); Calcium 9.0 mg/dL (8.5-10.5); Carbon Dioxide 24 mmol/L (22-29); Chloride 102 mmol/L (98-107); Globulin 3.1 g/dL (1.3-4.6); Glucose 97 mg/dL (65-115); Osmolality Calculated 287 mOsm/kg (285-295); Potassium 4.6 mmol/L (3.5-5.1); Sodium 138 mmol/L (136-145); Total Protein 6.8 g/dL (6.6-8.7)
== END 2024-10-28 15:40 | disposition home or self-care (01) ==
LOC: LAB 16:06
PROVIDERS: PCP Nurse Practitioner; Visit Provider Internal Medicine Infectious Disease
DX: T82.7XXA Infection and inflammatory reaction due to other cardiac and vascular devices, implants and grafts, initial encounter (principal); X58.XXXA Exposure to other specified factors, initial encounter
CPT/HCPCS: 80053; 85025; 86140

== ENCOUNTER 2024-11-04 16:09 | Outpatient (CLI) | payer OTHER, SELFPAY ==
[2024-11-04 16:37] LABS: Hematocrit 32.1 % (37-53); Hemoglobin 10.80 g/dL (11.27-16.99); Mean Corpuscular HGB Conc 33.6 g/dL (30-55); Mean Corpuscular Hemoglobin 32.8 pg (27-33); Mean Corpuscular Volume 97.6 fl (82-101); Nucleated Red Blood Cells % 0 %; Platelet Count 127 10^3/cmm (157-399); Red Blood Count 3.29 10^6/uL (3.85-5.65); White Blood Count 3.58 10^3/uL (3.29-11.43)
[2024-11-04 17:18] LABS: Alanine Aminotransferase 7 U/L (0-41); Albumin Level 3.8 g/dL (3.5-5.2); Anion Gap 17.5 (5-19); Aspartate Amino Transferase 18 U/L (0-40); Blood Urea Nitrogen 17 mg/dL (8-23); Calcium 8.9 mg/dL (8.5-10.5); Carbon Dioxide 26 mmol/L (22-29); Globulin 2.9 g/dL (1.3-4.6); Osmolality Calculated 287 mOsm/kg (285-295); Potassium 4.5 mmol/L (3.5-5.1); Sodium 136 mmol/L (136-145); Total Protein 6.7 g/dL (6.6-8.7)
[2024-11-04 17:24] LABS: Alkaline Phosphatase 161 U/L (40-130); Glucose 162 mg/dL (65-115)
[2024-11-04 17:25] LABS: Chloride 97 mmol/L (98-107)
== END 2024-11-04 16:10 | disposition home or self-care (01) ==
PROVIDERS: PCP Nurse Practitioner; Visit Provider Internal Medicine Infectious Disease
DX: T82.7XXA Infection and inflammatory reaction due to other cardiac and vascular devices, implants and grafts, initial encounter (principal); X58.XXXA Exposure to other specified factors, initial encounter
CPT/HCPCS: 80053; 85025; 86140

== ENCOUNTER 2024-11-12 10:30 | Oncology outpatient (recurring) (ONCR) | payer OTHER, SELFPAY ==
[2024-10-22 09:04] LABS: Hematocrit 33.6 % (37-53); Hemoglobin 10.80 g/dL (11.27-16.99); Mean Corpuscular HGB Conc 32.1 g/dL (30-55); Mean Corpuscular Hemoglobin 31.7 pg (27-33); Mean Corpuscular Volume 98.5 fl (82-101); Nucleated Red Blood Cells % 0 %; Platelet Count 148 10^3/cmm (157-399); Red Blood Count 3.41 10^6/uL (3.85-5.65); White Blood Count 3.29 10^3/uL (3.29-11.43)
--- NOTE | 2024-10-22 09:06 | PC.NURSE ---
Pt in infusion room to get port accessed for blood draw and possible treatment. Pt's port accessed upon arrival. Pt states he got it accessed on 10/01/24 in hospital. Pt is currently doing home antibiotics which is administering. Pt states he had no education on having port needle changed. Educated pt on having port needle changed Q7 days unless needed before then. Removed port needle without flushing. Port does not look red or infected. Port was cleaned and reaccessed via sterile technique per protocol.
[2024-10-22 09:25] LABS: Alanine Aminotransferase 7 U/L (0-41); Albumin Level 3.6 g/dL (3.5-5.2); Alkaline Phosphatase 158 U/L (40-130); Anion Gap 15.3 (5-19); Aspartate Amino Transferase 19 U/L (0-40); Blood Urea Nitrogen 21 mg/dL (8-23); Calcium 8.9 mg/dL (8.5-10.5); Carbon Dioxide 23 mmol/L (22-29); Chloride 101 mmol/L (98-107); Creatinine Clr Calc Pharmacy 95.7240; Globulin 3.4 g/dL (1.3-4.6); Glucose 130 mg/dL (65-115); Osmolality Calculated 285 mOsm/kg (285-295); Potassium 4.3 mmol/L (3.5-5.1); Sodium 135 mmol/L (136-145); Total Protein 7.0 g/dL (6.6-8.7)
[2024-10-22] MEDS: ondansetron 2 mg/ML SDV 2 mL 8 MG IVP (09:48)
[2024-10-22] MEDS: SODIUM CHLORIDE 0.9% IV (10:31)
[2024-10-22] MEDS: GEMCITABINE IV (10:31)
[2024-10-22 11:27] VITALS: BP 135/71; PULSE 69; TEMP 36.2; O2SAT 95
[2024-10-22 15:26] LABS: Hematocrit 37.0 % (37-53); Hemoglobin 11.90 g/dL (11.27-16.99); Mean Corpuscular HGB Conc 32.2 g/dL (30-55); Mean Corpuscular Hemoglobin 31.6 pg (27-33); Mean Corpuscular Volume 98.1 fl (82-101); Nucleated Red Blood Cells % 0 %; Platelet Count 181 10^3/cmm (157-399); Red Blood Count 3.77 10^6/uL (3.85-5.65); White Blood Count 4.55 10^3/uL (3.29-11.43)
[2024-10-29 09:14] LABS: Hematocrit 32.1 % (37-53); Hemoglobin 10.50 g/dL (11.27-16.99); Mean Corpuscular HGB Conc 32.7 g/dL (30-55); Mean Corpuscular Hemoglobin 31.7 pg (27-33); Mean Corpuscular Volume 97.0 fl (82-101); Nucleated Red Blood Cells % 0 %; Platelet Count 84 10^3/cmm (157-399); Red Blood Count 3.31 10^6/uL (3.85-5.65); White Blood Count 1.43 10^3/uL (3.29-11.43)
[2024-10-29 09:25] LABS: Alanine Aminotransferase 13 U/L (0-41); Albumin Level 3.8 g/dL (3.5-5.2); Alkaline Phosphatase 191 U/L (40-130); Anion Gap 17.1 (5-19); Aspartate Amino Transferase 32 U/L (0-40); Blood Urea Nitrogen 19 mg/dL (8-23); Calcium 9.0 mg/dL (8.5-10.5); Carbon Dioxide 22 mmol/L (22-29); Chloride 101 mmol/L (98-107); Creatinine Clr Calc Pharmacy 95.5227; Globulin 3.7 g/dL (1.3-4.6); Glucose 125 mg/dL (65-115); Osmolality Calculated 286 mOsm/kg (285-295); Potassium 4.1 mmol/L (3.5-5.1); Sodium 136 mmol/L (136-145); Total Protein 7.5 g/dL (6.6-8.7)
[2024-11-05 10:10] LABS: Alanine Aminotransferase 6 U/L (0-41); Albumin Level 3.8 g/dL (3.5-5.2); Alkaline Phosphatase 150 U/L (40-130); Anion Gap 15.9 (5-19); Aspartate Amino Transferase 17 U/L (0-40); Blood Urea Nitrogen 19 mg/dL (8-23); Calcium 9.0 mg/dL (8.5-10.5); Carbon Dioxide 24 mmol/L (22-29); Chloride 103 mmol/L (98-107); Creatinine Clr Calc Pharmacy 95.1191; Globulin 3.4 g/dL (1.3-4.6); Glucose 192 mg/dL (65-115); Osmolality Calculated 293 mOsm/kg (285-295); Potassium 4.9 mmol/L (3.5-5.1); Sodium 138 mmol/L (136-145); Total Protein 7.2 g/dL (6.6-8.7)
[2024-11-05 10:47] LABS: Hematocrit 34.3 % (37-53); Hemoglobin 11.10 g/dL (11.27-16.99); Mean Corpuscular HGB Conc 32.4 g/dL (30-55); Mean Corpuscular Hemoglobin 32.4 pg (27-33); Mean Corpuscular Volume 100.0 fl (82-101); Nucleated Red Blood Cells % 0 %; Platelet Count 150 10^3/cmm (157-399); Red Blood Count 3.43 10^6/uL (3.85-5.65); White Blood Count 3.53 10^3/uL (3.29-11.43)
[2024-11-05] MEDS: ondansetron 2 mg/ML SDV 2 mL 8 MG IVP (11:41)
[2024-11-05] MEDS: SODIUM CHLORIDE 0.9% IV (12:19)
[2024-11-05] MEDS: GEMCITABINE IV (12:19)
[2024-11-05 13:20] VITALS: BP 107/62; PULSE 85; RESP 16; TEMP 36; O2SAT 96
[2024-11-12 09:58] LABS: Hematocrit 31.5 % (37-53); Hemoglobin 10.20 g/dL (11.27-16.99); Mean Corpuscular HGB Conc 32.4 g/dL (30-55); Mean Corpuscular Hemoglobin 31.7 pg (27-33); Mean Corpuscular Volume 97.8 fl (82-101); Nucleated Red Blood Cells % 0 %; Platelet Count 126 10^3/cmm (157-399); Red Blood Count 3.22 10^6/uL (3.85-5.65); White Blood Count 1.19 10^3/uL (3.29-11.43)
[2024-11-12 10:17] LABS: Alanine Aminotransferase 13 U/L (0-41); Albumin Level 3.7 g/dL (3.5-5.2); Alkaline Phosphatase 149 U/L (40-130); Anion Gap 16.3 (5-19); Aspartate Amino Transferase 35 U/L (0-40); Blood Urea Nitrogen 19 mg/dL (8-23); Calcium 9.1 mg/dL (8.5-10.5); Carbon Dioxide 24 mmol/L (22-29); Chloride 100 mmol/L (98-107); Creatinine Clr Calc Pharmacy 95.1191; Globulin 3.4 g/dL (1.3-4.6); Glucose 140 mg/dL (65-115); Osmolality Calculated 287 mOsm/kg (285-295); Potassium 4.3 mmol/L (3.5-5.1); Sodium 136 mmol/L (136-145); Total Protein 7.1 g/dL (6.6-8.7)
== END 2024-11-14 23:59 | disposition home or self-care (01) ==
PROVIDERS: PCP Nurse Practitioner; Visit Provider Internal Medicine Medical Oncology
DX: Z53.9 Procedure and treatment not carried out, unspecified reason; C34.01 Malignant neoplasm of right main bronchus
CPT/HCPCS: 36591; 80053; 85025; 96375; 96413; 99214; J2405; J7050; J9201

== ENCOUNTER 2024-12-10 08:30 | Oncology outpatient (recurring) (ONCR) | payer OTHER, SELFPAY ==
[2024-11-19 10:49] LABS: Hematocrit 33.4 % (37-53); Hemoglobin 10.90 g/dL (11.27-16.99); Mean Corpuscular HGB Conc 32.6 g/dL (30-55); Mean Corpuscular Hemoglobin 32.3 pg (27-33); Mean Corpuscular Volume 99.1 fl (82-101); Nucleated Red Blood Cells % 0 %; Platelet Count 132 10^3/cmm (157-399); Red Blood Count 3.37 10^6/uL (3.85-5.65); White Blood Count 3.37 10^3/uL (3.29-11.43)
[2024-11-19 11:07] LABS: Alanine Aminotransferase 8 U/L (0-41); Albumin Level 3.7 g/dL (3.5-5.2); Alkaline Phosphatase 131 U/L (40-130); Anion Gap 14.5 (5-19); Aspartate Amino Transferase 17 U/L (0-40); Blood Urea Nitrogen 17 mg/dL (8-23); Calcium 9.0 mg/dL (8.5-10.5); Carbon Dioxide 23 mmol/L (22-29); Chloride 105 mmol/L (98-107); Creatinine Clr Calc Pharmacy 95.5227; Globulin 3.4 g/dL (1.3-4.6); Glucose 203 mg/dL (65-115); Osmolality Calculated 293 mOsm/kg (285-295); Potassium 4.5 mmol/L (3.5-5.1); Sodium 138 mmol/L (136-145); Total Protein 7.1 g/dL (6.6-8.7)
[2024-11-19] MEDS: ondansetron 2 mg/ML SDV 2 mL 8 MG IVP (11:30)
[2024-11-19] MEDS: GEMCITABINE IV (12:21)
[2024-11-19] MEDS: SODIUM CHLORIDE 0.9% IV (12:21)
[2024-11-26 07:56] LABS: Hematocrit 30.4 % (37-53); Hemoglobin 10.10 g/dL (11.27-16.99); Mean Corpuscular HGB Conc 33.2 g/dL (30-55); Mean Corpuscular Hemoglobin 32.7 pg (27-33); Mean Corpuscular Volume 98.4 fl (82-101); Nucleated Red Blood Cells % 0 %; Platelet Count 116 10^3/cmm (157-399); Red Blood Count 3.09 10^6/uL (3.85-5.65); White Blood Count 2.15 10^3/uL (3.29-11.43)
[2024-11-26 08:12] LABS: Alanine Aminotransferase 10 U/L (0-41); Albumin Level 3.6 g/dL (3.5-5.2); Alkaline Phosphatase 123 U/L (40-130); Anion Gap 14.3 (5-19); Aspartate Amino Transferase 19 U/L (0-40); Blood Urea Nitrogen 14 mg/dL (8-23); Calcium 8.9 mg/dL (8.5-10.5); Carbon Dioxide 23 mmol/L (22-29); Chloride 99 mmol/L (98-107); Creatinine Clr Calc Pharmacy 95.5227; Globulin 3.3 g/dL (1.3-4.6); Glucose 235 mg/dL (65-115); Osmolality Calculated 282 mOsm/kg (285-295); Potassium 4.3 mmol/L (3.5-5.1); Sodium 132 mmol/L (136-145); Total Protein 6.9 g/dL (6.6-8.7)
[2024-11-26] MEDS: ondansetron 2 mg/ML SDV 2 mL 8 MG IVP (10:04)
[2024-11-26] MEDS: SODIUM CHLORIDE 0.9% IV (10:49)
[2024-11-26] MEDS: GEMCITABINE IV (10:49)
[2024-11-26 11:50] VITALS: BP 100/56; PULSE 58; O2SAT 95
--- NOTE | 2024-11-29 14:30 | PETR_ITS ---
PROCEDURE INFORMATION: Exam: PET/CT Skull Base to Mid-thigh Exam date and time: 11/29/2024 3:45 PM Age: 74 years old Clinical indication: Condition or disease; Primary cancer: Adenocarcinoma of hilum of right lung, prior surgery; Surgery date: 6+ months; Surgery type: C spine LABS AND CLINICAL REPORTS: Glucose: 155 mg/dl Treatment strategy for malignancy (PET staging): Restaging (PS) TECHNIQUE: Imaging protocol: Following at least four-hour fasting and following the injection of radiopharmaceutical, low dose CT images were obtained. Then, PET images were obtained. Attenuation corrected images were constructed using the CT scan. Fused images of PET and CT were reviewed. The standardized uptake values (SUV) reported below are maximum values within a region of interest, expressed in gm/ml. Exam includes orbital meatal line to mid-thigh. SUV normalization method: BodyWeight Radiopharmaceutical: 11.3 mCi F-18 FDG (Fluorodeoxyglucose), IV. Time of imaging post radiopharmaceutical administration: 46 minutes Injection site: left ac COMPARISON: PT PET skull to thigh SUBS [id number] 08/09/2024 8:57 AM FINDINGS: Tubes, catheters and devices: Left chest port terminates near the superior cavoatrial junction. Brain: Visualized brain has normal physiologic uptake. Pharynx: No abnormal uptake. Larynx: No abnormal uptake. Lungs, pleura and trachea: Upper lung predominant emphysematous change. Similar right bronchial thickening with stable size right upper hilar nodular density measuring approximately 1.3 cm on axial image 79 with SUV max 2.0, previously 3.0. Right lower lobe calcified granulomata. Increased small to moderate non FDG avid fluid density right pleural effusion. Heart: Normal physiologic uptake. Coronary arteries: Heavy coronary artery calcification. Mediastinal space: No abnormal uptake. Liver: No abnormal uptake. Gallbladder and biliary ducts: No abnormal uptake. Pancreas: No abnormal uptake. Spleen: No abnormal uptake. Calcified granulomata. Adrenal glands: No abnormal uptake. Kidneys and ureters: Normal physiologic uptake. Bilateral photopenic fluid density cysts. Stomach and bowel: No abnormal uptake. Colonic diverticulosis without findings of diverticulitis. Reproductive: Mild prostatomegaly. No abnormal uptake. Vasculature: Heavy systemic atherosclerotic calcification without aortic aneurysm. Partially visualized right femoral artery stent. Partially visualized right femoral artery bypass graft with stable focal kinking of the proximal aspect with subsequent short-segment normal caliber followed by nonvisualization and mild overlying subcutaneous fat stranding suggesting interval postprocedural change. Lymph nodes: Decreased size subcarinal node measures 2.2 cm in the short axis with SUV max 5.2, previously 2.6 cm with SUV max 6.9. Resolved precarinal FDG-avid adenopathy. Posterior right paratracheal node shows increased size measuring 1.8 cm in the short axis on axial image 74 with SUV max 3.7, previously 1.3 cm with SUV max 5.0. Stable size right peribronchial node shows SUV max 3.3 on axial image 94, previously 4.3. Calcified right hilar node shows SUV max 2.9, previously 4.4. Resolved FDG avid right inguinal lymphadenopathy. Skeleton: Decreased FDG uptake at left T8 transverse process with similar mild sclerosis shows SUV max 4.5 on axial image 102, previously 5.8. Focal FDG uptake at left iliac wing with similar underlying sclerosis showing SUV max 6.5 on axial image 207, previously 7.0. Developed low-level FDG uptake at prominent L3 inferior endplate Schmorl's node. Developed FDG uptake at the anterior L5-S1 intervertebral disc space is likely degenerative. Otherwise stable multiple osteolytic and sclerotic lesions throughout the bones without abnormal FDG uptake. Stable mild compression deformities of the T11 and L2 vertebral bodies. Degenerative change along the spine, shoulders and hips. Soft tissues: No suspicious abnormal uptake in the visualized head, neck, chest, abdomen, pelvis, and extremities. Some extravasated radiotracer noted at the left antecubital region. Small fat containing bilateral inguinal hernias. METRICS: Mediastinal blood pool: SUV mean 1.9 Liver uptake: SUV mean 2.2 PET/PET skull to thigh SUBS [id number] IMPRESSION: 1. Compared to 08/09/2024, overall improved findings with single mixed posterior right paratracheal node showing increased size but decreased metabolic activity. 2. Otherwise decreased mediastinal lymphadenopathy and resolved FDG avid right inguinal lymphadenopathy. 3. Decreased osseous metastatic metabolic activity. 4. Stable size right upper hilar nodular density with resolved FDG avidity. 5. Decreased right hilar FDG uptake. 6. Increased small to moderate right pleural effusion. 7. Suspect interval postprocedural change to right femoral artery bypass graft. 8. Additional chronic and incidental findings as above.
[2024-12-03 08:48] LABS: Hematocrit 30.1 % (37-53); Hemoglobin 9.90 g/dL (11.27-16.99); Mean Corpuscular HGB Conc 32.9 g/dL (30-55); Mean Corpuscular Hemoglobin 31.4 pg (27-33); Mean Corpuscular Volume 95.6 fl (82-101); Nucleated Red Blood Cells % 0 %; Platelet Count 51 10^3/cmm (157-399); Red Blood Count 3.15 10^6/uL (3.85-5.65); White Blood Count 2.30 10^3/uL (3.29-11.43)
[2024-12-03 09:08] LABS: Alanine Aminotransferase 13 U/L (0-41); Albumin Level 3.6 g/dL (3.5-5.2); Alkaline Phosphatase 137 U/L (40-130); Anion Gap 16.4 (5-19); Aspartate Amino Transferase 17 U/L (0-40); Blood Urea Nitrogen 20 mg/dL (8-23); Calcium 9.2 mg/dL (8.5-10.5); Carbon Dioxide 23 mmol/L (22-29); Chloride 103 mmol/L (98-107); Creatinine Clr Calc Pharmacy 84.1920; Globulin 3.4 g/dL (1.3-4.6); Glucose 139 mg/dL (65-115); Osmolality Calculated 291 mOsm/kg (285-295); Potassium 4.4 mmol/L (3.5-5.1); Sodium 138 mmol/L (136-145); Total Protein 7.0 g/dL (6.6-8.7)
[2024-12-10 08:41] LABS: Hematocrit 33.6 % (37-53); Hemoglobin 10.70 g/dL (11.27-16.99); Mean Corpuscular HGB Conc 31.8 g/dL (30-55); Mean Corpuscular Hemoglobin 31.3 pg (27-33); Mean Corpuscular Volume 98.2 fl (82-101); Nucleated Red Blood Cells % 0 %; Platelet Count 205 10^3/cmm (157-399); Red Blood Count 3.42 10^6/uL (3.85-5.65); White Blood Count 3.85 10^3/uL (3.29-11.43)
[2024-12-10 08:58] LABS: Alanine Aminotransferase 10 U/L (0-41); Albumin Level 3.9 g/dL (3.5-5.2); Alkaline Phosphatase 149 U/L (40-130); Anion Gap 11.3 (5-19); Aspartate Amino Transferase 15 U/L (0-40); Blood Urea Nitrogen 21 mg/dL (8-23); Calcium 9.3 mg/dL (8.5-10.5); Carbon Dioxide 26 mmol/L (22-29); Chloride 102 mmol/L (98-107); Creatinine Clr Calc Pharmacy 95.3209; Globulin 3.2 g/dL (1.3-4.6); Glucose 135 mg/dL (65-115); Osmolality Calculated 285 mOsm/kg (285-295); Potassium 4.3 mmol/L (3.5-5.1); Sodium 135 mmol/L (136-145); Total Protein 7.1 g/dL (6.6-8.7)
[2024-12-10] MEDS: ondansetron 2 mg/ML SDV 2 mL 8 MG IVP (10:00)
[2024-12-10] MEDS: GEMCITABINE IV (11:07)
[2024-12-10] MEDS: SODIUM CHLORIDE 0.9% IV (11:07)
[2024-12-10 11:54] VITALS: BP 108/66; PULSE 55; RESP 17; TEMP 36.2; O2SAT 99
== END 2024-12-15 23:59 | disposition home or self-care (01) ==
PROVIDERS: PCP Nurse Practitioner; Visit Provider Internal Medicine Medical Oncology
DX: Z53.9 Procedure and treatment not carried out, unspecified reason; Z51.11 Encounter for antineoplastic chemotherapy; C34.01 Malignant neoplasm of right main bronchus; C79.51 Secondary malignant neoplasm of bone; D75.9 Disease of blood and blood-forming organs, unspecified; Z79.899 Other long term (current) drug therapy; Z95.828 Presence of other vascular implants and grafts; Z87.891 Personal history of nicotine dependence
CPT/HCPCS: 78815; 80053; 85025; 96375; 96413; 99214; A9552; J2405; J7050; J9201

== ENCOUNTER 2025-01-07 11:45 | Oncology outpatient (recurring) (ONCR) | payer OTHER, SELFPAY ==
[2024-12-24 13:31] LABS: Hematocrit 34.6 % (37-53); Hemoglobin 11.10 g/dL (11.27-16.99); Mean Corpuscular HGB Conc 32.1 g/dL (30-55); Mean Corpuscular Hemoglobin 31.5 pg (27-33); Mean Corpuscular Volume 98.3 fl (82-101); Nucleated Red Blood Cells % 0 %; Platelet Count 108 10^3/cmm (157-399); Red Blood Count 3.52 10^6/uL (3.85-5.65); White Blood Count 4.57 10^3/uL (3.29-11.43)
[2024-12-24 13:49] LABS: Alanine Aminotransferase 15 U/L (0-41); Albumin Level 3.8 g/dL (3.5-5.2); Alkaline Phosphatase 115 U/L (40-130); Anion Gap 10.5 (5-19); Aspartate Amino Transferase 18 U/L (0-40); Blood Urea Nitrogen 21 mg/dL (8-23); Calcium 9.2 mg/dL (8.5-10.5); Carbon Dioxide 26 mmol/L (22-29); Chloride 105 mmol/L (98-107); Globulin 3.4 g/dL (1.3-4.6); Glucose 180 mg/dL (65-115); Osmolality Calculated 292 mOsm/kg (285-295); Potassium 4.5 mmol/L (3.5-5.1); Sodium 137 mmol/L (136-145); Total Protein 7.2 g/dL (6.6-8.7)
[2024-12-24] MEDS: ondansetron 2 mg/ML SDV 2 mL 8 MG IVP (15:30)
[2024-12-24] MEDS: SODIUM CHLORIDE 0.9% IV (15:54)
[2024-12-24] MEDS: GEMCITABINE IV (15:54)
[2024-12-24 16:50] VITALS: BP 133/73; PULSE 73; RESP 17; TEMP 36.4; O2SAT 98
[2024-12-31 13:06] LABS: Hematocrit 31.5 % (37-53); Hemoglobin 10.30 g/dL (11.27-16.99); Mean Corpuscular HGB Conc 32.7 g/dL (30-55); Mean Corpuscular Hemoglobin 31.3 pg (27-33); Mean Corpuscular Volume 95.7 fl (82-101); Nucleated Red Blood Cells % 0 %; Platelet Count 91 10^3/cmm (157-399); Red Blood Count 3.29 10^6/uL (3.85-5.65); White Blood Count 1.84 10^3/uL (3.29-11.43)
[2024-12-31 13:23] LABS: Alanine Aminotransferase 13 U/L (0-41); Albumin Level 4.0 g/dL (3.5-5.2); Alkaline Phosphatase 112 U/L (40-130); Anion Gap 13.3 (5-19); Aspartate Amino Transferase 19 U/L (0-40); Blood Urea Nitrogen 15 mg/dL (8-23); Calcium 9.3 mg/dL (8.5-10.5); Carbon Dioxide 25 mmol/L (22-29); Chloride 103 mmol/L (98-107); Creatinine Clr Calc Pharmacy 94.7160; Globulin 3.2 g/dL (1.3-4.6); Glucose 177 mg/dL (65-115); Osmolality Calculated 289 mOsm/kg (285-295); Potassium 4.3 mmol/L (3.5-5.1); Sodium 137 mmol/L (136-145); Total Protein 7.2 g/dL (6.6-8.7)
[2025-01-07 11:49] LABS: Hematocrit 34.0 % (37-53); Hemoglobin 11.10 g/dL (11.27-16.99); Mean Corpuscular HGB Conc 32.6 g/dL (30-55); Mean Corpuscular Hemoglobin 31.8 pg (27-33); Mean Corpuscular Volume 97.4 fl (82-101); Nucleated Red Blood Cells % 0 %; Platelet Count 114 10^3/cmm (157-399); Red Blood Count 3.49 10^6/uL (3.85-5.65); White Blood Count 3.36 10^3/uL (3.29-11.43)
[2025-01-07 12:12] LABS: Alanine Aminotransferase 16 U/L (0-41); Albumin Level 4.0 g/dL (3.5-5.2); Alkaline Phosphatase 106 U/L (40-130); Anion Gap 13.2 (5-19); Aspartate Amino Transferase 17 U/L (0-40); Blood Urea Nitrogen 26 mg/dL (8-23); Calcium 9.4 mg/dL (8.5-10.5); Carbon Dioxide 25 mmol/L (22-29); Chloride 104 mmol/L (98-107); Creatinine Clr Calc Pharmacy 94.1742; Globulin 3.1 g/dL (1.3-4.6); Glucose 181 mg/dL (65-115); Osmolality Calculated 295 mOsm/kg (285-295); Potassium 4.2 mmol/L (3.5-5.1); Sodium 138 mmol/L (136-145); Total Protein 7.1 g/dL (6.6-8.7)
[2025-01-07] MEDS: ondansetron 2 mg/ML SDV 2 mL 8 MG IVP (13:40)
[2025-01-07] MEDS: SODIUM CHLORIDE 0.9% IV (14:37)
[2025-01-07] MEDS: GEMCITABINE IV (14:37)
[2025-01-07 15:33] VITALS: BP 116/69; PULSE 60; RESP 17; TEMP 36.4; O2SAT 97
== END 2025-01-14 23:59 | disposition home or self-care (01) ==
PROVIDERS: Nurse Practitioner; PCP Nurse Practitioner; Visit Provider Internal Medicine Medical Oncology
DX: Z53.9 Procedure and treatment not carried out, unspecified reason; Z51.11 Encounter for antineoplastic chemotherapy; C34.01 Malignant neoplasm of right main bronchus; Z79.899 Other long term (current) drug therapy
CPT/HCPCS: 80053; 85025; 96375; 96413; 99213; 99214; J2405; J7050; J9201

== ENCOUNTER 2025-02-04 12:30 | Oncology outpatient (recurring) (ONCR) | payer OTHER, SELFPAY ==
[2025-01-21 12:12] LABS: Hematocrit 32.6 % (37-53); Hemoglobin 10.50 g/dL (11.27-16.99); Mean Corpuscular HGB Conc 32.2 g/dL (30-55); Mean Corpuscular Hemoglobin 31.4 pg (27-33); Mean Corpuscular Volume 97.6 fl (82-101); Nucleated Red Blood Cells % 0 %; Platelet Count 138 10^3/cmm (157-399); Red Blood Count 3.34 10^6/uL (3.85-5.65); White Blood Count 4.09 10^3/uL (3.29-11.43)
[2025-01-21 12:33] LABS: Alanine Aminotransferase 12 U/L (0-41); Albumin Level 3.9 g/dL (3.5-5.2); Alkaline Phosphatase 115 U/L (40-130); Anion Gap 14.5 (5-19); Aspartate Amino Transferase 17 U/L (0-40); Blood Urea Nitrogen 18 mg/dL (8-23); Calcium 9.1 mg/dL (8.5-10.5); Carbon Dioxide 24 mmol/L (22-29); Chloride 104 mmol/L (98-107); Creatinine Clr Calc Pharmacy 83.8562; Globulin 3.5 g/dL (1.3-4.6); Glucose 148 mg/dL (65-115); Osmolality Calculated 291 mOsm/kg (285-295); Potassium 4.5 mmol/L (3.5-5.1); Sodium 138 mmol/L (136-145); Total Protein 7.4 g/dL (6.6-8.7)
[2025-01-21] MEDS: ondansetron 2 mg/ML SDV 2 mL 8 MG IVP (12:59)
[2025-01-21] MEDS: GEMCITABINE IV (13:43)
[2025-01-21] MEDS: SODIUM CHLORIDE 0.9% IV (13:43)
[2025-01-21 14:44] VITALS: BP 118/65; PULSE 66; RESP 18; TEMP 36.7; O2SAT 96
[2025-01-28 12:32] LABS: Hematocrit 30.0 % (37-53); Hemoglobin 9.90 g/dL (11.27-16.99); Mean Corpuscular HGB Conc 33.0 g/dL (30-55); Mean Corpuscular Hemoglobin 31.6 pg (27-33); Mean Corpuscular Volume 95.8 fl (82-101); Nucleated Red Blood Cells % 0 %; Platelet Count 133 10^3/cmm (157-399); Red Blood Count 3.13 10^6/uL (3.85-5.65); White Blood Count 1.35 10^3/uL (3.29-11.43)
[2025-01-28 12:50] LABS: Alanine Aminotransferase 11 U/L (0-41); Albumin Level 3.9 g/dL (3.5-5.2); Alkaline Phosphatase 121 U/L (40-130); Anion Gap 16.3 (5-19); Aspartate Amino Transferase 19 U/L (0-40); Blood Urea Nitrogen 23 mg/dL (8-23); Calcium 9.2 mg/dL (8.5-10.5); Carbon Dioxide 24 mmol/L (22-29); Chloride 99 mmol/L (98-107); Creatinine Clr Calc Pharmacy 83.6547; Globulin 3.2 g/dL (1.3-4.6); Glucose 196 mg/dL (65-115); Osmolality Calculated 289 mOsm/kg (285-295); Potassium 4.3 mmol/L (3.5-5.1); Sodium 135 mmol/L (136-145); Total Protein 7.1 g/dL (6.6-8.7)
[2025-01-28 13:03] LABS: Slide Review Slide Review Perform
[2025-01-29 12:15] VITALS: BP 143/68
[2025-01-29 12:17] LABS: Hematocrit 30.0 % (37-53); Hemoglobin 9.70 g/dL (11.27-16.99); Mean Corpuscular HGB Conc 32.3 g/dL (30-55); Mean Corpuscular Hemoglobin 31.6 pg (27-33); Mean Corpuscular Volume 97.7 fl (82-101); Platelet Count 114 10^3/cmm (157-399); Red Blood Count 3.07 10^6/uL (3.85-5.65); White Blood Count 8.88 10^3/uL (3.29-11.43)
[2025-01-29 12:41] LABS: Slide Review Slide Review Perform
[2025-01-29 12:42] LABS: Total Cells Counted 100 (0-100)
[2025-01-29 12:58] LABS: Absolute Segmented Neutrophil 5.5 10/cmm (1.6-7.1)
[2025-01-29 12:59] LABS: Atypical Lymphs 0.0 % (0-5); Band Neutrophils Absolute 1.2 10^3/cmm (0.0-1.2); Giant Platelets Trace
[2025-02-04 12:27] LABS: Hematocrit 33.1 % (37-53); Hemoglobin 10.70 g/dL (11.27-16.99); Mean Corpuscular HGB Conc 32.3 g/dL (30-55); Mean Corpuscular Hemoglobin 31.5 pg (27-33); Mean Corpuscular Volume 97.4 fl (82-101); Nucleated Red Blood Cells % 0 %; Platelet Count 149 10^3/cmm (157-399); Red Blood Count 3.40 10^6/uL (3.85-5.65); White Blood Count 5.90 10^3/uL (3.29-11.43)
[2025-02-04 12:43] LABS: Alanine Aminotransferase 10 U/L (0-41); Albumin Level 3.9 g/dL (3.5-5.2); Alkaline Phosphatase 134 U/L (40-130); Anion Gap 17.5 (5-19); Aspartate Amino Transferase 19 U/L (0-40); Blood Urea Nitrogen 17 mg/dL (8-23); Calcium 9.2 mg/dL (8.5-10.5); Carbon Dioxide 23 mmol/L (22-29); Chloride 100 mmol/L (98-107); Creatinine Clr Calc Pharmacy 94.1116; Globulin 3.1 g/dL (1.3-4.6); Glucose 203 mg/dL (65-115); Osmolality Calculated 289 mOsm/kg (285-295); Potassium 4.5 mmol/L (3.5-5.1); Sodium 136 mmol/L (136-145); Total Protein 7.0 g/dL (6.6-8.7)
[2025-02-04] MEDS: ondansetron 2 mg/ML SDV 2 mL 8 MG IVP (14:38)
[2025-02-04] MEDS: gemcitabine 1,800 MG in sodium chloride 0.9% (100 ml) 100 ML 294.68 MG IV (15:23)
[2025-02-04 16:20] VITALS: BP 118/75; PULSE 75; RESP 17; TEMP 36.5; O2SAT 95
== END 2025-02-14 23:59 | disposition home or self-care (01) ==
PROVIDERS: Nurse Practitioner; PCP Nurse Practitioner; Visit Provider Internal Medicine Medical Oncology
DX: Z53.9 Procedure and treatment not carried out, unspecified reason (principal); Z51.11 Encounter for antineoplastic chemotherapy; C34.01 Malignant neoplasm of right main bronchus; C79.51 Secondary malignant neoplasm of bone; D70.1 Agranulocytosis secondary to cancer chemotherapy; T45.1X5A Adverse effect of antineoplastic and immunosuppressive drugs, initial encounter; Z79.899 Other long term (current) drug therapy; Z92.3 Personal history of irradiation; Z95.828 Presence of other vascular implants and grafts; Z87.891 Personal history of nicotine dependence
CPT/HCPCS: 36591; 80053; 85007; 85025; 96372; 96375; 96413; 99214; J2405; J7050; J9201; Q5101

== ENCOUNTER 2025-03-11 13:30 | Oncology outpatient (recurring) (ONCR) | payer OTHER, SELFPAY ==
[2025-02-18 09:38] LABS: Hematocrit 32.9 % (37-53); Hemoglobin 10.50 g/dL (11.27-16.99); Mean Corpuscular HGB Conc 31.9 g/dL (30-55); Mean Corpuscular Hemoglobin 31.2 pg (27-33); Mean Corpuscular Volume 97.6 fl (82-101); Nucleated Red Blood Cells % 0 %; Platelet Count 159 10^3/cmm (157-399); Red Blood Count 3.37 10^6/uL (3.85-5.65); White Blood Count 3.35 10^3/uL (3.29-11.43)
[2025-02-18 09:51] LABS: Alanine Aminotransferase 20 U/L (0-41); Albumin Level 3.8 g/dL (3.5-5.2); Alkaline Phosphatase 132 U/L (40-130); Anion Gap 15.2 (5-19); Aspartate Amino Transferase 31 U/L (0-40); Blood Urea Nitrogen 17 mg/dL (8-23); Calcium 9.1 mg/dL (8.5-10.5); Carbon Dioxide 23 mmol/L (22-29); Chloride 102 mmol/L (98-107); Globulin 3.2 g/dL (1.3-4.6); Glucose 162 mg/dL (65-115); Osmolality Calculated 287 mOsm/kg (285-295); Potassium 4.2 mmol/L (3.5-5.1); Sodium 136 mmol/L (136-145); Total Protein 7.0 g/dL (6.6-8.7)
[2025-02-18] MEDS: ondansetron 2 mg/ML SDV 2 mL 8 MG IVP (10:28)
[2025-02-18 10:33] VITALS: BP 117/63; PULSE 61; RESP 17; TEMP 36.8; O2SAT 95
[2025-02-18] MEDS: gemcitabine 1,800 MG in sodium chloride 0.9% (100 ml) 100 ML 294.68 MG IV (11:21)
[2025-02-18 12:25] VITALS: BP 127/55; PULSE 78; RESP 18; TEMP 36.8; O2SAT 90
[2025-02-18] MEDS: FLU VACC TS2025-26(6MOS UP)/PF 45 MCG/0.5 ML SYRINGE IM (12:28)
[2025-02-25 09:28] LABS: Hematocrit 31.8 % (37-53); Hemoglobin 10.30 g/dL (11.27-16.99); Mean Corpuscular HGB Conc 32.4 g/dL (30-55); Mean Corpuscular Hemoglobin 31.5 pg (27-33); Mean Corpuscular Volume 97.2 fl (82-101); Nucleated Red Blood Cells % 0 %; Platelet Count 160 10^3/cmm (157-399); Red Blood Count 3.27 10^6/uL (3.85-5.65); White Blood Count 1.67 10^3/uL (3.29-11.43)
[2025-02-25 09:50] LABS: Slide Review Slide Review Perform
[2025-02-25 10:03] LABS: Alanine Aminotransferase 20 U/L (0-41); Albumin Level 3.8 g/dL (3.5-5.2); Alkaline Phosphatase 148 U/L (40-130); Anion Gap 15.2 (5-19); Aspartate Amino Transferase 23 U/L (0-40); Blood Urea Nitrogen 16 mg/dL (8-23); Calcium 9.3 mg/dL (8.5-10.5); Carbon Dioxide 23 mmol/L (22-29); Chloride 100 mmol/L (98-107); Globulin 3.4 g/dL (1.3-4.6); Glucose 156 mg/dL (65-115); Osmolality Calculated 282 mOsm/kg (285-295); Potassium 4.2 mmol/L (3.5-5.1); Sodium 134 mmol/L (136-145); Total Protein 7.2 g/dL (6.6-8.7)
--- NOTE | 2025-02-28 10:00 | PETR_ITS ---
PROCEDURE INFORMATION: Exam: PET/CT Skull Base to Mid-thigh Exam date and time: 02/28/2025 10:58 AM Age: 74 years old Clinical indication: Condition or disease; Primary cancer: Adenocarcinoma of hilum of right lung; Prior surgery; Surgery date: 6+ months; Surgery type: --cspine LABS AND CLINICAL REPORTS: Glucose: 185 mg/dl Treatment strategy for malignancy (PET staging): Restaging (PS) TECHNIQUE: Imaging protocol: Following at least four-hour fasting and following the injection of radiopharmaceutical, low dose CT images were obtained. Then, PET images were obtained. Attenuation corrected images were constructed using the CT scan. Fused images of PET and CT were reviewed. The standardized uptake values (SUV) reported below are maximum values within a region of interest, expressed in gm/ml. Exam includes orbital meatal line to mid-thigh. SUV normalization method: BodyWeight Radiopharmaceutical: 11.13 mCi F-18 FDG (Fluorodeoxyglucose), IV. Time of imaging post radiopharmaceutical administration: 46 minutes Injection site: left ac COMPARISON: PT PET skull to thigh SUBS [id number] 11/29/2024 3:45 PM FINDINGS: Tubes, catheters and devices: Left chest wall chemo port with tip at the cavoatrial junction. Brain: Visualized brain has normal physiologic uptake. Pharynx: No abnormal uptake. Larynx: No abnormal uptake. Lungs, pleura and trachea: New non FDG avid 1.0 cm medial right middle lobe pulmonary nodule and 4 mm medial left basilar pulmonary nodule (this nodule is below PET resolution). Mild increase in size of a now moderate sized pleural effusion. Heart: Normal physiologic uptake. Severe coronary artery and aortic valvular calcifications. Moderate mitral annular calcifications. Mediastinal space: No abnormal uptake. Liver: New multifocal bilobar FDG avid hepatic masses measuring up to 5.0 cm in the medial left hepatic lobe, maximum SUV 6.3. Masses involving bilateral hepatic lobes and there appear to be more than 15 masses visualized, not well assessed on this noncontrast examination. Gallbladder and biliary ducts: No abnormal uptake. Pancreas: No abnormal uptake. Spleen: No abnormal uptake. Adrenal glands: No abnormal uptake. Kidneys and ureters: Normal physiologic uptake. Non FDG avid bilateral simple cysts. Nonobstructive right-sided nephrolithiasis. Stomach and bowel: No abnormal uptake. Colonic diverticulosis without evidence of diverticulitis. Vasculature: No abnormal uptake. Right femoral bypass graft postoperative changes. Lymph nodes: Overall increased FDG avid lymphadenopathy in the right supraclavicular region and throughout the right hilum, right paratracheal and mediastinal spaces and the subcarinal region. Right hilar mass now measures approximately 3.2 cm (previously 2.3 cm when measured in a similar fashion), with maximum SUV 6.4 previously 4.8). Skeleton: Increased multifocal osseous metastases now seen involving the clivus, the cervical, thoracic and lumbar spine with multilevel pathologic compression fractures, the sternum, multiple bilateral ribs, the right scapula, the right femur and the bony pelvis. Maximum SUV 7.2 obtained from the right iliac bone. Soft tissues: No abnormal soft tissue uptake. METRICS: Mediastinal blood pool: Mean SUV of 2.3 Liver uptake: Mean SUV of 2.7. PET/PET skull to thigh SUBS [id number] IMPRESSION: 1. Compared to the prior PET-CT from 11/29/2024, there has been significant interval progression of metastatic disease, including increased FDG avid mediastinal, right hilar and right supraclavicular lymphadenopathy, diffuse FDG avid osseous metastases, as well as new multifocal bilobar hepatic metastases. 2. New bilateral pulmonary nodules, non FDG avid but remains suspicious for metastases. Close attention on interval follow-up is recommended. 3. Mild increase in size of a now moderate sized right-sided pleural effusion.
[2025-03-04 09:34] LABS: Hematocrit 32.1 % (37-53); Hemoglobin 10.10 g/dL (11.27-16.99); Mean Corpuscular HGB Conc 31.5 g/dL (30-55); Mean Corpuscular Hemoglobin 30.6 pg (27-33); Mean Corpuscular Volume 97.3 fl (82-101); Nucleated Red Blood Cells % 0 %; Platelet Count 183 10^3/cmm (157-399); Red Blood Count 3.30 10^6/uL (3.85-5.65); White Blood Count 5.62 10^3/uL (3.29-11.43)
[2025-03-04 09:47] LABS: Alanine Aminotransferase 11 U/L (0-41); Albumin Level 3.8 g/dL (3.5-5.2); Alkaline Phosphatase 152 U/L (40-130); Anion Gap 17.3 (5-19); Aspartate Amino Transferase 24 U/L (0-40); Blood Urea Nitrogen 16 mg/dL (8-23); Calcium 9.7 mg/dL (8.5-10.5); Carbon Dioxide 23 mmol/L (22-29); Chloride 101 mmol/L (98-107); Globulin 3.3 g/dL (1.3-4.6); Glucose 162 mg/dL (65-115); Osmolality Calculated 289 mOsm/kg (285-295); Potassium 4.3 mmol/L (3.5-5.1); Sodium 137 mmol/L (136-145); Total Protein 7.1 g/dL (6.6-8.7)
[2025-03-11 13:34] LABS: Hematocrit 32.9 % (37-53); Hemoglobin 10.40 g/dL (11.27-16.99); Mean Corpuscular HGB Conc 31.6 g/dL (30-55); Mean Corpuscular Hemoglobin 30.2 pg (27-33); Mean Corpuscular Volume 95.6 fl (82-101); Nucleated Red Blood Cells % 0 %; Platelet Count 228 10^3/cmm (157-399); Red Blood Count 3.44 10^6/uL (3.85-5.65); White Blood Count 3.82 10^3/uL (3.29-11.43)
[2025-03-11 13:57] LABS: Alanine Aminotransferase 15 U/L (0-41); Albumin Level 3.8 g/dL (3.5-5.2); Alkaline Phosphatase 191 U/L (40-130); Anion Gap 14.4 (5-19); Aspartate Amino Transferase 33 U/L (0-40); Blood Urea Nitrogen 14 mg/dL (8-23); Calcium 9.4 mg/dL (8.5-10.5); Carbon Dioxide 26 mmol/L (22-29); Chloride 98 mmol/L (98-107); Globulin 3.6 g/dL (1.3-4.6); Glucose 133 mg/dL (65-115); Magnesium 2.0 mg/dL (1.7-2.3); Osmolality Calculated 280 mOsm/kg (285-295); Potassium 4.4 mmol/L (3.5-5.1); Sodium 134 mmol/L (136-145); Total Protein 7.4 g/dL (6.6-8.7)
[2025-03-11] MEDS: ondansetron 2 mg/ML SDV 2 mL 8 MG IVP (15:50)
[2025-03-11] MEDS: dexamethasone 4 mg/mL INJ 5 mL 12 MG IVP (15:55)
[2025-03-11] MEDS: denosumab 120 mg SDV (Infusion Clinic Only) SUBCUT (15:59)
[2025-03-11 17:14] VITALS: BP 136/70; PULSE 83; O2SAT 95
== END 2025-03-11 23:59 | disposition home or self-care (01) ==
PROVIDERS: PCP Nurse Practitioner; Visit Provider Internal Medicine Medical Oncology
DX: Z53.9 Procedure and treatment not carried out, unspecified reason (principal); Z51.11 Encounter for antineoplastic chemotherapy; C34.01 Malignant neoplasm of right main bronchus; D70.1 Agranulocytosis secondary to cancer chemotherapy; T45.1X5A Adverse effect of antineoplastic and immunosuppressive drugs, initial encounter; Z79.899 Other long term (current) drug therapy; Z87.891 Personal history of nicotine dependence
CPT/HCPCS: 78815; 80053; 82306; 83735; 85025; 90471; 90656; 96372; 96375; 96413; 99214; 99215; A9552; J0897; J1100; J2405; J7050; J9201; J9264

== ENCOUNTER 2025-04-02 08:00 | Oncology outpatient (recurring) (ONCR) | payer OTHER, SELFPAY ==
[2025-03-18 09:12] LABS: Hematocrit 31.3 % (37-53); Hemoglobin 9.90 g/dL (11.27-16.99); Mean Corpuscular HGB Conc 31.6 g/dL (30-55); Mean Corpuscular Hemoglobin 29.8 pg (27-33); Mean Corpuscular Volume 94.3 fl (82-101); Nucleated Red Blood Cells % 0 %; Platelet Count 184 10^3/cmm (157-399); Red Blood Count 3.32 10^6/uL (3.85-5.65); White Blood Count 3.70 10^3/uL (3.29-11.43)
[2025-03-18 09:33] LABS: Alanine Aminotransferase 15 U/L (0-41); Albumin Level 3.6 g/dL (3.5-5.2); Alkaline Phosphatase 188 U/L (40-130); Anion Gap 15.4 (5-19); Aspartate Amino Transferase 20 U/L (0-40); Blood Urea Nitrogen 11 mg/dL (8-23); Calcium 8.5 mg/dL (8.5-10.5); Carbon Dioxide 23 mmol/L (22-29); Chloride 102 mmol/L (98-107); Globulin 3.0 g/dL (1.3-4.6); Glucose 241 mg/dL (65-115); Osmolality Calculated 289 mOsm/kg (285-295); Potassium 4.4 mmol/L (3.5-5.1); Sodium 136 mmol/L (136-145); Total Protein 6.6 g/dL (6.6-8.7)
[2025-03-18] MEDS: ondansetron 2 mg/ML SDV 2 mL 8 MG IVP (10:56)
[2025-03-18] MEDS: dexamethasone 4 mg/mL INJ 5 mL 12 MG IVP (11:00)
[2025-03-18 13:17] VITALS: BP 142/79; PULSE 80; RESP 18; TEMP 36.6; O2SAT 98
[2025-03-25 09:36] LABS: Hematocrit 29.6 % (37-53); Hemoglobin 9.50 g/dL (11.27-16.99); Mean Corpuscular HGB Conc 32.1 g/dL (30-55); Mean Corpuscular Hemoglobin 30.0 pg (27-33); Mean Corpuscular Volume 93.4 fl (82-101); Nucleated Red Blood Cells % 0 %; Platelet Count 176 10^3/cmm (157-399); Red Blood Count 3.17 10^6/uL (3.85-5.65); White Blood Count 1.74 10^3/uL (3.29-11.43)
[2025-03-25 09:56] LABS: Alanine Aminotransferase 15 U/L (0-41); Albumin Level 3.8 g/dL (3.5-5.2); Alkaline Phosphatase 200 U/L (40-130); Anion Gap 14.7 (5-19); Aspartate Amino Transferase 30 U/L (0-40); Blood Urea Nitrogen 16 mg/dL (8-23); Calcium 8.5 mg/dL (8.5-10.5); Carbon Dioxide 22 mmol/L (22-29); Chloride 102 mmol/L (98-107); Globulin 3.0 g/dL (1.3-4.6); Glucose 160 mg/dL (65-115); Osmolality Calculated 283 mOsm/kg (285-295); Potassium 4.7 mmol/L (3.5-5.1); Sodium 134 mmol/L (136-145); Total Protein 6.8 g/dL (6.6-8.7)
[2025-03-25 16:01] LABS: Thyroid Stimulating Hormone 5.05 uIU/mL (0.27-4.20)
[2025-03-25 17:12] LABS: Free T4 Free Thyroxine 1.24 ng/dL (0.82-1.77)
[2025-04-01 08:18] LABS: Hematocrit 33.1 % (37-53); Hemoglobin 10.40 g/dL (11.27-16.99); Mean Corpuscular HGB Conc 31.4 g/dL (30-55); Mean Corpuscular Hemoglobin 30.1 pg (27-33); Mean Corpuscular Volume 95.7 fl (82-101); Nucleated Red Blood Cells % 0 %; Platelet Count 184 10^3/cmm (157-399); Red Blood Count 3.46 10^6/uL (3.85-5.65); White Blood Count 2.56 10^3/uL (3.29-11.43)
[2025-04-01 08:35] LABS: Alanine Aminotransferase 17 U/L (0-41); Albumin Level 4.0 g/dL (3.5-5.2); Alkaline Phosphatase 213 U/L (40-130); Anion Gap 16.7 (5-19); Aspartate Amino Transferase 27 U/L (0-40); Blood Urea Nitrogen 14 mg/dL (8-23); Calcium 8.6 mg/dL (8.5-10.5); Carbon Dioxide 23 mmol/L (22-29); Chloride 99 mmol/L (98-107); Globulin 3.0 g/dL (1.3-4.6); Glucose 135 mg/dL (65-115); Osmolality Calculated 281 mOsm/kg (285-295); Potassium 4.7 mmol/L (3.5-5.1); Sodium 134 mmol/L (136-145); Total Protein 7.0 g/dL (6.6-8.7)
[2025-04-01] MEDS: ondansetron 2 mg/ML SDV 2 mL 8 MG IVP (10:44)
[2025-04-01] MEDS: dexamethasone 4 mg/mL INJ 5 mL 12 MG IVP (10:48)
[2025-04-01] MEDS: paclitaxel protein-bound 190 MG in empty flexible container 1 EACH 76 MG IV (11:33)
[2025-04-01 12:18] VITALS: BP 118/62; PULSE 61; TEMP 36.2; O2SAT 92
== END 2025-04-02 09:30 | disposition home or self-care (01) ==
PROVIDERS: Nurse Practitioner; PCP Nurse Practitioner; Visit Provider Nurse Practitioner Family
DX: D70.1 Agranulocytosis secondary to cancer chemotherapy; T45.1X5A Adverse effect of antineoplastic and immunosuppressive drugs, initial encounter; Z79.899 Other long term (current) drug therapy; Z53.9 Procedure and treatment not carried out, unspecified reason
CPT/HCPCS: 11102; 80053; 84439; 84443; 84481; 85025; 96372; 96375; 96413; 99214; 99215; J1100; J2405; J7050; J9264; Q5101

== ENCOUNTER 2025-04-08 08:45 | Oncology outpatient (recurring) (ONCR) | payer OTHER, SELFPAY ==
[2025-04-03] MEDS: ondansetron 2 mg/ML SDV 2 mL 8 MG IVP (13:49)
[2025-04-03 14:57] VITALS: BP 100/65; PULSE 81; RESP 17; TEMP 36.6; O2SAT 94
[2025-04-04 10:35] VITALS: BP 114/68; PULSE 73; RESP 17; TEMP 36.7; O2SAT 99
[2025-04-04 11:27] VITALS: BP 104/70; PULSE 76; RESP 18; TEMP 36.6; O2SAT 99
[2025-04-08 09:04] LABS: Hematocrit 35.3 % (37-53); Hemoglobin 11.20 g/dL (11.27-16.99); Mean Corpuscular HGB Conc 31.7 g/dL (30-55); Mean Corpuscular Hemoglobin 29.9 pg (27-33); Mean Corpuscular Volume 94.4 fl (82-101); Nucleated Red Blood Cells % 0.2 %; Platelet Count 188 10^3/cmm (157-399); Red Blood Count 3.74 10^6/uL (3.85-5.65); White Blood Count 11.36 10^3/uL (3.29-11.43)
[2025-04-08 09:20] LABS: Alanine Aminotransferase 15 U/L (0-41); Albumin Level 3.2 g/dL (3.5-5.2); Alkaline Phosphatase 154 U/L (40-130); Anion Gap 21.4 (5-19); Aspartate Amino Transferase 35 U/L (0-40); Blood Urea Nitrogen 26 mg/dL (8-23); Calcium 7.9 mg/dL (8.5-10.5); Carbon Dioxide 17 mmol/L (22-29); Chloride 95 mmol/L (98-107); Globulin 3.3 g/dL (1.3-4.6); Glucose 201 mg/dL (65-115); Osmolality Calculated 278 mOsm/kg (285-295); Potassium 4.4 mmol/L (3.5-5.1); Sodium 129 mmol/L (136-145); Total Protein 6.5 g/dL (6.6-8.7)
[2025-04-08 11:29] VITALS: BP 112/63; PULSE 75; RESP 17; TEMP 36.7
== END 2025-04-16 23:59 | disposition home or self-care (01) ==
PROVIDERS: Internal Medicine Medical Oncology; PCP Nurse Practitioner; Visit Provider Nurse Practitioner Family
DX: C34.01 Malignant neoplasm of right main bronchus; C79.51 Secondary malignant neoplasm of bone; D70.1 Agranulocytosis secondary to cancer chemotherapy; T45.1X5A Adverse effect of antineoplastic and immunosuppressive drugs, initial encounter; E86.0 Dehydration; R07.89 Other chest pain; Z95.828 Presence of other vascular implants and grafts; Z92.3 Personal history of irradiation; Z79.899 Other long term (current) drug therapy; Z53.9 Procedure and treatment not carried out, unspecified reason
CPT/HCPCS: 80053; 85025; 96360; 96372; 96375; 96402; 99214; J2405; J7030; J9999; Q5101

== ENCOUNTER 2025-04-11 23:14 | Emergency (ER) | payer OTHER, SELFPAY ==
--- OUTSIDE RECORDS SUMMARY | 2025-02-20 07:45 | XMS_ITS ---
Author Organization [facility] Address [address] [place] [address] Care Team Providers Care Office Agent Name Role Phone No Luna Primary Care Provid er Unavailable Naresh Swanson Unavailable [phone] [place], [place] Unavailable Unavailable REASON FOR VISIT 6M F/U PER JENIFER OV 08/28/24 TD Encounters Encounter Location Date Provider Diagnosis [facility] [address] [place] [phone] 02/20/2025 Naresh Swanson Plan Of Treatment Next Appt Details Provider Name:Dereck bowman, 05/28/2025 01:45:00 PM, [address] [place] [address] [address], [place], [phone], Provider Name:Diego abraham, 05/28/2025 02:00:00 PM, [address] [place] [address] [place], [phone], Provider Name:Naresh cardozo, 08/20/2025 01:15:00 PM, [address] [place] [address], [phone], Progress Notes * NANCY UREÑA MDOB: 8 (75 yo M)Acc No.[id number]:02/20/2025 Progress Notes Patient: Shaheed CLEMENTEAMANDANANCY M Provider: Robert Swanson MD :1950 A ge:74 Y S ex:Male Date:02/20/2025 Address:[address] [place] [address], [place] [phone] Pcp:No Marinelli -[facility]AL[facility], [facility] Subjective: * Chief Complaints: * 6 M F/U PER JENIFER OV 08/28/24 TD Care Plan Details* * Electronic signature of Say Swanson MD on 04/11/2025 at 11:27 PM MACHINE PECAN PICKER Sign off status: Pending * Provider: Robert Swanson MD Date: 04/22/2024 Generated for Xavi coburn/Nando/eTransmitting on: 06/12/2024 11:27 PM MACHINE PECAN PICKER
--- OUTSIDE RECORDS SUMMARY | 2025-03-17 07:15 | XMS_ITS ---
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 Encounters Encounter Location Date Provider Diagnosis [facility] [address] [place] [phone] 03/17/2025 Ze Comer Plan Of Treatment Next Appt Details Provider Name:Dereck bowman, 05/28/2025 01:45:00 PM, [address] [place] [address] [address], [place], [phone], Provider Name:Diego abraham, 05/28/2025 02:00:00 PM, [address] [place] [address] [address], [place], [phone], Provider Name:Naresh cardozo, 08/20/2025 01:15:00 PM, [address] [place], [phone], Progress Notes * NANCY UREÑA MDOB: 8 (75 yo M)Acc No.[id number]:03/17/2025 Progress Notes Patient: Shaheed NANCY CORNEJO Provider: Melecio Comer MD :1950 A ge:75 Y S ex:Male Date:03/17/2025 Address:[address] [place] [address], [place] [phone] Pcp:No WOOD, 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
--- OUTSIDE RECORDS SUMMARY | 2025-03-27 07:00 | XMS_ITS ---
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 Encounters Encounter Location Date Provider Diagnosis [facility] Internal Medicine & Infectious Disease [address] [place] [phone] 03/27/2025 Ze Comer Plan Of Treatment Next Appt Details Provider Name:Dereck bowman, 05/28/2025 01:45:00 PM, [address] [place] [address] [place], [place], [address], Provider Name:Diego abraham, 05/28/2025 02:00:00 PM, [address] [place] [address] [place], [place], [address], Provider Name:Naresh cardozo, 08/20/2025 01:15:00 PM, [address] [place] [address], [place], [phone], Progress Notes * NANCY UREÑA MDOB: [birth year] (75 yo M)Acc No.[id number]:03/27/2025 Progress Notes Patient: Shaheed NANCY CORNEJO Provider: Melecio Comer MD :1950 A ge:75 Y S ex:Male Date:03/27/2025 Address:[address] [place] [address], Lesa PLATA [phone] Pcp:No [facility] Subjective: * Chief Complaints: * [id number] 4 week f/u - 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
--- NOTE | 2025-04-11 23:11 | XRR_ITS ---
PROCEDURE INFORMATION: Exam: XR Chest Exam date and time: 04/11/2025 11:20 PM Age: 75 years old Clinical indication: Shortness of breath; Prior surgery; Surgery date: 6+ months; Surgery type: Port-a-cath; Additional info: Dyspnea/cough TECHNIQUE: Imaging protocol: Radiologic exam of the chest. Views: 1 view. COMPARISON: 1. CT chest abdpel w/*[id number] 02/20/2024 2:23 PM 2. CR XR chest 1V portable [id number] 08/18/2023 1:08 PM FINDINGS: Tubes, catheters and devices: Left chest wall port infusion catheter. Lungs: Low lung volumes with basilar atelectasis and compressive changes. No pulmonary consolidation. Pleural spaces: No pleural effusion or pneumothorax. Heart/Mediastinum: Heart size is within normal limits. Bones/joints: No acute osseous abnormalities are seen. XR/XR chest 1V portable [id number] IMPRESSION: No acute findings.
[2025-04-11 23:16] VITALS: PULSE 64; RESP 28; TEMP 36.5; O2SAT 78; BMI 20.5
--- NOTE | 2025-04-11 23:20 | ECG_ITS ---
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
--- OUTSIDE RECORDS SUMMARY | 2025-04-11 23:27 | XMS_ITS | Clinical Summary ---
Author Organization [facility] [address] Address [address] [place] [address] Care Team Providers Care Professor Of Forest Planning Name Role Phone Roberto Soares MD Primary Care Provider + Allergies Active Allergy Reactions Criticality Noted Date Comments Ceftriaxone Anaphylaxis High 11/05/2015 Chlorhexidine Rash Low 03/15/2019 Lisinopril Cough Low 09/19/2012 Oxycodone-Acetaminophen Nausea and Vomiting Low 03/2015 Medications tamsulosin (FLOMAX) 0.4 mg capsule Take 0.4 mg by mouth daily at bedtime. 0 Active rivaroxaban (Xarelto) 2.5 mg Tablet Take 1 Tablet (2.5 mg) by mouth 2 times daily. 60 Tablet 6 1 Active atenoloL (TENORMIN) 25 mg tablet Take 1 Tablet by mouth daily. 2 Active cholecalciferol, Vitamin D3, 50 mcg (2,000 unit) Tablet Take 50 mcg by mouth. 2 Active tadalafiL (CIALIS) 20 mg tablet Take 1 Tablet by mouth Continuous as needed. 2 Active aspirin (ECOTRIN EC) 81 mg Tablet, Delayed Release (E.C.) Take 81 mg by mouth daily. 6 Active amLODIPine (NORVASC) 10 mg tablet Take 10 mg by mouth daily 1/2 tab daily . 6 Active atorvastatin (LIPITOR) 40 mg tabletIndications: Hyperlipidemia, unspecified hyperlipidemia type Take 1 Tablet (40 mg) by mouth daily. 100 Tablet 3 3 Active Active Problems Problem Noted Date Diagnosed Date Bilateral leg edema 11/05/2015 PVD (peripheral vascular disease) with claudicat ion 11/05/2015 Overview (08/13/2020): Left foot. PAD (peripheral artery disease) HTN (hypertension) Neuropathy HLD (hyperlipidemia) Depression Resolved Problems Problem Noted Date Diagnosed Date Resolved Date Cigarette dependence 11/05/2015 021 Tobacco use 11/05/2015 06/16/2020 Peripheral vascular disease of lower extremity with ulceration 11/05/2015 06/16/2020 Family History Medical History Relation Name Comments Diabetes Other everyone Relation Name Status Comments Other Social History Tobacco Use Types Packs/Day Years Used Date Smoking Tobacco: Former Cigarettes 1 Q uit: 06/16/2017 Smokeless Tobacco: Never Tobacco Cessation:Counseling Given: Not Answered Comments:Quit smokin years/ Alcohol Use Standard Drinks/Week Comments Not Asked 0 (1 standard drink = 0.6 oz pur e alcohol) Sex and Gender Information Value Date Recorded Sex Assigned at Not on file Legal 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 Gender Identity Not on file Sexual Orientation Not on file Last Filed Vital Signs Vital Sign Reading Time Taken Comments Blood Pressure 128/62 06/13/2023 1:06 PM BASS VIOL REPAIRER Pulse 65 06/13/2023 1:06 PM BASS VIOL REPAIRER Temperature 36.6 C (97.8 F) 07/10/2020 10:12 AM CDT Respiratory Rate 16 10/05/2021 2:40 PM CDT Oxygen Saturation 95% 06/13/2023 1:06 PM BASS VIOL REPAIRER Inhaled Oxygen Concentration - - Weight 98.9 kg (218 lb) 06/13/2023 1:06 PM BASS VIOL REPAIRER Height 188 cm (6' 2 ) 06/13/2023 1:06 PM BASS VIOL REPAIRER Body Mass Index 27.99 06/13/2023 1:06 PM BASS VIOL REPAIRER Plan of Treatment Health Maintenance Due Date Last Done Comments DIABETES ANNUAL FOOT EXAM 1966 DIABETES MICROALBUMIN ANNUAL SCREEN 1966 DIABETES ANNUAL RETINAL EXAM 08/07/2015 08/06/2014, 08/06/2014 LDL CHOLESTEROL ANNUAL 04/30/2016 6, 07/30/2014, 07/30/2014 DTAP/TDAP/TD VACCINES (2 - T d or Tdap) 04/17/2020 04/17/2010, 04/17/1999 RSV VACCINE (60+ or ) (1 - 1-dose 75+ series) 2023 DIABETES HBA1C Q 6 MONTHS 09/29/2023 03/30/2023 INFLUENZA VACCINE (#1) 2024 3, 03/01/2022, 01/13/2021, Additional history exists PNEUMOCOCCAL VACCINE 50+ YEARS Completed 0 05/07/2020, 05/14/2019, 12/16/2016, Additional history exists ZOSTER VACCINE Completed 12/15/2020, 12/16, 08/25/2014 Medical Devices Implanted Type Area Supply Chain Associate Device Identifier Shelf Expiration Date Model / Serial / Lot Angio-Seal Vip Closure Dev [id number] - [id number] Implanted:Qty : 1 on 07/10/2020 Closure Device Left: Groin YEE [employer] 04/16/2021 [id number] / / [id number] Stent Lifestent 5fr 135cm [id number] - [id number] Implanted:Qty : 1 on 07/10/2020 Stent Right: Leg CR [employer] 02/23/2023 [id number] / / [id number] Procedures Procedure Name Priority Date/Time Associated Diagnosis Comments LIPID PANEL Routine 04/30/2015 DIABETES EYE EXAM 08/06/2014 12:00 AM CDT from Last 3 Months or Most Recently Relevant to Health Maintenance Results * LIPID PANEL (04/30/2015) ABSTRACTED CHOLESTEROL 149 EXTERNAL LAB ABSTRACTED TRIGLYCERIDE 193 EXTERNAL LAB ABSTRACTED HDL 28 EXTERNAL LAB ABSTRACTED LDL CALCULATED 82 EXTERNAL LAB CHOLESTEROL EXTERNAL LAB CHOLESTEROL EXTERNAL LAB TRIGLYCERIDE EXTERNAL LAB TRIGLYCERIDE EXTERNAL LAB HDL EXTERNAL LAB HDL EXTERNAL LAB LDL CALCULATED EXTERNAL LAB LDL CALCULATED EXTERNAL LAB CALCULATED LDL CHOLESTEROL EXTERNAL LAB CALCULATED TOTAL CHOLESTEROL TO HDL RATIO EXTERNAL LAB CHOL/HDL RATIO EXTERNAL LAB VLDL-3 (REMNANT LIPO) EXTERNAL LAB LIPID PANEL COMMENT EXTERNAL LAB RISK FACTOR EXTERNAL LAB RESULT COMMENT, CHEMISTRY EXTERNAL LAB Blood 04/30/2015 Narrative EXTERNAL LAB - 04/30/2015 12:00 AM BASS VIOL REPAIRER This order was created through External Result Entry us Abstract Spg Provider CHEMISTRY ORDERABLES Final Result EXTERNAL LAB * DIABETES EYE EXAM (08/06/2014 12:00 AM CDT) Sg Scanning HEALTH MAINTENANCE Final Result from Last 3 Months or Most Recently Relevant to Health Maintenance Insurance [facility] DUAL [facility] [id number] [facility] [id number] [facility] [employer] * Guarantor: [facility] [employer] Account Type Relation to Patient Date of Phone Billing Address Corporate Other DEFAULT ADDRESS [address] [employer] * Guarantor: [facility] Account Type Relation to Patient Date of Phone Billing Address [facility] Other DEFAULT ADDRESS [address] [employer] Care Teams Professor Of Forest Planning Relationship Specialty Start Date End Date Roberto Soares MD [address] [facility] [place] [address] PCP - General Family Practice 12/15/16
--- OUTSIDE RECORDS SUMMARY | 2025-04-11 23:27 | XMS_ITS | Clinical Summary ---
Author Organization [facility] [address] Address [address] [place] [address] Care Team Providers Care Meat Boner Name Role Phone Roberto Soares MD Primary Care Provider + Allergies Active Allergy Reactions Criticality Noted Date Comments Ceftriaxone Anaphylaxis High 11/05/2015 Medications amLODIPine (NORVASC) 10 mg tablet Take 10 mg by mouth daily 1/2 tab daily . Active aspirin (ECOTRIN EC) 81 mg Tablet, Delayed Release (E.C.) Take 81 mg by mouth daily. Active terbinafine HCl (LamISIL) 250 mg tablet Take 1 Tablet (250 mg) by mouth daily. 30 Tablet 2 09/30/2016 Active tamsulosin (FLOMAX) 0.4 mg capsule Take 0.4 mg by mouth daily at bedtime. 04/16/2020 Active rivaroxaban (Xarelto) 2.5 mg Tablet Take 1 Tablet (2.5 mg) by mouth 2 times daily. 60 Tablet 6 06/16/2020 Active Active Problems Problem Noted Date Diagnosed Date PVD (peripheral vascular disease) with claudicat ion 11/05/2015 Overview (11/05/2015): Left foot. Bilateral leg edema 11/05/2015 HTN (hypertension) HLD (hyperlipidemia) PAD (peripheral artery disease) Neuropathy Depression Resolved Problems Problem Noted Date Diagnosed Date Resolved Date Tobacco use 11/05/2015 06/16/2020 Cigarette dependence 11/05/2015 021 Peripheral vascular disease of lower extremity with ulceration 11/05/2015 06/16/2020 Family History Medical History Relation Name Comments Diabetes Other everyone Relation Name Status Comments Other Social History Tobacco Use Types Packs/Day Years Used Date Smoking Tobacco: Former Cigarettes 1 Q uit: 06/16/2017 Smokeless Tobacco: Never Comments:50 years/ Alcohol Use Standard Drinks/Week Comments Not Asked 0 (1 standard drink = 0.6 oz pur e alcohol) Sex and Gender Information Value Date Recorded Sex Assigned at Not on file 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 Gender Identity Not on file Sexual Orientation Not on file Last Filed Vital Signs Vital Sign Reading Time Taken Comments Blood Pressure 130/69 10/02/2020 11:30 AM CDT Pulse 59 10/02/2020 11:30 AM CDT Temperature 36.6 C (97.8 F) 10/02/2020 6:51 AM CDT Respiratory Rate 16 10/02/2020 6:51 AM CDT Oxygen Saturation 93% 10/02/2020 11:30 AM CDT Inhaled Oxygen Concentration - - Weight 110.7 kg (244 lb) 10/02/2020 6:51 AM CDT Height 188 cm (6' 2 ) 10/02/2020 6:51 AM CDT Body Mass Index 31.33 10/02/2020 6:51 AM CDT Plan of Treatment Health Maintenance Due Date Last Done Comments DIABETES ANNUAL FOOT EXAM 1966 DIABETES MICROALBUMIN ANNUAL SCREEN 1966 ZOSTER VACCINE (1 of 2) 1998 DIABETES ANNUAL RETINAL EXAM 08/07/2015 08/06/2014 DIABETES HBA1C Q 6 MONTHS 10/29/2015 04/30/2015 LDL CHOLESTEROL ANNUAL 04/30/2016 6, 07/30/2014, 07/30/2014, Additional history exists DTAP/TDAP/TD VACCINES (2 - T d or Tdap) 04/17/2020 04/17/2010 RSV VACCINE (60+ or ) (1 - 1-dose 75+ series) 2023 INFLUENZA VACCINE (#1) 2024 12/28/2019, 2016 PNEUMOCOCCAL VACCINE 50+ YEARS Completed 05/07/2020 , 05/14/2019 Medical Devices Implanted Type Area Superintendent Oil Field Drilling Device Identifier Shelf Expiration Date Model / Serial / Lot Angio-Seal Vip Closure Dev [id number] - [id number] Implanted:Qty: 1 on 07/10/2020 at [facility] Closure Device Left: Groin [employer]EE [employer] 04/16/2021 [id number] / / [id number] Stent Lifestent 5fr 135cm [id number] - [id number] Implanted:Qty: 1 on 07/10/2020 at [facility] Stent Right: Leg CR [employer] 02/23/2023 [id number] / / [id number] Procedures Procedure Name Priority Date/Time Associated Diagnosis Comments LIPID PANEL Routine 04/30/2015 DIABETES EYE EXAM Routine 08/06/2014 from Last 3 Months or Most Recently Relevant to Health Maintenance Results * LIPID PANEL (04/30/2015) ABSTRACTED CHOLESTEROL 149 EXTERNAL LAB ABSTRACTED TRIGLYCERIDE 193 EXTERNAL LAB ABSTRACTED HDL 28 EXTERNAL LAB ABSTRACTED LDL CALCULATED 82 EXTERNAL LAB CHOLESTEROL <=200 mg/dL EXTERNAL LAB CHOLESTEROL EXTERNAL LAB TRIGLYCERIDE <=150 mg/dL EXTERNAL LAB TRIGLYCERIDE EXTERNAL LAB HDL 40 - 59 mg/dL EXTERNAL LAB HDL EXTERNAL LAB LDL CALCULATED <=100 mg/dL EXTERNAL LAB LDL CALCULATED EXTERNAL LAB CALCULATED LDL CHOLESTEROL mg/dL EXTERNAL LAB CALCULATED TOTAL CHOLESTEROL TO HDL RATIO EXTERNAL LAB CHOL/HDL RATIO EXTERNAL LAB VLDL-3 (REMNANT LIPO) mg/dL EXTERNAL LAB LIPID PANEL COMMENT EXTERNAL LAB RISK FACTOR EXTERNAL LAB RESULT COMMENT, CHEMISTRY EXTERNAL LAB Blood specimen (specimen) 04/30/2015 us Abstract Sp Provider CHEMISTRY ORDERABLES Final Result EXTERNAL LAB * DIABETES EYE EXAM (08/06/2014) us Abstract Spg Provider HEALTH MAINTENANCE Final R esult from Last 3 Months or Most Recently Relevant to Health Maintenance Insurance MEDICARE PART A AND B [facility] [employer] [facility] [facility] [place] [id number] Care Teams Meat Boner Relationship Specialty Start Date End Date Roberto Soares MD PCP - General Family Practice 12/15/16
--- OUTSIDE RECORDS SUMMARY | 2025-04-11 23:27 | XMS_ITS | Encounter Summary ---
Author Organization [facility] Address [address] [place] [address] Care Team Providers Care Senior Software Architect Name Role Phone Roberto Soares MD Primary Care Provider + Encounter Details Date Type Department Care Team (Late st Contact Info) Description 09/16/2015 Ancillary Orders [facility] [address] [place] [address] Lisa Andrade, [address] [address] Cellulitis of foot, left (Primary Dx) Social History Tobacco Use Types Packs/Day Years Used Date Smoking Tobacco: Never Assessed Sex and Gender Information Value Date Recorded Sex Assigned at Not on file 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 No acute injury to the bony left foot. [id number] Narrative 09/16/2015 2:24 PM CDT Exam: XR FOOT 3+ VW LEFT Date/Time of Exam: 09/16/2015 11:43 AM Reason For Exam: Cellulitis of foot, left. Findings: AP, lateral, and oblique projections of the left foot demonstrate tarsometatarsal bones to be intact. Rays of the foot are likewise normal. There is no evidence fracture or dislocation. Radiopaque soft tissue foreign bodies are not evident. Calcaneus is normal. Lisa Harrison Andrade STAPLE PROCESSING MACHINE OPERATOR DIAGNOSTIC IMAGING ORDHernando FERRIS Final Result documented in this encounter Visit Diagnoses Diagnosis Cellulitis of foot, left- Primary Cellulitis and abscess of foot, except toes documented in this encounter Care Teams Senior Software Architect Relationship Specialty Start Date End Date Roberto Soares MD PCP - General Family Practice 12/15/16 documented as of this encounter
--- OUTSIDE RECORDS SUMMARY | 2025-04-11 23:27 | XMS_ITS | Encounter Summary ---
Author Organization [facility] Address [address] [place] [address] Care Team Providers Care Nuclear Test Technician Name Role Phone Roberto Soares MD Primary Care Provider + Encounter Details Date Type Department Care Team (Latest Contact Info) Description 12/11/2003 Outpatient Historical [facility] Medicine- [address] [address] Kassie Nguyen MD [address] [place] [address] VENOUS THROMBOSIS NOS (CMS/HCC) (Primary Dx) Social History Tobacco Use Types Packs/Day Years Used Date Smoking Tobacco: Never Assessed Sex and Gender Information Value Date Recorded Sex Assigned at Not on file 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
--- OUTSIDE RECORDS SUMMARY | 2025-04-11 23:27 | XMS_ITS | Encounter Summary ---
Author Organization [facility] Address [address] [place] [address] Care Team Providers Care Solutions Operator Name Role Phone Roberto Soares MD Primary Care Provider + Encounter Details Date Type Department Care Team (Latest Contact Info) Description 01/05/2004 Outpatient Historical [facility] Medicine- [address] [address] Kassie Nguyen MD [address] [place] [address] VENOUS THROMBOSIS NOS (CMS/HCC) (Primary Dx) Social History Tobacco Use Types Packs/Day Years Used Date Smoking Tobacco: Never Assessed Sex and Gender Information Value Date Recorded Sex Assigned at Not on file 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
--- OUTSIDE RECORDS SUMMARY | 2025-04-11 23:27 | XMS_ITS | Encounter Summary ---
Author Organization [facility] Address [address] [place] [address] Care Team Providers Care Manager Market Intelligence Name Role Phone Roberto Soares MD Primary Care Provider + Encounter Details Date Type Department Care Team (Latest Contact Info) Description 01/19/2004 Outpatient Historical [facility] Medicine- [address] [address] Kassie Nguyen MD [address] [place] [address] Lower extremity embolism (CMS/HCC) (Primary Dx) Social History Tobacco Use Types Packs/Day Years Used Date Smoking Tobacco: Never Assessed Sex and Gender Information Value Date Recorded Sex Assigned at Not on file Legal Sex Male 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
--- OUTSIDE RECORDS SUMMARY | 2025-04-11 23:27 | XMS_ITS | Encounter Summary ---
Author Organization [facility] Address [address] [place] [address] Care Team Providers Care Director Employee Safety And Health Name Role Phone Roberto Soares MD Primary Care Provider + Encounter Details Date Type Department Care Team (Latest Contact Info) Description 12/24/2003 Outpatient Historical [facility] Medicine[address] [address] Kassie Nguyen MD [address] [place] [address] VENOUS THROMBOSIS NOS (CMS/HCC) (Primary Dx) Social History Tobacco Use Types Packs/Day Years Used Date Smoking Tobacco: Never Assessed Sex and Gender Information Value Date Recorded Sex Assigned at Not on file 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
--- OUTSIDE RECORDS SUMMARY | 2025-04-11 23:27 | XMS_ITS | Encounter Summary ---
Author Organization [facility] Address [address] [place] [address] Care Team Providers Care Facility Maintenance Worker Name Role Phone Roberto Soares MD Primary Care Provider + Encounter Details Date Type Department Care Team (Latest Contact Info) Description 12/04/2003 Outpatient Historical [facility] Medicine- [address] [address] Kassie Nguyen MD [address] [place] [address] HYPERLIPIDEMIA NEC/NOS (Primary Dx); VENOUS THROMBOSIS NOS (CMS/HCC) Social History Tobacco Use Types Packs/Day Years Used Date Smoking Tobacco: Never Assessed Sex and Gender Information Value Date Recorded Sex Assigned at Not on file 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
--- OUTSIDE RECORDS SUMMARY | 2025-04-11 23:28 | XMS_ITS | Encounter Summary ---
Author Organization [facility] Address [address] [place] [address] Care Team Providers Care Tea Bag Machine Tender Name Role Phone Roberto Soarse MD Primary Care Provider + Encounter Details Date Type Department Care Team (Latest Contact Info) Description 02/13/2002 Outpatient Historical [facility] Medicine- [address] [address] Hesham Vazquez MD [address] [phone] ACUTE FRONTAL SINUSITIS (Primary Dx); INFEC OTITIS EXTERNA NOS Social History Tobacco Use Types Packs/Day Years Used Date Smoking Tobacco: Never Assessed Sex and Gender Information Value Date Recorded Sex Assigned at Not on file Legal Sex Male 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
--- OUTSIDE RECORDS SUMMARY | 2025-04-11 23:28 | XMS_ITS | Encounter Summary ---
Author Organization [facility] Address [address] [place] [address] Care Team Providers Care Farm Rancher Name Role Phone Roberto Soares MD Primary Care Provider + Encounter Details Date Type Department Care Team (Latest Contact Info) Description 05/17/1999 Outpatient Historical 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
--- OUTSIDE RECORDS SUMMARY | 2025-04-11 23:28 | XMS_ITS | Encounter Summary ---
Author Organization [facility] Address [address] [place] [address] Care Team Providers Care Torch Operator Name Role Phone Roberto Soares MD Primary Care Provider + Encounter Details Date Type Department Care Team (Latest Contact Info) Description 03/19/2001 Outpatient Historical [facility] Medicine- [address] [address] Hesham Vazquez MD [address] [address] DERMATOPHYTOSIS OF NAIL (Primary Dx); CELLULITIS NOS Social History Tobacco Use Types Packs/Day Years Used Date Smoking Tobacco: Never Assessed Sex and Gender Information Value Date Recorded Sex Assigned at Not on file 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
--- OUTSIDE RECORDS SUMMARY | 2025-04-11 23:28 | XMS_ITS | Encounter Summary ---
Author Organization [facility] Address [address] [place] [address] Care Team Providers Care Assistant Program Manager Name Role Phone Roberto Soares MD Primary Care Provider + Encounter Details Date Type Department Care Team (Latest Contact Info) Description 11/25/1999 Outpatient Historical [facility] Medicine[address] [address] Hesham Vazquez MD [address] [phone] Hematuria (Primary Dx) Social History Tobacco Use Types Packs/Day Years Used Date Smoking Tobacco: Never Assessed Sex and Gender Information Value Date Recorded Sex Assigned at Not on file 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
--- OUTSIDE RECORDS SUMMARY | 2025-04-11 23:28 | XMS_ITS | Encounter Summary ---
Author Organization [facility] Address [address] [place] [address] Care Team Providers Care Camp Head Counselor Name Role Phone Roberto Soares MD Primary Care Provider + Encounter Details Date Type Department Care Team (Latest Contact Info) Description 10/11/2002 Outpatient Historical [facility] Medicine- [address] [address] Hesham Vazquez MD [address] [address] OLD FB IN SOFT TISSUE (Primary Dx); ATTEN-SURG DRESSNG/SUTUR Social History Tobacco Use Types Packs/Day Years Used Date Smoking Tobacco: Never Assessed Sex and Gender Information Value Date Recorded Sex Assigned at Not on file 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
--- OUTSIDE RECORDS SUMMARY | 2025-04-11 23:28 | XMS_ITS | Encounter Summary ---
Author Organization [facility] Address [address] [place] [address] Care Team Providers Care Signal Mechanic Name Role Phone Roberto Soares MD Primary Care Provider + Encounter Details Date Type Department Care Team (Latest Contact Info) Description 06/09/2000 Outpatient Historical [facility] Medicine[address] [address] Hesham Vazquez MD [address] [address] Osteoarthrosis, unspecified whether generalized or localized, unspecified site (Primary Dx); Neoplasm of unspecified nature of bone, soft tissue, and skin; Pain in joint, shoulder region; Drug withdrawal (CMS/[facility]) Social History Tobacco Use Types Packs/Day Years Used Date Smoking Tobacco: Never Assessed Sex and Gender Information Value Date Recorded Sex Assigned at Not on file 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
--- OUTSIDE RECORDS SUMMARY | 2025-04-11 23:28 | XMS_ITS | Encounter Summary ---
Author Organization [facility] Address [address] [place] [address] Care Team Providers Care Jewelry Manager Name Role Phone Roberto Soares MD Primary Care Provider + Encounter Details Date Type Department Care Team (Latest Contact Info) Description 03/20/[address] 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
--- OUTSIDE RECORDS SUMMARY | 2025-04-11 23:28 | XMS_ITS | Encounter Summary ---
Author Organization [facility] Address [address] [place] [address] Care Team Providers Care Landmen Name Role Phone Roberto Soares MD Primary Care Provider + Encounter Details Date Type Department Care Team (Latest Contact Info) Description 11/20/2003 Outpatient Historical [facility] Medicine[address] [address] Kassie Nguyen MD [address] [place] [address] VENOUS THROMBOSIS NOS (CMS/HCC) (Primary Dx) Social History Tobacco Use Types Packs/Day Years Used Date Smoking Tobacco: Never Assessed Sex and Gender Information Value Date Recorded Sex Assigned at Not on file 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
--- OUTSIDE RECORDS SUMMARY | 2025-04-11 23:28 | XMS_ITS | Encounter Summary ---
Author Organization [facility] Address [address] [place] [address] Care Team Providers Care 7Th Grade Teacher Name Role Phone Roberto Soares MD Primary Care Provider + Encounter Details Date Type Department Care Team (Latest Contact Info) Description 06/16/2003 Outpatient Historical [facility] Medicine- [address] [address] Kassie Nguyen MD [address] [place] [address] JOINT DIS NOS-L/LEG (Primary Dx) Social History Tobacco Use Types Packs/Day Years Used Date Smoking Tobacco: Never Assessed Sex and Gender Information Value Date Recorded Sex Assigned at Not on file Legal Sex Male 4:52 AM CARDIAC RN Gender Identity Not on file Sexual Orientation Not on file documented as of this encounter Plan of Treatment Not on file documented as of this encounter Visit Diagnoses Diagnosis Unspecified disorder of lower leg joint- Primary documented in this encounter Care Teams 7Th Grade Teacher Relationship Specialty Start Date End Date Roberto Soares MD PCP - General Family Practice 12/15/16 documented as of this encounter
--- OUTSIDE RECORDS SUMMARY | 2025-04-11 23:28 | XMS_ITS | Encounter Summary ---
Author Organization [facility] Address [address] [place] [address] Care Team Providers Care Machine Plate Stacker Name Role Phone Roberto Soares MD Primary Care Provider + Encounter Details Date Type Department Care Team (Latest Contact Info) Description 05/24/1999 Outpatient Historical [facility] Medicine- [address] [address] Hesham Vazquez MD [address] [phone] Benign janice skin trunk (Primary Dx) Social History Tobacco Use Types Packs/Day Years Used Date Smoking Tobacco: Never Assessed Sex and Gender Information Value Date Recorded Sex Assigned at Not on file 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
--- OUTSIDE RECORDS SUMMARY | 2025-04-11 23:28 | XMS_ITS | Encounter Summary ---
Author Organization [facility] Address [address] [place] [address] Care Team Providers Care Handkerchief Sample Clerk Name Role Phone Roberto Soares MD Primary Care Provider + Encounter Details Date Type Department Care Team (Latest Contact Info) Description 03/22/2001 Outpatient Historical [facility] Medicine[address] [address] Hesham Vazquez MD [address] [phone] CELLULITIS NOS (Primary Dx) Social History Tobacco Use Types Packs/Day Years Used Date Smoking Tobacco: Never Assessed Sex and Gender Information Value Date Recorded Sex Assigned at Not on file 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
--- OUTSIDE RECORDS SUMMARY | 2025-04-11 23:28 | XMS_ITS | Encounter Summary ---
Author Organization [facility] Address [address] [place] [address] Care Team Providers Care Dials Supervisor Name Role Phone Roberto Soares MD Primary Care Provider + Encounter Details Date Type Department Care Team (Latest Contact Info) Description 12/26/2002 Outpatient Historical [facility] Medicine[address] [address] Omero Galvez MD [address] [place] [address] OSTEOARTHROS NOS-OTHER SITE (Primary Dx) Social History Tobacco Use Types Packs/Day Years Used Date Smoking Tobacco: Never Assessed Sex and Gender Information Value Date Recorded Sex Assigned at Not on file 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
--- OUTSIDE RECORDS SUMMARY | 2025-04-11 23:28 | XMS_ITS | Encounter Summary ---
Author Organization [facility] Address [address] [place] [address] Care Team Providers Care Leather Lacer Name Role Phone Roberto Soares MD Primary Care Provider + Encounter Details Date Type Department Care Team (Latest Contact Info) Description 05/24/2001 Outpatient Historical [address] [address] Omero Galvez MD [address] [place] [address] UNSPECIFIED VIRAL INFECTION (Primary Dx); NONINFEC GASTROENTERIT NEC; TOBACCO USE DISORDER Social History Tobacco Use Types Packs/Day Years Used Date Smoking Tobacco: Never Assessed Sex and Gender Information Value Date Recorded Sex Assigned at Not on file 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 Gender Identity Not on file Sexual Orientation Not on file documented as of this encounter Plan of Treatment Not on file documented as of this encounter Visit Diagnoses Diagnosis Unspecified viral infection, in conditions classified elsewhere and of unspecified site- Primary Other and unspecified noninfectious gastroenteritis and colitis(558.9) Other and unspecified noninfectious gastroenteritis and colitis Tobacco use disorder documented in this encounter Care Teams Leather Lacer Relationship Specialty Start Date End Date Roberto Soares MD PCP - General Family Practice 12/15/16 documented as of this encounter
--- OUTSIDE RECORDS SUMMARY | 2025-04-11 23:28 | XMS_ITS | Patient Health Record ---
Author Organization [facility] Address [address] [place] [address] Care Team Providers Care Wellness Coordinator Name Role Phone [facility] Primary [facility] Provid er Unavailable Naresh Swanson Unavailable [phone] [place], [place] Unavailable Unavailable Ze Comer JR Unavailable [phone] Carmel Morris Unavailable [phone] Antione Mishra Unavailable [phone] NachPancho brandt Unavailable [phone] Simon, Darren Unavailable [phone] Diego Fabian Unavailable [phone] Allergies Allergen (clinical drug ingredient) Drug/Non Drug Allergy documented on EMR Reaction Allergy Type Onset Date Status Information temporarily unavailable No Known Drug Allergy Unknown Drug Allergy Active Results Component Value Reference Range Flag Notes Lipid Panel Reflex DLDL 8006 1 61635 Reviewed date:11/26/2024 04:31:42 PM Interpretation: Performing Lab: Notes/Report: Glucometer WBG--[id number] Reviewed date:11/21/2024 08:26:56 AM Interpretation: Performing Lab: Notes/Report: Glucometer WBG 143 65-110 MG/DL HI Notify D r~Notify RN~Meter: [id number]~Manager Supplier: [id number] RAYMON PEREZ [facility] Metabolic Pane l ([facility]) [address] Reviewed date:11/21/2024 08:26:56 AM Interpretation: Performing Lab: Notes/Report: Glucose Serum 183 71-110 MG/DL HI Testing p erformed at [facility], [address] [place] [address] [place] [address]. CLIA ID#: [id number] BUN 11 7-21 MG/DL Creat .72 .57-1.17 MG/DL N-rshium-a-benzoqui none imine (NAPQI) is a metabolite of acetaminophen, NAPQI concentrations of apparoximately 10 mg/L correlation to toxic levels of acetaminophen demonstrates a greater than or equil to 10% change in results. NAPQI concentrations greater than this may lead to falsely depressed results for patient samples. Use of this assay is not recommended for patients undergoing treatment with phenindione, due to the potential for falsely depressed results. GFR 94.5 NA Calculation performed from GFR calculator provided by the National Kid[employer] Foundation. Glomerular Filtration rate(GRF) is the best overall index of kidney function. Normal GFR varies according to age,sex, body size, and declines with age. The National Kidney Foundation recommends using the CKD-EPI Creatinine Equation(2020) to estimate GFR. BUN/Creat Ratio 15.3 12.0-20.0 % Total Protein 6.2 5.8-8.0 G/DL Albumin 3.6 3.2-4.8 G/DL Globulin 2.6 2.3-3.5 G/DL Alb/Glob 1.4 0.8-2.2 Calcium 8.8 8.7-10.4 MG/DL Sodium 140 136-145 MMOL/L Potassium 4.0 3.5-5.1 MMOL/L Chloride 106 98-107 MMOL/L CO2 28.7 20.0-31.0 MMOL/L Anion Gap 9 5-15 Alk Phos 91 46-116 Bili Total .3 .3-1.2 MG/DL Use of this assay is not recommended for patients undergoing treatment with eltrombopag due to the potential for falsely elevated results. AST/SGOT 16 15-37 UNIT/L ALT/SGPT 8 12-78 UNIT/L LOW Osmo Serum,Calculated 294 280-300 MOSM/KG NM Lexiscan Cardiolite-[id number] Reviewed date:09/20/2024 11:05:34 AM Interpretation: Performing Lab: Notes/Report: CRP [id number] Reviewed date:10/04/2024 08:10:59 AM Interpretation: Performing Lab: Notes/Report: CRP 2.25 .40-1.00 MG/DL HI CBC w\ Auto Diff [id number] Reviewed date:10/04/2024 07:12:51 AM Interpretation: Performing Lab: Notes/Report: WBC 2.8 4.5-11.0 X10'3 LOW RBC 3.03 4.50-5.90 X10'6 LOW Hgb 9.5 13.5-17.5 G/DL LOW Hct 28.5 41.0-53.0 % LOW MCV 94.1 80.0-100.0 FL MCH 31.4 27.0-31.0 PG HI MCHC 33.3 31.0-37.0 G/DL Platelet 103 150-400 X10'3 LOW RDW-SD 53.6 35.0-49.0 FL HI RDW-CV 15.8 12.2-15.6 % HI MPV 8.8 9.2-12.0 FL LOW Neutro Auto% 53.8 40.0-70.0 % Lymph Auto% 23.5 22.0-44.0 % [place] Auto% 18.4 3.0-7.0 % HI Eos Auto% 3.2 2.0-4.0 % Baso Auto% 0.7 0.0-1.0 % Imm Gran% .4 .0-.4 % Neutro Abs 1.49 .80-7.70 Absolute Neutrophil Count 1490 NA Lymph Abs .65 .10-4.10 [place] Abs .51 .20-1.00 Eos Abs .09 .00-.40 Baso Abs .02 .00-.20 Imm Gran Abs .01 .00-.10 NRBC# .00 .00-.20 NRBC% .00 .00-.20 /100 intact WBC's Chest PA/Lat-[id number] Reviewed date:11/21/2024 08:26:56 AM Interpretation: Performing Lab: Notes/Report: eor=[id number]&org=iSite Comprehensive Metabolic Pane l (CMP) [id number] Reviewed date:10/04/2024 08:11:03 AM Interpretation: Performing Lab: Notes/Report: Glucose Serum 115 71-110 MG/DL HI Testing p erformed at [facility], [address] [place] [address] [place] [address]. CLIA ID#: [id number] BUN 16 7-21 MG/DL Creat .76 .57-1.17 MG/DL O-jtrawr-h-benzoqui none imine (NAPQI) is a metabolite of acetaminophen, NAPQI concentrations of apparoximately 10 mg/L correlation to toxic levels of acetaminophen demonstrates a greater than or equil to 10% change in results. NAPQI concentrations greater than this may lead to falsely depressed results for patient samples. Use of this assay is not recommended for patients undergoing treatment with phenindione, due to the potential for falsely depressed results. GFR 92.7 NA Calculation performed from GFR calculator provided by the National Kidney Foundation. Glomerular Filtration rate(GRF) is the best overall index of kidney function. Normal GFR varies according to age,sex, body size, and declines with age. The National Kidney Foundation recommends using the CKD-EPI Creatinine Equation(2020) to estimate GFR. BUN/Creat Ratio 21.1 12.0-20.0 % HI Total Protein 5.7 5.8-8.0 G/DL LOW Albumin 3.3 3.2-4.8 G/DL Globulin 2.4 2.3-3.5 G/DL Alb/Glob 1.4 0.8-2.2 Calcium 8.8 8.7-10.4 MG/DL Sodium 140 136-145 MMOL/L Potassium 4.3 3.5-5.1 MMOL/L Chloride 107 98-107 MMOL/L CO2 26.0 20.0-31.0 MMOL/L Anion Gap 11 5-15 Alk Phos 88 46-116 Bili Total .4 .3-1.2 MG/DL Use of this assay is not recommended for patients undergoing treatment with eltrombopag due to the potential for falsely elevated results. AST/SGOT 21 15-37 UNIT/L ALT/SGPT 11 12-78 UNIT/L LOW Osmo Serum,Calculated 292 280-300 MOSM/KG Culture [facility] [employer] Cutter Reviewed date:11/21/2024 08:26:55 AM Interpretation: Performing Lab: Notes/Report: [facility] [employer] [facility] NANCY Mcneal [facility] [employer] [facility] t: Culture [employer] [employer] Cutter [facility] [employer] [facility] Accessio [id number] Culture [facility] And [employer] Cutter n: Culture [facility] [employer] [facility] Microbiology [facility] And [employer] Cutter PROCEDURE: Cultur e Mallet And Die Cutter Culture Mal[facility] And Die Cutter [] [facility] And [employer] [facility]utter SOURCE: Prosthesi s BODY SITE: Culture [facility] [employer] [facility] COLLECTED DATE/TI ME: 10/01/2024 10:00 CDT RECEIVED DATE/TIME: 10/01/2024 10:07 CDT [facility] [employer] [facility] START DATE/TIME: 10/01/2024 10:07 CDT FREE TEXT SOURCE: Right leg graft [facility] [employer] [facility] FINAL REPORT [facility] [employer] [facility] Final Report [] [facility] [employer] [facility] Verified Date/Warren e: 10/05/2024 14:21 CDT Culture [facility] Many Staphylococc us aureus [facility] and [facility] Few Corynebacteri um species (diphtheroids) [facility] No further work-u p is indicated [facility] SUSCEPTIBILITY RESULTS [facility] Staaur [facility] Antibiotic MDIL MINT [facility] Benzylpenicillin Resistant [facility] [employer] [facility] Ciprofloxacin <=0 .5 Susceptible [facility] [employer] [facility] Clindamycin <=0.2 5 Susceptible [facility] [employer] [facility] Erythromycin <=0. 25 Susceptible [facility] [employer] [facility] Gentamicin <=0.5 Susceptible [facility] [employer] [facility] Levofloxacin 0.5 Susceptible [facility] [employer] [facility] LINEZOLID 1 Susceptible [facility] [employer] [facility] Rifampin <=0.5 Susceptible [facility] [employer] C[facility] Tetracycline <=1 Susceptible [facility] [employer] [facility] Trimethoprim/Sulf a <=10 Susceptible Culture [facility] And [employer] Cutter Vancomycin 1 Susceptible Glucometer WBG--[id number] Reviewed date:11/21/2024 08:26:55 AM Interpretation: Performing Lab: Notes/Report: Glucometer WBG 166 65-110 MG/DL HI See Documentation~Meter: [id number]~Manager Supplier: [id number] AMALIA CABRERA Glucometer WBG--[id number] Reviewed date:11/21/2024 08:26:55 AM Interpretation: Performing Lab: Notes/Report: Glucometer WBG 122 65-110 MG/DL HI No Treat ment Needed~Meter: [id number]~Manager Supplier: [id number] KILL BRUCE CRP [id number] Reviewed date:11/21/2024 08:26:54 AM Interpretation: Performing Lab: Notes/Report: Diagnosis Description: Infection and inflammatory reaction due to other cardiac and vascular devices, implants and grafts, initial encounter CRP 2.42 .40-1.00 MG/DL HI Echo Complete EC-[id number] Reviewed date:11/21/2024 08:26:56 AM Interpretation: Performing Lab: Notes/Report: Cardiopulmonary Services Name: NANCY UREÑA Study Date: 10/02/2024 : 1950 [facility]:[id number] Patient Location: [facility] Age: 74 yrs Gender: Male Height: 74 in Weight: 198 lb BSA: 2.2 m2 Reason For Study: eval for endocarditis Interpretation Summary The left ventricle is normal in size. Left ventricular systolic function is normal. Left Ventricular Function is estimated to be 55-60%. The left atrium is mildly dilated. The right atrium is mildly dilated. There is mild mitral regurgitation. There is mild tricuspid regurgitation. Right ventricular systolic pressure is normal. Left Ventricle The left ventricle is normal in size. Left ventricular systolic function is normal. Left Ventricular Function is estimated to be 55-60%. Right Ventricle The right ventricle is normal size. Atria The left atrium is mildly dilated. The right atrium is mildly dilated. Great Vessels The aortic root is normal size. Mitral Valve There is mild mitral regurgitation. Aortic Valve The aortic valve opens well. Tricuspid Valve There is mild tricuspid regurgitation. Right ventricular systolic pressure is normal. MMode/2D Measurements & Calculations IVSd: 1.2 cm LVIDd: 5.1 cm FS: 30.9 % LVIDs: 3.5 cm EDV(Teich): 124.6 ml LVPWd: 0.75 cm ESV(Teich): 52.1 ml EF(Teich): 58.2 % Ao root diam: 3.7 cm LVOT diam: 2.3 cm RA A4Cs_phl: 22.6 cm2 Ao root area: 10.8 cm2 LVOT area: 4.3 cm2 ACS: 1.5 cm LA dimension: 4.2 cm Doppler Measurements & Calculations MV E max renee: 95.6 cm/sec MV V2 max: 144.9 cm/sec MV dec slope: 524.3 cm/sec2 MV A max renee: 79.1 cm/sec MV max P.4 mmHg MV dec time: 0.18 sec MV E/A: 1.2 MV V2 mean: 86.8 cm/sec MV mean P.5 mmHg MV V2 VTI: 44.3 cm MVA(VTI): 4.2 cm2 Ao V2 max: 248.3 cm/sec LV V1 max P.3 mmHg SV(LVOT): 187.2 ml Ao max P.7 mmHg LV V1 mean P.8 mmHg Ao V2 mean: 182.2 cm/sec LV V1 max: 167.6 cm/sec Ao mean P.4 mmHg LV V1 mean: 115.9 cm/sec Ao V2 VTI: 53.9 cm LV V1 VTI: 43.6 cm MIGUEL(I,D): 3.5 cm2 MIGUEL(V,D): 2.9 cm2 TV V2 max: 58.4 cm/sec AV VR_phl: 0.72 MV P1/2t-pr_phl: 53.4 msec TV max P.4 mmHg MIGUEL(VTI)/BSA_phl: 1.6 Ordering Physician: Darren Montes Referring Physician: Darren Montes Performed By: Kassie [place] Glucometer WBG--[id number] Reviewed date:11/21/2024 08:26:55 AM Interpretation: Performing Lab: Notes/Report: Glucometer WBG 126 65-110 MG/DL HI Result N ot Confirmed~Meter: [id number]~Manager Supplier: [id number] AMALIA CABRERA [facility] Pane l ([facility]) [address] Reviewed date:11/21/2024 08:26:55 AM Interpretation: Performing Lab: Notes/Report: Glucose Serum 227 71-110 MG/DL HI Testing p erformed at [facility], [address] [place] [address] [place] [address]. CLIA ID#: [id number] BUN 14 7-21 MG/DL Creat .73 .57-1.17 MG/DL L-nbrork-j-benzoqui none imine (NAPQI) is a metabolite of acetaminophen, NAPQI concentrations of apparoximately 10 mg/L correlation to toxic levels of acetaminophen demonstrates a greater than or equil to 10% change in results. NAPQI concentrations greater than this may lead to falsely depressed results for patient samples. Use of this assay is not recommended for patients undergoing treatment with phenindione, due to the potential for falsely depressed results. GFR 94.0 NA Calculation performed from GFR calculator provided by the National Kidney Foundation. Glomerular Filtration rate(GRF) is the best overall index of kidney function. Normal GFR varies according to age,sex, body size, and declines with age. The National Kidney Foundation recommends using the CKD-EPI Creatinine Equation(2020) to estimate GFR. BUN/Creat Ratio 19.2 12.0-20.0 % Total Protein 6.0 5.8-8.0 G/DL Albumin 3.3 3.2-4.8 G/DL Globulin 2.7 2.3-3.5 G/DL Alb/Glob 1.2 0.8-2.2 Calcium 9.0 8.7-10.4 MG/DL Sodium 140 136-145 MMOL/L Potassium 4.1 3.5-5.1 MMOL/L Chloride 105 98-107 MMOL/L CO2 27.0 20.0-31.0 MMOL/L Anion Gap 12 5-15 Alk Phos 96 46-116 Bili Total .4 .3-1.2 MG/DL Use of this assay is not recommended for patients undergoing treatment with eltrombopag due to the potential for falsely elevated results. AST/SGOT 15 15-37 UNIT/L ALT/SGPT 9 12-78 UNIT/L LOW Osmo Serum,Calculated 298 280-300 MOSM/KG CRP 32629 (Not yet reviewed by provider) Interpretation: Performing Lab: Notes/Report: Diagnosis Description: Infection and inflammatory reaction due to other cardiac and vascular devices, implants and grafts, subsequent encounter CRP <.50 .40-1.00 MG/DL CBC w\ Auto Diff [id number] (Not yet reviewed by provider) Interpretation: Performing Lab: Notes/Report: Diagnosis Description: Infection and inflammatory reaction due to other cardiac and vascular devices, implants and grafts, subsequent encounter WBC 2.9 4.5-11.0 X10'3 LOW RBC 3.49 4.50-5.90 X10'6 LOW Hgb 11.1 13.5-17.5 G/DL LOW Hct 36.0 41.0-53.0 % LOW MCV 103.2 80.0-100.0 FL HI MCH 31.8 27.0-31.0 PG HI MCHC 30.8 31.0-37.0 G/DL LOW Platelet 155 150-400 X10'3 RDW-SD 63.7 35.0-49.0 FL HI RDW-CV 16.9 12.2-15.6 % HI MPV 10.0 9.2-12.0 FL Neutro Auto% 69.4 40.0-70.0 % Lymph Auto% 15.3 22.0-44.0 % LOW [place] Auto% 13.6 3.0-7.0 % HI Eos Auto% 1.4 2.0-4.0 % LOW Baso Auto% 0.3 0.0-1.0 % Imm Gran% .0 .0-.4 % Neutro Abs 1.99 .80-7.70 Absolute Neutrophil Count 1989 NA Lymph Abs .44 .10-4.10 [place] Abs .39 .20-1.00 Eos Abs .04 .00-.40 Baso Abs .01 .00-.20 Imm Gran Abs .00 .00-.10 NRBC# .00 .00-.20 NRBC% .00 .00-.20 /100 intact WBC's CRP [id number] Reviewed date:11/21/2024 08:26:54 AM Interpretation: Performing Lab: Notes/Report: Diagnosis Description: Infection and inflammatory reaction due to other cardiac and vascular devices, implants and grafts, subsequent encounter CRP 1.05 .40-1.00 MG/DL HI Comprehensive Metabolic Pane l (CMP) [id number] Reviewed date:11/21/2024 08:26:54 AM Interpretation: Performing Lab: Notes/Report: Diagnosis Description: Infection and inflammatory reaction due to other cardiac and vascular devices, implants and grafts, subsequent encounter Glucose Serum 118 71-110 MG/DL HI Testing p erformed at [facility], [address] [place] [address] [place] [address]. CLIA ID#: [id number] BUN 16 7-21 MG/DL Creat .71 .57-1.17 MG/DL E-pjjjmo-n-benzoqui none imine (NAPQI) is a metabolite of acetaminophen, NAPQI concentrations of apparoximately 10 mg/L correlation to toxic levels of acetaminophen demonstrates a greater than or equil to 10% change in results. NAPQI concentrations greater than this may lead to falsely depressed results for patient samples. Use of this assay is not recommended for patients undergoing treatment with phenindione, due to the potential for falsely depressed results. GFR 94.6 NA Calculation performed from GFR calculator provided by the National Kidney Foundation. Glomerular Filtration rate(GRF) is the best overall index of kidney function. Normal GFR varies according to age,sex, body size, and declines with age. The National Kidney Foundation recommends using the CKD-EPI Creatinine Equation(2020) to estimate GFR. BUN/Creat Ratio 22.5 12.0-20.0 % HI Total Protein 7.1 5.8-8.0 G/DL Albumin 4.2 3.2-4.8 G/DL Globulin 2.9 2.3-3.5 G/DL Alb/Glob 1.4 0.8-2.2 Calcium 9.4 8.7-10.4 MG/DL Sodium 139 136-145 MMOL/L Potassium 4.6 3.5-5.1 MMOL/L Chloride 101 98-107 MMOL/L CO2 26.2 20.0-31.0 MMOL/L Anion Gap 16 5-15 HI Alk Phos 187 46-116 HI Bili Total .2 .3-1.2 MG/DL LOW Use of this assay is not recommended for patients undergoing treatment with eltrombopag due to the potential for falsely elevated results. AST/SGOT 29 15-37 UNIT/L ALT/SGPT 12 12-78 UNIT/L Osmo Serum,Calculated 290 280-300 MOSM/KG CBC w\ Auto Diff [id number] Reviewed date:11/21/2024 08:26:54 AM Interpretation: Performing Lab: Notes/Report: Diagnosis Description: Infection and inflammatory reaction due to other cardiac and vascular devices, implants and grafts, subsequent encounter WBC 3.0 4.5-11.0 X10'3 LOW RBC 3.50 4.50-5.90 X10'6 LOW Hgb 10.8 13.5-17.5 G/DL LOW Hct 34.6 41.0-53.0 % LOW MCV 98.9 80.0-100.0 FL MCH 30.9 27.0-31.0 PG MCHC 31.2 31.0-37.0 G/DL Platelet 86 150-400 X10'3 LOW RDW-SD 52.3 35.0-49.0 FL HI RDW-CV 14.6 12.2-15.6 % MPV 10.3 9.2-12.0 FL Neutro Auto% 62.3 40.0-70.0 % Lymph Auto% 22.7 22.0-44.0 % [place] Auto% 11.3 3.0-7.0 % HI Eos Auto% 2.3 2.0-4.0 % Baso Auto% 0.7 0.0-1.0 % Imm Gran% .7 .0-.4 % HI Neutro Abs 1.87 .80-7.70 Absolute Neutrophil Count 1870 NA Lymph Abs .68 .10-4.10 [place] Abs .34 .20-1.00 Eos Abs .07 .00-.40 Baso Abs .02 .00-.20 Imm Gran Abs .02 .00-.10 NRBC# .00 .00-.20 NRBC% .00 .00-.20 /100 intact WBC's Creatine Kinase [id number] Reviewed date:10/02/2024 08:00:13 AM Interpretation: Performing Lab: Notes/Report: CK 137 39-308 UNIT/L WBC Auto Diff--[id number] Reviewed date:11/21/2024 08:26:56 AM Interpretation: Performing Lab: Notes/Report: Added by Discern Rules Neutro Auto% 61.4 40.0-70.0 % Lymph Auto% 20.1 22.0-44.0 % LOW [place] Auto% 16.4 3.0-7.0 % HI Eos Auto% .7 2.0-4.0 % LOW Baso Auto% 0.7 0.0-1.0 % NRBC% .00 .00-.20 /100 intact WBC's Neutro Abs 1.84 .80-7.70 Absolute Neutrophil Count 1840 NA Lymph Abs .60 .10-4.10 [place] Abs .49 .20-1.00 Eos Abs .02 .00-.40 Baso Abs .02 .00-.20 NRBC# .00 .00-.20 Imm Gran Abs .02 .00-.10 Imm Gran% .7 .0-.4 % HI WBC Auto Diff--[id number] Reviewed date:11/21/2024 08:26:56 AM Interpretation: Performing Lab: Notes/Report: Added by Discern Rules Neutro Auto% 87.4 40.0-70.0 % HI Lymph Auto% 8.6 22.0-44.0 % LOW [place] Auto% 3.0 3.0-7.0 % Eos Auto% .4 2.0-4.0 % LOW Baso Auto% 0.2 0.0-1.0 % NRBC% .00 .00-.20 /100 intact WBC's Neutro Abs 4.05 .80-7.70 Absolute Neutrophil Count 4050 NA Lymph Abs .40 .10-4.10 [place] Abs .14 .20-1.00 LOW Eos Abs .02 .00-.40 Baso Abs .01 .00-.20 NRBC# .00 .00-.20 Imm Gran Abs .02 .00-.10 Imm Gran% .4 .0-.4 % CRP [id number] Reviewed date:10/02/2024 08:00:10 AM Interpretation: Performing Lab: Notes/Report: CRP .78 .40-1.00 MG/DL Culture Wound [id number] Reviewed date:11/21/2024 08:26:55 AM Interpretation: Performing Lab: Notes/Report: Culture Wound NANCY Mcneal Culture Wound t: Culture Wound Culture Wound Accessio [id number] Culture Wound n: Culture Wound Microbiology Culture Wound PROCEDURE: Culture Wound [] Culture Wound SOURCE: Wound BODY SITE: Culture Wound COLLECTED DATE/TIME: 10/01/2024 10:00 CDT RECEIVED DATE/TIME: 10/01/2024 10:07 CDT Culture Wound START DATE/TIME: 10/01/2024 10:07 CDT FREE TEXT SOURCE: Right leg Culture tube Culture Wound swab Culture Wound FINAL REPORT Culture Wound Final Report [] Culture Wound Verified Date/Time: 10/05/2024 14:20 CDT Culture Wound Few Staphylococcus aureus Culture Wound SUSCEPTIBILITY RESULTS Culture Wound Staaur Culture Wound Antibiotic MDIL MINT Culture Wound Benzylpenicillin Resistant Culture Wound Ciprofloxacin <=0.5 Susceptible Culture Wound Clindamycin <=0.25 Susceptible Culture Wound Erythromycin <=0.25 Susceptible Culture Wound Gentamicin <=0.5 Susceptible Culture Wound Levofloxacin 0.5 Susceptible Culture Wound LINEZOLID 1 Susceptible Culture Wound Oxacillin 1 Susceptible Culture Wound Rifampin <=0.5 Susceptible Culture Wound Tetracycline <=1 Susceptible Culture Wound Trimethoprim/Sulfa < =10 Susceptible Culture Wound Vancomycin 1 Susceptible zzzCT Cardiac Scoring Diagno stic RAD Reviewed date:09/12/2024 05:34:41 PM Interpretation: Performing Lab: Notes/Report: [id number]=iSite [email or web address] Cardiac Scoring Diagno stic RAD Reviewed date:09/12/2024 05:34:30 PM Interpretation: Performing Lab: Notes/Report: See Below For Report CT Cardiac Scoring Diagnostic RAD Read See Below For Report CBC Ref[place] Diff [id number], 8 6195 Reviewed date:11/21/2024 08:26:56 AM Interpretation: Performing Lab: Notes/Report: WBC 3.0 4.5-11.0 X10'3 LOW RBC 3.17 4.50-5.90 X10'6 LOW Hgb 9.8 13.5-17.5 G/DL LOW Hct 30.7 41.0-53.0 % LOW MCV 96.8 80.0-100.0 FL MCH 30.9 27.0-31.0 PG MCHC 31.9 31.0-37.0 G/DL Platelet 101 150-400 X10'3 LOW RDW-SD 52.2 35.0-49.0 FL HI RDW-CV 15.0 12.2-15.6 % MPV 8.8 9.2-12.0 FL LOW Review Auto Diff Conf Glucometer WBG--[id number] Reviewed date:11/21/2024 08:26:56 AM Interpretation: Performing Lab: Notes/Report: Glucometer WBG 127 65-110 MG/DL HI No Treat ment Needed~Meter: [id number]~Manager Supplier: [id number] TAQUERIA DAMON Glucometer WBG--[id number] Reviewed date:11/21/2024 08:26:56 AM Interpretation: Performing Lab: Notes/Report: Glucometer WBG 234 65-110 MG/DL HI Asymptom atic~Meter: [id number]~Manager Supplier: [id number] TANIA HARTLEY Basic Metabolic Panel (BMP) [id number] Reviewed date:11/21/2024 08:26:56 AM Interpretation: Performing Lab: Notes/Report: Sodium 138 136-145 MMOL/L Potassium 4.3 3.5-5.1 MMOL/L Chloride 106 98-107 MMOL/L CO2 25.6 20.0-31.0 MMOL/L Glucose Serum 220 71-110 MG/DL HI Testing p erformed at [facility], [address] [place] [address] [place] [address]. CLIA ID#: [id number] BUN 13 7-21 MG/DL Creat .76 .57-1.17 MG/DL F-dazrdn-j-benzoqui none imine (NAPQI) is a metabolite of acetaminophen, NAPQI concentrations of apparoximately 10 mg/L correlation to toxic levels of acetaminophen demonstrates a greater than or equil to 10% change in results. NAPQI concentrations greater than this may lead to falsely depressed results for patient samples. Use of this assay is not recommended for patients undergoing treatment with phenindione, due to the potential for falsely depressed results. GFR 92.9 NA Calculation performed from GFR calculator provided by the National Kid[employer] Foundation. Glomerular Filtration rate(GRF) is the best overall index of kidney function. Normal GFR varies according to age,sex, body size, and declines with age. The National Kidney Foundation recommends using the CKD-EPI Creatinine Equation(2020) to estimate GFR. Anion Gap 11 5-15 BUN/Creat Ratio 17.1 12.0-20.0 % Calcium 8.3 8.7-10.4 MG/DL LOW Osmo Serum,Calculated 293 280-300 MOSM/KG Comprehensive Metabolic Pane l ([facility]) [id number] Reviewed date:11/21/2024 08:26:56 AM Interpretation: Performing Lab: Notes/Report: Glucose Serum 220 71-110 MG/DL HI Testing p job at [address] [place] [address]. CLIA ID#: [id number] BUN 13 7-21 MG/DL Creat .76 .57-1.17 MG/DL Y-gucyoo-r-benzoqui none imine (NAPQI) is a metabolite of acetaminophen, NAPQI concentrations of apparoximately 10 mg/L correlation to toxic levels of acetaminophen demonstrates a greater than or equil to 10% change in results. NAPQI concentrations greater than this may lead to falsely depressed results for patient samples. Use of this assay is not recommended for patients undergoing treatment with phenindione, due to the potential for falsely depressed results. GFR 92.9 NA Calculation performed from GFR calculator provided by the National Kid[employer] Foundation. Glomerular Filtration rate(GRF) is the best overall index of kidney function. Normal GFR varies according to age,sex, body size, and declines with age. The National Kidney Foundation recommends using the CKD-EPI Creatinine Equation(2020) to estimate GFR. BUN/Creat Ratio 17.1 12.0-20.0 % Total Protein 5.7 5.8-8.0 G/DL LOW Albumin 3.3 3.2-4.8 G/DL Globulin 2.4 2.3-3.5 G/DL Alb/Glob 1.4 0.8-2.2 Calcium 8.3 8.7-10.4 MG/DL LOW Sodium 138 136-145 MMOL/L Potassium 4.3 3.5-5.1 MMOL/L Chloride 106 98-107 MMOL/L CO2 25.6 20.0-31.0 MMOL/L Anion Gap 11 5-15 Alk Phos 89 46-116 Bili Total .2 .3-1.2 MG/DL LOW Use of this assay is not recommended for patients undergoing treatment with eltrombopag due to the potential for falsely elevated results. AST/SGOT 14 15-37 UNIT/L LOW ALT/SGPT 11 12-78 UNIT/L LOW Osmo Serum,Calculated 293 280-300 MOSM/KG CRP [id number] Reviewed date:10/14/2024 08:17:45 AM Interpretation: Performing Lab: Notes/Report: CRP <.50 .40-1.00 MG/DL Immature PLT Fraction [id number] Reviewed date:11/21/2024 08:26:55 AM Interpretation: Performing Lab: Notes/Report: Immature PLT Fraction 1.7 1.6-7.1 % Platelet 104 150-400 X10'3 LOW Comprehensive Metabolic Pane l (CMP) [id number] Reviewed date:10/14/2024 08:17:48 AM Interpretation: Performing Lab: Notes/Report: Glucose Serum 99 71-110 MG/DL Testing p erformed at [facility], [address] [place] [address] [place] [address]. CLIA ID#: [id number] BUN 20 7-21 MG/DL Creat .76 .57-1.17 MG/DL E-gcsdjf-t-benzoqui none imine (NAPQI) is a metabolite of acetaminophen, NAPQI concentrations of apparoximately 10 mg/L correlation to toxic levels of acetaminophen demonstrates a greater than or equil to 10% change in results. NAPQI concentrations greater than this may lead to falsely depressed results for patient samples. Use of this assay is not recommended for patients undergoing treatment with phenindione, due to the potential for falsely depressed results. GFR 92.7 NA Calculation performed from GFR calculator provided by the [employer]. Glomerular Filtration rate(GRF) is the best overall index of kidney function. Normal GFR varies according to age,sex, body size, and declines with age. The National Kidney Foundation recommends using the CKD-EPI Creatinine Equation(2020) to estimate GFR. BUN/Creat Ratio 26.3 12.0-20.0 % HI Total Protein 6.5 5.8-8.0 G/DL Albumin 3.3 3.2-4.8 G/DL Globulin 3.2 2.3-3.5 G/DL Alb/Glob 1.0 0.8-2.2 Calcium 9.1 8.7-10.4 MG/DL Sodium 139 136-145 MMOL/L Potassium 4.2 3.5-5.1 MMOL/L Chloride 106 98-107 MMOL/L CO2 28.6 20.0-31.0 MMOL/L Anion Gap 9 5-15 Alk Phos 80 46-116 Bili Total .4 .3-1.2 MG/DL Use of this assay is not recommended for patients undergoing treatment with eltrombopag due to the potential for falsely elevated results. AST/SGOT 13 15-37 UNIT/L LOW ALT/SGPT 7 12-78 UNIT/L LOW Osmo Serum,Calculated 291 280-300 MOSM/KG CBC w\ Auto Diff [id number] Reviewed date:11/21/2024 08:26:55 AM Interpretation: Performing Lab: Notes/Report: WBC 2.8 4.5-11.0 X10'3 LOW RBC 3.11 4.50-5.90 X10'6 LOW Hgb 9.8 13.5-17.5 G/DL LOW Hct 30.7 41.0-53.0 % LOW MCV 98.7 80.0-100.0 FL MCH 31.5 27.0-31.0 PG HI MCHC 31.9 31.0-37.0 G/DL Platelet 117 150-400 X10'3 LOW RDW-SD 56.2 35.0-49.0 FL HI RDW-CV 16.1 12.2-15.6 % HI MPV 10.1 9.2-12.0 FL Neutro Auto% 67.6 40.0-70.0 % Lymph Auto% 18.0 22.0-44.0 % LOW [place] Auto% 9.7 3.0-7.0 % HI Eos Auto% 3.6 2.0-4.0 % Baso Auto% 0.7 0.0-1.0 % Imm Gran% .4 .0-.4 % Neutro Abs 1.88 .80-7.70 Absolute Neutrophil Count 1880 NA Lymph Abs .50 .10-4.10 [place] Abs .27 .20-1.00 Eos Abs .10 .00-.40 Baso Abs .02 .00-.20 Imm Gran Abs .01 .00-.10 NRBC# .00 .00-.20 NRBC% .00 .00-.20 /100 intact WBC's Comprehensive Metabolic Pane l (CMP) [id number] Reviewed date:11/21/2024 08:26:55 AM Interpretation: Performing Lab: Notes/Report: line draw 10/07/2024 08:53:06 brooklynn \[id number]\called and talked to teodora she will call me back Glucose Serum 171 71-110 MG/DL HI Testing p erformed at [facility], [address] [place] [address] [place] [address]. CLIA ID#: [id number] BUN 20 7-21 MG/DL Creat .79 .57-1.17 MG/DL E-zfxrsv-y-benzoqui none imine (NAPQI) is a metabolite of acetaminophen, NAPQI concentrations of apparoximately 10 mg/L correlation to toxic levels of acetaminophen demonstrates a greater than or equil to 10% change in results. NAPQI concentrations greater than this may lead to falsely depressed results for patient samples. Use of this assay is not recommended for patients undergoing treatment with phenindione, due to the potential for falsely depressed results. GFR 91.8 NA Calculation performed from GFR calculator provided by the National [employer]. Glomerular Filtration rate(GRF) is the best overall index of kidney function. Normal GFR varies according to age,sex, body size, and declines with age. The National Kid[employer] recommends using the CKD-EPI Creatinine Equation(2020) to estimate GFR. BUN/Creat Ratio 25.3 12.0-20.0 % HI Total Protein 6.4 5.8-8.0 G/DL Albumin 3.7 3.2-4.8 G/DL Globulin 2.7 2.3-3.5 G/DL Alb/Glob 1.4 0.8-2.2 Calcium 9.3 8.7-10.4 MG/DL Sodium 138 136-145 MMOL/L Potassium 4.2 3.5-5.1 MMOL/L Chloride 105 98-107 MMOL/L CO2 28.4 20.0-31.0 MMOL/L Anion Gap 9 5-15 Alk Phos 81 46-116 Bili Total .2 .3-1.2 MG/DL LOW Use of this assay is not recommended for patients undergoing treatment with eltrombopag due to the potential for falsely elevated results. AST/SGOT 14 15-37 UNIT/L LOW ALT/SGPT <7 12-78 UNIT/L LOW Osmo Serum,Calculated 293 280-300 MOSM/KG Comprehensive Metabolic Pane l ([facility]) [id number] Reviewed date:12/22/2024 12:12:18 PM Interpretation: Performing Lab: Notes/Report: Diagnosis Description: Infection and inflammatory reaction due to other cardiac and vascular devices, implants and grafts, subsequent encounter Glucose Serum 173 71-110 MG/DL HI Testing p erformed at [address] Harris [place], [place] [address]. CLIA ID#: [id number] BUN 23 7-21 MG/DL HI Creat .84 .57-1.17 MG/DL N-muosxj-y-benzoqui none imine (NAPQI) is a metabolite of acetaminophen, NAPQI concentrations of apparoximately 10 mg/L correlation to toxic levels of acetaminophen demonstrates a greater than or equil to 10% change in results. NAPQI concentrations greater than this may lead to falsely depressed results for patient samples. Use of this assay is not recommended for patients undergoing treatment with phenindione, due to the potential for falsely depressed results. GFR 89.9 NA Calculation performed from GFR calculator provided by the [employer]. Glomerular Filtration rate(GRF) is the best overall index of kidney function. Normal GFR varies according to age,sex, body size, and declines with age. The National Kid[employer] Foundation recommends using the CKD-EPI Creatinine Equation(2020) to estimate GFR. BUN/Creat Ratio 27.4 12.0-20.0 % HI Total Protein 7.3 5.8-8.0 G/DL Albumin 4.2 3.2-4.8 G/DL Globulin 3.1 2.3-3.5 G/DL Alb/Glob 1.4 0.8-2.2 Calcium 9.5 8.7-10.4 MG/DL Sodium 139 136-145 MMOL/L Potassium 3.9 3.5-5.1 MMOL/L Chloride 101 98-107 MMOL/L CO2 28.7 20.0-31.0 MMOL/L Anion Gap 13 5-15 Alk Phos 133 46-116 HI Bili Total .3 .3-1.2 MG/DL Use of this assay is not recommended for patients undergoing treatment with eltrombopag due to the potential for falsely elevated results. AST/SGOT 24 15-37 UNIT/L ALT/SGPT 18 12-78 UNIT/L Osmo Serum,Calculated 296 280-300 MOSM/KG CBC w\ Auto Diff [id number] Reviewed date:12/22/2024 12:12:18 PM Interpretation: Performing Lab: Notes/Report: Diagnosis Description: Infection and inflammatory reaction due to other cardiac and vascular devices, implants and grafts, subsequent encounter WBC 2.3 4.5-11.0 X10'3 CRIT Called to doctor's office, spoke with Tatyana SANTIAGO/[place] 12/18/2024 16:33:58. WBC <2.5; manual counts maybe affected. Testing performed via Low WBC analysis in order to provide most accurate results. RBC 3.53 4.50-5.90 X10'6 LOW Hgb 11.0 13.5-17.5 G/DL LOW Hct 34.8 41.0-53.0 % LOW MCV 98.6 80.0-100.0 FL MCH 31.2 27.0-31.0 PG HI MCHC 31.6 31.0-37.0 G/DL Platelet 117 150-400 X10'3 LOW RDW-SD 54.8 35.0-49.0 FL HI RDW-CV 15.3 12.2-15.6 % MPV 10.1 9.2-12.0 FL Neutro Auto% 56.3 40.0-70.0 % Lymph Auto% 24.9 22.0-44.0 % [place] Auto% 16.6 3.0-7.0 % HI Eos Auto% .4 2.0-4.0 % LOW Baso Auto% 0.9 0.0-1.0 % Imm Gran% .9 .0-.4 % HI Neutro Abs 1.29 .80-7.70 Absolute Neutrophil Count 1290 NA Lymph Abs .57 .10-4.10 [place] Abs .38 .20-1.00 Eos Abs .01 .00-.40 Baso Abs .02 .00-.20 Imm Gran Abs .02 .00-.10 NRBC# .00 .00-.20 NRBC% .00 .00-.20 /100 intact WBC's CBC w\ Auto Diff [id number] Reviewed date:11/21/2024 08:26:55 AM Interpretation: Performing Lab: Notes/Report: WBC 2.6 4.5-11.0 X10'3 LOW RBC 3.23 4.50-5.90 X10'6 LOW Hgb 10.2 13.5-17.5 G/DL LOW Hct 30.6 41.0-53.0 % LOW MCV 94.7 80.0-100.0 FL MCH 31.6 27.0-31.0 PG HI MCHC 33.3 31.0-37.0 G/DL Platelet 104 150-400 X10'3 LOW RDW-SD 53.8 35.0-49.0 FL HI RDW-CV 15.9 12.2-15.6 % HI MPV 9.6 9.2-12.0 FL Neutro Auto% 58.3 40.0-70.0 % Lymph Auto% 23.9 22.0-44.0 % [place] Auto% 13.5 3.0-7.0 % HI Eos Auto% 2.7 2.0-4.0 % Baso Auto% 0.8 0.0-1.0 % Imm Gran% .8 .0-.4 % HI Neutro Abs 1.51 .80-7.70 Absolute Neutrophil Count 1510 NA Lymph Abs .62 .10-4.10 [place] Abs .35 .20-1.00 Eos Abs .07 .00-.40 Baso Abs .02 .00-.20 Imm Gran Abs .02 .00-.10 NRBC# .00 .00-.20 NRBC% .00 .00-.20 /100 intact WBC's CRP [id number] Reviewed date:12/22/2024 12:12:18 PM Interpretation: Performing Lab: Notes/Report: Diagnosis Description: Infection and inflammatory reaction due to other cardiac and vascular devices, implants and grafts, subsequent encounter CRP .86 .40-1.00 MG/DL CRP 25084 Reviewed date:11/21/2024 08:26:54 AM Interpretation: Performing Lab: Notes/Report: Diagnosis Description: Infection and inflammatory reaction due to other cardiac and vascular devices, implants and grafts, initial encounter CRP .52 .40-1.00 MG/DL CRP [id number] Reviewed date:11/21/2024 08:26:54 AM Interpretation: Performing Lab: Notes/Report: Diagnosis Description: Infection and inflammatory reaction due to other cardiac and vascular devices, implants and grafts, subsequent encounter CRP 1.42 .40-1.00 MG/DL HI Ankle Brachial Pressure I ndex-[id number] Reviewed date:11/21/2024 08:26:55 AM Interpretation: Performing Lab: Notes/Report: This report was dictated at the [facility] FINAL REPORT Read This report was dictated at the [facility] Glucometer WBG--[id number] Reviewed date:11/21/2024 08:26:55 AM Interpretation: Performing Lab: Notes/Report: Glucometer WBG 133 65-110 MG/DL HI See Documentation~Meter: [id number]~Manager Supplier[facility] [id number] [facility] Metabolic Pane ([facility]) [id number] Reviewed date:11/21/2024 08:26:54 AM Interpretation: Performing Lab: Notes/Report: Diagnosis Description: Infection and inflammatory reaction due to other cardiac and vascular devices, implants and grafts, subsequent encounter Glucose Serum 102 71-110 MG/DL Testing p erformed at [facility], [address] [place] [address] [place] [address]. CLIA ID#: [id number] BUN 18 7-21 MG/DL Creat .76 .57-1.17 MG/DL D-slmsiv-r-benzoqui none imine (NAPQI) is a metabolite of acetaminophen, NAPQI concentrations of apparoximately 10 mg/L correlation to toxic levels of acetaminophen demonstrates a greater than or equil to 10% change in results. NAPQI concentrations greater than this may lead to falsely depressed results for patient samples. Use of this assay is not recommended for patients undergoing treatment with phenindione, due to the potential for falsely depressed results. GFR 92.6 NA Calculation performed from GFR calculator provided by the National Kidney Foundation. Glomerular Filtration rate(GRF) is the best overall index of kidney function. Normal GFR varies according to age,sex, body size, and declines with age. The National Kidney Foundation recommends using the CKD-EPI Creatinine Equation(2020) to estimate GFR. BUN/Creat Ratio 23.7 12.0-20.0 % HI Total Protein 7.0 5.8-8.0 G/DL Albumin 3.8 3.2-4.8 G/DL Globulin 3.2 2.3-3.5 G/DL Alb/Glob 1.2 0.8-2.2 Calcium 9.2 8.7-10.4 MG/DL Sodium 138 136-145 MMOL/L Potassium 4.3 3.5-5.1 MMOL/L Chloride 103 98-107 MMOL/L CO2 24.8 20.0-31.0 MMOL/L Anion Gap 14 5-15 Alk Phos 140 46-116 HI Bili Total .3 .3-1.2 MG/DL Use of this assay is not recommended for patients undergoing treatment with eltrombopag due to the potential for falsely elevated results. AST/SGOT 23 15-37 UNIT/L ALT/SGPT 8 12-78 UNIT/L LOW Osmo Serum,Calculated 288 280-300 MOSM/KG Comprehensive Metabolic Pane l (CMP) [id number] Reviewed date:11/21/2024 08:26:54 AM Interpretation: Performing Lab: Notes/Report: Diagnosis Description: Infection and inflammatory reaction due to other cardiac and vascular devices, implants and grafts, initial encounter Glucose Serum 134 71-110 MG/DL HI Testing p erformed at [facility], [address] [place] [address] [place] [address]. CLIA ID#: [id number] BUN 22 7-21 MG/DL HI Creat .98 .57-1.17 MG/DL D-vlaxwe-o-benzoqui none imine (NAPQI) is a metabolite of acetaminophen, NAPQI concentrations of apparoximately 10 mg/L correlation to toxic levels of acetaminophen demonstrates a greater than or equil to 10% change in results. NAPQI concentrations greater than this may lead to falsely depressed results for patient samples. Use of this assay is not recommended for patients undergoing treatment with phenindione, due to the potential for falsely depressed results. GFR 79.4 NA Calculation performed from GFR calculator provided by the National Kid[employer]. Glomerular Filtration rate(GRF) is the best overall index of kidney function. Normal GFR varies according to age,sex, body size, and declines with age. The National Kidney Foundation recommends using the CKD-EPI Creatinine Equation(2020) to estimate GFR. BUN/Creat Ratio 22.4 12.0-20.0 % HI Total Protein 6.9 5.8-8.0 G/DL Albumin 3.7 3.2-4.8 G/DL Globulin 3.2 2.3-3.5 G/DL Alb/Glob 1.2 0.8-2.2 Calcium 9.2 8.7-10.4 MG/DL Sodium 138 136-145 MMOL/L Potassium 4.0 3.5-5.1 MMOL/L Chloride 100 98-107 MMOL/L CO2 24.6 20.0-31.0 MMOL/L Anion Gap 17 5-15 HI Alk Phos 122 46-116 HI Bili Total .4 .3-1.2 MG/DL Use of this assay is not recommended for patients undergoing treatment with eltrombopag due to the potential for falsely elevated results. AST/SGOT 16 15-37 UNIT/L ALT/SGPT 8 12-78 UNIT/L LOW Osmo Serum,Calculated 291 280-300 MOSM/KG CBC w\ Auto Diff [id number] Reviewed date:11/21/2024 08:26:54 AM Interpretation: Performing Lab: Notes/Report: Diagnosis Description: Infection and inflammatory reaction due to other cardiac and vascular devices, implants and grafts, initial encounter WBC 3.1 4.5-11.0 X10'3 LOW RBC 3.45 4.50-5.90 X10'6 LOW Hgb 10.9 13.5-17.5 G/DL LOW Hct 34.5 41.0-53.0 % LOW MCV 100.0 80.0-100.0 FL MCH 31.6 27.0-31.0 PG HI MCHC 31.6 31.0-37.0 G/DL Platelet 177 150-400 X10'3 RDW-SD 55.9 35.0-49.0 FL HI RDW-CV 15.1 12.2-15.6 % MPV 9.7 9.2-12.0 FL Neutro Auto% 65.5 40.0-70.0 % Lymph Auto% 17.9 22.0-44.0 % LOW [place] Auto% 14.1 3.0-7.0 % HI Eos Auto% 1.9 2.0-4.0 % LOW Baso Auto% 0.6 0.0-1.0 % Imm Gran% .0 .0-.4 % Neutro Abs 2.05 .80-7.70 Absolute Neutrophil Count 2050 NA Lymph Abs .56 .10-4.10 [place] Abs .44 .20-1.00 Eos Abs .06 .00-.40 Baso Abs .02 .00-.20 Imm Gran Abs .00 .00-.10 NRBC# .00 .00-.20 NRBC% .00 .00-.20 /100 intact WBC's Path Review Reviewed date:12/22/2024 12:12:18 PM Interpretation: Performing Lab: Notes/Report: Interpretation By Pathologist Pathologist review slide and agrees with technologist findings. Bro Paige MD 12/19/2024 NA Pathologist Review Sent to Pathologist Comprehensive Metabolic Pane l ([facility]) [id number] (Not yet reviewed by provider) Interpretation: Performing Lab: Notes/Report: Diagnosis Description: Infection and inflammatory reaction due to other cardiac and vascular devices, implants and grafts, subsequent encounter Glucose Serum 133 71-110 MG/DL HI Testing p erformed at [facility], [address] [place] [address] [place] [address]. CLIA ID#: [id number] BUN 25 7-21 MG/DL HI Creat .93 .57-1.17 MG/DL G-cacqkc-h-benzoqui none imine (NAPQI) is a metabolite of acetaminophen, NAPQI concentrations of apparoximately 10 mg/L correlation to toxic levels of acetaminophen demonstrates a greater than or equil to 10% change in results. NAPQI concentrations greater than this may lead to falsely depressed results for patient samples. Use of this assay is not recommended for patients undergoing treatment with phenindione, due to the potential for falsely depressed results. GFR 84.8 NA Calculation performed from GFR calculator provided by the National Kidney Foundation. Glomerular Filtration rate(GRF) is the best overall index of kidney function. Normal GFR varies according to age,sex, body size, and declines with age. The National Kidney Foundation recommends using the CKD-EPI Creatinine Equation(2020) to estimate GFR. BUN/Creat Ratio 26.9 12.0-20.0 % HI Total Protein 7.0 5.8-8.0 G/DL Albumin 4.2 3.2-4.8 G/DL Globulin 2.8 2.3-3.5 G/DL Alb/Glob 1.5 0.8-2.2 Calcium 9.2 8.7-10.4 MG/DL Sodium 140 136-145 MMOL/L Potassium 4.0 3.5-5.1 MMOL/L Chloride 103 98-107 MMOL/L CO2 26.4 20.0-31.0 MMOL/L Anion Gap 15 5-15 Alk Phos 101 46-116 Bili Total .4 .3-1.2 MG/DL Use of this assay is not recommended for patients undergoing treatment with eltrombopag due to the potential for falsely elevated results. AST/SGOT 20 15-37 UNIT/L ALT/SGPT 18 12-78 UNIT/L Osmo Serum,Calculated 296 280-300 MOSM/KG CTA AFRO w/ + w/o Contrast-7 5635 Reviewed date:11/21/2024 08:26:57 AM Interpretation: Performing Lab: Notes/Report: See Below For Report CTA AFRO w/ + w/o Contrast Please schedule on September 24 by 2 PM. Patient to be seen in office the same day. Please perform with 1 mm slices. Also okay to schedule on September 26 late morning to early afternoon. Read See Below For Report Chest PA/Lat-[id number] Reviewed date:11/21/2024 08:26:56 AM Interpretation: Performing Lab: Notes/Report: See Below For Report Chest PA/Lat Diagnosis Description: Peripheral vascular disease, unspecified Read See Below For Report CBC w\ Auto Diff [id number] Reviewed date:11/21/2024 08:26:56 AM Interpretation: Performing Lab: Notes/Report: WBC 2.4 4.5-11.0 X10'3 CRIT called to Tiffanie Al. 10/02/2024 09:40:05 rbv ps RBC 2.90 4.50-5.90 X10'6 LOW Hgb 9.0 13.5-17.5 G/DL LOW Hct 28.1 41.0-53.0 % LOW MCV 96.9 80.0-100.0 FL MCH 31.0 27.0-31.0 PG MCHC 32.0 31.0-37.0 G/DL Platelet 116 150-400 X10'3 LOW RDW-SD 52.7 35.0-49.0 FL HI RDW-CV 15.2 12.2-15.6 % MPV 9.0 9.2-12.0 FL LOW Neutro Auto% 63.2 40.0-70.0 % Lymph Auto% 18.0 22.0-44.0 % LOW [place] Auto% 16.0 3.0-7.0 % HI Eos Auto% 1.6 2.0-4.0 % LOW Baso Auto% 0.4 0.0-1.0 % Imm Gran% .8 .0-.4 % HI Neutro Abs 1.54 .80-7.70 Absolute Neutrophil Count 1540 NA Lymph Abs .44 .10-4.10 [place] Abs .39 .20-1.00 Eos Abs .04 .00-.40 Baso Abs .01 .00-.20 Imm Gran Abs .02 .00-.10 NRBC# .00 .00-.20 NRBC% .00 .00-.20 /100 intact WBC's CBC w\ Auto Diff [id number] Reviewed date:11/13/2024 04:56:49 PM Interpretation: Performing Lab: Notes/Report: Diagnosis Description: Infection and inflammatory reaction due to other cardiac and vascular devices, implants and grafts, subsequent encounter WBC 2.3 4.5-11.0 X10'3 CRIT critical called to Delores Browne RN 11/13/2024 16:47:23 tlf rbv WBC <2.5; manual counts maybe affected. Testing performed via Low WBC analysis in order to provide most accurate results RBC 3.33 4.50-5.90 X10'6 LOW Hgb 10.5 13.5-17.5 G/DL LOW Hct 32.8 41.0-53.0 % LOW MCV 98.5 80.0-100.0 FL MCH 31.5 27.0-31.0 PG HI MCHC 32.0 31.0-37.0 G/DL Platelet 120 150-400 X10'3 LOW RDW-SD 52.8 35.0-49.0 FL HI RDW-CV 14.6 12.2-15.6 % MPV 9.3 9.2-12.0 FL Neutro Auto% 45.7 40.0-70.0 % Lymph Auto% 33.0 22.0-44.0 % [place] Auto% 18.3 3.0-7.0 % HI Eos Auto% 1.7 2.0-4.0 % LOW Baso Auto% 1.3 0.0-1.0 % HI Imm Gran% .0 .0-.4 % Neutro Abs 1.05 .80-7.70 Absolute Neutrophil Count 1050 NA Lymph Abs .76 .10-4.10 [place] Abs .42 .20-1.00 Eos Abs .04 .00-.40 Baso Abs .03 .00-.20 Imm Gran Abs .00 .00-.10 NRBC# .00 .00-.20 NRBC% .00 .00-.20 /100 intact WBC's Glucometer WBG--[id number] Reviewed date:11/21/2024 08:26:55 AM Interpretation: Performing Lab: Notes/Report: Glucometer WBG 115 65-110 MG/DL HI N~Meter: [id number]~Manager Supplier: [id number] TESSA STEPHENSON Glucometer WBG--[id number] Reviewed date:11/21/2024 08:26:56 AM Interpretation: Performing Lab: Notes/Report: Glucometer WBG 168 65-110 MG/DL HI No Treat ment Needed~Meter: [id number]~Manager Supplier: [id number] BEAN BRUCE Glucometer WBG--[id number] Reviewed date:11/21/2024 08:26:55 AM Interpretation: Performing Lab: Notes/Report: Glucometer WBG 157 65-110 MG/DL HI No Treat ment Needed~Meter: [id number]~Manager Supplier: [id number] BEAN BRUCE Culture, Tissue--[id number] Reviewed date:11/21/2024 08:26:55 AM Interpretation: Performing Lab: Notes/Report: Culture Tissue NANCY Mcneal Culture Tissue t: Culture Tissue Culture Tissue [facility] [id number] Culture Tissue n: Culture Tissue Microbiology Culture Tissue PROCEDURE: Culture Tissue [] Culture Tissue SOURCE: Tissue BODY SITE: Culture Tissue COLLECTED DATE/TIME: 10/01/2024 10:00 CDT RECEIVED DATE/TIME: 10/01/2024 10:07 CDT Culture Tissue START DATE/TIME: 10/01/2024 10:07 CDT FREE TEXT SOURCE: Infected right leg graft Culture Tissue FINAL REPORT Culture Tissue Final Report [] Culture Tissue Verified Date/Time: 10/05/2024 11:03 CDT Culture Tissue Few Staphylococcus aureus Culture Tissue SUSCEPTIBILITY RESULTS Culture Tissue Staaur Culture Tissue Antibiotic MDIL MINT Culture Tissue Benzylpenicillin Resistant Culture Tissue Ciprofloxacin <=0.5 Susceptible Culture Tissue Clindamycin <=0.25 Susceptible Culture Tissue Erythromycin <=0.25 Susceptible Culture Tissue Gentamicin <=0.5 Susceptible Culture Tissue Levofloxacin 0.5 Susceptible Culture Tissue LINEZOLID 1 Susceptible Culture Tissue Oxacillin 0.5 Susceptible Culture Tissue Rifampin <=0.5 Susceptible Culture Tissue Tetracycline <=1 Susceptible Culture Tissue Trimethoprim/Sulfa < =10 Susceptible Culture Tissue Vancomycin 1 Susceptible Creat Proc NC--NO PCT Reviewed date:11/21/2024 08:26:57 AM Interpretation: Performing Lab: Notes/Report: Creat .89 .57-1.17 MG/DL V-vsedtv-l-benzoqui none imine (NAPQI) is a metabolite of acetaminophen, NAPQI concentrations of apparoximately 10 mg/L correlation to toxic levels of acetaminophen demonstrates a greater than or equil to 10% change in results. NAPQI concentrations greater than this may lead to falsely depressed results for patient samples. Use of this assay is not recommended for patients undergoing treatment with phenindione, due to the potential for falsely depressed results. Echo Complete [id number] Reviewed date:11/21/2024 08:26:56 AM Interpretation: Performing Lab: Notes/Report: dsq=[id number]&org=Jack CRP [id number] Reviewed date:10/14/2024 08:28:37 AM Interpretation: Performing Lab: Notes/Report: CRP 2.08 .40-1.00 MG/DL HI Prothrombin Time [id number] Reviewed date:11/21/2024 08:26:57 AM Interpretation: Performing Lab: Notes/Report: Diagnosis Description: Peripheral vascular disease, unspecified Diagnosis Description: Essential (primary) hypertension Diagnosis Description: Hyperlipidemia, unspecified Diagnosis Description: Type 2 diabetes mellitus without complications Diagnosis Description: Shortness of breath Diagnosis Description: Unspecified atherosclerosis of [place] arteries of extremities, right leg Diagnosis Description: Chronic obstructive pulmonary disease, unspecified Diagnosis Description: shelter (current) use of anticoagulants Diagnosis Description: shelter (current) use of antithrombotics/antiplatelets ProTime 11.7 9.1-11.9 SEC Normal Range : 9.1-11.9 INR 1.11 .90-1.20 Therapeutic Range: 2.0-3.0 Therapaeutic Range for heart valve replacement: 2.5-3.50 Bun Proc NC--NO CPT Reviewed date:11/21/2024 08:26:57 AM Interpretation: Performing Lab: Notes/Report: BUN 21 7-21 MG/DL Schedule Confirmation Reviewed date:09/06/2024 12:14:12 PM Interpretation: Performing Lab: Notes/Report: CT Cardiac Scoring Diagnostic Schedule Confirmation Reviewed date:11/21/2024 08:26:57 AM Interpretation: Performing Lab: Notes/Report: CTA AFRO w/ + w/o Contrast Schedule Confirmation Reviewed date:11/21/2024 08:26:57 AM Interpretation: Performing Lab: Notes/Report: CTA AFRO w/ + w/o Contrast Schedule Confirmation Reviewed date:11/21/2024 08:26:57 AM Interpretation: Performing Lab: Notes/Report: CTA AFRO w/ + w/o Contrast Schedule Confirmation Reviewed date:09/12/2024 05:34:30 PM Interpretation: Performing Lab: Notes/Report: CT Cardiac Scoring Diagnostic Basic Metabolic Panel (BMP) [id number] Reviewed date:11/21/2024 08:26:57 AM Interpretation: Performing Lab: Notes/Report: Diagnosis Description: Peripheral vascular disease, unspecified Diagnosis Description: Essential (primary) hypertension Diagnosis Description: Hyperlipidemia, unspecified Diagnosis Description: Type 2 diabetes mellitus without complications Diagnosis Description: Shortness of breath Diagnosis Description: Unspecified atherosclerosis of [place] arteries of extremities, right leg Diagnosis Description: Chronic obstructive pulmonary disease, unspecified Sodium 137 136-145 MMOL/L Potassium 4.2 3.5-5.1 MMOL/L Chloride 100 98-107 MMOL/L CO2 27.8 20.0-31.0 MMOL/L Glucose Serum 127 71-110 MG/DL HI Testing p erformed at [facility], [address] [place] [address] [place] [address]. CLIA ID#: [id number] BUN 23 7-21 MG/DL HI Creat .90 .57-1.17 MG/DL Z-phskaw-c-benzoqui none imine (NAPQI) is a metabolite of acetaminophen, NAPQI concentrations of apparoximately 10 mg/L correlation to toxic levels of acetaminophen demonstrates a greater than or equil to 10% change in results. NAPQI concentrations greater than this may lead to falsely depressed results for patient samples. Use of this assay is not recommended for patients undergoing treatment with phenindione, due to the potential for falsely depressed results. GFR 88.2 NA Calculation performed from GFR calculator provided by the National Kidney Foundation. Glomerular Filtration rate(GRF) is the best overall index of kidney function. Normal GFR varies according to age,sex, body size, and declines with age. The National Kidney Foundation recommends using the CKD-EPI Creatinine Equation(2020) to estimate GFR. Anion Gap 13 5-15 BUN/Creat Ratio 25.6 12.0-20.0 % HI Calcium 9.3 8.7-10.4 MG/DL Osmo Serum,Calculated 289 280-300 MOSM/KG [place] [id number], 8 5007 Reviewed date:11/21/2024 08:26:56 AM Interpretation: Performing Lab: Notes/Report: Diagnosis Description: Peripheral vascular disease, unspecified Diagnosis Description: Essential (primary) hypertension Diagnosis Description: Hyperlipidemia, unspecified Diagnosis Description: Type 2 diabetes mellitus without complications Diagnosis Description: Shortness of breath Diagnosis Description: Unspecified atherosclerosis of [place] arteries of extremities, right leg Diagnosis Description: Chronic obstructive pulmonary disease, unspecified WBC 4.6 4.5-11.0 X10'3 RBC 3.72 4.50-5.90 X10'6 LOW Hgb 11.6 13.5-17.5 G/DL LOW Hct 36.2 41.0-53.0 % LOW MCV 97.3 80.0-100.0 FL MCH 31.2 27.0-31.0 PG HI MCHC 32.0 31.0-37.0 G/DL Platelet 188 150-400 X10'3 RDW-SD 53.9 35.0-49.0 FL HI RDW-CV 15.0 12.2-15.6 % MPV 9.6 9.2-12.0 FL Review Auto Diff Conf Partial Thromboplastin Time [id number] Reviewed date:11/21/2024 08:26:56 AM Interpretation: Performing Lab: Notes/Report: Diagnosis Description: Peripheral vascular disease, unspecified Diagnosis Description: Essential (primary) hypertension Diagnosis Description: Hyperlipidemia, unspecified Diagnosis Description: Type 2 diabetes mellitus without complications Diagnosis Description: Shortness of breath Diagnosis Description: Unspecified atherosclerosis of [place] arteries of extremities, right leg Diagnosis Description: Chronic obstructive pulmonary disease, unspecified Diagnosis Description: shelter (current) use of anticoagulants Diagnosis Description: shelter (current) use of antithrombotics/antiplatelets PTT 29.3 22.6-31.8 SEC Therapeutic Range: 60-100. Critical Value Starting at > 100. CBC w\ Auto Diff [id number] Reviewed date:11/21/2024 08:26:56 AM Interpretation: Performing Lab: Notes/Report: WBC 1.4 4.5-11.0 X10'3 CRIT Called to [address] [place] [address], spoke with Alejo SANTIAGO/[place] 10/01/2024 14:41:41. RBC 2.93 4.50-5.90 X10'6 LOW Hgb 9.3 13.5-17.5 G/DL LOW Hct 28.1 41.0-53.0 % LOW MCV 95.9 80.0-100.0 FL MCH 31.7 27.0-31.0 PG HI MCHC 33.1 31.0-37.0 G/DL Platelet 19 150-400 X10'3 CRIT Called to [address] [place] [address], spoke with Alejo SANTIAGO/[place] 10/01/2024 14:41:41. RDW-SD 51.2 35.0-49.0 FL HI RDW-CV 14.7 12.2-15.6 % MPV 11.3 9.2-12.0 FL Neutro Auto% 51.4 40.0-70.0 % Lymph Auto% 34.5 22.0-44.0 % [place] Auto% 12.0 3.0-7.0 % HI Eos Auto% .7 2.0-4.0 % LOW Baso Auto% 0.7 0.0-1.0 % Imm Gran% .7 .0-.4 % HI Neutro Abs .73 .80-7.70 LOW Absolute Neutrophil Count 730 NA Lymph Abs .49 .10-4.10 [place] Abs .17 .20-1.00 LOW Eos Abs .01 .00-.40 Baso Abs .01 .00-.20 Imm Gran Abs .01 .00-.10 NRBC# .00 .00-.20 NRBC% .00 .00-.20 /100 intact WBC's Immature PLT Fraction [id number] Reviewed date:11/21/2024 08:26:56 AM Interpretation: Performing Lab: Notes/Report: Immature PLT Fraction 1.1 1.6-7.1 % LOW Platelet 19 150-400 X10'3 CRIT Called to [address] [place] [address], spoke with Alejo SANTIAGO/[place] 10/01/2024 14:41:41. Comprehensive Metabolic Pane l ([facility]) [id number] Reviewed date:11/21/2024 08:26:56 AM Interpretation: Performing Lab: Notes/Report: Glucose Serum 124 71-110 MG/DL HI Testing p erformed at [facility], [address] [place] [address] [place] [address]. CLIA ID#: [id number] BUN 15 7-21 MG/DL Creat .85 .57-1.17 MG/DL H-bvwurn-t-benzoqui none imine (NAPQI) is a metabolite of acetaminophen, NAPQI concentrations of apparoximately 10 mg/L correlation to toxic levels of acetaminophen demonstrates a greater than or equil to 10% change in results. NAPQI concentrations greater than this may lead to falsely depressed results for patient samples. Use of this assay is not recommended for patients undergoing treatment with phenindione, due to the potential for falsely depressed results. GFR 89.9 NA Calculation performed from GFR calculator provided by the National Kidney Foundation. Glomerular Filtration rate(GRF) is the best overall index of kidney function. Normal GFR varies according to age,sex, body size, and declines with age. The National Kidney Foundation recommends using the CKD-EPI Creatinine Equation(2020) to estimate GFR. BUN/Creat Ratio 17.6 12.0-20.0 % Total Protein 6.1 5.8-8.0 G/DL Albumin 3.6 3.2-4.8 G/DL Globulin 2.6 2.3-3.5 G/DL Alb/Glob 1.4 0.8-2.2 Calcium 8.5 8.7-10.4 MG/DL LOW Sodium 141 136-145 MMOL/L Potassium 5.2 3.5-5.1 MMOL/L HI Chloride 109 98-107 MMOL/L HI CO2 27.3 20.0-31.0 MMOL/L Anion Gap 10 5-15 Alk Phos 81 46-116 Bili Total .2 .3-1.2 MG/DL LOW Use of this assay is not recommended for patients undergoing treatment with eltrombopag due to the potential for falsely elevated results. AST/SGOT 18 15-37 UNIT/L ALT/SGPT 9 12-78 UNIT/L LOW Osmo Serum,Calculated 294 280-300 MOSM/KG Glucometer WBG--[id number] Reviewed date:11/21/2024 08:26:56 AM Interpretation: Performing Lab: Notes/Report: Glucometer WBG 179 65-110 MG/DL HI Sliding Scale Given~Meter: [id number]~Manager Supplier: [id number] TAQUERIA DAMON Glucometer WBG--[id number] Reviewed date:11/21/2024 08:26:56 AM Interpretation: Performing Lab: Notes/Report: Glucometer WBG 146 65-110 MG/DL HI See Documentation~Meter: [id number]~Manager Supplier: [id number] AMALIA [facility] Metabolic Pane l ([facility]) [id number] Reviewed date:10/14/2024 08:28:43 AM Interpretation: Performing Lab: Notes/Report: Glucose Serum 106 71-110 MG/DL Testing p erformed at [facility], [address] [place] [address] [place] [address]. CLIA ID#: [id number] BUN 14 7-21 MG/DL Creat .78 .57-1.17 MG/DL F-yzlzsq-a-benzoqui none imine (NAPQI) is a metabolite of acetaminophen, NAPQI concentrations of apparoximately 10 mg/L correlation to toxic levels of acetaminophen demonstrates a greater than or equil to 10% change in results. NAPQI concentrations greater than this may lead to falsely depressed results for patient samples. Use of this assay is not recommended for patients undergoing treatment with phenindione, due to the potential for falsely depressed results. GFR 91.9 NA Calculation performed from GFR calculator provided by the National Kidney Foundation. Glomerular Filtration rate(GRF) is the best overall index of kidney function. Normal GFR varies according to age,sex, body size, and declines with age. The National Kidney Foundation recommends using the CKD-EPI Creatinine Equation(2020) to estimate GFR. BUN/Creat Ratio 17.9 12.0-20.0 % Total Protein 5.3 5.8-8.0 G/DL LOW Albumin 3.1 3.2-4.8 G/DL LOW Globulin 2.2 2.3-3.5 G/DL LOW Alb/Glob 1.4 0.8-2.2 Calcium 8.4 8.7-10.4 MG/DL LOW Sodium 141 136-145 MMOL/L Potassium 4.0 3.5-5.1 MMOL/L Chloride 109 98-107 MMOL/L HI CO2 25.6 20.0-31.0 MMOL/L Anion Gap 10 5-15 Alk Phos 82 46-116 Bili Total .3 .3-1.2 MG/DL Use of this assay is not recommended for patients undergoing treatment with eltrombopag due to the potential for falsely elevated results. AST/SGOT 17 15-37 UNIT/L ALT/SGPT 8 12-78 UNIT/L LOW Osmo Serum,Calculated 293 280-300 MOSM/KG CBC w\ Auto Diff [id number] Reviewed date:10/04/2024 08:21:15 AM Interpretation: Performing Lab: Notes/Report: WBC 2.5 4.5-11.0 X10'3 CRIT called to smiley sesay rn 10/03/2024 03:04:27 RBC 2.87 4.50-5.90 X10'6 LOW Hgb 8.9 13.5-17.5 G/DL LOW Hct 27.3 41.0-53.0 % LOW MCV 95.1 80.0-100.0 FL MCH 31.0 27.0-31.0 PG MCHC 32.6 31.0-37.0 G/DL Platelet 99 150-400 X10'3 LOW RDW-SD 51.9 35.0-49.0 FL HI RDW-CV 15.3 12.2-15.6 % MPV 9.4 9.2-12.0 FL Neutro Auto% 53.5 40.0-70.0 % Lymph Auto% 23.4 22.0-44.0 % [place] Auto% 18.7 3.0-7.0 % HI Eos Auto% 3.6 2.0-4.0 % Baso Auto% 0.4 0.0-1.0 % Imm Gran% .4 .0-.4 % Neutro Abs 1.35 .80-7.70 Absolute Neutrophil Count 1350 NA Lymph Abs .59 .10-4.10 [place] Abs .47 .20-1.00 Eos Abs .09 .00-.40 Baso Abs .01 .00-.20 Imm Gran Abs .01 .00-.10 NRBC# .00 .00-.20 NRBC% .00 .00-.20 /100 intact WBC's Glucometer WBG--[id number] Reviewed date:11/21/2024 08:26:55 AM Interpretation: Performing Lab: Notes/Report: Glucometer WBG 165 65-110 MG/DL HI See Documentation~Meter: [id number]~Manager Supplier: [id number] AMALIA CABRERA Glucometer WBG--[id number] Reviewed date:11/21/2024 08:26:55 AM Interpretation: Performing Lab: Notes/Report: Glucometer WBG 226 65-110 MG/DL HI Sliding Scale Given~Meter: [id number]~Manager Supplier: [id number] BEAN KAUR Comprehensive [facility] P[facility] l ([facility]) [id number] Reviewed date:10/14/2024 08:24:37 AM Interpretation: Performing Lab: Notes/Report: Glucose Serum 110 71-110 MG/DL Testing p erformed at [facility], [address] [place] [address] [place] [address]. CLIA ID#: [id number] BUN 16 7-21 MG/DL Creat .78 .57-1.17 MG/DL G-lqcmvq-m-benzoqui none imine (NAPQI) is a metabolite of acetaminophen, NAPQI concentrations of apparoximately 10 mg/L correlation to toxic levels of acetaminophen demonstrates a greater than or equil to 10% change in results. NAPQI concentrations greater than this may lead to falsely depressed results for patient samples. Use of this assay is not recommended for patients undergoing treatment with phenindione, due to the potential for falsely depressed results. GFR 92.1 NA Calculation performed from GFR calculator provided by the National Kidney Foundation. Glomerular Filtration rate(GRF) is the best overall index of kidney function. Normal GFR varies according to age,sex, body size, and declines with age. The National Kidney Foundation recommends using the CKD-EPI Creatinine Equation(2020) to estimate GFR. BUN/Creat Ratio 20.5 12.0-20.0 % HI Total Protein 5.7 5.8-8.0 G/DL LOW Albumin 3.1 3.2-4.8 G/DL LOW Globulin 2.6 2.3-3.5 G/DL Alb/Glob 1.2 0.8-2.2 Calcium 8.9 8.7-10.4 MG/DL Sodium 141 136-145 MMOL/L Potassium 4.1 3.5-5.1 MMOL/L Chloride 106 98-107 MMOL/L CO2 30.1 20.0-31.0 MMOL/L Anion Gap 9 5-15 Alk Phos 90 46-116 Bili Total .4 .3-1.2 MG/DL Use of this assay is not recommended for patients undergoing treatment with eltrombopag due to the potential for falsely elevated results. AST/SGOT 13 15-37 UNIT/L LOW ALT/SGPT 9 12-78 UNIT/L LOW Osmo Serum,Calculated 294 280-300 MOSM/KG Glucometer WBG--[id number] Reviewed date:11/21/2024 08:26:55 AM Interpretation: Performing Lab: Notes/Report: Glucometer WBG 127 65-110 MG/DL HI See Documentation~Meter: [id number]~Manager Supplier: [id number] AMALIA RICK Glucometer WBG--[id number] Reviewed date:11/21/2024 08:26:55 AM Interpretation: Performing Lab: Notes/Report: Glucometer WBG 136 65-110 MG/DL HI No Treat ment Needed~Meter: [id number]~Manager Supplier: [id number] KILL BRUCE Immature PLT Fraction [id number] Reviewed date:11/21/2024 08:26:55 AM Interpretation: Performing Lab: Notes/Report: Immature PLT Fraction 2.8 1.6-7.1 % Platelet 122 150-400 X10'3 LOW Comprehensive Metabolic Pane l ([facility]) [id number] Reviewed date:11/21/2024 08:26:55 AM Interpretation: Performing Lab: Notes/Report: 10/05/2024 15:42:43 spoke with bruce Glucose Serum 143 71-110 MG/DL HI Testing p erformed at [facility], [address] [place] [address] [place] [address]. CLIA ID#: [id number] BUN 20 7-21 MG/DL Creat .78 .57-1.17 MG/DL G-iqlgqe-m-benzoqui none imine (NAPQI) is a metabolite of acetaminophen, NAPQI concentrations of apparoximately 10 mg/L correlation to toxic levels of acetaminophen demonstrates a greater than or equil to 10% change in results. NAPQI concentrations greater than this may lead to falsely depressed results for patient samples. Use of this assay is not recommended for patients undergoing treatment with phenindione, due to the potential for falsely depressed results. GFR 91.9 NA Calculation performed from GFR calculator provided by the National Kidney Foundation. Glomerular Filtration rate(GRF) is the best overall index of kidney function. Normal GFR varies according to age,sex, body size, and declines with age. The National Kidney Foundation recommends using the CKD-EPI Creatinine Equation(2020) to estimate GFR. BUN/Creat Ratio 25.6 12.0-20.0 % HI Total Protein 6.5 5.8-8.0 G/DL Albumin 3.8 3.2-4.8 G/DL Globulin 2.7 2.3-3.5 G/DL Alb/Glob 1.4 0.8-2.2 Calcium 9.4 8.7-10.4 MG/DL Sodium 137 136-145 MMOL/L Potassium 4.4 3.5-5.1 MMOL/L Chloride 104 98-107 MMOL/L CO2 29.2 20.0-31.0 MMOL/L Anion Gap 8 5-15 Alk Phos 92 46-116 Bili Total .4 .3-1.2 MG/DL Use of this assay is not recommended for patients undergoing treatment with eltrombopag due to the potential for falsely elevated results. AST/SGOT 15 15-37 UNIT/L ALT/SGPT 8 12-78 UNIT/L LOW Osmo Serum,Calculated 289 280-300 MOSM/KG Comprehensive Metabolic Pane l ([facility]) [id number] Reviewed date:10/14/2024 08:23:28 AM Interpretation: Performing Lab: Notes/Report: Glucose Serum 108 71-110 MG/DL Testing p erformed at [facility], [address] [place] [address] [place] [address]. CLIA ID#: [id number] BUN 19 7-21 MG/DL Creat .75 .57-1.17 MG/DL Z-shgwyb-i-benzoqui none imine (NAPQI) is a metabolite of acetaminophen, NAPQI concentrations of apparoximately 10 mg/L correlation to toxic levels of acetaminophen demonstrates a greater than or equil to 10% change in results. NAPQI concentrations greater than this may lead to falsely depressed results for patient samples. Use of this assay is not recommended for patients undergoing treatment with phenindione, due to the potential for falsely depressed results. GFR 93.3 NA Calculation performed from GFR calculator provided by the National Kidney Foundation. Glomerular Filtration rate(GRF) is the best overall index of kidney function. Normal GFR varies according to age,sex, body size, and declines with age. The National Kidney Foundation recommends using the CKD-EPI Creatinine Equation(2020) to estimate GFR. BUN/Creat Ratio 25.3 12.0-20.0 % HI Total Protein 5.8 5.8-8.0 G/DL Albumin 3.2 3.2-4.8 G/DL Globulin 2.6 2.3-3.5 G/DL Alb/Glob 1.2 0.8-2.2 Calcium 9.1 8.7-10.4 MG/DL Sodium 140 136-145 MMOL/L Potassium 4.2 3.5-5.1 MMOL/L Chloride 105 98-107 MMOL/L CO2 28.8 20.0-31.0 MMOL/L Anion Gap 10 5-15 Alk Phos 87 46-116 Bili Total .5 .3-1.2 MG/DL Use of this assay is not recommended for patients undergoing treatment with eltrombopag due to the potential for falsely elevated results. AST/SGOT 12 15-37 UNIT/L LOW ALT/SGPT 8 12-78 UNIT/L LOW Osmo Serum,Calculated 293 280-300 MOSM/KG US Ankle Brachial Pressure I ndex-[id number] Reviewed date:11/21/2024 08:26:55 AM Interpretation: Performing Lab: Notes/Report: lxd=[id number]&org=iSite ixb=[id number]&org=iSite Immature PLT Fraction [id number] Reviewed date:11/21/2024 08:26:54 AM Interpretation: Performing Lab: Notes/Report: Immature PLT Fraction 2.1 1.6-7.1 % Platelet 86 150-400 X10'3 LOW CBC w\ Auto Diff [id number] Reviewed date:10/14/2024 08:24:31 AM Interpretation: Performing Lab: Notes/Report: WBC 2.1 4.5-11.0 X10'3 CRIT CALLED TO VIOLET HOLLAND RN 10/05/2024 06:43:55 RBV BRS RBC 3.04 4.50-5.90 X10'6 LOW Hgb 9.5 13.5-17.5 G/DL LOW Hct 28.7 41.0-53.0 % LOW MCV 94.4 80.0-100.0 FL MCH 31.3 27.0-31.0 PG HI MCHC 33.1 31.0-37.0 G/DL Platelet 93 150-400 X10'3 LOW RDW-SD 53.8 35.0-49.0 FL HI RDW-CV 15.9 12.2-15.6 % HI MPV 9.8 9.2-12.0 FL Neutro Auto% 46.8 40.0-70.0 % Lymph Auto% 28.0 22.0-44.0 % [place] Auto% 21.0 3.0-7.0 % HI Eos Auto% 3.3 2.0-4.0 % Baso Auto% 0.9 0.0-1.0 % Imm Gran% .0 .0-.4 % Neutro Abs 1.00 .80-7.70 Absolute Neutrophil Count 1000 NA Lymph Abs .60 .10-4.10 [place] Abs .45 .20-1.00 Eos Abs .07 .00-.40 Baso Abs .02 .00-.20 Imm Gran Abs .00 .00-.10 NRBC# .00 .00-.20 NRBC% .00 .00-.20 /100 intact WBC's CBC w\ Auto Diff [id number] Reviewed date:11/21/2024 08:26:55 AM Interpretation: Performing Lab: Notes/Report: WBC 2.7 4.5-11.0 X10'3 LOW RBC 3.14 4.50-5.90 X10'6 LOW Hgb 9.9 13.5-17.5 G/DL LOW Hct 30.0 41.0-53.0 % LOW MCV 95.5 80.0-100.0 FL MCH 31.5 27.0-31.0 PG HI MCHC 33.0 31.0-37.0 G/DL Platelet 122 150-400 X10'3 LOW RDW-SD 54.9 35.0-49.0 FL HI RDW-CV 15.9 12.2-15.6 % HI MPV 9.4 9.2-12.0 FL Neutro Auto% 61.6 40.0-70.0 % Lymph Auto% 19.2 22.0-44.0 % LOW [place] Auto% 14.8 3.0-7.0 % HI Eos Auto% 3.3 2.0-4.0 % Baso Auto% 0.7 0.0-1.0 % Imm Gran% .4 .0-.4 % Neutro Abs 1.67 .80-7.70 Absolute Neutrophil Count 1670 NA Lymph Abs .52 .10-4.10 [place] Abs .40 .20-1.00 Eos Abs .09 .00-.40 Baso Abs .02 .00-.20 Imm Gran Abs .01 .00-.10 NRBC# .00 .00-.20 NRBC% .00 .00-.20 /100 intact WBC's CBC w\ Auto Diff [id number] Reviewed date:10/14/2024 08:23:23 AM Interpretation: Performing Lab: Notes/Report: WBC 2.4 4.5-11.0 X10'3 CRIT CALLED TO [facility] SARA WIN RN 10/06/2024 08:06:41 RBV BRS RBC 3.13 4.50-5.90 X10'6 LOW Hgb 9.6 13.5-17.5 G/DL LOW Hct 29.4 41.0-53.0 % LOW MCV 93.9 80.0-100.0 FL MCH 30.7 27.0-31.0 PG MCHC 32.7 31.0-37.0 G/DL Platelet 114 150-400 X10'3 LOW RDW-SD 53.8 35.0-49.0 FL HI RDW-CV 15.8 12.2-15.6 % HI MPV 9.9 9.2-12.0 FL Neutro Auto% see manual diff 40.0-70.0 % NA Lymph Auto% see manual diff 22.0-44.0 % NA [place] Auto% see manual diff 3.0-7.0 % NA Eos Auto% see manual diff 2.0-4.0 % NA Baso Auto% see manual diff 0.0-1.0 % NA Imm Gran% see manual diff .0-.4 % NA Neutro Abs see manual diff .80-7.70 NA Absolute Neutrophil Count see manual diff NA Lymph Abs see manual diff .10-4.10 NA [place] Abs see manual diff .20-1.00 NA Eos Abs see manual diff .00-.40 NA Baso Abs see manual diff .00-.20 NA Imm Gran Abs see manual diff .00-.10 NA NRBC# see manual diff .00-.20 NA NRBC% see manual diff .00-.20 /100 intact WBC's NA Glucometer WBG--[id number] Reviewed date:11/21/2024 08:26:56 AM Interpretation: Performing Lab: Notes/Report: Glucometer WBG 187 65-110 MG/DL HI Asymptom atic~Meter: [id number]~Manager Supplier: [id number] TANIA NAEEM Glucometer WBG--[id number] Reviewed date:11/21/2024 08:26:56 AM Interpretation: Performing Lab: Notes/Report: Glucometer WBG 124 65-110 MG/DL HI See Documentation~Meter: [id number]~Manager Supplier: [id number] AMALIA CABRERA CBC w\ Auto Diff [id number] Reviewed date:11/21/2024 08:26:56 AM Interpretation: Performing Lab: Notes/Report: WBC 2.3 4.5-11.0 X10'3 CRIT called to Kamran SEBASTIAN 10/03/2024 10:39:58 /dep/rbv RBC 3.02 4.50-5.90 X10'6 LOW Hgb 9.5 13.5-17.5 G/DL LOW Hct 29.3 41.0-53.0 % LOW MCV 97.0 80.0-100.0 FL MCH 31.5 27.0-31.0 PG HI MCHC 32.4 31.0-37.0 G/DL Platelet 102 150-400 X10'3 LOW RDW-SD 53.6 35.0-49.0 FL HI RDW-CV 15.5 12.2-15.6 % MPV 8.9 9.2-12.0 FL LOW Neutro Auto% 58.0 40.0-70.0 % Lymph Auto% 21.5 22.0-44.0 % LOW [place] Auto% 16.3 3.0-7.0 % HI Eos Auto% 3.4 2.0-4.0 % Baso Auto% 0.4 0.0-1.0 % Imm Gran% .4 .0-.4 % Neutro Abs 1.35 .80-7.70 Absolute Neutrophil Count 1350 NA Lymph Abs .50 .10-4.10 [place] Abs .38 .20-1.00 Eos Abs .08 .00-.40 Baso Abs .01 .00-.20 Imm Gran Abs .01 .00-.10 NRBC# .00 .00-.20 NRBC% .00 .00-.20 /[address] Cardiac Scoring Diagnosti c-[id number] Reviewed date:09/18/2024 02:21:29 PM Interpretation: Performing Lab: Notes/Report: tzn=[id number]&org=iSite mes=[id number]&org=iSite Schedule Confirmation Reviewed date:02/19/2024 09:22:55 AM Interpretation: Performing Lab: Notes/Report: CT Cardiac Scoring Diagnostic WBC Differential Manual--850 07 Reviewed date:10/14/2024 08:23:20 AM Interpretation: Performing Lab: Notes/Report: Band/Segs Man 62 40-70 % Lymph Man 13 22-44 % LOW Monocyte Man 17 3-7 % HI Eos Man 4 2-4 % Basophil Man 1 0-1 % Filer Man 0 0-0 % Myelo Man 0 0-0 % Promyelo Man 0 0-0 % Blasts Man 0 0-0 % React Lymph Man 3 NA PLT Appear Decreased RBC Morph Normal Morph Giant Platelets Present Smudge Cells 1 NA Absolute Neutrophil Count 1488 NA Band Man 0 5-11 % LOW CRP [id number] Reviewed date:10/14/2024 08:24:34 AM Interpretation: Performing Lab: Notes/Report: CRP 1.36 .40-1.00 MG/[place] [id number] Reviewed date:10/14/2024 08:23:26 AM Interpretation: Performing Lab: Notes/Report: CRP .77 .40-1.00 MG/DL Glucometer WBG--[id number] Reviewed date:11/21/2024 08:26:55 AM Interpretation: Performing Lab: Notes/Report: Glucometer WBG 119 65-110 MG/DL HI No Treat ment Needed~Meter: [id number]~Manager Supplier: [id number] KILL BRUCE CTA AFRO w/ + w/o Contrast-7 5635 Reviewed date:11/21/2024 08:26:57 AM Interpretation: Performing Lab: Notes/Report: pgq=[id number]&org=iSite Reason For Referral Reason PVD - transferring c are from [facility] Diagnosis 1 PVD (peripheral vasc ular disease) (I73.9) Referring Provider First Name [place] Pete ff Referring Provider Last Name [place] Referring Provider [facility] Referred Organization [facility] Referred Provider Darren Montes Referred Address [address],[address], Referred Provider Specialty Vascular Getachew kevin Referral Priority Routine Reason 08/28/24 OV CARDIO LOGY/EVAL AND TREAT/1 [facility] Diagnosis 1 HTN (hypertension) ( I10) Referring Provider First Name No Referring Provider Last Name [facility] Referring Provider Speciality Nurse Doroteo robles Referred Organization [facility] Referred Provider Naresh Swanson Referred Address [address],[place],[address], Referred Provider Specialty Cardiology Referral Priority Routine Medications Medication SIG (Take, Route, Frequency, Duration) Notes Start Date End Date Status Acetaminophen 500 MG Tablet 1 tablet as needed Orally every 6 hrs Active Jardiance 25 MG Tablet 1/2 tablet Orally Once a day Active LORazepam 1 MG Tablet 1 tablet at bedtim e as needed Orally Once a day Active HYDROmorphone HCl 4 MG Tablet 1 tablet as needed Orally every 6 hrs Active Lidocaine 5 % Patch 1 patch remove after 12 hours Externally Once a day Active Aspirin 81 MG Tablet Delayed Release 1 tablet Orally Once a day Active Meloxicam 7.5 MG Tablet 1 tablet Orally Once a day Active Diclofenac Sodium 1 % Gel as directed Externally Active Rosuvastatin Calcium 10 MG Tablet 1 tablet Orally Once a day; Duration: 90 days 02/19/2025 Active Lancets - Miscellaneous as directed Active Atenolol 25 MG Tablet 1/2 tablet Orally Once a day Active Mupirocin 2 % Ointment 1 application Ext ernally Twice a day Active Ketoconazole 2 % Shampoo as directed Externally Active Social History Tobacco Use: Social History Observation Description Date Details (start date - stop date) Former Smoker NA - NA Social History Drugs/Alcohol: Social Info Question Answer Notes Caffeine Intake: 2-3 cups per day Tobacco Use: Social Info Question Answer Notes Tobacco Control (Standard) Tobacco use: Former smoker How long has it been since you last smoked? 5-10 years Additional Details Category Social Info Options Details Drugs/Alcohol: Do you smoke marijuana? De nies Do you drink alcohol? No Section Notes: caffeine - 2 cups coffee daily marijuana/drug use - denies caffeine - 2 cups coffee daily marijuana/drug use - denies tobacco use - chew caffeine - 2 cups coffee daily marijuana/drug use - denies tobacco use - chew caffeine - 2 cups coffee daily marijuana/drug use - denies tobacco use - chew caffeine - 2 cups coffee daily marijuana/drug use - denies tobacco use - chew caffeine - 2 cups coffee daily marijuana/drug use - denies tobacco use - chew caffeine - 2 cups coffee daily marijuana/drug use - denies tobacco use - chew caffeine - 2 cups coffee daily marijuana/drug use - denies tobacco use - chew caffeine - 2 cups coffee daily marijuana/drug use - denies tobacco use - chew caffeine - 2 cups coffee daily marijuana/drug use - denies tobacco use - chew caffeine - 2 cups coffee daily marijuana/drug use - denies tobacco use - chew caffeine - 2 cups coffee daily marijuana/drug use - denies tobacco use - chew caffeine - 2 cups coffee daily marijuana/drug use - denies tobacco use - chew caffeine - 2 cups coffee daily marijuana/drug use - denies tobacco use - chew caffeine - 2 cups coffee daily marijuana/drug use - denies caffeine - 2 cups coffee daily marijuana/drug use - denies tobacco use - chew caffeine - 2 cups coffee daily marijuana/drug use - denies tobacco use - chew caffeine - 2 cups coffee daily marijuana/drug use - denies tobacco use - chew caffeine - 2 cups coffee daily marijuana/drug use - denies tobacco use - chew caffeine - 2 cups coffee daily marijuana/drug use - denies tobacco use - chew Problems Problem Type SNOMED Code ICD Code Onset Dates Problem Status W/U Status Risk Notes Problem Malignant tumor of lung (072641689) Malignant neoplasm of unspecified part of unspecified bronchus or lung (C34.90) Active confirmed Problem Secondary malignant neoplasm of unknown site (601679207) Secondary malignant neoplasm of unspecified site (C79.9) Active confirmed Problem Type II diabetes mellitus without complication (710736012) Type 2 diabetes mellitus without complications (E11.9) Active confirmed Problem Aortic valve disorder (9331090) Nonrheumatic aortic (valve) insufficiency (I35.1) Active confirmed Problem Infection and inflammatory reaction due to other cardiac and vascular devices, implants and grafts, initial encounter (T82.7XXA) Active confirmed Problem Long-term current use of antithrombotic (433796729484392) shelter (current) use of antithrombotics/an tiplatelets (Z79.02) Active confirmed Problem Essential hypertension (55692122) Essential hypertension (I10) Active confirmed Problem Dyspnea (007360073) SOB (shortness of breath) (R06.02) Active confirmed Problem Former smoker (0761263) Former smoker (Z87.891) Active confirmed Problem Systolic murmur (46412225) Systolic murmur (R01.1) Active confirmed Problem Peripheral vascular disease (785975938) PVD (peripheral vascular disease) (I73.9) Active confirmed Problem Aortic valve disorder (8014590) Aortic stenosis (I35.0) Active confirmed Problem Hypertension (64500329) HTN (hypertension) (I10) Active confirmed Problem Hyperlipidaemia (44978982) Hyperlipemia (E78.5) Active confirmed Problem COPD - Chronic obstructive pulmonary disease (01891935) COPD (chronic obstructive pulmonary disease) (J44.9) Active confirmed Problem Coronary artery disease (74024335) CAD (coronary artery disease) (I25.10) Active confirmed Problem Long-term current use of insulin (973886840) Insulin long-term use (Z79.4) Active confirmed Problem Long-term current use of anticoagulant (659239839) Current use of ad terminal makeup operator anticoagulation (Z79.01) Active confirmed Problem History and physical examination, follow-up (808093726) Surgical followup visit (Z09) Active confirmed Problem Lung cancer (358860117) Lung cancer (C34.90) Active confirmed Problem Atherosclerosis of artery of right lower extremity (1322058850) Atherosclerosis of artery of right lower extremity (I70.201) Active confirmed Problem Type 2 diabetes mellitus with peripheral angiopathy (824242653) Diabetes mellitus with peripheral artery disease (E11.51) Active confirmed Vital Signs Heart Rate 76 /min 04/02/2025 Temperature 98.8 degrees Fahrenheit 04/02/2025 Respiratory Rate 18 /min 01/08/2025 Height-cm 187.96 cm 04/02/2025 Blood pressure diastolic 60 mm Hg 04/02/2025 Oximetry 93 % 04/02/2025 Weight-kg 87.3 kg 04/02/2025 Height 74 in 04/02/2025 Blood pressure systolic 106 mm Hg 04/02/2025 Weight 192.46 lbs 04/02/2025 BMI 24.71 kg/m2 04/02/2025 Encounters Encounter Location Date Provider Diagnosis [facility] [address] [place] [address] 09/26/2024 Darren Montes Infection of vascula r bypass graft, initial encounter T82.7XXA [facility] [address] [place] [address] 09/05/2024 Darren Simon PVD (peripheral vascular disease) I73.9 and Other atherosclerosis of [place] arteries of the extremities I70.299 Formerly [facility] [address] [place] [address] 05/08/2024 Darren Montes Atherosclerosis of artery of right lower extremity I70.201 [facility] [address] [place] [address], [place] [address] 04/02/2025 Ze Souleymane Vascular graft infection, initial encounter T82.7XXA ; Vascular graft infection, subsequent encounter T82.7XXD and Blood pressure check Z01.30 [facility] [address] [place] [address], [place] [address] 02/19/2025 Naresh Swanson SOB (shortness of breath) R06.02 ; COPD (chronic obstructive pulmonary disease) J44.9 ; Lung cancer C34.90 ; CAD (coronary artery disease) I25.10 ; Aortic stenosis I35.0 ; Nonrheumatic aortic (valve) insufficiency I35.1 ; PVD (peripheral vascular disease) I73.9 ; Essential hypertension I10 ; Hyperlipemia E78.5 ; Type 2 diabetes mellitus without complications E11.9 and Former smoker Z87.891 [facility] [address] [place] [address], [place] [address] 02/05/2025 Ze Souleymane Vascular graft infection, initial encounter T82.7XXA ; Vascular graft infection, subsequent encounter T82.7XXD and Blood pressure check Z01.30 [facility] [address] [place] [address], [place] [address] 01/08/2025 Ze Souleymane Vascular graft infection, initial encounter T82.7XXA ; Vascular graft infection, subsequent encounter T82.7XXD and Blood pressure check Z01.30 [facility] [address] [place] [address], [place] [address] 12/25/2024 Ze Souleymane Vascular graft infection, initial encounter T82.7XXA ; Vascular graft infection, subsequent encounter T82.7XXD and Blood pressure check Z01.30 [facility] [address] [place] [address], [place] [address] 12/18/2024 Ze Souleymane Vascular graft infection, initial encounter T82.7XXA ; Vascular graft infection, subsequent encounter T82.7XXD and Blood pressure check Z01.30 [facility] [address] [place] [address], [place] [address] 11/20/2024 Ze Souleymane Vascular graft infection, initial encounter T82.7XXA ; Vascular graft infection, subsequent encounter T82.7XXD and Blood pressure check Z01.30 [facility] [address] [place] [address], [place] [address] 11/13/2024 Carmel Wellford Vascular graft infection, initial encounter T82.7XXA ; Vascular graft infection, subsequent encounter T82.7XXD and Blood pressure check Z01.30 [facility] [address] [place] [address], [place] [address] 11/06/2024 Carmel Arturo Vascular graft infection, initial encounter T82.7XXA ; Vascular graft infection, subsequent encounter T82.7XXD and Blood pressure check Z01.30 [facility] [address] [place] [address], [place] [address] 10/30/2024 Ze Souleymane Vascular graft infection, initial encounter T82.7XXA and Vascular graft infection, subsequent encounter T82.7XXD [facility] [address] [place] [address], [place] [address] 08/28/2024 Akihiro Kiki SOB (shortness of breath) R06.02 ; COPD (chronic obstructive pulmonary disease) J44.9 ; Lung cancer C34.90 ; Aortic stenosis I35.0 ; Nonrheumatic aortic (valve) insufficiency I35.1 ; PVD (peripheral vascular disease) I73.9 ; Essential hypertension I10 ; Hyperlipemia E78.5 ; Type 2 diabetes mellitus without complications E11.9 and Former smoker Z87.891 [facility] [address] [place] [address] 10/17/2024 Darren Montes Surgical followup visit [address] [place] [address] [facility] [address] [place] [address] 10/14/2024 Diego Fabian Infection and inflammatory reaction due to other cardiac and vascular devices, implants and grafts, initial encounter T82.7XXA and Surgical followup visit [address] [place] [address] [facility] [address] [place] [address] 10/17/2024 [facility] [address] [place] [address], [place] [address] 10/23/2024 Ze Comer Vascular graft infection, initial encounter T82.7XXA and Vascular graft infection, subsequent encounter T82.7XXD [facility] [address] [place] [address], [place] [address] 05/01/2024 Naresh Swanson SOB (shortness of breath) R06.02 ; Lung cancer C34.90 ; Aortic stenosis I35.0 ; Nonrheumatic aortic (valve) insufficiency I35.1 ; PVD (peripheral vascular disease) I73.9 ; Essential hypertension I10 ; Hyperlipemia E78.5 ; Type 2 diabetes mellitus without complications E11.9 and Former smoker Z87.891 [facility] [address] [place] [address], [place] [address] 10/16/2024 Carmel Morris Vascular graft infection, initial encounter T82.7XXA [facility] [address] [place] [address] 11/28/2024 Darren Montes Surgical followup visit Z09 [facility] [address] [place] [address], [place] [address] 11/14/2024 Carmel Morris [facility] [address] [place] [address], [place] [address] 10/29/2024 Naresh Swanson [facility] [address] [place] [address], [place] [address] 10/15/2024 Antione Mishra [facility] [address] [place] [address] 10/14/2024 Diego Fabian [facility] [address] [place] [address], [place] [address] 10/04/2024 Naresh Swanson [facility] [address] [place] [address] 09/26/2024 Darren Montes PVD (peripheral vascular disease) I73.9 ; Essential hypertension I10 ; Hyperlipemia E78.5 ; Type 2 diabetes mellitus without complications E11.9 ; SOB (shortness of breath) R06.02 ; Atherosclerosis of artery of right lower extremity I70.201 ; COPD (chronic obstructive pulmonary disease) J44.9 ; Current use of ad terminal makeup operator anticoagulation Z79.01 and shelter (current) use of antithrombotics/antipl atelets Z79.02 [facility] [address] [place] [address], [place] [address] 09/13/2024 Naresh Swanson Hyperlipemia E78.5 ; Abnormal cardiovascular function R94.30 ; Essential hypertension I10 and SOB (shortness of breath) R06.02 [facility] [address] [place] [address], [place] [address] 05/29/2024 Naresh Swnason [facility] [address] [place] [address], [place] [address] 12/30/2024 [facility] [address] [place] [address] 12/25/2024 [facility] [address] [place] [address], [place] [address] 11/26/2024 Naresh Swanson Assessments Encounter Date Diagnosis (ICD Code) Assessment Notes Treatment Notes Treatment Clinical Notes Section Notes 05/01/2024 SOB (shortness of breath) (ICD-10 - R06.02) The patient reports new onset of shortness of breath after placed on cancer treatment for his adenocarcinoma of the lungs. No exertional symptoms. Pending CT calcium score. No chest pain no chest pressure. 05/01/2024 Lung cancer (ICD-10 - C34.90) Follow-up with oncologist. 05/08/2024 Atherosclerosis of artery of right lower extremity (ICD-10 - I70.201) Patient is 73-year-old man with significant peripheral vascular disease. He is status post left below-knee amputation. He is status post right femoral-tibial bypass with a prosthetic conduit in 2019. Patient reports the bypass occluded shortly thereafter. Patient does not have any rest pain or wounds. He does have mild claudication but it is not lifestyle limiting. We will continue with conservative management. Patient has great insight. He reports he will give us a call if anything changes. If patient was to develop a wound or rest pain he would likely need a CTA with runoff for operative planning. 08/28/2024 SOB (shortness of breath) (ICD-10 - R06.02) The patient reports new onset of shortness of breath after placed on cancer treatment for his adenocarcinoma of the lungs. No exertional symptoms. Clinically monitor follow-up with oncology. 08/28/2024 COPD (chronic obstructive pulmonary disease) (ICD-10 - J44.9) 09/05/2024 PVD (peripheral vascular disease) (ICD-10 - I73.9) Patient is 73-year-old man with significant peripheral vascular disease. He is status post left below-knee amputation. He is status post right femoral-tibial bypass with a prosthetic conduit in 2019. Patient reports the bypass occluded shortly thereafter. Patient does not have any rest pain. However, he has had a wound come up along his incision. Thankfully the wound has healed. However, we will proceed with a CTA with runoff to evaluate the underlying prosthetic bypass and make sure that it does not have any radiological evidence of an infection. 09/05/2024 Other atherosclerosis of [place] arteries of the extremities (ICD-10 - I70.299) Patient is 73-year-old man with significant peripheral vascular disease. He is status post left below-knee amputation. He is status post right femoral-tibial bypass with a prosthetic conduit in 2019. Patient reports the bypass occluded shortly thereafter. Patient does not have any rest pain. However, he has had a wound come up along his incision. Thankfully the wound has healed. However, we will proceed with a CTA with runoff to evaluate the underlying prosthetic bypass and make sure that it does not have any radiological evidence of an infection. 09/13/2024 Hyperlipemia (ICD-10 - E78.5) 09/13/2024 Abnormal cardiovascular function (ICD-10 - R94.30) 09/26/2024 Infection of vascular bypass graft, initial encounter (ICD-10 - T82.7XXA) Patient is 73-year-old man with significant peripheral vascular disease. He is status post left below-knee amputation. He is status post right femoral-tibial bypass with a prosthetic conduit in 2019. Patient reports the bypass occluded shortly thereafter. Patient does not have any rest pain. However, he has had a wound come up along his incision. He did have intermittent drainage. We proceeded with a CTA. This demonstrated significant amount of fluid around the mid and distal aspect of the prosthetic graft. This is highly suggestive of an infected graft. I have recommended excision of the prosthetic graft. This will require a thigh incision as well as a lower leg incision. We will plan to get intraoperative cultures. He will also require a ALEXANDRA as an inpatient. We will plan to consult infectious disease as well. I will prescribe him Augmentin at this time until surgery. I explained the procedure. I explained the risk and benefits. He wishes to proceed. 09/26/2024 PVD (peripheral vascular disease) (ICD-10 - I73.9) 10/14/2024 Infection and inflammatory reaction due to other cardiac and vascular devices, implants and grafts, initial encounter (ICD-10 - T82.7XXA) 74-year-old male who is 1 week status post discharge from his excision of his infected right Connor to tib bypass graft. Patient is no longer taking Xarelto as per instructions by Dr. Montes. Patient's continuing his IV antibiotics through his left sided Port-A-Cath that are administered by his . Patient has home health that is following for his wound VAC and wound care. Patient has a follow-up visit with Dr. Montes on 10/17/2024. Incision Care: May shower with soap. Gently wash over the incision and pat dry. No lotions, powders, or ointments on the incision. Notify office if you develop a fever or chills. Or if incision opens up. There may be some slight swelling. If concerned, notify our office. Notify us also if there is a drainage from incision or puncture site. Especially if there is a foul odor or redness. Patient understand that if they develop lower extremity pain or signs or symptoms of claudication to notify us WON. Patient was educated on signs and symptoms of lower limb ischemia such as blue-black discoloration, loss of function, blanching, cold extremities, or pain not relieved with rest and to go to the ER immediately. Patient denies all these and verbalized understanding. 10/14/2024 Surgical followup visit (ICD-10 - Z09) 10/16/2024 Vascular graft infection, initial encounter (ICD-10 - T82.7XXA) 1. 74 yo white male with a history of DM, stage 4 lung cancer on chemotherapy, Left BKA, s/p femoral-tibial bypass, and s/p cervical spinal fusion 2. R femora tibial prosthetic bypass in 2019 3. 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 - CT scan with the diagnosis infected graft 4. 10-01-24; Operation/Proced ure BYPASS FEMORAL TIBIAL WITH GRAFT, Excision of infected right femoral to tibial bypass graft- At surgery a Grossly infected PTFE graft in the lower leg. The graft occluded. The graft was excised off what appeared to be the tibioperoneal trunk. 5. wound culture MSSA (Vanc, Doxy) 6. Antibiotics post-op day #15: Dapto, fortaz - duration of therapy 6 weeks IV, followed by a PO continuation phase determined by cultured species of bacteria EOT; 11-12-24 7. LABS; W 4.38, Cotton Jammer 0.7, Crp 3.0 8. The patient is getting chemotherapy for his cancer, and scheduled for his next infusion this coming Monday Continue antibiotics, bring wound VAC supplies at next week's appointment for removal and assessment 10/17/2024 Surgical followup visit (ICD-10 - Z09) Patient is 73-year-old man with significant peripheral vascular disease. He is status post left below-knee amputation. He is status post right femoral-tibial bypass with a prosthetic conduit in 2019. Patient reports the bypass occluded shortly thereafter. Patient does not have any rest pain. However, he has had a wound come up along his incision. He did have intermittent drainage. We proceeded with a CTA. This demonstrated significant amount of fluid around the mid and distal aspect of the prosthetic graft. This is highly suggestive of an infected graft. I have recommended excision of the prosthetic graft. Patient is now status post excision of the infected portion of the graft. Overall, he is doing well. Thankfully he is not having any rest pain of his leg. No further intervention from a vascular surgery standpoint. He is to continue follow-up with infectious diseases. We will see him back in 2 to 3 months to see how he is doing. 10/23/2024 Vascular graft infection, initial encounter (ICD-10 - T82.7XXA) 1. 74 yo white male with a history of DM, stage 4 lung cancer on chemotherapy, Left BKA, s/p femoral-tibial bypass, and s/p cervical spinal fusion 2. R femora tibial prosthetic bypass in 2019 3. 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 - CT scan with the diagnosis infected graft 4. 10-01-24; Operation/Proced ure BYPASS FEMORAL TIBIAL WITH GRAFT, Excision of infected right femoral to tibial bypass graft- At surgery a Grossly infected PTFE graft in the lower leg. The graft occluded. The graft was excised off what appeared to be the tibioperoneal trunk. 5. wound culture MSSA (Vanc, Doxy) -10-23-24 wound has granulation tissue and is healing slowly 6. Antibiotics; post-op day# 10-23-24 continue IV Dapto, fortaz (start date 10-02-24) AET 11-12-24 - duration of therapy 6 weeks IV, followed by a PO continuation phase determined by cultured species of bacteria 7. The patient is getting chemotherapy for his cancer Labs 10-06-24 W 2.4, Cotton Jammer .75, CRP .77 10-07-24 W 2.8, Cotton Jammer .79, CRP <.50 10-14-24 W 4.38, Cotton Jammer 0.7, CRP 3.0 (Ref range 0.0-4.9) [facility] 10-22-24 W 3.41, Cotton Jammer 0.8, CRP not done Follow up;1 week Scribleigh Rosas Parada 10/30/2024 Vascular graft infection, initial encounter (ICD-10 - T82.7XXA) 1. 74 yo white male with a history of DM, stage 4 lung cancer on chemotherapy, Left BKA, s/p femoral-tibial bypass, and s/p cervical spinal fusion - patient was getting chemotherapy for his cancer but it has been stopped as WBC is very low. -Oncology in [place] is following patient 2. R femora tibial prosthetic bypass in 2018 3. R femoral prosthetic graft infection; Resolved - wound healing very quickly - CT scan with the diagnosis infected graft 4. 10-01-24; Operation/Proced ure BYPASS FEMORAL TIBIAL WITH GRAFT, Excision of infected right femoral to tibial bypass graft- At surgery a Grossly infected PTFE graft in the lower leg. The graft occluded. The graft was excised off what appeared to be the tibioperoneal trunk. 5. wound culture MSSA (Vanc, Doxy) 6. Antibiotics; Day # 10-30-24 continue IV Dapto, fortaz (start date 10-02-24) AET 11-12-24 - duration of therapy 6 weeks IV, followed by a PO continuation phase determined by cultured species of bacteria 7. repeat labs. - If neutrophils drop below 750 may need admit by Oncology. Will follow closely. Labs 10-14-24 W 4.38, Cotton Jammer 0.7, CRP 3.0 (Ref range 0.0-4.9) [facility] 10-22-24 W 3.41, Cotton Jammer 0.8 10-23-24 CRP 2.42 10-28-24 W 2.00, Cotton Jammer 0.7, CRP 31.8 ([facility] ref range 0.0-4.9) 10-30-24 W3.0, Cotton Jammer .71, CRP 1.05, PLT 86 Follow up; 1 week w/labs Scrgopi Rosas Parada 10/30/2024 Vascular graft infection, 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 74 yo white male with a history of DM, stage 4 lung cancer on chemotherapy, Left BKA, s/p femoral-tibial bypass, and s/p cervical spinal fusion - patient was getting chemotherapy for his cancer but it has been stopped as WBC is very low. -Oncology in [place] is following patient 2. R femora tibial prosthetic bypass in 2018 3. R femoral prosthetic graft infection; Resolved - wound healing very quickly - CT scan with the diagnosis infected graft . 10-01-24; Operation/Proced ure BYPASS FEMORAL TIBIAL WITH GRAFT, Excision of infected right femoral to tibial bypass graft- At surgery a Grossly infected PTFE graft in the lower leg. The graft occluded. The graft was excised off what appeared to be the tibioperoneal trunk. 5. wound culture MSSA (Vanc, Doxy) 6. Antibiotics; Day # 10-30-24 continue IV Dapto, fortaz (start date 10-02-24) AET 11-12-24 - duration of therapy 6 weeks IV, followed by a PO continuation phase determined by cultured species of bacteria 7. repeat labs. - If neutrophils drop below 750 may need admit by Oncology. Will follow closely. Labs 10-14-24 W 4.38, Cotton Jammer 0.7, CRP 3.0 (Ref range 0.0-4.9) [facility] 10-22-24 W 3.41, Cotton Jammer 0.8 10-23-24 CRP 2.42 10-28-24 W 2.00, Cotton Jammer 0.7, CRP 31.8 ([facility] ref range 0.0-4.9) 10-30-24 W3.0, Cotton Jammer .71, CRP 1.05, PLT 86 Follow up; 1 week w/labs Mary Parada 11/06/2024 Vascular graft infection, initial encounter (ICD-10 - T82.7XXA) 1. 74 yo white male with a history of DM, stage 4 lung cancer on chemotherapy, Left BKA, s/p femoral-tibial bypass, and s/p cervical spinal fusion - patient was getting chemotherapy for his cancer but it has been stopped as WBC is very low. -Oncology in [place] is following patient 2. R femora tibial prosthetic bypass in 2019 3. R femoral prosthetic graft infection; Resolved - wound healing very quickly - CT scan with the diagnosis infected graft 4. 10-01-24; Operation/Proced ure BYPASS FEMORAL TIBIAL WITH GRAFT, Excision of infected right femoral to tibial bypass graft- At surgery a Grossly infected PTFE graft in the lower leg. The graft occluded. The graft was excised off what appeared to be the tibioperoneal trunk. 5. wound culture MSSA ([facility], Doxy) 6. Antibiotics; Day # 36 10-30-24 continue IV Dapto, fortaz (start date 10-02-24) AET 11-12-24 - duration of therapy 6 weeks IV, followed by a PO continuation phase determined by cultured species of bacteria 11-06-24; [facility] 10-14-24 W 4.38, Cotton Jammer 0.7, CRP 3.0 (Ref range 0.0-4.9) [facility] 10-22-24 W 3.41, Cotton Jammer 0.8 10-23-24 CRP 2.42 10-28-24 W 2.00, Cotton Jammer 0.7, CRP 31.8 ([facility] ref range 0.0-4.9) 10-30-24 W3.0, Cotton Jammer .71, CRP 1.05, PLT 86 11-06-24; W 3.58, Cotton Jammer 0.8, Crp 6.7 ([facility] ref range) Follow up; 1 week w/labs 11/06/2024 Vascular graft infection, 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 74 yo white male with a history of DM, stage 4 lung cancer on chemotherapy, Left BKA, s/p femoral-tibial bypass, and s/p cervical spinal fusion - patient was getting chemotherapy for his cancer but it has been stopped as WBC is very low. -Oncology in [place] is following patient 2. R femora tibial prosthetic bypass in 2018 3. R femoral prosthetic graft infection; Resolved - wound healing very quickly - CT scan with the diagnosis infected graft 4. 10-01-24; Operation/Proced ure BYPASS FEMORAL TIBIAL WITH GRAFT, Excision of infected right femoral to tibial bypass graft- At surgery a Grossly infected PTFE graft in the lower leg. The graft occluded. The graft was excised off what appeared to be the tibioperoneal trunk. 5. wound culture MSSA (Vanc, Doxy) 6. Antibiotics; Day # 36 10-30-24 continue IV Dapto, fortaz (start date 10-02-24) AET 11-12-24 - duration of therapy 6 weeks IV, followed by a PO continuation phase determined by cultured species of bacteria 11-06-24; Send in Doxy to [facility] 10-14-24 W 4.38, Cotton Jammer 0.7, CRP 3.0 (Ref range 0.0-4.9) [facility] 10-22-24 W 3.41, Cotton Jammer 0.8 10-23-24 CRP 2.42 10-28-24 W 2.00, Cotton Jammer 0.7, CRP 31.[address] ref range 0.0-4.9) 10-30-24 W3.0, Cotton Jammer .71, CRP 1.05, PLT 86 11-06-24; W 3.58, Cotton Jammer 0.8, Crp 6.7 ([facility] ref range) Follow up; 1 week w/labs 11/20/2024 Vascular graft infection, initial encounter (ICD-10 - T82.7XXA) 1. 74 yo white male with a history of DM, stage 4 lung cancer on chemotherapy, Left BKA, s/p femoral-tibial bypass, and s/p cervical spinal fusion - patient was getting chemotherapy for his cancer but it has been stopped as WBC is very low. -Oncology in [place] is following patient 2. R femora tibial prosthetic bypass in 2018 3. R femoral prosthetic graft infection; Resolved - wound healing very quickly - CT scan with the diagnosis infected graft 4. 10-01-24; Operation/Proced ure BYPASS FEMORAL TIBIAL WITH GRAFT, Excision of infected right femoral to tibial bypass graft- At surgery a Grossly infected PTFE graft in the lower leg. The graft occluded. The graft was excised off what appeared to be the tibioperoneal trunk. 5. wound culture MSSA (Vanc, Doxy) 6. Antibiotics; -DC'd IV Dapto, fortaz on 11-12-24 for 6 wks of treatment completed (start date 10-02-24) AET 11-12-24 - continue Doxycycline 100 mg BID (start date 11-06-24) AET 02-12-25) 7. Wound healing nicely, still has wound vac in place. 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 74 yo white male with a history of DM, stage 4 lung cancer on chemotherapy, Left BKA, s/p femoral-tibial bypass, and s/p cervical spinal fusion - patient was getting chemotherapy for his cancer but it has been stopped as WBC is very low. -Oncology in [place] is following patient 2. R femora tibial prosthetic bypass in 2019 3. R femoral prosthetic graft infection; Resolved - wound healing very quickly - CT scan with the diagnosis infected graft 4. 10-01-24; Operation/Proced ure BYPASS FEMORAL TIBIAL WITH GRAFT, Excision of infected right femoral to tibial bypass graft- At surgery a Grossly infected PTFE graft in the lower leg. The graft occluded. The graft was excised off what appeared to be the tibioperoneal trunk. 5. wound culture MSSA (Vanc, Doxy) 6. Antibiotics; -DC'd IV Dapto, fortaz on 11-12-24 for 6 wks of treatment completed (start date 10-02-24) AET 11-12-24 - continue Doxycycline 100 mg BID (start date 11-06-24) AET 02-12-25) 7. Wound healing nicely, still has wound vac in place. Labs 10-30-24 W 3.0, Cotton Jammer .71, CRP 1.05, PLT 86 11-06-24; W 3.58, Cotton Jammer 0.8, Crp 6.7 ([facility] ref range) 11-13-24 W 2.3, Cotton Jammer .76, CRP 1.42 Follow up; 1 month w/labs Mary Parada 11/28/2024 Surgical followup visit (ICD-10 - Z09) Patient is 73-year-old man with significant peripheral vascular disease. He is status post left below-knee amputation. He is status post right femoral-tibial bypass with a prosthetic conduit in 2019. Patient reports the bypass occluded shortly thereafter. Patient does not have any rest pain. However, he has had a wound come up along his incision. He did have intermittent drainage. We proceeded with a CTA. This demonstrated significant amount of fluid around the mid and distal aspect of the prosthetic graft. This is highly suggestive of an infected graft. I have recommended excision of the prosthetic graft. Patient is now status post excision of the infected portion of the graft. Overall, he is doing well. He has no rest pain. His wound continues to heal. Recommend continued wound VAC management. We will see him back in 6 months. 11/13/2024 Vascular graft infection, initial encounter (ICD-10 - T82.7XXA) 1. 74 yo white male with a history of DM, stage 4 lung cancer on chemotherapy, Left BKA, s/p femoral-tibial bypass, and s/p cervical spinal fusion - patient was getting chemotherapy for his cancer but it has been stopped as WBC is very low. -Oncology in [place] is following patient 2. R femora tibial prosthetic bypass in 2018 3. R femoral prosthetic graft infection; Resolved - wound healing very quickly - CT scan with the diagnosis infected graft 4. 10-01-24; Operation/Proced ure BYPASS FEMORAL TIBIAL WITH GRAFT, Excision of infected right femoral to tibial bypass graft- At surgery a Grossly infected PTFE graft in the lower leg. The graft occluded. The graft was excised off what appeared to be the tibioperoneal trunk. 5. wound culture MSSA (Vanc, Doxy) 6. Antibiotics; Day # 42 11-13-24 Completed IV Dapto, fortaz (start date 10-02-24) AET 11-12-24 - duration of therapy 6 weeks IV, followed by a PO continuation phase determined by cultured species of bacteria 11-06-24; Send in Doxy[facility] 100 mg BID to [facility] 11-13-24; De-access port, IV therapy completed Labs 10-14-24 W 4.38, Cotton Jammer 0.7, CRP 3.0 (Ref range 0.0-4.9) [facility] 10-22-24 W 3.41, Cotton Jammer 0.8 10-23-24 CRP 2.42 10-28-24 W 2.00, Cotton Jammer 0.7, CRP 31.8 ([facility] ref range 0.0-4.9) 10-30-24 W3.0, Cotton Jammer .71, CRP 1.05, PLT 86 11-06-24; W 3.58, Cotton Jammer 0.8, Crp 6.7 ([facility] ref range) 11-13-24; Obtain labs in office today and then the access port Follow up; 1 week w/labs 11/13/2024 Vascular graft infection, 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 74 yo white male with a history of DM, stage 4 lung cancer on chemotherapy, Left BKA, s/p femoral-tibial bypass, and s/p cervical spinal fusion - patient was getting chemotherapy for his cancer but it has been stopped as WBC is very low. -Oncology in [place] is following patient 2. R femora tibial prosthetic bypass in 2019 3. R femoral prosthetic graft infection; Resolved - wound healing very quickly - CT scan with the diagnosis infected graft 4. 10-01-24; Operation/Proced ure BYPASS FEMORAL TIBIAL WITH GRAFT, Excision of infected right femoral to tibial bypass graft- At surgery a Grossly infected PTFE graft in the lower leg. The graft occluded. The graft was excised off what appeared to be the tibioperoneal trunk. 5. wound culture MSSA (Vanc, Doxy) 6. Antibiotics; Day # 42 - 11-13-24 Completed IV Dapto, fortaz (start date 10-02-24) AET 11-12-24 - duration of therapy 6 weeks IV, followed by a PO continuation phase determined by cultured species of bacteria 11-06-24; Send in Doxycycline 100 mg BID to [facility] 11-13-24; De-access port, IV therapy completed Labs 10-14-24 W 4.38, Cotton Jammer 0.7, CRP 3.0 (Ref range 0.0-4.9) [facility] 10-22-24 W 3.41, Cotton Jammer 0.8 10-23-24 CRP 2.42 10-28-24 W 2.00, Cotton Jammer 0.7, CRP 31.8 ([facility] ref range 0.0-4.9) 10-30-24 W3.0, Cotton Jammer .71, CRP 1.05, PLT 86 11-06-24; W 3.58, Cotton Jammer 0.8, Crp 6.7 ([facility] ref range) 11-13-24; Obtain labs in office today and then the access port Follow up; 1 week w/labs 12/18/2024 Vascular graft infection, initial encounter (ICD-10 - T82.7XXA) 1. 74 yo white male with a history of DM, stage 4 lung cancer on chemotherapy, Left BKA, s/p femoral-tibial bypass, and s/p cervical spinal fusion - patient was getting chemotherapy for his cancer but it has been stopped as WBC is very low. -Oncology in [place] is following patient 2. R femora tibial prosthetic bypass in 2019 3. R femoral prosthetic graft infection; Resolved - wound healing very quickly - CT scan with the diagnosis infected graft . 10-01-24; Operation/Proced ure BYPASS FEMORAL TIBIAL WITH GRAFT, Excision of infected right femoral to tibial bypass graft- At surgery a Grossly infected PTFE graft in the lower leg. The graft occluded. The graft was excised off what appeared to be the tibioperoneal trunk. 5. wound culture MSSA (Vanc, Doxy) 6. Antibiotics; -DC'd IV Dapto, fortaz on 11-12-24 for 6 wks of treatment completed (start date 10-02-24) AET 11-12-24 - continue Doxycycline 100 mg BID (start date 11-06-24) AET 02-12-25 7. 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 74 yo white male with a history of DM, stage 4 lung cancer on chemotherapy, Left BKA, s/p femoral-tibial bypass, and s/p cervical spinal fusion - patient was getting chemotherapy for his cancer but it has been stopped as WBC is very low. -Oncology in [place] is following patient 2. R femora tibial prosthetic bypass in 2019 3. R femoral prosthetic graft infection; Resolved - wound healing very quickly - CT scan with the diagnosis infected graft . 10-01-24; Operation/Proced ure BYPASS FEMORAL TIBIAL WITH GRAFT, Excision of infected right femoral to tibial bypass graft- At surgery a Grossly infected PTFE graft in the lower leg. The graft occluded. The graft was excised off what appeared to be the tibioperoneal trunk. 5. wound culture MSSA (Vanc, Doxy) 6. Antibiotics; -DC'd IV Dapto, fortaz on 11-12-24 for 6 wks of treatment completed (start date 10-02-24) AET 11-12-24 - continue Doxycycline 100 mg BID (start date 11-06-24) AET 02-12-25 7. Wound healing nicely, discontinue wound vac Labs 10-30-24 W 3.0, Cotton Jammer .71, CRP 1.05, PLT 86 11-06-24; W 3.58, Cotton Jammer 0.8, Crp 6.7 ([facility] ref range) 11-13-24 W 2.3, Cotton Jammer .76, CRP 1.42 11-20-24 W 3.1, Cotton Jammer .98, CRP .52 Follow up; 2 weeks repeart labs CBC,CRP,Comp Mary Parada 12/25/2024 Vascular graft infection, initial encounter (ICD-10 - T82.7XXA) 1. 74 yo white male with a history of DM, stage 4 lung cancer on chemotherapy, Left BKA, s/p femoral-tibial bypass, and s/p cervical spinal fusion - patient was getting chemotherapy for his cancer but it has been stopped as WBC is very low. -Oncology in [place] is following patient 2. R femora tibial prosthetic bypass in 2018 3. R femoral prosthetic graft infection; Resolved - wound healing very quickly - CT scan with the diagnosis infected graft 4. 10-01-24; Operation/Proced ure BYPASS FEMORAL TIBIAL WITH GRAFT, Excision of infected right femoral to tibial bypass graft- At surgery a Grossly infected PTFE graft in the lower leg. The graft occluded. The graft was excised off what appeared to be the tibioperoneal trunk. 5. wound culture MSSA (Vanc, Doxy) 6. Antibiotics; -DC'd IV Dapto, fortaz on 11-12-24 for 6 wks of treatment completed (start date 10-02-24) AET 11-12-24 - continue Doxycycline 100 mg BID (start date 11-06-24) AET 02-12-25 7. 12-25-24 Wound healing nicely, discontinued wound vac -advised to change dressing BID Labs 11-13-24 W 2.3, Cotton Jammer .76, CRP 1.42 11-20-24 W 3.1, Cotton Jammer .98, CRP .52 12-18-24 W 2.3, Cotton Jammer .84, CRP .86, PLT 117 [facility] graft infection, 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 74 yo white male with a history of DM, stage 4 lung cancer on chemotherapy, Left BKA, s/p femoral-tibial bypass, and s/p cervical spinal fusion - patient was getting chemotherapy for his cancer but it has been stopped as WBC is very low. -Oncology in [place] is following patient 2. R femora tibial prosthetic bypass in 2019 3. R femoral prosthetic graft infection; Resolved - wound healing very quickly - CT scan with the diagnosis infected graft 4. 10-01-24; Operation/Proced ure BYPASS FEMORAL TIBIAL WITH GRAFT, Excision of infected right femoral to tibial bypass graft- At surgery a Grossly infected PTFE graft in the lower leg. The graft occluded. The graft was excised off what appeared to be the tibioperoneal trunk. 5. wound culture MSSA (Vanc, Doxy) 6. Antibiotics; -DC'd IV Dapto, fortaz on 11-12-24 for 6 wks of treatment completed (start date 10-02-24) AET 11-12-24 - continue Doxycycline 100 mg BID (start date 11-06-24) AET 02-12-25 7. 12-25-24 Wound healing nicely, discontinued wound vac -advised to change dressing BID Labs 11-13-24 W 2.3, Cotton Jammer .76, CRP 1.42 08 W 3.1, Cotton Jammer .98, CRP .52 12-18-24 W 2.3, Cotton Jammer .84, CRP .86, PLT 117 [facility] Vascular graft infection, initial encounter (ICD-10 - T82.7XXA) 1. 74 yo white male with a history of DM, stage 4 lung cancer on chemotherapy, Left BKA, s/p femoral-tibial bypass, and s/p cervical spinal fusion - patient was getting chemotherapy for his cancer but it has been stopped as WBC is very low. -Oncology in [place] is following patient 2. R femora tibial prosthetic bypass in 2019 3. R femoral prosthetic graft infection; Resolved - wound healing very quickly - CT scan with the diagnosis infected graft 4. 10-01-24; Operation/Proced ure BYPASS FEMORAL TIBIAL WITH GRAFT, Excision of infected right femoral to tibial bypass graft- At surgery a Grossly infected PTFE graft in the lower leg. The graft occluded. The graft was excised off what appeared to be the tibioperoneal trunk. 5. wound culture MSSA (Vanc, Doxy) 6. Antibiotics; -DC'd IV Dapto, fortaz on 11-12-24 for 6 wks of treatment completed (start date 10-02-24) AET 11-12-24 - continue Doxycycline 100 mg BID (start date 11-06-24) AET 02-12-25 7. 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 74 yo white male with a history of DM, stage 4 lung cancer on chemotherapy, Left BKA, s/p femoral-tibial bypass, and s/p cervical spinal fusion - patient was getting chemotherapy for his cancer but it has been stopped as WBC is very low. -Oncology in [place] is following patient 2. R femora tibial prosthetic bypass in 2019 3. R femoral prosthetic graft infection; Resolved - wound healing very quickly - CT scan with the diagnosis infected graft 4. 10-01-24; Operation/Proced ure BYPASS FEMORAL TIBIAL WITH GRAFT, Excision of infected right femoral to tibial bypass graft- At surgery a Grossly infected PTFE graft in the lower leg. The graft occluded. The graft was excised off what appeared to be the tibioperoneal trunk. 5. wound culture MSSA (Vanc, Doxy) 6. Antibiotics; -DC'd IV Dapto, fortaz on 11-12-24 for 6 wks of treatment completed (start date 10-02-24) AET 11-12-24 - continue Doxycycline 100 mg BID (start date 11-06-24) AET 02-12-25 7. 01-08-25 wound has decreased in size and looks good -advised to change dressing BID, [facility] is doing wound care 1 x a week Labs 11-13-24 W 2.3, Cotton Jammer .76, CRP 1.42 11-20-24 W 3.1, Cotton Jammer .98, CRP .52 12-18-24 W 2.3, Cotton Jammer .84, CRP .86, PLT 117 Follow up; 1 month w/labs repeat labs CBC,CRP,Comp Mary Parada 02/05/2025 Vascular graft infection, initial encounter (ICD-10 - T82.7XXA) 1. 74 yo white male with a history of DM, stage 4 lung cancer on chemotherapy, Left BKA, s/p femoral-tibial bypass, and s/p cervical spinal fusion - patient was getting chemotherapy for his cancer but it has been stopped as WBC is very low. -Oncology in [place] is following patient 2. R femora tibial prosthetic bypass in 2019 3. R femoral prosthetic graft infection; Resolved - wound has now healed - CT scan with the diagnosis infected graft 4. 10-01-24; Operation/Proced ure BYPASS FEMORAL TIBIAL WITH GRAFT, Excision of infected right femoral to tibial bypass graft- At surgery a Grossly infected PTFE graft in the lower leg. The graft occluded. The graft was excised off what appeared to be the tibioperoneal trunk. 5. wound culture MSSA (Vanc, Doxy) 6. Antibiotics; -DC'd IV Dapto, fortaz on 11-12-24 for 6 wks of treatment completed (start date 10-02-24) AET 11-12-24 - continue Doxycycline 100 mg BID (start date 11-06-24) AET 02-12-25 7. 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 74 yo white male with a history of DM, stage 4 lung cancer on chemotherapy, Left BKA, s/p femoral-tibial bypass, and s/p cervical spinal fusion - patient was getting chemotherapy for his cancer but it has been stopped as WBC is very low. -Oncology in [place] is following patient 2. R femora tibial prosthetic bypass in 2018 3. R femoral prosthetic graft infection; Resolved - wound has now healed - CT scan with the diagnosis infected graft 4. 10-01-24; Operation/Proced ure BYPASS FEMORAL TIBIAL WITH GRAFT, Excision of infected right femoral to tibial bypass graft- At surgery a Grossly infected PTFE graft in the lower leg. The graft occluded. The graft was excised off what appeared to be the tibioperoneal trunk. 5. wound culture MSSA (Vanc, Doxy) 6. Antibiotics; -DC'd IV Dapto, fortaz on 11-12-24 for 6 wks of treatment completed (start date 10-02-24) AET 11-12-24 - continue Doxycycline 100 mg BID (start date 11-06-24) AET 02-12-25 7. 01-08-25 wound has decreased in size and looks good -advised to change dressing BID, [facility] is doing wound care 1 x a week Labs 11-13-24 W 2.3, Cotton Jammer .76, CRP 1.42 11-20-24 W 3.1, Cotton Jammer .98, CRP .52 12-18-24 W 2.3, Cotton Jammer .84, CRP .86, PLT 117 01-08-25 W 2.9 Cotton Jammer .93 Crp <.50 Follow up: 1 month, he will have been off of antibiotics for 3 weeks 02/19/2025 SOB (shortness of breath) (ICD-10 - R06.02) Since her last appointment, shortness of breath has been stable. The patient has history of COPD and unfortunately stage IV lung cancer has been treated with chemotherapy once a week. 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 02/19/2025 COPD (chronic obstructive pulmonary disease) (ICD-10 - J44.9) 04/02/2025 Vascular graft infection, initial encounter (ICD-10 - T82.7XXA) 1. 74 yo white male with a history of DM, stage 4 lung cancer on chemotherapy, Left BKA, s/p femoral-tibial bypass, and s/p cervical spinal fusion - patient was getting chemotherapy for his cancer but it has been stopped as WBC is very low. -Oncology in [place] is following patient - on chemo, and has weakness 2. R femora tibial prosthetic bypass in 2018 3. R femoral prosthetic graft infection; Resolved . 10-01-24; Operation/Proced ure BYPASS FEMORAL TIBIAL WITH GRAFT, Excision of infected right femoral to tibial bypass graft- At surgery a Grossly infected PTFE graft in the lower leg. The graft occluded. The graft was excised off what appeared to be the tibioperoneal trunk. 5. wound culture MSSA (Vanc, Doxy) 6. Antibiotics; DC all antibiotics 04-02-25 -DC'd IV Dapto, fortaz on 11-12-24 for 6 wks of treatment completed (start date 10-02-24) AET 11-12-24 - continue Doxycycline 100 mg BID (start date 11-06-24) AET 02-12-25 Labs 11-13-24 W 2.3, Cotton Jammer .76, CRP 1.42 11-20-24 W 3.1, Cotton Jammer .98, CRP .52 12-18-24 W 2.3, Cotton Jammer .84, CRP .86, PLT 117 01-08-25 W 2.9 hb. 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 74 yo white male with a history of DM, stage 4 lung cancer on chemotherapy, Left BKA, s/p femoral-tibial bypass, and s/p cervical spinal fusion - patient was getting chemotherapy for his cancer but it has been stopped as WBC is very low. -Oncology in [place] is following patient - on chemo, and has weakness 2. R femora tibial prosthetic bypass in 2018 3. R femoral prosthetic graft infection; Resolved 4. 10-01-24; Operation/Proced ure BYPASS FEMORAL TIBIAL WITH GRAFT, Excision of infected right femoral to tibial bypass graft- At surgery a Grossly infected PTFE graft in the lower leg. The graft occluded. The graft was excised off what appeared to be the tibioperoneal trunk. 5. wound culture MSSA (Vanc, Doxy) 6. Antibiotics; DC all antibiotics 04-02-25 -DC'd IV Dapto, fortaz on 11-12-24 for 6 wks of treatment completed (start date 10-02-24) AET 11-12-24 - continue Doxycycline 100 mg BID (start date 11-06-24) AET 02-12-25 Labs 11-13-24 W 2.3, Cotton Jammer .76, CRP 1.42 11-20-24 W 3.1, Cotton Jammer .98, CRP .52 12-18-24 W 2.3, Cotton Jammer .84, CRP .86, PLT 117 01-08-25 W 2.9 hb. 11.1 Cotton Jammer .93 Crp <.50 Follow up: 02/19/2025 Lung cancer (ICD-10 - C34.90) Follow-up with oncologist. 04/02/2025 Blood pressure check (ICD-10 - Z01.30) 1. 74 yo white male with a history of DM, stage 4 lung cancer on chemotherapy, Left BKA, s/p femoral-tibial bypass, and s/p cervical spinal fusion - patient was getting chemotherapy for his cancer but it has been stopped as WBC is very low. -Oncology in [place] is following patient - on chemo, and has weakness 2. R femora tibial prosthetic bypass in 2019 3. R femoral prosthetic graft infection; Resolved 4. 10-01-24; Operation/Proced ure BYPASS FEMORAL TIBIAL WITH GRAFT, Excision of infected right femoral to tibial bypass graft- At surgery a Grossly infected PTFE graft in the lower leg. The graft occluded. The graft was excised off what appeared to be the tibioperoneal trunk. 5. wound culture MSSA (Vanc, Doxy) 6. Antibiotics; DC all antibiotics 04-02-25 -DC'd IV Dapto, fortaz on 11-12-24 for 6 wks of treatment completed (start date 10-02-24) AET 11-12-24 - continue Doxycycline 100 mg BID (start date 11-06-24) AET 02-12-25 Labs 11-13-24 W 2.3, Cotton Jammer .76, CRP 1.42 11-20-24 W 3.1, Cotton Jammer .98, CRP .52 12-18-24 W 2.3, Cotton Jammer .84, CRP .86, PLT 117 01-08-25 W 2.9 hb. 11.1 Cotton Jammer .93 Crp <.50 Follow up: 02/05/2025 Blood pressure check (ICD-10 - Z01.30) 1. 74 yo white male with a history of DM, stage 4 lung cancer on chemotherapy, Left BKA, s/p femoral-tibial bypass, and s/p cervical spinal fusion - patient was getting chemotherapy for his cancer but it has been stopped as WBC is very low. -Oncology in [place] is following patient 2. R femora tibial prosthetic bypass in 2019 3. R femoral prosthetic graft infection; Resolved - wound has now healed - CT scan with the diagnosis infected graft 4. 10-01-24; Operation/Proced ure BYPASS FEMORAL TIBIAL WITH GRAFT, Excision of infected right femoral to tibial bypass graft- At surgery a Grossly infected PTFE graft in the lower leg. The graft occluded. The graft was excised off what appeared to be the tibioperoneal trunk. 5. wound culture MSSA (Vanc, Doxy) 6. Antibiotics; -DC'd IV Dapto, fortaz on 11-12-24 for 6 wks of treatment completed (start date 10-02-24) AET 11-12-24 - continue Doxycycline 100 mg BID (start date 11-06-24) AET 02-12-25 7. 01-08-25 wound has decreased in size and looks good -advised to change dressing BID, [facility] is doing wound care 1 x a week Labs 11-13-24 W 2.3, Cotton Jammer .76, CRP 1.42 11-20-24 W 3.1, Cotton Jammer .98, CRP .52 12-18-24 W 2.3, Cotton Jammer .84, CRP .86, PLT 117 01-08-25 W 2.9 Cotton Jammer .93 Crp <.50 Follow up: 1 month, he will have been off of antibiotics for 3 weeks 01/08/2025 Blood pressure check (ICD-10 - Z01.30) 1. 74 yo white male with a history of DM, stage 4 lung cancer on chemotherapy, Left BKA, s/p femoral-tibial bypass, and s/p cervical spinal fusion - patient was getting chemotherapy for his cancer but it has been stopped as WBC is very low. -Oncology in [place] is following patient 2. R femora tibial prosthetic bypass in 2018 3. R femoral prosthetic graft infection; Resolved - wound healing very quickly - CT scan with the diagnosis infected graft . 10-01-24; Operation/Proced ure BYPASS FEMORAL TIBIAL WITH GRAFT, Excision of infected right femoral to tibial bypass graft- At surgery a Grossly infected PTFE graft in the lower leg. The graft occluded. The graft was excised off what appeared to be the tibioperoneal trunk. 5. wound culture MSSA (Vanc, Doxy) 6. Antibiotics; -DC'd IV Dapto, fortaz on 11-12-24 for 6 wks of treatment completed (start date 10-02-24) AET 11-12-24 - continue Doxycycline 100 mg BID (start date 11-06-24) AET 02-12-25 7. 01-08-25 wound has decreased in size and looks good -advised to change dressing BID, [facility] is doing wound care 1 x a week Labs 11-13-24 W 2.3, Cotton Jammer .76, CRP 1.42 11-20-24 W 3.1, Cotton Jammer .98, CRP .52 12-18-24 W 2.3, Cotton Jammer .84, CRP .86, PLT 117 Follow up; 1 month w/labs repeat labs CBC,CRP,Comp Mary Parada 12/25/2024 Blood pressure check (ICD-10 - Z01.30) 1. 74 yo white male with a history of DM, stage 4 lung cancer on chemotherapy, Left BKA, s/p femoral-tibial bypass, and s/p cervical spinal fusion - patient was getting chemotherapy for his cancer but it has been stopped as WBC is very low. -Oncology in [place] is following patient 2. R femora tibial prosthetic bypass in 2018 3. R femoral prosthetic graft infection; Resolved - wound healing very quickly - CT scan with the diagnosis infected graft 4. 10-01-24; Operation/Proced ure BYPASS FEMORAL TIBIAL WITH GRAFT, Excision of infected right femoral to tibial bypass graft- At surgery a Grossly infected PTFE graft in the lower leg. The graft occluded. The graft was excised off what appeared to be the tibioperoneal trunk. 5. wound culture MSSA (Vanc, Doxy) 6. Antibiotics; -DC'd IV Dapto, fortaz on 11-12-24 for 6 wks of treatment completed (start date 10-02-24) AET 11-12-24 - continue Doxycycline 100 mg BID (start date 11-06-24) AET 02-12-25 7. 12-25-24 Wound healing nicely, discontinued wound vac -advised to change dressing BID Labs 11-13-24 W 2.3, Cotton Jammer .76, CRP 1.42 11-20-24 W 3.1, Cotton Jammer .98, CRP .52 12-18-24 W 2.3, Cotton Jammer .84, CRP .86, PLT 117 Follow up; 2 weeks Mary Parada 11/20/2024 Blood pressure check (ICD-10 - Z01.30) 1. 74 yo white male with a history of DM, stage 4 lung cancer on chemotherapy, Left BKA, s/p femoral-tibial bypass, and s/p cervical spinal fusion - patient was getting chemotherapy for his cancer but it has been stopped as WBC is very low. -Oncology in [place] is following patient 2. R femora tibial prosthetic bypass in 2018 3. R femoral prosthetic graft infection; Resolved - wound healing very quickly - CT scan with the diagnosis infected graft 4. 10-01-24; Operation/Proced ure BYPASS FEMORAL TIBIAL WITH GRAFT, Excision of infected right femoral to tibial bypass graft- At surgery a Grossly infected PTFE graft in the lower leg. The graft occluded. The graft was excised off what appeared to be the tibioperoneal trunk. 5. wound culture MSSA (Vanc, Doxy) 6. Antibiotics; -DC'd IV Dapto, fortaz on 11-12-24 for 6 wks of treatment completed (start date 10-02-24) AET 11-12-24 - continue Doxycycline 100 mg BID (start date 11-06-24) AET 02-12-25) 7. Wound healing nicely, still has wound vac in place. Labs 10-30-24 W 3.0, Cotton Jammer .71, CRP 1.05, PLT 86 11-06-24; W 3.58, Cotton Jammer 0.8, Crp 6.7 ([facility] ref range) 11-13-24 W 2.3, Cotton Jammer .76, CRP 1.42 Follow up; 1 month w/labs Scribe Alison Parada 12/18/2024 Blood pressure check (ICD-10 - Z01.30) 1. 74 yo white male with a history of DM, stage 4 lung cancer on chemotherapy, Left BKA, s/p femoral-tibial bypass, and s/p cervical spinal fusion - patient was getting chemotherapy for his cancer but it has been stopped as WBC is very low. -Oncology in [place] is following patient 2. R femora tibial prosthetic bypass in 2018 3. R femoral prosthetic graft infection; Resolved - wound healing very quickly - CT scan with the diagnosis infected graft 4. 10-01-24; Operation/Proced ure BYPASS FEMORAL TIBIAL WITH GRAFT, Excision of infected right femoral to tibial bypass graft- At surgery a Grossly infected PTFE graft in the lower leg. The graft occluded. The graft was excised off what appeared to be the tibioperoneal trunk. 5. wound culture MSSA (Vanc, Doxy) 6. Antibiotics; -DC'd IV Dapto, fortaz on 11-12-24 for 6 wks of treatment completed (start date 10-02-24) AET 11-12-24 - continue Doxycycline 100 mg BID (start date 11-06-24) AET 02-12-25 7. Wound healing nicely, discontinue wound vac Labs 10-30-24 W 3.0, Cotton Jammer .71, CRP 1.05, PLT 86 11-06-24; W 3.58, Cotton Jammer 0.8, Crp 6.7 ([facility] ref range) 11-13-24 W 2.3, Cotton Jammer .76, CRP 1.42 11-20-24 W 3.1, Cotton Jammer .98, CRP .52 Follow up; 2 weeks repeart labs CBC,CRP,Comp Scribe Alison Parada 11/13/2024 Blood pressure check (ICD-10 - Z01.30) 1. 74 yo white male with a history of DM, stage 4 lung cancer on chemotherapy, Left BKA, s/p femoral-tibial bypass, and s/p cervical spinal fusion - patient was getting chemotherapy for his cancer but it has been stopped as WBC is very low. -Oncology in [place] is following patient 2. R femora tibial prosthetic bypass in 2018 3. R femoral prosthetic graft infection; Resolved - wound healing very quickly - CT scan with the diagnosis infected graft 4. 10-01-24; Operation/Proced ure BYPASS FEMORAL TIBIAL WITH GRAFT, Excision of infected right femoral to tibial bypass graft- At surgery a Grossly infected PTFE graft in the lower leg. The graft occluded. The graft was excised off what appeared to be the tibioperoneal trunk. 5. wound culture MSSA (Vanc, Doxy) 6. Antibiotics; Day # 42 11-13-24 Completed IV Dapto, fortaz (start date 10-02-24) AET 11-12-24 - duration of therapy 6 weeks IV, followed by a PO continuation phase determined by cultured species of bacteria 11-06-24; [facility]; De-access port, IV therapy completed Labs 10-14-24 W 4.38, Cotton Jammer 0.7, CRP 3.0 (Ref range 0.0-4.9) [facility] 10-22-24 W 3.41, Cotton Jammer 0.8 10-23-24 CRP 2.42 10-28-24 W 2.00, Cotton Jammer 0.7, CRP 31.8 ([facility] ref range 0.0-4.9) 10-30-24 W3.0, Cotton Jammer .71, CRP 1.05, PLT 86 11-06-24; W 3.58, Cotton Jammer 0.8, Crp 6.7 ([facility] ref range) 11-13-24; Obtain labs in office today and then the access port Follow up; 1 week w/labs 11/06/2024 Blood pressure check (ICD-10 - Z01.30) 1. 74 yo white male with a history of DM, stage 4 lung cancer on chemotherapy, Left BKA, s/p femoral-tibial bypass, and s/p cervical spinal fusion - patient was getting chemotherapy for his cancer but it has been stopped as WBC is very low. -Oncology in [place] is following patient 2. R femora tibial prosthetic bypass in 2018 3. R femoral prosthetic graft infection; Resolved - wound healing very quickly - CT scan with the diagnosis infected graft 4. 10-01-24; Operation/Proced ure BYPASS FEMORAL TIBIAL WITH GRAFT, Excision of infected right femoral to tibial bypass graft- At surgery a Grossly infected PTFE graft in the lower leg. The graft occluded. The graft was excised off what appeared to be the tibioperoneal trunk. 5. wound culture MSSA (Vanc, Doxy) 6. Antibiotics; Day # 36 10-30-24 continue IV Dapto, fortaz (start date 10-02-24) AET 11-12-24 - duration of therapy 6 weeks IV, followed by a PO continuation phase determined by cultured species of bacteria 11-06-24; Send in [facility] 10-14-24 W 4.38, Cotton Jammer 0.7, CRP 3.0 (Ref range 0.0-4.9) [facility] 10-22-24 W 3.41, Cotton Jammer 0.8 10-23-24 CRP 2.42 10-28-24 W 2.00, Cotton Jammer 0.7, CRP 31.[address] ref range 0.0-4.9) 10-30-24 W3.0, Cotton Jammer .71, CRP 1.05, PLT 86 11-06-24; W 3.58, Cotton Jammer 0.8, Crp 6.7 ([facility] ref range) Follow up; 1 week w/labs 10/23/2024 Vascular graft infection, 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 74 yo white male with a history of DM, stage 4 lung cancer on chemotherapy, Left BKA, s/p femoral-tibial bypass, and s/p cervical spinal fusion 2. R femora tibial prosthetic bypass in 2018 3. 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 - CT scan with the diagnosis infected graft 4. 10-01-24; Operation/Proced ure BYPASS FEMORAL TIBIAL WITH GRAFT, Excision of infected right femoral to tibial bypass graft- At surgery a Grossly infected PTFE graft in the lower leg. The graft occluded. The graft was excised off what appeared to be the tibioperoneal trunk. 5. wound culture MSSA (Vanc, Doxy) -10-23-24 wound has granulation tissue and is healing slowly 6. Antibiotics; post-op day# 10-23-24 continue IV Dapto, fortaz (start date 10-02-24) AET 11-12-24 - duration of therapy 6 weeks IV, followed by a PO continuation phase determined by cultured species of bacteria 7. The patient is getting chemotherapy for his cancer Labs 10-06-24 W 2.4, Cotton Jammer .75, CRP .77 10-07-24 W 2.8, Cotton Jammer .79, CRP <.50 10-14-24 W 4.38, Cotton Jammer 0.7, CRP 3.0 (Ref range 0.0-4.9) [facility] 10-22-24 W 3.41, Cotton Jammer 0.8, CRP not done Follow up;1 week Mary Parada 09/26/2024 Essential hypertension (ICD-10 - I10) 08/28/2024 Lung cancer (ICD-10 - C34.90) Follow-up with oncologist. 05/01/2024 Aortic stenosis (ICD-10 - I35.0) Echo showed mild to moderate aortic stenosis with mild regurgitation. Follow-up with serial echocardiogram. 05/01/2024 Nonrheumatic aortic (valve) insufficiency (ICD-10 - I35.1) 08/28/2024 Aortic stenosis (ICD-10 - I35.0) Echo showed mild to moderate aortic stenosis with mild regurgitation. Follow-up with serial echocardiogram. 09/13/2024 Essential hypertension (ICD-10 - I10) 09/26/2024 Hyperlipemia (ICD-10 - E78.5) 02/19/2025 CAD (coronary artery disease) (ICD-10 - I25.10) CAD is based on the CT calcium score. Denied any chest pain or chest pressure. Continue to monitor. Continue aspirin and statin therapy. 02/19/2025 Aortic stenosis (ICD-10 - I35.0) Echo showed mild to moderate aortic stenosis with mild regurgitation. Follow-up with serial echocardiogram. 09/13/2024 SOB (shortness of breath) (ICD-10 - R06.02) 09/26/2024 Type 2 diabetes mellitus without complications (ICD-10 - E11.9) 08/28/2024 Nonrheumatic aortic (valve) insufficiency (ICD-10 - I35.1) 05/01/2024 PVD (peripheral vascular disease) (ICD-10 - I73.9) Refer to vascular surgery. Continue aspirin and continue Crestor 10 05/01/2024 Essential hypertension (ICD-10 - I10) Blood pressure is reasonable. Continue current medication. 09/26/2024 SOB (shortness of breath) (ICD-10 - R06.02) 08/28/2024 PVD (peripheral vascular disease) (ICD-10 - I73.9) Continue aspirin and continue Crestor 10 02/19/2025 Nonrheumatic aortic (valve) insufficiency (ICD-10 - I35.1) 09/26/2024 Atherosclerosis of artery of right lower extremity (ICD-10 - I70.201) 05/01/2024 Hyperlipemia (ICD-10 - E78.5) Continue aspirin and statin therapy. He is scheduled to have CT calcium score next week 08/28/2024 Essential hypertension (ICD-10 - I10) Blood pressure is reasonable. Continue current medication. 02/19/2025 PVD (peripheral vascular disease) (ICD-10 - I73.9) Continue aspirin and continue Crestor 10 Follow-up with vascular surgery DrNikolas Montes 08/28/2024 Hyperlipemia (ICD-10 - E78.5) Continue aspirin and statin therapy. He was supposed to get a CT calcium score since her last appointment. However the patient has not completed yet. We talked about the benefit of CT calcium score. 05/01/2024 Type 2 diabetes mellitus without complications (ICD-10 - E11.9) Managed by primary care provider. 09/26/2024 COPD (chronic obstructive pulmonary disease) (ICD-10 - J44.9) 02/19/2025 Essential hypertension (ICD-10 - I10) Blood pressure is reasonable. Continue current medication. 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 05/01/2024 Former smoker (ICD-10 - Z87.891) 02/19/2025 Hyperlipemia (ICD-10 - E78.5) Continue aspirin and statin therapy. Patient has CAD based on the CT calcium score. However the patient denied any chest pain or chest pressure. Continue to monitor. The patient has stage IV lung cancer has been on treatment with chemotherapy. For now let him focus on the treatment of lung cancer. 08/28/2024 Former smoker (ICD-10 - Z87.891) 09/26/2024 shelter (current) use of antithrombotics/a ntiplatelets (ICD-10 - Z79.02) 02/19/2025 Type 2 diabetes mellitus without complications (ICD-10 - E11.9) Managed by primary care provider. 02/19/2025 Former smoker (ICD-10 - Z87.891) 05/01/2024 Other Patient has a soft systolic murmur on examination. Obtain echocardiogram. Denied any chest pain shortness of breath palpitation. Jose Arreaga am scribing for Naresh Swanson MD. Naresh Arreaga MD, personally performed the services prescribed in this documentatio n, as scribed by Jose Hurtado and it is both accurate and complete. 08/28/2024 Other Jose Arreaga am scribing for Naresh Swanson MD. Naresh Arreaga MD, personally performed the services prescribed in this documentatio n, as scribed by Jose Hurtado and it is both accurate and complete. 10/16/2024 Other Hospital records reviewed, medication list reviewed and reconciled 1. 74 yo white male with a history of DM, stage 4 lung cancer on chemotherapy, Left BKA, s/p femoral-tibial bypass, and s/p cervical spinal fusion 2. R femora tibial prosthetic bypass in 2019 3. 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 - CT scan with the diagnosis infected graft 4. 10-01-24; Operation/Proced ure BYPASS FEMORAL TIBIAL WITH GRAFT, Excision of infected right femoral to tibial bypass graft- At surgery a Grossly infected PTFE graft in the lower leg. The graft occluded. The graft was excised off what appeared to be the tibioperoneal trunk. 5. wound culture MSSA (Vanc, Doxy) 6. Antibiotics post-op day #15: Dapto, fortaz - duration of therapy 6 weeks IV, followed by a PO continuation phase determined by cultured species of bacteria EOT; 11-12-24 7. LABS; W 4.38, Cotton Jammer 0.7, Crp 3.0 8. The patient is getting chemotherapy for his cancer, and scheduled for his next infusion this coming Monday Continue antibiotics, bring wound VAC supplies at next week's appointment for removal and assessment 02/19/2025 Other Teodora Arreaga medical anthropology director, am scribing for Naresh Swanson MD. I, Naresh Swanson MD, personally performed the services described in this documentatio n, as scribed by Teodora Doe in my presence, and it is both accurate and complete. Plan Of Treatment Pending Test Test Name Order Date ABORh 90785, 53289 09/26/2024 Antibody Screen 92040 09/26/2024 Blood Urea Nitrogen (BUN) 33032 09/06/19 CBC w\ Auto Diff 29485 11/06/2024 CBC w\ Auto Diff 81899 12/25/2024 CBC w\ Auto Diff 70779 04/02/2025 CBC w\ Auto Diff 27493 01/08/2025 Comprehensive Metabolic Panel (CMP) 8005 3 12/25/2024 Comprehensive Metabolic Panel (CMP) 8005 3 01/08/2025 Comprehensive Metabolic Panel (CMP) 8005 3 11/06/2024 Comprehensive Metabolic Panel (CMP) 8005 3 04/02/2025 Creatinine (B) 20695 09/05/2024 CRP 53965 12/25/2024 CRP 57612 11/06/2024 CRP 88414 01/08/2025 CRP 96794 04/02/2025 Electrocardiogram 12 Lead Tracing (EKG)- 38364 09/26/2024 PRBC-LR--[id number] 09/26/2024 Electrocardiogram (EKG) - 87004 02/01/20 Next Appt Details Provider Name:Dereck bowman, 05/28/2025 01:45:00 PM, [address] [place] [address] [address] [place], [place], [address], Provider Name:Diego abraham, 05/28/2025 02:00:00 PM, [address] [place] [address] [address], [place], [address], Provider Name:Naresh cardozo, 08/20/2025 01:15:00 PM, [address], [place], [address], Insurance Providers Payer Name Payer Address Payer Phone Subscriber Number Group Number Insured Name Patient Relationship to Insured Coverage Start Date Coverage End Date [employer] [address] [place]WS [phone] [id number] NANCY UREÑA Self - patient is the insured Medical (General) History Medical History History ICD Code knee replacement prostate surgery LL amputation Bypass RL Covid vaccine - no Surgical History Surgery Date(Month/Year) Neck Fusion Knee replacement prostate surgery LL amputation Bypass RL bypass femoral tibial w/ graft 10/07/2024 Hospitalization History Reason Date(Month/Year) [facility] Vomiting from Chemo 01/05 24 SEE ABOVE
--- OUTSIDE RECORDS SUMMARY | 2025-04-11 23:28 | XMS_ITS | Encounter Summary ---
Author Organization [facility] Address [address] [place] [address] Care Team Providers Care Irrigation Worker Name Role Phone Roberto Soares MD Primary Care Provider + Encounter Details Date Type Department Care Team (Latest Contact Info) Description 09/23/2003 [facility] [address] [phone] Kassie Nguyen MD [address] [place] [address] HEARING LOSS NOS (Primary Dx); ACTINIC KERATOSIS Social History Tobacco Use Types Packs/Day Years Used Date Smoking Tobacco: Never Assessed Sex and Gender Information Value Date Recorded Sex Assigned at Not on file 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
--- OUTSIDE RECORDS SUMMARY | 2025-04-11 23:28 | XMS_ITS | Encounter Summary ---
Author Organization [facility] Address [address] [place] [address] Care Team Providers Care Touch Up Painter Hand Name Role Phone Roberto Soares MD Primary Care Provider + Encounter Details Date Type Department Care Team (Latest Contact Info) Description 06/12/2000 Outpatient Historical [facility] Medicine[address] [address] Hesham Vazquez MD [address] [phone] Obesity, unspecified (Primary Dx) Social History Tobacco Use Types Packs/Day Years Used Date Smoking Tobacco: Never Assessed Sex and Gender Information Value Date Recorded Sex Assigned at Not on file 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
--- OUTSIDE RECORDS SUMMARY | 2025-04-11 23:28 | XMS_ITS | Encounter Summary ---
Author Organization [facility] Address [address] [place] [address] Care Team Providers Care Cafeteria Counter Attendant Name Role Phone Roberto Soares MD Primary Care Provider + Encounter Details Date Type Department Care Team (Latest Contact Info) Description 11/17/2003 Outpatient Historical [facility] Medicine- [address] [phone] Kassie Nguyen MD [address] [place] [address] SWELLING OF LIMB (Primary Dx); Pain in limb Social History Tobacco Use Types Packs/Day Years Used Date Smoking Tobacco: Never Assessed Sex and Gender Information Value Date Recorded Sex Assigned at Not on file 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
--- OUTSIDE RECORDS SUMMARY | 2025-04-11 23:28 | XMS_ITS | Encounter Summary ---
Author Organization [facility] Address [address] [place] [address] Care Team Providers Care Peer Financial Counselor Name Role Phone Roberto Soares MD Primary Care Provider + Encounter Details Date Type Department Care Team (Latest Contact Info) Description 12/02/2002 Outpatient Historical [facility] Medicine- [address] [phone] Omero Galvez MD [address] [place] [address] TEAR MENISCUS NEC-CURRENT (Primary Dx) Social History Tobacco Use Types Packs/Day Years Used Date Smoking Tobacco: Never Assessed Sex and Gender Information Value Date Recorded Sex Assigned at Not on file 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
--- OUTSIDE RECORDS SUMMARY | 2025-04-11 23:28 | XMS_ITS | Encounter Summary ---
Author Organization [facility] Address [address] [place] [address] Care Team Providers Care Slip Sheeter Name Role Phone Roberto Soares MD Primary Care Provider + Encounter Details Date Type Department Care Team (Latest Contact Info) Description 12/11/2002 Outpatient Historical [facility] Medicine[address] [address] Omero Galvez MD [address] [place] [address] SPRAIN OF KNEE & LEG NOS (Primary Dx); OSTEOARTHROS NOS-UNSPEC Social History Tobacco Use Types Packs/Day Years Used Date Smoking Tobacco: Never Assessed Sex and Gender Information Value Date Recorded Sex Assigned at Not on file 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
--- OUTSIDE RECORDS SUMMARY | 2025-04-11 23:28 | XMS_ITS | Encounter Summary ---
Author Organization [facility] Address [address] [place] [address] Care Team Providers Care Goal Umpire Name Role Phone Roberto Soares MD Primary Care Provider + Encounter Details Date Type Department Care Team (Latest Contact Info) Description 12/02/2003 Outpatient Historical [facility] Medicine[address] [address] Kassie Nguyen MD [address] [place] [address] VENOUS THROMBOSIS NOS (CMS/HCC) (Primary Dx) Social History Tobacco Use Types Packs/Day Years Used Date Smoking Tobacco: Never Assessed Sex and Gender Information Value Date Recorded Sex Assigned at Not on file 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
--- OUTSIDE RECORDS SUMMARY | 2025-04-11 23:28 | XMS_ITS | Encounter Summary ---
Author Organization [facility] Address [address] [place] [address] Care Team Providers Care Top Cleaner Name Role Phone Roberto Soares MD Primary Care Provider + Encounter Details Date Type Department Care Team (Latest Contact Info) Description 06/07/1999 Outpatient Historical [facility] Medicine- [address] [address] Hesham Vazquez MD [address] [address] Malig janice skin trunk (Primary Dx); Attention to dressings and sutures Social History Tobacco Use Types Packs/Day Years Used Date Smoking Tobacco: Never Assessed Sex and Gender Information Value Date Recorded Sex Assigned at Not on file 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
--- NOTE | 2025-04-11 23:30 | W.ED.GENADLT ---
HPI - General Adult General: Chief complaint: Shortness of Breath/Dyspnea Stated complaint: RESP DISTRESS History of Present Illness: 75-year-old male presents emergency room acute respiratory distress patient has oxygen saturations on 4 L per nasal cannula in the upper 70s. Patient has extensive non-small cell lung CA recent PET scan showed prominent worsening with mets to bone liver and lungs. Patient has been progressively worsening over the last 2 to 3 days. Related Data Home Medications ?Medication ?Instructions ?Recorded ?Confirmed aspirin 81 mg tablet,delayed 81 mg PO DAILY 04/22/19 04/08/25 release atenolol 25 mg tablet 25 mg PO DAILY 07/06/23 04/08/25 blood sugar diagnostic (Accu-Chek 07/06/23 04/08/25 Guide test strips) cholecalciferol (vitamin D3) 50 50 mcg PO DAILY 07/06/23 04/08/25 mcg (2,000 unit) capsule cyclobenzaprine 5 mg tablet 10 mg PO BID PRN muscle spasm 07/06/23 04/08/25 diclofenac sodium 1 % topical gel 2 g topical QID PRN Pain 07/06/23 04/08/25 empagliflozin 10 mg tablet 25 mg PO DAILY 07/06/23 04/08/25 (Jardiance) lancets (Accu-Chek Softclix 07/06/23 04/08/25 Lancets) omega 0-kbf-rot-fish oil 1,000 mg 1 cap PO BID 07/06/23 04/08/25 (120 mg-180 mg) capsule (Fish Oil) Held on 10/29/24. Instructions: due to surgery rosuvastatin 5 mg tablet 5 mg PO DAILY 07/06/23 04/08/25 lorazepam 1 mg tablet 1 mg PO Q6H PRN 03/18/25 04/08/25 Previous Rx's ?Medication ?Instructions ?Recorded Diabetic Shoes with 3 pairs of #1 ea 05/07/20 custom inserts Diabetic shoes ith molded inserts #1 ea 03/30/21 Custom Orthotics #1 ea 10/12/22 custom molded accommodative #1 ea 04/12/23 orthotic to the right foot calcitonin (salmon) 200 1 spray intranasal (ALT) DAILY 12/23/24 unit/actuation nasal spray Acute back pain #3.7 mL levofloxacin 500 mg tablet 500 mg PO DAILY 7 days #7 tabs 01/29/25 trazodone 50 mg tablet 50 mg PO .COMPLEX PRN insomnia #60 01/30/25 tabs hydromorphone 4 mg tablet 4 mg PO Q8H PRN pain 30 days #90 03/04/25 (Dilaudid) tabs ondansetron HCl 4 mg tablet 4 mg PO Q6H PRN nausea and 03/11/25 vomiting #60 tabs prochlorperazine maleate 10 mg 10 mg PO Q4H PRN Mild Nausea #30 03/18/25 tablet (Compazine) tabs dexamethasone 0.5 mg/5 mL oral 0.5 mg (5 mL) PO Q6H #500 mL 04/01/25 solution diphenoxylate-atropine 2.5 1 tab PO TID PRN diarrhea #30 tabs 04/03/25 mg-0.025 mg tablet (Lomotil) megestrol 400 mg/10 mL (40 mg/mL) 800 mg (20 mL) PO DAILY 30 days 04/08/25 oral suspension #600 mL Allergies Allergy/AdvReac Type Severity Reaction Status Date / Time ragweed pollen Allergy Intermediate ALGY-Sneezi Verified 04/11/25 23:39 ng love Allergy Mild ALGY-Nasal Verified 04/11/25 23:39 Discharge/congestion pollen extracts Allergy Mild ALGY-Nasal Verified 04/11/25 23:39 Discharge/congestion tree and shrub pollen Allergy Mild ALGY-Nasal Verified 04/11/25 23:39 Discharge/congestion Review of Systems General: Reports: ROS unobtainable due to medical condition and ROS unobtainable due to mental status PFSH ED PFSH: Medical History Right knee sprain Hyperlipidemia Type 2 diabetes mellitus Non-small cell lung cancer Peripheral arterial disease History of nonmelanoma skin cancer UTI (urinary tract infection) 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 Hypertension 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 Surgical History Hx of total knee arthroplasty Port-A-Cath in place 09/18/23 Dr Grabiel Laura Port-A-Cath H/O transurethral resection of prostate History of below-knee amputation of left lower extremity History of cataract extraction with lens replacement History of fusion of cervical spine History of knee replacement Bilateral S/P femoral-popliteal bypass surgery History of peripheral artery bypass Family History Father Family history of premature coronary artery disease Hyperlipidemia Hypertension Mother Diabetes Congestive heart failure (CHF) Sister Congestive heart failure (CHF) Brother Agent orange exposure Social History Smoking and tobacco/nicotine status: never used tobacco/nicotine Alcohol intake: former Former alcohol use details: Occasional alcohol use in the past Substance/Drug Use: never Household members: spouse Marital status: Physical Exam HENMT: COMMON NORMALS: normocephalic, atraumatic and hearing grossly normal bilaterally HEAD & SCALP: normocephalic and atraumatic Resp: EFFORT & INSPECTION: Yes tachypneic and Yes respiratory distress AUSCULTATION: diminished lung sounds Cardio: RATE: tachycardic GI: COMMON NORMALS: Soft to palpation and No hepatosplenomegaly present AUSCULTATION: Yes normoactive bowel sounds PALPATION: Yes Soft to palpation, No Tenderness to palpation present (GI), No Guarding due to palpation present (GI) and Yes No hepatosplenomegaly present Skin: COMMON NORMALS: no rashes or lesions noted GENERAL SKIN EXAM: no rashes or lesions noted Course Vital Signs: Vital signs: Vital Signs Temperature 97.7 F 04/11/25 23:16 Pulse Rate 64 04/11/25 23:16 Respiratory Rate 28 H 04/11/25 23:16 Pulse Oximetry 78 L 04/11/25 23:16 Oxygen Delivery Me thod Nasal Cannula 04/11/25 23:16 MDM - General Adult Medical Decision Making Medical decision making Social determinants: Patient has extensive non-small cell lung cancer unable to answer questions history from old records sent from his . No family nearby I reviewed the patient's medical record. I reviewed the patient's current home meds. Alternate historians: at the bedside Differential diagnosis: Pleural effusion pneumonia sepsis advancing metastatic non-small cell lung cancer acute respiratory failure Lab Review: [] Imaging: No acute findings on chest x-ray right hilar mass still noted Assessment of risk Level of risk: High Hospitalization considerations: Hospice Reexamination: Acute respiratory failure progressive Assessment and plan: Family at the bedside and a daughter who we talked to on the phone with the all confirm he does not want to be intubated. Patient indicated he did not wish to be intubated however by that when he arrived here he was rather lethargic given the pH and his blood gases do not know as he fully understands the discussion. Family states that they have had this discussion he did not want to be kept alive on machines. Reviewing his chart and his oncology notes he been progressively worsening is not responding well to treatment. At this point without intubation I do not believe we could improve his outcome to get him to return home. Even with intubation given his overall history of be very difficult. Family confirms they prefer comfort care. Will initiate comfort care. At this time I do not know that he would be stable enough even to be transferred home plus given the late hour of the day we would not be able to get resources to them to help with hospice overnight. Lab Data 04/11/25 23:47 04/11/25 23:47 Radiology Impressions Chest X-Ray 04/11/25 23:11 IMPRESSION: No acute findings. Laboratory Results WBC 20.27 10^3/uL (3.29-11.43) H 04/11/25 23:47 RBC 3.69 10^6/uL (3.85-5.65) L 04/11/25 23:47 Hgb 10.90 g/dL (11.27-16.99) L 04/11/25 23:47 Hct 37.1 % (37-53) 04/11/25 23:47 MCV 100.5 fl (82-101) 04/11/25 23:47 MCH 29.5 pg (27-33) 04/11/25 23:47 MCHC 29.4 g/dL (30-55) L 04/11/25 23:47 RDW 16.8 % (12.1-15.1) H 04/11/25 23:47 Plt Count 237 10^3/cmm (157-399) 04/11/25 23:47 MPV 10.3 fL (7.4-10.4) 04/11/25 23:47 Neut % (Auto) 79.8 % 04/11/25 23:47 Lymph % (Auto) 4.6 % 04/11/25 23:47 Davidson % (Auto) 12.1 % 04/11/25 23:47 Eos % (Auto) 0.0 % 04/11/25 23:47 Baso % (Auto) 0.5 % 04/11/25 23:47 Neut # (Auto) 16.15 10^3/uL (1.8-7.7) H 04/11/25 23:47 Lymph # (Auto) 0.9 10^3/uL (0.8-4.8) 04/11/25 23:47 Davidson # (Auto) 2.5 10^3/uL (0.2-0.9) H 04/11/25 23:47 Eos # (Auto) 0.0 10^3/uL (0.0-0.8) 04/11/25 23:47 Baso # (Auto) 0.1 10^3/uL (0.0-0.1) 04/11/25 23:47 Nucleated RBC % (auto) 1.0 % 04/11/25 23:47 Nucleated RBCs # 0.2 /100WBC 04/11/25 23:47 Specimen Type Arterial 04/11/25 23:48 Sample Site Radial, left 04/11/25 23:48 ABG pH 6.98 (7.35-7.45) L* 04/11/25 23:48 ABG pCO2 44.9 mmHg (35-45) 04/11/25 23:48 ABG pO2 54.2 mmHg (80.0-100.0) L 04/11/25 23:48 ABG PO2/FiO2 Ratio 60 04/11/25 23:48 ABG HCO3 10.5 mmol/L (22-26) L 04/11/25 23:48 ABG O2 Saturation 67.4 04/11/25 23:48 ABG Base Excess -20.6 mmol/L (-2.0-2.0) L 04/11/25 23:48 Gregorio Test Pos 04/11/25 23:48 A-a O2 Gradient 68.8 mmHg (5-10) H 04/11/25 23:48 Hematocrit 35.2 % (42-52) L 04/11/25 23:48 Hgb O2 Saturation 66.4 % (95-100) L 04/11/25 23:48 Carboxyhemoglobin 1.0 %THgb (0.4-20.1) 04/11/25 23:48 Methemoglobin 0.6 % (0.4-1.5) 04/11/25 23:48 Total Hemoglobin 11.5 g/dL (14-18) L 04/11/25 23:48 Sodium 127.0 mmol/L (131-143) L 04/11/25 23:48 Potassium 5.7 mmol/L (3.5-5.0) H 04/11/25 23:48 Glucose 127.0 mg/dL (70-115) H 04/11/25 23:48 Ionized Calcium 1.0 mmol/L (1.1-1.4) L 04/11/25 23:48 O2 Delivery Device Nrb 04/11/25 23:48 O2 Liters/Min 15.0 % 04/11/25 23:48 FiO2 90.0 % 04/11/25 23:48 Progressive Die Maker ID [id number] 04/11/25 23:48 Sodium 128 mmol/L (136-145) L 04/11/25 23:47 Potassium 6.5 mmol/L (3.5-5.1) H* 04/11/25 23:47 Chloride 89 mmol/L (98-107) L 04/11/25 23:47 Carbon Dioxide 12 mmol/L (22-29) L 04/11/25 23:47 Anion Gap 33.5 (5-19) H 04/11/25 23:47 BUN 37 mg/dL (8-23) H 04/11/25 23:47 Creatinine 1.9 mg/dL (0.7-1.2) H 04/11/25 23:47 GFR Calculation Not Reportable 04/11/25 23:47 Glucose 152 mg/dL (65-115) H 04/11/25 23:47 Calculated Osmolality 278 mOsm/kg (285-295) L 04/11/25 23:47 Lactic Acid 14.9 mmol/L (0.5-2.2) H* 04/11/25 23:47 Calcium 7.8 mg/dL (8.5-10.5) L 04/11/25 23:47 Total Bilirubin 0.7 mg/dL (0.15-1.2) 04/11/25 23:47 AST 53 U/L (0-40) H 04/11/25 23:47 ALT 28 U/L (0-41) 04/11/25 23:47 Alkaline Phosphatase 147 U/L (40-130) H 04/11/25 23:47 Total Protein 6.5 g/dL (6.6-8.7) L 04/11/25 23:47 Albumin 2.9 g/dL (3.5-5.2) L 04/11/25 23:47 Globulin 3.6 g/dL (1.3-4.6) 04/11/25 23:47 Influenza A (PCR) Negative (Negative) 04/11/25 23:54 Influenza Type B (PCR) Negative (Negative) 04/11/25 23:54 RSV (PCR) Negative (Negative) 04/11/25 23:54 SARS-CoV-2 (PCR) Negative (Negative) 04/11/25 23:54 All radiology interpretation(s) finalized by discharge Discharge Plan Discharge Patient Disposition: Placed in Observation Clinical Impression: Adenocarcinoma of hilum of right lung, Metastasis to bone Coding Level of Care Code ED Project Management Engineer for Sampson Bradford
[2025-04-12 00:14] LABS: ABG PCO2 44.9 mmHg (35-45); Alveolar-Arterial Oxygen Gradi 68.8 mmHg (5-10); Arterial Blood Gas Hematocrit 35.2 % (42-52); Blood Gas Allen Test Pos; Blood Gas LPM 15.0 %; Blood Gas Operator Identificat gerca; Blood Gas Sample Site Radial, left; Blood Gas Sample Type Arterial; Carboxyhemoglobin 1.0 %THgb (0.4-20.1); Glucose Level-ABG 127.0 mg/dL (70-115); HCO3 ABG 10.5 mmol/L (22-26); Ionized Calcium Level - ABG 1.0 mmol/L (1.1-1.4); Methemoglobin 0.6 % (0.4-1.5); Oxygen Saturation ABG 67.4; PO2 ABG 54.2 mmHg (80.0-100.0); PO2 FiO2 Ratio Arterial Blood 60; Potassium Level - ABG 5.7 mmol/L (3.5-5.0); Sodium Level - ABG 127.0 mmol/L (131-143)
[2025-04-12 00:28] LABS: ABG PH Result 6.98 (7.35-7.45)
[2025-04-12] MEDS: LORazepam 2 mg/mL INJ 1 mL 1 MG IVP (00:34)
[2025-04-12 00:35] LABS: Respiratory Syncytial Virus Ce NEGATIVE (Negative); SARS-CoV-2 PCR NEGATIVE (Negative)
[2025-04-12 00:38] LABS: Hematocrit 37.1 % (37-53); Hemoglobin 10.90 g/dL (11.27-16.99); Mean Corpuscular HGB Conc 29.4 g/dL (30-55); Mean Corpuscular Hemoglobin 29.5 pg (27-33); Mean Corpuscular Volume 100.5 fl (82-101); Nucleated Red Blood Cells % 1.0 %; Platelet Count 237 10^3/cmm (157-399); Red Blood Count 3.69 10^6/uL (3.85-5.65); White Blood Count 20.27 10^3/uL (3.29-11.43)
[2025-04-12] MEDS: morphine 4 mg/mL SDV 1 mL 2 MG IVP (00:38)
[2025-04-12 00:43] LABS: Alanine Aminotransferase 28 U/L (0-41); Albumin Level 2.9 g/dL (3.5-5.2); Alkaline Phosphatase 147 U/L (40-130); Blood Urea Nitrogen 37 mg/dL (8-23); Calcium 7.8 mg/dL (8.5-10.5); Carbon Dioxide 12 mmol/L (22-29); Chloride 89 mmol/L (98-107); Globulin 3.6 g/dL (1.3-4.6); Glucose 152 mg/dL (65-115); Osmolality Calculated 278 mOsm/kg (285-295); Sodium 128 mmol/L (136-145); Total Protein 6.5 g/dL (6.6-8.7)
[2025-04-12 00:45] LABS: Anion Gap 33.5 (5-19); Aspartate Amino Transferase 53 U/L (0-40)
[2025-04-12 00:46] LABS: Lactic Sepsis W/Reflex 14.9 mmol/L (0.5-2.2); Potassium 6.5 mmol/L (3.5-5.1)
[2025-04-12 00:49] VITALS: BP 54/43; PULSE 95; O2SAT 72
[2025-04-12 01:15] VITALS: PULSE 90; RESP 24
--- NOTE | 2025-04-12 01:37 | PM.HP ---
Providers/Chief Complaint Primary Care Provider: AAMIR Valverde Chief Complaint: RESP DISTRESS History of Present Illness Robbie Penny is a 75 year old male with history significant for metastatic small cell lung cancer, who presented with complaints of respiratory distress. History is gathered from patient's spouse as the patient is unable to provide history due to his current clinical condition. Spouse mentions that the patient has had a loss of strength over the past few weeks along with decreased appetite and vomiting. Overall, patient has been felt to be slowing down over the past few days. On day of presentation, he was experiencing significant respiratory distress and so he has been delivered to our facility for further evaluation and management. Medications/Allergies Home Medications ?Medication ?Instructions ?Recorded ?Confirmed ?Last Taken ?Type aspirin 81 mg tablet,delayed 81 mg PO DAILY 04/22/19 04/08/25 02/07/24 History release Diabetic Shoes with 3 pairs of #1 ea 05/07/20 04/08/25 09/15/23 Rx custom inserts Diabetic shoes ith molded inserts #1 03/30/21 04/08/25 09/15/23 Rx Custom Orthotics #1 ea 10/12/22 04/08/25 02/07/24 Rx custom molded accommodative #1 ea 04/12/23 04/08/25 02/07/24 Rx orthotic to the right foot atenolol 25 mg tablet 25 mg PO DAILY 07/06/23 04/08/25 02/07/24 History blood sugar diagnostic (Accu-Chek 07/06/23 04/08/25 02/07/24 History Guide test strips) cholecalciferol (vitamin D3) 50 50 mcg PO DAILY 07/06/23 04/08/25 02/07/24 History mcg (2,000 unit) capsule cyclobenzaprine 5 mg tablet 10 mg PO BID PRN muscle spasm 07/06/23 04/08/25 09/18/23 History diclofenac sodium 1 % topical gel 2 g topical QID PRN Pain 07/06/23 04/08/25 09/15/23 History empagliflozin 10 mg tablet 25 mg PO DAILY 07/06/23 04/08/25 02/06/24 History (Jardiance) lancets (Accu-Chek Softclix 07/06/23 04/08/25 09/15/23 History Lancets) omega 0-xpz-eta-fish oil 1,000 mg 1 cap PO BID 07/06/23 04/08/25 02/06/24 History (120 mg-180 mg) capsule (Fish Oil) Held on 10/29/24. Instructions: due to surgery rosuvastatin 5 mg tablet 5 mg PO DAILY 07/06/23 04/08/25 02/07/24 History calcitonin (salmon) 200 1 spray intranasal (ALT) DAILY 12/23/24 04/08/25 Unknown Rx unit/actuation nasal spray Acute back pain #3.7 mL levofloxacin 500 mg tablet 500 mg PO DAILY 7 days #7 tabs 01/29/25 04/08/25 Unknown Rx trazodone 50 mg tablet 50 mg PO .COMPLEX PRN insomnia #60 01/30/25 04/08/25 Unknown Rx tabs hydromorphone 4 mg tablet 4 mg PO Q8H PRN pain 30 days #90 03/04/25 04/08/25 Unknown Rx (Dilaudid) tabs ondansetron HCl 4 mg tablet 4 mg PO Q6H PRN nausea and 03/11/25 04/08/25 Unknown Rx vomiting #60 tabs lorazepam 1 mg tablet 1 mg PO Q6H PRN 03/18/25 04/08/25 Unknown History prochlorperazine maleate 10 mg 10 mg PO Q4H PRN Mild Nausea #30 03/18/25 04/08/25 Unknown Rx tablet (Compazine) tabs dexamethasone 0.5 mg/5 mL oral 0.5 mg (5 mL) PO Q6H #500 mL 04/01/25 04/08/25 Unknown Rx solution diphenoxylate-atropine 2.5 1 tab PO TID PRN diarrhea #30 tabs 04/03/25 04/08/25 Unknown Rx mg-0.025 mg tablet (Lomotil) megestrol 400 mg/10 mL (40 mg/mL) 800 mg (20 mL) PO DAILY 30 days 04/08/25 04/08/25 Unknown Rx oral suspension #600 mL Allergies Allergy/AdvReac Type Severity Reaction Status Date / Time ragweed pollen Allergy Intermediate ALGY-Sneezi Verified 04/11/25 23:39 ng love Allergy Mild ALGY-Nasal Verified 04/11/25 23:39 Discharge/congestion pollen extracts Allergy Mild ALGY-Nasal Verified 04/11/25 23:39 Discharge/congestion tree and shrub pollen Allergy Mild ALGY-Nasal Verified 04/11/25 23:39 Discharge/congestion PFSH Acute PFSH: Medical History (Updated 04/13/25 @ 01:31 by Lewis Rivera MD) Right knee sprain Hyperlipidemia Type 2 diabetes mellitus Non-small cell lung cancer Peripheral arterial disease History of nonmelanoma skin cancer UTI (urinary tract infection) 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 Hypertension 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 Surgical History Hx of total knee arthroplasty Port-A-Cath in place 09/18/23 Dr Grabiel Laura Port-A-Cath H/O transurethral resection of prostate History of below-knee amputation of left lower extremity History of cataract extraction with lens replacement History of fusion of cervical spine History of knee replacement Bilateral S/P femoral-popliteal bypass surgery History of peripheral artery bypass Family History Father Family history of premature coronary artery disease Hyperlipidemia Hypertension Mother Diabetes Congestive heart failure (CHF) Sister Congestive heart failure (CHF) Brother Agent orange exposure Social History Smoking and tobacco/nicotine status: never used tobacco/nicotine Alcohol intake: former Former alcohol use details: Occasional alcohol use in the past Substance/Drug Use: never Household members: spouse Marital status: Vitals/I&O/Wt Last Vital Signs Temp 97.7 F 04/11/25 23:16 Pulse 90 04/12/25 01:15 Resp 24 H 04/12/25 01:15 BP 54/43 04/12/25 00:49 Pulse Ox 72 L 04/12/25 00:49 O2 Del Method Non-Rebreather 04/12/25 00:49 O2 Flow Rate 15 04/12/25 00:49 04/11/25 04/11/25 04/12/25 14:59 22:59 06:59 Intake Total 0 / 0 Balance 0 / 0 Weight last 48 hrs Weight 72.575 kg Physical Exam Const: OTHER: In acute distress. Appears obtunded. Resp: OTHER: Tachypneic with labored breathing. Cardio: OTHER: Regular rate and rhythm. No murmurs, gallops Neuro: OTHER: Obtunded Data 04/11/25 23:47 04/11/25 23:47 Micro: Microbiology 04/11/25 23:47 Blood Culture - Preliminary Blood SPECIMEN COLLECTED A&P Assessment and plan 1. Encounter for end of life care: Plan: Metastatic small cell lung cancer And discussion with spouse, current goals are for comfort only. Thus, no further investigations will be conducted. Comfort care orderset ordered. I got the impression family would prefer home with hospice. I defer to the day attending on the appropriateness of transfer home given his clinical condition if he survives the night PDMP PDMP Reviewed: Not Reviewed Attestations Medical Necessity Statement*: Patient thought to need less than 2 midnight stay in the hospital for management of end-of-life care Coding Level of Care Code Acute Code for Chg Fwd Diagnoses Encounter for end of life care Z51.5
[2025-04-12 01:54] LABS: Reflex Lactate Order REFLEX LACTIC ORDERD
[2025-04-12] MEDS: morphine 4 mg/mL SDV 1 mL IVP (02:51)
--- NOTE | 2025-04-12 04:23 | PC.NURSE ---
Family called me in around 3:40 am to let me know patient was having periods of apnea. I was unable to palpate a femoral pulse. I applied telemetry and noted one final beat before patient went into asystole. I notified ER provider who came to assess patient. LINDSEY declared at [id number].
--- NOTE | 2025-04-12 04:46 | PC.NURSE ---
[address] [facility] Coroner Ehsan Smiley has been notified of patient in ER. Mr. Smiley has released the body.
--- NOTE | 2025-04-12 04:47 | PC.NURSE ---
0436 [facility] has been notified of patient in the ER. [facility] has released the body. Still holding for [facility] at this time.
--- NOTE | 2025-04-12 05:44 | PC.NURSE ---
0538 [facility] has released patient.
--- NOTE | 2025-04-12 06:26 | PC.NURSE ---
Patient was taken to the morgue wearing a silver wedding band on the ring finger of his left hand. Pt's also instructed us to throw away the pt's [facility] cargo shorts.
== END 2025-04-12 06:45 | disposition still patient (30) ==
PROVIDERS: Emergency Provider Family Medicine; PCP Nurse Practitioner
DX: C34.01 Malignant neoplasm of right main bronchus (principal); C79.51 Secondary malignant neoplasm of bone; Z11.52 Encounter for screening for COVID-19; E78.5 Hyperlipidemia, unspecified; E11.9 Type 2 diabetes mellitus without complications; I10 Essential (primary) hypertension; Z85.828 Personal history of other malignant neoplasm of skin; Z79.82 Long term (current) use of aspirin
CPT/HCPCS: 36600; 71045; 80051; 80053; 82330; 82805; 83605; 85025; 87040; 87637; 93005; 96374; 96375; 96376; 99285; J2060; J2270; J9999